=== PATIENT | male | born 1975 | race Caucasian/White ===

== ENCOUNTER 2018-04-25 14:41 | Inpatient (IN) | payer BC ==
[2018-04-25] MEDS ORDERED: Sodium Chloride 0.9% 1,000 ML IV ONE ×2 (15:28→16:57)
[2018-04-25] MEDS ORDERED: Ondansetron 4 MG/2 ML SDV IVPUSH ONE (15:29)
[2018-04-25] MEDS ORDERED: HYDROmorphone 0.5 MG/0.5 ML SYRINGE IVPUSH ONE (15:29)
[2018-04-25] MEDS ORDERED: Sodium Chloride 0.9% 10 ML Syringe FLUSH PRN (15:32)
--- NOTE | 2018-04-25 15:47 | EDM.PDOC ---
ED HPI GENERAL MEDICAL PROBLEM - General Chief Complaint: Lower Extremity Injury/Pain Stated Complaint: RIGHT FOOT INJURY Time Seen by Provider: 04/25/18 15:17 Source of Information: Reports: Patient History Limitations: Reports: No Limitations - History of Present Illness INITIAL COMMENTS - FREE TEXT/NARRATIVE: 42-year-old male presents for is sent over from the walk-in clinic for cellulitis. Patient was seen there. [place] he needed admission with IV antibiotics and possible debridement. Dr. Masterson, hospitalist, and Dr. Tamez, surgeon production department supervisor, were contacted; instructed to come to the ER. patient reports the initial injury was a blister to the ball of his right foot. He reports he was walking around [place] 2 weeks ago when he developed this blister. Symptoms have steadily been worsening. He currently has an open ulcerative area to the ball of his right foot. He has drainage from the area. He denies any fevers but states he is getting chills. He has been feeling nauseous and did vomit earlier today. Reports no numbness or tingling to the area but he is experiencing a throbbing pain to the right foot. Has been icing the foot and taking an aspirin. No history of this. No history of MRSA. No history of diabetes. PCP is Dr. Choudhary, reports he has not seen him in several years. Right Feet Pain Score (Numeric/FACES): 8 - Related Data Allergies Allergy/AdvReac Type Severity Reaction Status Date / Time No Known Allergies Allergy Verified 04/25/18 18:04 Home Meds: Home Meds . [No Known Home Meds] 04/25/18 [History] Past Medical History - Past Health History Medical/Surgical History: Denies Medical/Surgical History Social & Family History - Family History Family Medical History: Noncontributory - Tobacco Use Smoking Status *Q: Never Smoker - Recreational Drug Use Recreational Drug Use: No Review of Systems - Review of Systems Review Of Systems: See Below Constitutional: Reports: Chills. Denies: Fever GI/Abdominal: Reports: Nausea, Vomiting Musculoskeletal: Reports: Foot Pain (Right), Joint Swelling (Right foot) Skin: Reports: Erythema (Right foot), Wound (Ball of right foot has an open ulcer lesion with drainage) Neurological: Denies: Numbness, Tingling ED EXAM, GENERAL - Physical Exam Exam: See Below Exam Limited By: No Limitations General Appearance: Alert, WD/WN, No Apparent Distress Respiratory/Chest: No Respiratory Distress, Lungs Clear, Normal Breath Sounds Cardiovascular: Normal Peripheral Pulses, No Murmur, Tachycardia Peripheral Pulses: 2+: Posterior Tibial (L), Dorsalis Pedis (L), 3+: Posterior Tibial (R), Dorsalis Pedis (R) Extremities: Other (Approximately 6 cm x 4 cm ulcerative draining wound to the ball of the right foot. Entire right foot is erythematous and warm to touch. Coughing skin present to the right lateral third toe. Cellulitis extends to approximately the ankle. Tender to palpation) Neurological: Alert, Oriented, Normal Cognition Psychiatric: Normal Affect, Normal Mood Skin Exam: Erythema (Right foot), Increased Warmth (Right foot), Wound/Incision (Ball of right foot, draining prurlent Material) Course - Vital Signs Last Recorded V/S: Last Vital Signs Temp 99.3 F 04/25/18 21:44 Pulse 107 H 04/25/18 21:44 Resp 20 04/25/18 21:44 BP 132/73 04/25/18 21:44 Pulse Ox 98 04/25/18 21:44 - Orders/Labs/Meds Orders: Active Orders 24 hr Category Date Time Status Foot Comp Min 3V Rt [CR] Stat Exams 04/25/18 15:29 Taken CULTURE ANAEROBIC + SMEAR [RM] Stat Lab 04/25/18 15:56 Received CULTURE BLOOD [BC] Stat Lab 04/25/18 15:50 Received CULTURE BLOOD [BC] Stat Lab 04/25/18 15:55 Received CULTURE WOUND [RM] Stat Lab 04/25/18 15:56 Received Sodium Chloride 0.9% [Saline Flush] Med 04/25/18 15:32 Active 10 ml FLUSH ASDIRECTED PRN Blood Culture x2 Reflex Set [OM.PC] Stat Oth 04/25/18 15:29 Ordered Peripheral IV Insertion Adult [OM.PC] Routine Oth 04/25/18 15:32 Ordered Medication Orders Acetaminophen (Tylenol) 650 mg PO Q4H PRN PRN Reason: Pain (Mild 1-3)/fever Hydrocodone Bitart/Acetaminophen (Adrian 325-5 Mg) 1 tab PO Q4H PRN PRN Reason: Pain (moderate 4-6) Albuterol/Ipratropium (Duoneb 3.0-0.5 Mg/3 Ml) 3 ml NEB Q4H PRN PRN Reason: Shortness Of Breath/wheezing Aspirin (Aspirin) 81 mg PO BEDTIME [facility] Last Admin: 04/25/18 22:45 Dose: 81 mg Bisacodyl (Dulcolax) 5 mg PO DAILY PRN PRN Reason: Constipation Docusate Sodium (Colace) 100 mg PO BID PRN PRN Reason: Constipation Enoxaparin Sodium (Lovenox) 40 mg SUBCUT DAILY [facility] Fentanyl (Sublimaze) 50 mcg IVPUSH Q5M PRN PRN Reason: Pain Glipizide (Glucotrol Xl) 5 mg PO BIDMEALS [facility] Last Admin: 04/25/18 22:54 Dose: 5 mg Hydromorphone HCl (Dilaudid) 0.5 mg IVPUSH Q4H PRN PRN Reason: Pain (severe 7-10) Hydromorphone HCl (Dilaudid) 0.5 mg IVPUSH ONETIME PRN PRN Reason: Pain (severe 7-10) Promethazine HCl 12.5 mg/ (Sodium Chloride) 50.5 mls @ 100 mls/hr IV Q6H PRN PRN Reason: Nausea/Vomiting Vancomycin HCl 1 gm/ Sodium (Chloride) 250 mls @ 250 mls/hr IV Q8H [facility] Last Admin: 04/25/18 23:00 Dose: 250 mls/hr Piperacillin Sod/Tazobactam (Sod 4.5 gm/ Sodium Chloride) 100 mls @ 25 mls/hr IV Q8H [facility] Clindamycin Phosphate 900 mg/ (Sodium Chloride) 106 mls @ 100 mls/hr IV Q8H [facility] Last Admin: 04/25/18 22:42 Dose: Insulin Human Lispro (Humalog) 0 unit SUBCUT QIDACANDBED [facility]; Protocol Last Admin: 04/25/18 22:43 Dose: 4 units Admin: 04/25/18 18:21 Dose: 6 units Lisinopril (Prinivil) 10 mg PO DAILY [facility] Lorazepam (Ativan) 1 mg IV Q6H PRN PRN Reason: Nausea/Vomiting Metformin HCl (Glucophage) 500 mg PO BIDMEALS [facility] Ondansetron HCl (Zofran) 4 mg IV Q6H PRN PRN Reason: Nausea/Vomiting Ondansetron HCl (Zofran) 4 mg IVPUSH ONETIME PRN PRN Reason: Nausea/Vomiting Polyethylene Glycol (Miralax) 17 gm PO DAILY PRN PRN Reason: Constipation Saccharomyces Boulardii (Florastor) 250 mg PO DAILY [facility] Senna/Docusate Sodium (Senna Plus) 1 tab PO BID PRN PRN Reason: Constipation Sodium Chloride (Saline Flush) 10 ml FLUSH ASDIRECTED PRN PRN Reason: Keep Vein Open Last Admin: 04/25/18 16:00 Dose: 10 ml Temazepam (Restoril) 15 mg PO BEDTIME PRN PRN Reason: Sleep Vancomycin HCl (Pharmacy To Dose - Vancomycin) 1 dose .XX ASDIRECTED [facility] Labs: Laboratory Tests 04/25/18 04/25/18 04/25/18 Range/Units 15:50 15:50 15:50 WBC 18.92 H (4.23-9.07) K/mm3 RBC 4.99 (4.63-6.08) M/mm3 Hgb 13.9 (13.7-17.5) gm/L Hct 39.6 L (40.1-51.0) % MCV 79.4 (79.0-92.2) fl MCH 27.9 (25.7-32.2) pg MCHC 35.1 (32.2-35.5) g/dl RDW Std Deviation 36.7 (35.1-43.9) fL Plt Count 312 (163-337) K/mm3 MPV 9.1 L (9.4-12.3) fl Neutrophils % (Manual) 86 H (40-60) % Band Neutrophils % 0 (0-10) % Lymphocytes % (Manual) 11 L (20-40) % Atypical Lymphs % 0 % Monocytes % (Manual) 3 (2-10) % Eosinophils % (Manual) 0 L (0.8-7.0) % Basophils % (Manual) 0 L (0.2-1.2) Platelet Estimate Adequate RBC Morph Comment Normal Sodium 131 L (136-145) mEq/L Potassium 3.8 (3.5-5.1) mEq/L Chloride 95 L (98-107) mEq/L Carbon Dioxide 26 (21-32) mEq/L Anion Gap 13.8 (5-15) BUN 12 (7-18) mg/dL Creatinine 1.0 (0.7-1.3) mg/dL Est Cr Clr Drug Dosing 85.95 mL/min Estimated GFR (MDRD) > 60 (>60) mL/min BUN/Creatinine Ratio 12.0 L (14-18) Glucose 355 H (74-106) mg/dL Hemoglobin A1c (4.50-6.20) % Lactic Acid 1.7 (0.4-2.0) mmol/L Calcium 8.9 (8.5-10.1) mg/dL Total Bilirubin 0.5 (0.2-1.0) mg/dL AST 24 (15-37) U/L ALT 41 (16-63) U/L Alkaline Phosphatase 147 H (46-116) U/L C-Reactive Protein 36.0 H* (<1.0) mg/dL Total Protein 7.7 (6.4-8.2) g/dl Albumin 2.5 L (3.4-5.0) g/dl Globulin 5.2 gm/dL Albumin/Globulin Ratio 0.5 L (1-2) Free T4 (0.76-1.46) ng/dL TSH 3rd Generation (0.358-3.74) uIU/mL 04/25/18 04/25/18 Range/Units 15:50 15:50 WBC (4.23-9.07) K/mm3 RBC (4.63-6.08) M/mm3 Hgb (13.7-17.5) gm/L Hct (40.1-51.0) % MCV (79.0-92.2) fl MCH (25.7-32.2) pg MCHC (32.2-35.5) g/dl RDW Std Deviation (35.1-43.9) fL Plt Count (163-337) K/mm3 MPV (9.4-12.3) fl Neutrophils % (Manual) (40-60) % Band Neutrophils % (0-10) % Lymphocytes % (Manual) (20-40) % Atypical Lymphs % % Monocytes % (Manual) (2-10) % Eosinophils % (Manual) (0.8-7.0) % Basophils % (Manual) (0.2-1.2) Platelet Estimate RBC Morph Comment Sodium (136-145) mEq/L Potassium (3.5-5.1) mEq/L Chloride (98-107) mEq/L Carbon Dioxide (21-32) mEq/L Anion Gap (5-15) BUN (7-18) mg/dL Creatinine (0.7-1.3) mg/dL Est Cr Clr Drug Dosing mL/min Estimated GFR (MDRD) (>60) mL/min BUN/Creatinine Ratio (14-18) Glucose (74-106) mg/dL Hemoglobin A1c 11.80 H (4.50-6.20) % Lactic Acid (0.4-2.0) mmol/L Calcium (8.5-10.1) mg/dL Total Bilirubin (0.2-1.0) mg/dL AST (15-37) U/L ALT (16-63) U/L Alkaline Phosphatase (46-116) U/L C-Reactive Protein (<1.0) mg/dL Total Protein (6.4-8.2) g/dl Albumin (3.4-5.0) g/dl Globulin gm/dL Albumin/Globulin Ratio (1-2) Free T4 1.26 (0.76-1.46) ng/dL TSH 3rd Generation 0.788 (0.358-3.74) uIU/mL Meds: Medications Generic Name Dose Route Start Last Admin Trade Name Freq PRN Reason Stop Dose Admin Acetaminophen 650 mg 04/25/18 17:41 Tylenol PO Q4H PRN Pain (Mild 1-3)/fever Hydrocodone Bitart/Acetaminophen 1 tab 04/25/18 17:41 Adrian 325-5 Mg PO Q4H PRN Pain (moderate 4-6) Albuterol/Ipratropium 3 ml 04/25/18 17:41 Duoneb 3.0-0.5 Mg/3 Ml NEB Q4H PRN Shortness Of Breath/wheezing Aspirin 81 mg 04/25/18 21:00 04/25/18 22:45 Aspirin PO 81 mg BEDTIME [facility] Administration Bisacodyl 5 mg 04/25/18 17:41 Dulcolax PO DAILY PRN Constipation Docusate Sodium 100 mg 04/25/18 17:41 Colace PO BID PRN Constipation Enoxaparin Sodium 40 mg 04/26/18 09:00 Lovenox SUBCUT DAILY [facility] Fentanyl 50 mcg 04/25/18 19:26 Sublimaze IVPUSH Q5M PRN Pain Glipizide 5 mg 04/25/18 18:00 04/25/18 22:54 Glucotrol Xl PO 5 mg BIDMEALS [facility] Administration Hydromorphone HCl 0.5 mg 04/25/18 17:41 Dilaudid IVPUSH Q4H PRN Pain (severe 7-10) Hydromorphone HCl 0.5 mg 04/25/18 19:26 Dilaudid IVPUSH ONETIME PRN Pain (severe 7-10) Promethazine HCl 12.5 mg/ 50.5 mls @ 100 mls/hr 04/25/18 17:41 Sodium Chloride IV Q6H PRN Nausea/Vomiting Vancomycin HCl 1 gm/ Sodium 250 mls @ 250 mls/hr 04/26/18 00:00 04/25/18 23: 00 Chloride IV 250 mls/hr Q8H [facility] Administration Piperacillin Sod/Tazobactam 100 mls @ 25 mls/hr 04/26/18 00:00 Sod 4.5 gm/ Sodium Chloride IV Q8H [facility] Clindamycin Phosphate 900 mg/ 106 mls @ 100 mls/hr 04/25/18 19:00 04/25/18 22 :42 Sodium Chloride IV Not Given Q8H [facility] Insulin Human Lispro 0 unit 04/25/18 22:00 04/25/18 22:43 Humalog SUBCUT 4 units QIDACANDBED [facility] Administration Protocol Lisinopril 10 mg 04/26/18 09:00 Prinivil PO DAILY [facility] Lorazepam 1 mg 04/25/18 17:41 Ativan IV Q6H PRN Nausea/Vomiting Metformin HCl 500 mg 04/26/18 07:00 Glucophage PO BIDMEALS [facility] Ondansetron HCl 4 mg 04/25/18 17:41 Zofran IV Q6H PRN Nausea/Vomiting Ondansetron HCl 4 mg 04/25/18 19:26 Zofran IVPUSH ONETIME PRN Nausea/Vomiting Polyethylene Glycol 17 gm 04/25/18 17:41 Miralax PO DAILY PRN Constipation Saccharomyces Boulardii 250 mg 04/26/18 09:00 Florastor PO DAILY [facility] Senna/Docusate Sodium 1 tab 04/25/18 17:41 Senna Plus PO BID PRN Constipation Sodium Chloride 10 ml 04/25/18 15:32 04/25/18 16:00 Saline Flush FLUSH 10 ml ASDIRECTED PRN Administration Keep Vein Open Temazepam 15 mg 04/25/18 17:41 Restoril PO BEDTIME PRN Sleep Vancomycin HCl 1 dose 04/25/18 17:45 Pharmacy To Dose - Vancomycin .XX ASDIRECTED [facility] Discontinued Medications Generic Name Dose Route Start Last Admin Trade Name Freq PRN Reason Stop Dose Admin Bupivacaine HCl Confirm 04/25/18 18:22 04/25/18 19:53 Marcaine 0.5% Administered 04/25/18 18:23 1.5 ml Dose Administration 30 ml .ROUTE .STK-MED ONE Clindamycin Phosphate Confirm 04/25/18 19:10 Cleocin Administered 04/25/18 19:11 Dose 900 mg .ROUTE .STK-MED ONE Fentanyl Confirm 04/25/18 18:37 Sublimaze Administered 04/25/18 18:38 Dose 250 mcg .ROUTE .STK-MED ONE Hydromorphone HCl 0.5 mg 04/25/18 15:29 04/25/18 16:01 Dilaudid IVPUSH 04/25/18 15:30 0.5 mg ONETIME ONE Administration Hydromorphone HCl Confirm 04/25/18 19:02 Dilaudid Administered 04/25/18 19:03 Dose 1 mg .ROUTE .STK-MED ONE Sodium Chloride 1,000 mls @ 999 mls/hr 04/25/18 15:28 04/25/18 15:59 Normal Saline IV 04/25/18 16:28 999 mls/hr ONETIME ONE Administration Vancomycin HCl 1 gm/ Sodium 250 mls @ 250 mls/hr 04/25/18 15:37 04/25/18 16: 10 Chloride IV 04/25/18 16:36 250 mls/hr ONETIME ONE Administration Vancomycin HCl 1 gm/ Sodium 250 mls @ 250 mls/hr 04/25/18 15:38 04/25/18 17: 09 Chloride IV 04/25/18 16:37 250 mls/hr ONETIME ONE Administration Sodium Chloride 1,000 mls @ 999 mls/hr 04/25/18 16:57 04/25/18 17:09 Normal Saline IV 04/25/18 17:57 999 mls/hr ONETIME ONE Administration Piperacillin Sod/Tazobactam 100 mls @ 200 mls/hr 04/25/18 17:55 04/25/18 18: 18 Sod 4.5 gm/ Sodium Chloride IV 04/25/18 18:24 200 mls/hr ONETIME ONE Administration Lidocaine HCl Confirm 04/25/18 18:37 Xylocaine-Mpf 1% Administered 04/25/18 18:38 Dose 4 mls @ as directed .ROUTE .STK-MED ONE Sodium Chloride Confirm 04/25/18 19:10 Normal Saline Administered 04/25/18 19:11 Dose 100 mls @ as directed .ROUTE .STK-MED ONE Ketamine HCl Confirm 04/25/18 19:10 Ketalar Administered 04/25/18 19:11 Dose 500 mg .ROUTE .STK-MED ONE Lidocaine/Epinephrine Confirm 04/25/18 18:22 04/25/18 19:53 Xylocaine 1% With Epinephrine 1:100,000 Administered 04/25/18 18:23 1.5 ml Dose Administration 20 ml .ROUTE .STK-MED ONE Metformin HCl 500 mg 04/25/18 23:00 Glucophage PO 04/25/18 23:01 ONETIME ONE Midazolam HCl Confirm 04/25/18 18:37 Versed 1 Mg/Ml Administered 04/25/18 18:38 Dose 2 mg .ROUTE .STK-MED ONE Ondansetron HCl 4 mg 04/25/18 15:29 04/25/18 16:03 Zofran IVPUSH 04/25/18 15:30 4 mg ONETIME ONE Administration Ondansetron HCl Confirm 04/25/18 18:37 Zofran Administered 04/25/18 18:38 Dose 4 mg .ROUTE .STK-MED ONE Propofol Confirm 04/25/18 18:37 Diprivan 20 Ml Administered 04/25/18 18:38 Dose 200 mg .ROUTE .STK-MED ONE Succinylcholine Chloride Confirm 04/25/18 18:37 Succinylcholine In Ns Pf Administered 04/25/18 18:38 Dose 100 mg .ROUTE .STK-MED ONE Vancomycin HCl 1,190.685 mg 04/25/18 17:45 04/25/18 18:15 Vancomycin 15 mg/kg (1190.685 mg) Not Given IV Q12H [facility] - Radiology Interpretation Free Text/Narrative:: X-ray of the right foot does not show any obvious osteomyelitis. No obvious air within the soft tissues appreciated - Re-Assessments/Exams Free Text/Narrative Re-Assessment/Exam: 04/25/18 17:06 Dr. Tamez has come into the patient in the ED. Does not feel that he needs debridement at this time is recommended admission for IV antibiotics. Case discussed with Dr. Masterson, hospice on-call, agrees to the admission. White blood cell count is elevated. Lactic acid is within normal limits. Awaiting further labs. At this time the remainder of the labs have returned. His blood sugar is elevated at 355. A1c added onto labs. I discussed the labs and imaging with the patient; he has been told he is a diabetic. He has been seeing Dr. Choudhary as his primary care but has been several years since he is seeing him. No family history of any diabetes. 04/25/18 18:05 Joi has return to the ED. Concerns over his labs with his sodium being low and his blood sugar being so high. He is at higher risk for necrotizing soft tissue. He would like to go to the OR now for debridement. IV Zosyn added on to orders. Anesthesia was like an EKG. Will recheck his sugar now that he has had 2 L of fluid and follow insulin recommendations. Departure - Departure Time of Disposition: 18:10 Disposition: Admitted As Inpatient 65 Condition: Serious Clinical Impression: Cellulitis Qualifiers: Site of cellulitis: extremity Site of cellulitis of extremity: lower extremity Laterality: right Qualified Code(s): L03.115 - Cellulitis of right lower limb Diabetes mellitus Qualifiers: Diabetes mellitus type: type 2 Diabetes mellitus complication detail: with foot ulcer - Discharge Information *PRESCRIPTION DRUG MONITORING PROGRAM REVIEWED*: No *COPY OF PRESCRIPTION DRUG MONITORING REPORT IN PATIENT SHAYLEE: No - My Orders Last 24 Hours: My Active Orders 04/25/18 15:29 Foot Comp Min 3V Rt [CR] Stat Blood Culture x2 Reflex Set [OM.PC] Stat 04/25/18 15:32 Sodium Chloride 0.9% [Saline Flush] 10 ml FLUSH ASDIRECTED PRN Peripheral IV Insertion Adult [OM.PC] Routine 04/25/18 15:50 CULTURE BLOOD [BC] Stat 04/25/18 15:55 CULTURE BLOOD [BC] Stat 04/25/18 15:56 CULTURE ANAEROBIC + SMEAR [RM] Stat CULTURE WOUND [RM] Stat - Assessment/Plan Last 24 Hours: My Active Orders 04/25/18 15:29 Foot Comp Min 3V Rt [CR] Stat Blood Culture x2 Reflex Set [OM.PC] Stat 04/25/18 15:32 Sodium Chloride 0.9% [Saline Flush] 10 ml FLUSH ASDIRECTED PRN Peripheral IV Insertion Adult [OM.PC] Routine 04/25/18 15:50 CULTURE BLOOD [BC] Stat 04/25/18 15:55 CULTURE BLOOD [BC] Stat 04/25/18 15:56 CULTURE ANAEROBIC + SMEAR [RM] Stat CULTURE WOUND [RM] Stat
[2018-04-25] MEDS ORDERED: metFORMIN 500 MG Tab PO ONE ×3 (17:40→23:00)
[2018-04-25] MEDS ORDERED: LORazepam 2 MG/ML SDV IV PRN (17:41)
[2018-04-25] MEDS ORDERED: Temazepam 15 MG Cap PO PRN (17:41)
[2018-04-25] MEDS ORDERED: Promethazine 12.5 MG in Sodium Chloride 0.9% 50 ML IV PRN (17:41)
[2018-04-25] MEDS ORDERED: Bisacodyl 5 MG Tab PO PRN (17:41)
[2018-04-25] MEDS ORDERED: Polyethylene Glycol 3350 Powder 17 GM Packet PO PRN (17:41)
[2018-04-25] MEDS ORDERED: Albuterol/Ipratropium 3.0-0.5 MG/3 ML Neb Soln NEB PRN (17:41)
[2018-04-25] MEDS ORDERED: Acetaminophen 325 MG Tab PO PRN (17:41)
[2018-04-25] MEDS ORDERED: Docusate Sodium 100 MG Cap PO PRN (17:41)
[2018-04-25] MEDS ORDERED: Vancomycin 500 MG SDV IV SCH (17:45)
[2018-04-25] MEDS ORDERED: Piperacillin/Tazobactam 4.5 GM in Sodium Chloride 0.9% 100 ML IV ONE (17:55)
[2018-04-25] MEDS: Insulin Lispro 100 Unit/ML 3 ML KwikPen SUBCUT SCH ×2 (18:21→22:43)
[2018-04-25] MEDS ORDERED: Bupivacaine 0.5% 30 ML SDV ONE (18:22)
[2018-04-25] MEDS ORDERED: Lidocaine 1% with EPINEPHrine 1:100,000 20 ML MDV ONE (18:22)
--- NOTE | 2018-04-25 18:25 | PCM.HP ---
<Cynthia Gustafson - Last Filed: 04/25/18 18:55> H&P History of Present Illness - General Date of Service: 04/25/18 Admit Problem/Dx: Admission Diagnosis/Problem Admission Diagnosis/Problem Cellulitis Source of Information: Patient History Limitations: Reports: No Limitations - History of Present Illness Initial Comments - Free Text/Narative: 42 y/o male presented to the [id number] 04[facility]25/18 with right foot pain. He was referred to the ER due to suspected cellulitis and anticipated need for debridement and IV antibiotics. Dr. Masterson, hospitalist, and Dr. Tamez, surgeon, were notified. Patient reports the initial injury was a blister to the ball of his right foot. He reports he was walking around [place] 2 weeks ago when he developed this blister. Symptoms have steadily been worsening. He currently has an open ulcerative area to the ball of his right foot. He has drainage from the area. He denies any fevers but states he is getting chills. He has been feeling nauseous and did vomit earlier today. Reports no numbness or tingling to the area but he is experiencing a throbbing pain to the right foot. Has been icing the foot and taking an aspirin. He has not experienced this previously. No history of MRSA. No history of diabetes. Labs drawn in the ER display high WBC (18.92) and high neutrophils (86). Sodium is low at 131 and choride low at 95. CRP is highly elevated at 36. Labs also show elevated glucose (355) and HbgA1c (11.8). Patient was informed that he has diabetes. He expresses some confusion regarding the diagnosis but admits he has not been to a doctor for years. He denies any family history of diabetes. Other tests done in the ER include blood cultures and right foot x-ray. We are awaiting these results. He was given vancomycin, dilaudid, zofran, and saline in the ER. He has now been admitted to the floor for management of his cellulitis and diabetes, including IV antibiotics, diabetes medications, and surgical debridement. Onset of Symptoms: Reports: Gradual Duration of Symptoms: Reports: Week(s): Location: Reports: Lower Extremity, Right Quality: Reports: Throbbing Severity: Severe Associated Symptoms: Reports: Fever/Chills (reports chills but not fever), Nausea/Vomiting Right Feet Pain Score (Numeric/FACES): 8 - Related Data Allergies/Adverse Reactions: Allergies Allergy/AdvReac Type Severity Reaction Status Date / Time No Known Allergies Allergy Verified 04/25/18 18:04 Home Medications: Home Meds . [No Known Home Meds] 04/25/18 [History] Past Medical History - Past Health History Medical/Surgical History: Denies Medical/Surgical History Endocrine/Metabolic History: Reports: Diabetes, Type II, Other (See Below) Other Endocrine/Metabolic History: new diagnosis diabetes Dermatologic History: Reports: Cellulitis, Other (See Below) Other Dermatologic History: diagnosis of diabetes Social & Family History - Family History Family Medical History: Noncontributory - Tobacco Use Smoking Status *Q: Never Smoker - Recreational Drug Use Recreational Drug Use: No H&P Review of Systems - Review of Systems: Review Of Systems: See Below General: Reports: Chills HEENT: Reports: No Symptoms Pulmonary: Reports: No Symptoms Cardiovascular: Reports: No Symptoms Gastrointestinal: Reports: No Symptoms Genitourinary: Reports: No Symptoms Musculoskeletal: Reports: Foot Pain (right) Skin: Reports: Wound (ulcer on bottom right foot) Psychiatric: Reports: No Symptoms Neurological: Reports: No Symptoms Hematologic/Lymphatic: Reports: No Symptoms Immunologic: Reports: No Symptoms Exam - Exam Exam: See Below - Vital Signs Vital Signs: Last Vital Signs Temp 97.5 F 04/25/18 15:07 Pulse 106 H 04/25/18 15:07 Resp 16 04/25/18 15:07 BP 125/74 04/25/18 15:07 Pulse Ox 100 04/25/18 15:07 Weight: 79.379 kg - Exam Quality Assessment: Skin Breakdown (right foot ulcer) Neck: Supple, Trachea Midline Lungs: Clear to Auscultation, Normal Respiratory Effort GI/Abdominal Exam: Normal Bowel Sounds, Soft, Non-Tender Back Exam: Normal Inspection, Full Range of Motion Extremities: Normal Range of Motion, Leg Pain (r. foot), Increased Warmth (r. foot), Redness (r. foot) Peripheral Pulses: 2+: Radial (L), Radial (R), Posterior Tibial (L), Posterior Tibial (R) Skin: Wound (r. foot) Neuro Extensive - Mental Status: Alert, Normal Mood/Affect Psychiatric: Alert, Normal Affect, Normal Mood - Patient Data Lab Results Last 24 hrs: Laboratory Results - last 24 hr 04/25/18 04/25/18 04/25/18 Range/Units 15:50 15:50 15:50 WBC 18.92 H (4.23-9.07) K/mm3 RBC 4.99 (4.63-6.08) M/mm3 Hgb 13.9 (13.7-17.5) gm/L Hct 39.6 L (40.1-51.0) % MCV 79.4 (79.0-92.2) fl MCH 27.9 (25.7-32.2) pg MCHC 35.1 (32.2-35.5) g/dl RDW Std Deviation 36.7 (35.1-43.9) fL Plt Count 312 (163-337) K/mm3 MPV 9.1 L (9.4-12.3) fl Neutrophils % (Manual) 86 H (40-60) % Band Neutrophils % 0 (0-10) % Lymphocytes % (Manual) 11 L (20-40) % Atypical Lymphs % 0 % Monocytes % (Manual) 3 (2-10) % Eosinophils % (Manual) 0 L (0.8-7.0) % Basophils % (Manual) 0 L (0.2-1.2) Platelet Estimate Adequate RBC Morph Comment Normal Sodium 131 L (136-145) mEq/L Potassium 3.8 (3.5-5.1) mEq/L Chloride 95 L (98-107) mEq/L Carbon Dioxide 26 (21-32) mEq/L Anion Gap 13.8 (5-15) BUN 12 (7-18) mg/dL Creatinine 1.0 (0.7-1.3) mg/dL Est Cr Clr Drug Dosing 85.95 mL/min Estimated GFR (MDRD) > 60 (>60) mL/min BUN/Creatinine Ratio 12.0 L (14-18) Glucose 355 H (74-106) mg/dL Hemoglobin A1c (4.50-6.20) % Lactic Acid 1.7 (0.4-2.0) mmol/L Calcium 8.9 (8.5-10.1) mg/dL Total Bilirubin 0.5 (0.2-1.0) mg/dL AST 24 (15-37) U/L ALT 41 (16-63) U/L Alkaline Phosphatase 147 H (46-116) U/L C-Reactive Protein 36.0 H* (<1.0) mg/dL Total Protein 7.7 (6.4-8.2) g/dl Albumin 2.5 L (3.4-5.0) g/dl Globulin 5.2 gm/dL Albumin/Globulin Ratio 0.5 L (1-2) Ur Random Microalbumin (1.3-20.0) mg/L 04/25/18 04/25/18 Range/Units 15:50 17:17 WBC (4.23-9.07) K/mm3 RBC (4.63-6.08) M/mm3 Hgb (13.7-17.5) gm/L Hct (40.1-51.0) % MCV (79.0-92.2) fl MCH (25.7-32.2) pg MCHC (32.2-35.5) g/dl RDW Std Deviation (35.1-43.9) fL Plt Count (163-337) K/mm3 MPV (9.4-12.3) fl Neutrophils % (Manual) (40-60) % Band Neutrophils % (0-10) % Lymphocytes % (Manual) (20-40) % Atypical Lymphs % % Monocytes % (Manual) (2-10) % Eosinophils % (Manual) (0.8-7.0) % Basophils % (Manual) (0.2-1.2) Platelet Estimate RBC Morph Comment Sodium (136-145) mEq/L Potassium (3.5-5.1) mEq/L Chloride (98-107) mEq/L Carbon Dioxide (21-32) mEq/L Anion Gap (5-15) BUN (7-18) mg/dL Creatinine (0.7-1.3) mg/dL Est Cr Clr Drug Dosing mL/min Estimated GFR (MDRD) (>60) mL/min BUN/Creatinine Ratio (14-18) Glucose (74-106) mg/dL Hemoglobin A1c 11.80 H (4.50-6.20) % Lactic Acid (0.4-2.0) mmol/L Calcium (8.5-10.1) mg/dL Total Bilirubin (0.2-1.0) mg/dL AST (15-37) U/L ALT (16-63) U/L Alkaline Phosphatase (46-116) U/L C-Reactive Protein (<1.0) mg/dL Total Protein (6.4-8.2) g/dl Albumin (3.4-5.0) g/dl Globulin gm/dL Albumin/Globulin Ratio (1-2) Ur Random Microalbumin 14.6 (1.3-20.0) mg/L Result Diagrams: 04/25/18 15:50 04/25/18 15:50 - Problem List (1) Cellulitis SNOMED Code(s): 583817708 ICD Code: L03.90 - CELLULITIS, UNSPECIFIED Status: Acute Current Visit: Yes Qualifiers: Site of cellulitis: extremity Site of cellulitis of extremity: lower extremity Laterality: right Qualified Code(s): L03.115 - Cellulitis of right lower limb (2) Diabetes mellitus SNOMED Code(s): 34975052 ICD Code: E11.9 - TYPE 2 DIABETES MELLITUS WITHOUT COMPLICATIONS Status: Acute Current Visit: Yes Qualifiers: Diabetes mellitus type: type 2 Diabetes mellitus complication detail: with foot ulcer Problem List Initiated/Reviewed/Updated: Yes Orders Last 24hrs: Active Orders 24 hr Category Date Time Status Patient Status [ADT] Routine ADT 04/25/18 16:57 Active Accu Check [Blood Glucose Check, Bedside] [] Care 04/25/18 17:39 Active QIDACANDBED Blood Glucose Check, Bedside [RC] ONETIME Care 04/25/18 17:59 Active Diabetes Education [RC] DAILY Care 04/25/18 17:39 Active EKG 12 Lead [EKG Documentation Completion] [RC] STAT Care 04/25/18 17:56 Active Height and Weight [RC] DAILY Care 04/25/18 17:41 Active Intake and Output [RC] QSHIFT Care 04/25/18 17:42 Active Oxygen Therapy [RC] PRN Care 04/25/18 17:42 Active Peripheral IV Care [RC] . DIRECTED Care 04/25/18 15:32 Active RT Aerosol Therapy [RC] ASDIRECTED Care 04/25/18 17:44 Active Up With Assistance [RC] ASDIRECTED Care 04/25/18 17:41 Active Up ad Nancy [RC] ASDIRECTED Care 04/25/18 17:41 Active VTE/DVT Education [RC] PER UNIT ROUTINE Care 04/25/18 17:42 Active Vital Signs [RC] Q4H Care 04/25/18 17:42 Active Consult to Case Management [CONS] Routine Cons 04/25/18 17:41 Active Consult to Diabetic Nurse Specialist [CONS] Routine Cons 04/25/18 17:39 Active Consult to Dietary [Consult to Licensed Reactor Operator] [CONS] Cons 04/25/18 17:39 Active Routine Consistent Carbohydrate Diet [DIET] Diet 04/25/18 Dinner Active Foot Comp Min 3V Rt [CR] Stat Exams 04/25/18 15:29 Taken BASIC METABOLIC PANEL,BMP [CHEM] AM Lab 04/26/18 05:11 Ordered BASIC METABOLIC PANEL,BMP [CHEM] AM Lab 04/27/18 05:11 Ordered BASIC METABOLIC PANEL,BMP [CHEM] AM Lab 04/28/18 05:11 Ordered BASIC METABOLIC PANEL,BMP [CHEM] AM Lab 04/29/18 05:11 Ordered BASIC METABOLIC PANEL,BMP [CHEM] AM Lab 04/30/18 05:11 Ordered BASIC METABOLIC PANEL,BMP [CHEM] AM Lab 05/01/18 05:11 Ordered C-REACTIVE PROTEIN [CHEM] AM Lab 04/26/18 05:11 Ordered C-REACTIVE PROTEIN [CHEM] AM Lab 04/27/18 05:11 Ordered C-REACTIVE PROTEIN [CHEM] AM Lab 04/28/18 05:11 Ordered C-REACTIVE PROTEIN [CHEM] AM Lab 04/29/18 05:11 Ordered C-REACTIVE PROTEIN [CHEM] AM Lab 04/30/18 05:11 Ordered C-REACTIVE PROTEIN [CHEM] AM Lab 05/01/18 05:11 Ordered CBC WITH AUTO DIFF [HEME] AM Lab 04/26/18 05:11 Ordered CBC WITH AUTO DIFF [HEME] AM Lab 04/27/18 05:11 Ordered CBC WITH AUTO DIFF [HEME] AM Lab 04/28/18 05:11 Ordered CBC WITH AUTO DIFF [HEME] AM Lab 04/29/18 05:11 Ordered CBC WITH AUTO DIFF [HEME] AM Lab 04/30/18 05:11 Ordered CBC WITH AUTO DIFF [HEME] AM Lab 05/01/18 05:11 Ordered CULTURE ANAEROBIC + SMEAR [RM] Stat Lab 04/25/18 15:56 Received CULTURE BLOOD [BC] Stat Lab 04/25/18 15:50 Received CULTURE BLOOD [BC] Stat Lab 04/25/18 15:55 Received CULTURE WOUND [RM] Stat Lab 04/25/18 15:56 Received LIPID PANEL [CHEM] AM Lab 04/26/18 05:11 Ordered MAGNESIUM [CHEM] AM Lab 04/26/18 05:11 Ordered MAGNESIUM [CHEM] AM Lab 04/27/18 05:11 Ordered MAGNESIUM [CHEM] AM Lab 04/28/18 05:11 Ordered MAGNESIUM [CHEM] AM Lab 04/29/18 05:11 Ordered MAGNESIUM [CHEM] AM Lab 04/30/18 05:11 Ordered MAGNESIUM [CHEM] AM Lab 05/01/18 05:11 Ordered MICROALBUMIN,URINE RANDOM [URCHEM] Urgent Lab 04/25/18 17:17 Ordered T4 FREE [CHEM] Urgent Lab 04/25/18 15:50 Received TSH [CHEM] Urgent Lab 04/25/18 15:50 Received UA W/MICROSCOPIC [URIN] Stat Lab 04/25/18 17:17 Received Acetaminophen [Tylenol] Med 04/25/18 17:41 Active 650 mg PO Q4H PRN Acetaminophen/HYDROcodone [[place] 325-5 MG] Med 04/25/18 17:41 Active 1 tab PO Q4H PRN Albuterol/Ipratropium [DuoNeb 3.0-0.5 MG/3 ML] Med 04/25/18 17:41 Active 3 ml NEB Q4H PRN Aspirin Med 04/25/18 21:00 Active 81 mg PO BEDTIME Bisacodyl [Dulcolax] Med 04/25/18 17:41 Active 5 mg PO DAILY PRN Docusate Sodium [Colace] Med 04/25/18 17:41 Active 100 mg PO BID PRN Docusate Sodium/Sennosides [Senna Plus] Med 04/25/18 17:41 Active 1 tab PO BID PRN Enoxaparin [Lovenox] Med 04/26/18 09:00 Active 40 mg SUBCUT DAILY HYDROmorphone [Dilaudid] Med 04/25/18 17:41 Active 0.5 mg IVPUSH Q4H PRN Insulin Lispro [HumaLOG] Med 04/25/18 22:00 Active See Protocol SUBCUT QIDACANDBED LORazepam [Ativan] Med 04/25/18 17:41 Active 1 mg IV Q6H PRN Lisinopril [Prinivil] Med 04/26/18 09:00 Active 10 mg PO DAILY Ondansetron [Zofran] Med 04/25/18 17:41 Active 4 mg IV Q6H PRN Piperacillin/Tazobactam [Zosyn] 4.5 gm Med 04/25/18 17:55 Active Sodium Chloride 0.9% [Normal Saline] 100 ml IV ONETIME Polyethylene Glycol 3350 [MiraLAX] Med 04/25/18 17:41 Active 17 gm PO DAILY PRN Promethazine [Phenergan] 12.5 mg Med 04/25/18 17:41 Active Sodium Chloride 0.9% [Normal Saline] 50 ml IV Q6H Saccharomyces Boulardii [Florastor] Med 04/26/18 09:00 Active 250 mg PO DAILY Sodium Chloride 0.9% [Saline Flush] Med 04/25/18 15:32 Active 10 ml FLUSH ASDIRECTED PRN Temazepam [Restoril] Med 04/25/18 17:41 Active 15 mg PO BEDTIME PRN Vancomycin Pharmacy to Dose [Pharmacy to Dose - Med 04/25/18 17:45 Ordered Vancomycin] 1 dose .XX ASDIRECTED Vancomycin [Vancocin] 1 gm Med 04/26/18 00:00 Active Sodium Chloride 0.9% [Normal Saline] 250 ml IV Q8H glipiZIDE [Glucotrol XL] Med 04/25/18 18:00 Active 5 mg PO BIDMEALS metFORMIN [Glucophage] Med 04/26/18 07:00 Active 500 mg PO BIDMEALS Blood Culture x2 Reflex Set [OM.PC] Stat Oth 04/25/18 15:29 Ordered Peripheral IV Insertion Adult [OM.PC] Routine Oth 04/25/18 15:32 Ordered Resuscitation Status Routine Resus Stat 04/25/18 17:41 Ordered Medication Orders Acetaminophen (Tylenol) 650 mg PO Q4H PRN PRN Reason: Pain (Mild 1-3)/fever Hydrocodone Bitart/Acetaminophen ([place] 325-5 Mg) 1 tab PO Q4H PRN PRN Reason: Pain (moderate 4-6) Albuterol/Ipratropium (Duoneb 3.0-0.5 Mg/3 Ml) 3 ml NEB Q4H PRN PRN Reason: Shortness Of Breath/wheezing Aspirin (Aspirin) 81 mg PO BEDTIME [facility] Bisacodyl (Dulcolax) 5 mg PO DAILY PRN PRN Reason: Constipation Docusate Sodium (Colace) 100 mg PO BID PRN PRN Reason: Constipation Enoxaparin Sodium (Lovenox) 40 mg SUBCUT DAILY [facility] Glipizide (Glucotrol Xl) 5 mg PO BIDMEALS [facility] Hydromorphone HCl (Dilaudid) 0.5 mg IVPUSH Q4H PRN PRN Reason: Pain (severe 7-10) Promethazine HCl 12.5 mg/ (Sodium Chloride) 50.5 mls @ 100 mls/hr IV Q6H PRN PRN Reason: Nausea/Vomiting Piperacillin Sod/Tazobactam (Sod 4.5 gm/ Sodium Chloride) 100 mls @ 200 mls/hr IV ONETIME ONE Stop: 04/25/18 18:24 Vancomycin HCl 1 gm/ Sodium (Chloride) 250 mls @ 250 mls/hr IV Q8H [facility] Insulin Human Lispro (Humalog) 0 unit SUBCUT QIDACANDBED [facility]; Protocol Lisinopril (Prinivil) 10 mg PO DAILY [facility] Lorazepam (Ativan) 1 mg IV Q6H PRN PRN Reason: Nausea/Vomiting Metformin HCl (Glucophage) 500 mg PO BIDMEALS [facility] Ondansetron HCl (Zofran) 4 mg IV Q6H PRN PRN Reason: Nausea/Vomiting Polyethylene Glycol (Miralax) 17 gm PO DAILY PRN PRN Reason: Constipation Saccharomyces Boulardii (Florastor) 250 mg PO DAILY [facility] Senna/Docusate Sodium (Senna Plus) 1 tab PO BID PRN PRN Reason: Constipation Sodium Chloride (Saline Flush) 10 ml FLUSH ASDIRECTED PRN PRN Reason: Keep Vein Open Last Admin: 04/25/18 16:00 Dose: 10 ml Temazepam (Restoril) 15 mg PO BEDTIME PRN PRN Reason: Sleep Vancomycin HCl (Pharmacy To Dose - Vancomycin) 1 dose .XX ASDIRECTED [facility] Assessment/Plan Comment:: Cellulitis * Open ulcer with drainage located on plantar aspect of right foot beneath great toe * WBC 18.92; neutrophils 86 * Cultures drawn in ER - pending * Broad spectrum antibiotics vancomycin and clindamycin initiated until culture results return * Pain medications PRN * DVT prophylaxis lovenox * Consulted surgeon solution developer, Dr. Tamez - will operate on foot this evening due to concern for necrosis Diabetes mellitis * Glucose 355 and HgbA1c 11.8 * Denies personal or family history of diabetes * Patient informed of diabetic status; he is surprised but understands diagnosis * Will initiate insulin, metformin, and glipizide until blood sugars are controlled * Encourage [place] Diabetic diet Cynthia Gustafson, MS-3. Dr. Masterson has examined the patient and reviewed the note. <Isis Masterson T - Last Filed: 04/25/18 21:24> H&P History of Present Illness - General Admit Problem/Dx: Admission Diagnosis/Problem Admission Diagnosis/Problem Cellulitis Exam - Vital Signs Vital Signs: Last Vital Signs Temp 37.2 C 04/25/18 21:00 Pulse 103 H 04/25/18 21:00 Resp 18 04/25/18 21:00 BP 117/81 04/25/18 21:00 Pulse Ox 99 04/25/18 21:00 - Patient Data Lab Results Last 24 hrs: Laboratory Results - last 24 hr 04/25/18 04/25/18 04/25/18 Range/Units 15:50 15:50 15:50 WBC 18.92 H (4.23-9.07) K/mm3 RBC 4.99 (4.63-6.08) M/mm3 Hgb 13.9 (13.7-17.5) gm/L Hct 39.6 L (40.1-51.0) % MCV 79.4 (79.0-92.2) fl MCH 27.9 (25.7-32.2) pg MCHC 35.1 (32.2-35.5) g/dl RDW Std Deviation 36.7 (35.1-43.9) fL Plt Count 312 (163-337) K/mm3 MPV 9.1 L (9.4-12.3) fl Neutrophils % (Manual) 86 H (40-60) % Band Neutrophils % 0 (0-10) % Lymphocytes % (Manual) 11 L (20-40) % Atypical Lymphs % 0 % Monocytes % (Manual) 3 (2-10) % Eosinophils % (Manual) 0 L (0.8-7.0) % Basophils % (Manual) 0 L (0.2-1.2) Platelet Estimate Adequate RBC Morph Comment Normal Sodium 131 L (136-145) mEq/L Potassium 3.8 (3.5-5.1) mEq/L Chloride 95 L (98-107) mEq/L Carbon Dioxide 26 (21-32) mEq/L Anion Gap 13.8 (5-15) BUN 12 (7-18) mg/dL Creatinine 1.0 (0.7-1.3) mg/dL Est Cr Clr Drug Dosing 85.95 mL/min Estimated GFR (MDRD) > 60 (>60) mL/min BUN/Creatinine Ratio 12.0 L (14-18) Glucose 355 H (74-106) mg/dL POC Glucose (70-105) mg/dL Hemoglobin A1c (4.50-6.20) % Lactic Acid 1.7 (0.4-2.0) mmol/L Calcium 8.9 (8.5-10.1) mg/dL Total Bilirubin 0.5 (0.2-1.0) mg/dL AST 24 (15-37) U/L ALT 41 (16-63) U/L Alkaline Phosphatase 147 H (46-116) U/L C-Reactive Protein 36.0 H* (<1.0) mg/dL Total Protein 7.7 (6.4-8.2) g/dl Albumin 2.5 L (3.4-5.0) g/dl Globulin 5.2 gm/dL Albumin/Globulin Ratio 0.5 L (1-2) Free T4 (0.76-1.46) ng/dL TSH 3rd Generation (0.358-3.74) uIU/mL Urine Color (Yellow) Urine Appearance (Clear) Urine pH (5.0-8.0) Ur Specific [place] (1.005-1.030) Urine Protein (Negative) Urine Glucose (UA) (Negative) Urine Ketones (Negative) Urine Occult Blood (Negative) Urine Nitrite (Negative) Urine Bilirubin (Negative) Urine Urobilinogen (0.2-1.0) Ur Leukocyte Esterase (Negative) Urine RBC (0-5) /hpf Urine WBC (0-5) /hpf Ur Epithelial Cells (0-5) /hpf Urine Bacteria (FEW) /hpf Urine Mucus (FEW) /hpf Ur Random Microalbumin (1.3-20.0) mg/L 04/25/18 04/25/18 04/25/18 Range/Units 15:50 15:50 17:17 WBC (4.23-9.07) K/mm3 RBC (4.63-6.08) M/mm3 Hgb (13.7-17.5) gm/L Hct (40.1-51.0) % MCV (79.0-92.2) fl MCH (25.7-32.2) pg MCHC (32.2-35.5) g/dl RDW Std Deviation (35.1-43.9) fL Plt Count (163-337) K/mm3 MPV (9.4-12.3) fl Neutrophils % (Manual) (40-60) % Band Neutrophils % (0-10) % Lymphocytes % (Manual) (20-40) % Atypical Lymphs % % Monocytes % (Manual) (2-10) % Eosinophils % (Manual) (0.8-7.0) % Basophils % (Manual) (0.2-1.2) Platelet Estimate RBC Morph Comment Sodium (136-145) mEq/L Potassium (3.5-5.1) mEq/L Chloride (98-107) mEq/L Carbon Dioxide (21-32) mEq/L Anion Gap (5-15) BUN (7-18) mg/dL Creatinine (0.7-1.3) mg/dL Est Cr Clr Drug Dosing mL/min Estimated GFR (MDRD) (>60) mL/min BUN/Creatinine Ratio (14-18) Glucose (74-106) mg/dL POC Glucose (70-105) mg/dL Hemoglobin A1c 11.80 H (4.50-6.20) % Lactic Acid (0.4-2.0) mmol/L Calcium (8.5-10.1) mg/dL Total Bilirubin (0.2-1.0) mg/dL AST (15-37) U/L ALT (16-63) U/L Alkaline Phosphatase (46-116) U/L C-Reactive Protein (<1.0) mg/dL Total Protein (6.4-8.2) g/dl Albumin (3.4-5.0) g/dl Globulin gm/dL Albumin/Globulin Ratio (1-2) Free T4 1.26 (0.76-1.46) ng/dL TSH 3rd Generation 0.788 (0.358-3.74) uIU/mL Urine Color Yellow (Yellow) Urine Appearance Slt cloudy H (Clear) Urine pH 6.0 (5.0-8.0) Ur Specific [place] 1.015 (1.005-1.030) Urine Protein Negative (Negative) Urine Glucose (UA) 2+ H (Negative) Urine Ketones 2+ H (Negative) Urine Occult Blood Negative (Negative) Urine Nitrite Negative (Negative) Urine Bilirubin Negative (Negative) Urine Urobilinogen 2.0 H (0.2-1.0) Ur Leukocyte Esterase Negative (Negative) Urine RBC Not seen (0-5) /hpf Urine WBC 0-5 (0-5) /hpf Ur Epithelial Cells Not seen (0-5) /hpf Urine Bacteria Occasional (FEW) /hpf Urine Mucus Few (FEW) /hpf Ur Random Microalbumin (1.3-20.0) mg/L 04/25/18 04/25/18 04/25/18 Range/Units 17:17 18:12 20:36 WBC (4.23-9.07) K/mm3 RBC (4.63-6.08) M/mm3 Hgb (13.7-17.5) gm/L Hct (40.1-51.0) % MCV (79.0-92.2) fl MCH (25.7-32.2) pg MCHC (32.2-35.5) g/dl RDW Std Deviation (35.1-43.9) fL Plt Count (163-337) K/mm3 MPV (9.4-12.3) fl Neutrophils % (Manual) (40-60) % Band Neutrophils % (0-10) % Lymphocytes % (Manual) (20-40) % Atypical Lymphs % % Monocytes % (Manual) (2-10) % Eosinophils % (Manual) (0.8-7.0) % Basophils % (Manual) (0.2-1.2) Platelet Estimate RBC Morph Comment Sodium (136-145) mEq/L Potassium (3.5-5.1) mEq/L Chloride (98-107) mEq/L Carbon Dioxide (21-32) mEq/L Anion Gap (5-15) BUN (7-18) mg/dL Creatinine (0.7-1.3) mg/dL Est Cr Clr Drug Dosing mL/min Estimated GFR (MDRD) (>60) mL/min BUN/Creatinine Ratio (14-18) Glucose (74-106) mg/dL POC Glucose 271 H 205 H (70-105) mg/dL Hemoglobin A1c (4.50-6.20) % Lactic Acid (0.4-2.0) mmol/L Calcium (8.5-10.1) mg/dL Total Bilirubin (0.2-1.0) mg/dL AST (15-37) U/L ALT (16-63) U/L Alkaline Phosphatase (46-116) U/L C-Reactive Protein (<1.0) mg/dL Total Protein (6.4-8.2) g/dl Albumin (3.4-5.0) g/dl Globulin gm/dL Albumin/Globulin Ratio (1-2) Free T4 (0.76-1.46) ng/dL TSH 3rd Generation (0.358-3.74) uIU/mL Urine Color (Yellow) Urine Appearance (Clear) Urine pH (5.0-8.0) Ur Specific [place] (1.005-1.030) Urine Protein (Negative) Urine Glucose (UA) (Negative) Urine Ketones (Negative) Urine Occult Blood (Negative) Urine Nitrite (Negative) Urine Bilirubin (Negative) Urine Urobilinogen (0.2-1.0) Ur Leukocyte Esterase (Negative) Urine RBC (0-5) /hpf Urine WBC (0-5) /hpf Ur Epithelial Cells (0-5) /hpf Urine Bacteria (FEW) /hpf Urine Mucus (FEW) /hpf Ur Random Microalbumin 14.6 (1.3-20.0) mg/L Result Diagrams: 04/25/18 15:50 04/25/18 15:50 Orders Last 24hrs: Active Orders 24 hr Category Date Time Status Patient Status [ADT] Routine ADT 04/25/18 16:57 Active Accu Check [Blood Glucose Check, Bedside] [RC] Care 04/25/18 17:39 Active QIDACANDBED Blood Glucose Check, Bedside [RC] ONETIME Care 04/25/18 19:25 Active Communication Order [RC] ROUTINE Care 04/25/18 19:25 Active Cooling Warming Measures [RC] ASDIRECTED Care 04/25/18 19:25 Active Diabetes Education [RC] DAILY Care 04/25/18 17:39 Active Height and Weight [RC] 04 Care 04/25/18 17:41 Active Intake and Output [RC] 04,16 Care 04/25/18 17:42 Active Oxygen Therapy [RC] PRN Care 04/25/18 17:42 Active Pulse Oximetry [RC] ASDIRECTED Care 04/25/18 19:25 Active RT Aerosol Therapy [RC] ASDIRECTED Care 04/25/18 17:44 Active Up With Assistance [RC] ASDIRECTED Care 04/25/18 17:41 Active Up ad Nancy [RC] ASDIRECTED Care 04/25/18 17:41 Active VTE/DVT Education [RC] QSHIFT Care 04/25/18 17:42 Active Vital Signs [RC] Q15M Care 04/25/18 19:25 Active Vital Signs [RC] Q4HR Care 04/25/18 17:42 Active Consult to Case Management [CONS] Routine Cons 04/25/18 17:41 Active Consult to Diabetic Nurse Specialist [CONS] Routine Cons 04/25/18 17:39 Active Consult to Dietary [Consult to Licensed Reactor Operator] [CONS] Cons 04/25/18 17:39 Active Routine Consistent Carbohydrate Diet [DIET] Diet 04/25/18 Dinner Active NPO After Midnight [Nothing per Oral After Midnight Diet 04/26/18 Breakfast Active Diet] [DIET] Foot Comp Min 3V Rt [CR] Stat Exams 04/25/18 15:29 Taken BASIC METABOLIC PANEL,BMP [CHEM] AM Lab 04/26/18 05:11 Ordered BASIC METABOLIC PANEL,BMP [CHEM] AM Lab 04/27/18 05:11 Ordered BASIC METABOLIC PANEL,BMP [CHEM] AM Lab 04/28/18 05:11 Ordered BASIC METABOLIC PANEL,BMP [CHEM] AM Lab 04/29/18 05:11 Ordered BASIC METABOLIC PANEL,BMP [CHEM] AM Lab 04/30/18 05:11 Ordered BASIC METABOLIC PANEL,BMP [CHEM] AM Lab 05/01/18 05:11 Ordered C-REACTIVE PROTEIN [CHEM] AM Lab 04/26/18 05:11 Ordered C-REACTIVE PROTEIN [CHEM] AM Lab 04/27/18 05:11 Ordered C-REACTIVE PROTEIN [CHEM] AM Lab 04/28/18 05:11 Ordered C-REACTIVE PROTEIN [CHEM] AM Lab 04/29/18 05:11 Ordered C-REACTIVE PROTEIN [CHEM] AM Lab 04/30/18 05:11 Ordered C-REACTIVE PROTEIN [CHEM] AM Lab 05/01/18 05:11 Ordered CBC WITH AUTO DIFF [HEME] AM Lab 04/26/18 05:11 Ordered CBC WITH AUTO DIFF [HEME] AM Lab 04/27/18 05:11 Ordered CBC WITH AUTO DIFF [HEME] AM Lab 04/28/18 05:11 Ordered CBC WITH AUTO DIFF [HEME] AM Lab 04/29/18 05:11 Ordered CBC WITH AUTO DIFF [HEME] AM Lab 04/30/18 05:11 Ordered CBC WITH AUTO DIFF [HEME] AM Lab 05/01/18 05:11 Ordered CULTURE ANAEROBIC + SMEAR [RM] Routine Lab 04/25/18 19:11 Received CULTURE ANAEROBIC + SMEAR [RM] Stat Lab 04/25/18 15:56 Received CULTURE BLOOD [BC] Stat Lab 04/25/18 15:50 Received CULTURE BLOOD [BC] Stat Lab 04/25/18 15:55 Received CULTURE WOUND [RM] Routine Lab 04/25/18 19:11 Received CULTURE WOUND [RM] Routine Lab 04/25/18 19:11 Received CULTURE WOUND [RM] Routine Lab 04/25/18 19:25 Received CULTURE WOUND [RM] Stat Lab 04/25/18 15:56 Received LIPID PANEL [CHEM] AM Lab 04/26/18 05:11 Ordered MAGNESIUM [CHEM] AM Lab 04/26/18 05:11 Ordered MAGNESIUM [CHEM] AM Lab 04/27/18 05:11 Ordered MAGNESIUM [CHEM] AM Lab 04/28/18 05:11 Ordered MAGNESIUM [CHEM] AM Lab 04/29/18 05:11 Ordered MAGNESIUM [CHEM] AM Lab 04/30/18 05:11 Ordered MAGNESIUM [CHEM] AM Lab 05/01/18 05:11 Ordered MICROALBUMIN,URINE RANDOM [URCHEM] Urgent Lab 04/25/18 17:17 Ordered UA W/MICROSCOPIC [URIN] Stat Lab 04/25/18 17:17 Ordered VANCOMYCIN TROUGH [CHEM] Timed Lab 04/26/18 15:30 Ordered Acetaminophen [Tylenol] Med 04/25/18 17:41 Active 650 mg PO Q4H PRN Acetaminophen/HYDROcodone [[place] 325-5 MG] Med 04/25/18 17:41 Active 1 tab PO Q4H PRN Albuterol/Ipratropium [DuoNeb 3.0-0.5 MG/3 ML] Med 04/25/18 17:41 Active 3 ml NEB Q4H PRN Aspirin Med 04/25/18 21:00 Active 81 mg PO BEDTIME Bisacodyl [Dulcolax] Med 04/25/18 17:41 Active 5 mg PO DAILY PRN Clindamycin Phosphate [Cleocin] 900 mg Med 04/25/18 19:00 Active Sodium Chloride 0.9% [Normal Saline] 100 ml IV Q8H Docusate Sodium [Colace] Med 04/25/18 17:41 Active 100 mg PO BID PRN Docusate Sodium/Sennosides [Senna Plus] Med 04/25/18 17:41 Active 1 tab PO BID PRN Enoxaparin [Lovenox] Med 04/26/18 09:00 Active 40 mg SUBCUT DAILY HYDROmorphone [Dilaudid] Med 04/25/18 19:26 Active 0.5 mg IVPUSH ONETIME PRN HYDROmorphone [Dilaudid] Med 04/25/18 17:41 Active 0.5 mg IVPUSH Q4H PRN Insulin Lispro [HumaLOG] Med 04/25/18 22:00 Active See Protocol SUBCUT QIDACANDBED LORazepam [Ativan] Med 04/25/18 17:41 Active 1 mg IV Q6H PRN Lisinopril [Prinivil] Med 04/26/18 09:00 Active 10 mg PO DAILY Ondansetron [Zofran] Med 04/25/18 17:41 Active 4 mg IV Q6H PRN Ondansetron [Zofran] Med 04/25/18 19:26 Active 4 mg IVPUSH ONETIME PRN Piperacillin/Tazobactam [Zosyn] 4.5 gm Med 04/26/18 00:00 Active Sodium Chloride 0.9% [Normal Saline] 100 ml IV Q8H Polyethylene Glycol 3350 [MiraLAX] Med 04/25/18 17:41 Active 17 gm PO DAILY PRN Promethazine [Phenergan] 12.5 mg Med 04/25/18 17:41 Active Sodium Chloride 0.9% [Normal Saline] 50 ml IV Q6H Saccharomyces Boulardii [Florastor] Med 04/26/18 09:00 Active 250 mg PO DAILY Sodium Chloride 0.9% [Saline Flush] Med 04/25/18 15:32 Active 10 ml FLUSH ASDIRECTED PRN Temazepam [Restoril] Med 04/25/18 17:41 Active 15 mg PO BEDTIME PRN Vancomycin Pharmacy to Dose [Pharmacy to Dose - Med 04/25/18 17:45 Pending Vancomycin] 1 dose .XX ASDIRECTED Vancomycin [Vancocin] 1 gm Med 04/26/18 00:00 Active Sodium Chloride 0.9% [Normal Saline] 250 ml IV Q8H fentaNYL [Sublimaze] Med 04/25/18 19:26 Active 50 mcg IVPUSH Q5M PRN glipiZIDE [Glucotrol XL] Med 04/25/18 18:00 Active 5 mg PO BIDMEALS metFORMIN [Glucophage] Med 04/26/18 07:00 Active 500 mg PO BIDMEALS Blood Culture x2 Reflex Set [OM.PC] Stat Oth 04/25/18 15:29 Ordered Peripheral IV Insertion Adult [OM.PC] Routine Oth 04/25/18 15:32 Ordered Schedule Procedure [COMM] Stat Oth 04/25/18 18:15 Ordered Resuscitation Status Routine Resus Stat 04/25/18 17:41 Ordered Medication Orders Acetaminophen (Tylenol) 650 mg PO Q4H PRN PRN Reason: Pain (Mild 1-3)/fever Hydrocodone Bitart/Acetaminophen ([place] 325-5 Mg) 1 tab PO Q4H PRN PRN Reason: Pain (moderate 4-6) Albuterol/Ipratropium (Duoneb 3.0-0.5 Mg/3 Ml) 3 ml NEB Q4H PRN PRN Reason: Shortness Of Breath/wheezing Aspirin (Aspirin) 81 mg PO BEDTIME [facility] Bisacodyl (Dulcolax) 5 mg PO DAILY PRN PRN Reason: Constipation Docusate Sodium (Colace) 100 mg PO BID PRN PRN Reason: Constipation Enoxaparin Sodium (Lovenox) 40 mg SUBCUT DAILY [facility] Fentanyl (Sublimaze) 50 mcg IVPUSH Q5M PRN PRN Reason: Pain Glipizide (Glucotrol Xl) 5 mg PO BIDMEALS [facility] Hydromorphone HCl (Dilaudid) 0.5 mg IVPUSH Q4H PRN PRN Reason: Pain (severe 7-10) Hydromorphone HCl (Dilaudid) 0.5 mg IVPUSH ONETIME PRN PRN Reason: Pain (severe 7-10) Promethazine HCl 12.5 mg/ (Sodium Chloride) 50.5 mls @ 100 mls/hr IV Q6H PRN PRN Reason: Nausea/Vomiting Vancomycin HCl 1 gm/ Sodium (Chloride) 250 mls @ 250 mls/hr IV Q8H [facility] Piperacillin Sod/Tazobactam (Sod 4.5 gm/ Sodium Chloride) 100 mls @ 25 mls/hr IV Q8H [facility] Clindamycin Phosphate 900 mg/ (Sodium Chloride) 106 mls @ 100 mls/hr IV Q8H [facility] Insulin Human Lispro (Humalog) 0 unit SUBCUT QIDACANDBED [facility]; Protocol Last Admin: 04/25/18 18:21 Dose: 6 units Lisinopril (Prinivil) 10 mg PO DAILY [facility] Lorazepam (Ativan) 1 mg IV Q6H PRN PRN Reason: Nausea/Vomiting Metformin HCl (Glucophage) 500 mg PO BIDMEALS [facility] Ondansetron HCl (Zofran) 4 mg IV Q6H PRN PRN Reason: Nausea/Vomiting Ondansetron HCl (Zofran) 4 mg IVPUSH ONETIME PRN PRN Reason: Nausea/Vomiting Polyethylene Glycol (Miralax) 17 gm PO DAILY PRN PRN Reason: Constipation Saccharomyces Boulardii (Florastor) 250 mg PO DAILY [facility] Senna/Docusate Sodium (Senna Plus) 1 tab PO BID PRN PRN Reason: Constipation Sodium Chloride (Saline Flush) 10 ml FLUSH ASDIRECTED PRN PRN Reason: Keep Vein Open Last Admin: 04/25/18 16:00 Dose: 10 ml Temazepam (Restoril) 15 mg PO BEDTIME PRN PRN Reason: Sleep Vancomycin HCl (Pharmacy To Dose - Vancomycin) 1 dose .XX ASDIRECTED [facility] Assessment/Plan Comment:: The patient was seen and examined at bedside in concert with the medical student. The admission assessment and plans were discussed and agreed upon with me. Patient carries no significant past medical hx and denies any fm hx/o diabetes. He does not smoke but drinks etoh occasionally. He does not take any routine home maintenance medications. He has been evaluated by Dr. Tamez in ED and he is scheduled for ID this evening. We will work on getting his glucose down to < 180 to effectively treat his foot infection. Dietary and Diabetes Nurse will be consulted for diabetic education and teaching.
--- NOTE | 2018-04-25 18:29 | PCM.CONS ---
H&P History of Present Illness - General Date of Service: 04/25/18 Admit Problem/Dx: Admission Diagnosis/Problem Admission Diagnosis/Problem Cellulitis Source of Information: Patient History Limitations: Reports: No Limitations - History of Present Illness Initial Comments - Free Text/Narative: 42 yo male, presents with RIGHT foot pain, swelling, and redness. This started about one month ago, when he developed a blister on the RIGHT sole of the foot, which slowly progressed to pain and redness. About two days ago, symptoms worsened, with development of black areas of the toes. He denies h/o diabetes. Does not usually see a doctor. Denies prior h/o soft tissue infection. Right Feet Pain Score (Numeric/FACES): 8 - Related Data Allergies/Adverse Reactions: Allergies Allergy/AdvReac Type Severity Reaction Status Date / Time No Known Allergies Allergy Verified 04/25/18 18:04 Home Medications: Home Meds . [No Known Home Meds] 04/25/18 [History] Past Medical History - Past Health History Medical/Surgical History: Denies Medical/Surgical History Endocrine/Metabolic History: Reports: Diabetes, Type II, Other (See Below) Other Endocrine/Metabolic History: new diagnosis diabetes Dermatologic History: Reports: Cellulitis, Other (See Below) Other Dermatologic History: diagnosis of diabetes Social & Family History - Family History Family Medical History: Noncontributory - Tobacco Use Smoking Status *Q: Never Smoker - Alcohol Use Days Per Week of Alcohol Use: 1 - Recreational Drug Use Recreational Drug Use: No - Living Situation & Occupation Living situation: Reports: Single (Lives alone) Occupation: Employed (Does [employer]) H&P Review of Systems - Review of Systems: Review Of Systems: ROS reveals no pertinent complaints other than HPI. Exam - Exam Exam: See Below - Vital Signs Vital Signs: Last Vital Signs Temp 36.4 C 04/25/18 15:07 Pulse 106 H 04/25/18 15:07 Resp 16 04/25/18 15:07 BP 125/74 04/25/18 15:07 Pulse Ox 100 04/25/18 15:07 Weight: 79.379 kg - Exam General: Alert, Oriented HEENT: Conjunctiva Clear Lungs: Clear to Auscultation, Normal Respiratory Effort Cardiovascular: Regular Rate, Regular Rhythm, Normal S1, Normal S2. No: Systolic Murmur GI/Abdominal Exam: Soft, Non-Tender, No Distention Extremities: Other (RIGHT foot with edema, blanchable erythema, and tenderness, which involves the entire foot circumferentially, extending to just below the ankle. There is epidermal sloughing along the distal sole of the RIGHT foot, with superficial appearing skin necrosis along the interdigital regions. No crepitus.) - Patient Data Lab Results Last 24 hrs: Laboratory Results - last 24 hr 04/25/18 04/25/18 04/25/18 Range/Units 15:50 15:50 15:50 WBC 18.92 H (4.23-9.07) K/mm3 RBC 4.99 (4.63-6.08) M/mm3 Hgb 13.9 (13.7-17.5) gm/L Hct 39.6 L (40.1-51.0) % MCV 79.4 (79.0-92.2) fl MCH 27.9 (25.7-32.2) pg MCHC 35.1 (32.2-35.5) g/dl RDW Std Deviation 36.7 (35.1-43.9) fL Plt Count 312 (163-337) K/mm3 MPV 9.1 L (9.4-12.3) fl Neutrophils % (Manual) 86 H (40-60) % Band Neutrophils % 0 (0-10) % Lymphocytes % (Manual) 11 L (20-40) % Atypical Lymphs % 0 % Monocytes % (Manual) 3 (2-10) % Eosinophils % (Manual) 0 L (0.8-7.0) % Basophils % (Manual) 0 L (0.2-1.2) Platelet Estimate Adequate RBC Morph Comment Normal Sodium 131 L (136-145) mEq/L Potassium 3.8 (3.5-5.1) mEq/L Chloride 95 L (98-107) mEq/L Carbon Dioxide 26 (21-32) mEq/L Anion Gap 13.8 (5-15) BUN 12 (7-18) mg/dL Creatinine 1.0 (0.7-1.3) mg/dL Est Cr Clr Drug Dosing 85.95 mL/min Estimated GFR (MDRD) > 60 (>60) mL/min BUN/Creatinine Ratio 12.0 L (14-18) Glucose 355 H (74-106) mg/dL POC Glucose (70-105) mg/dL Hemoglobin A1c (4.50-6.20) % Lactic Acid 1.7 (0.4-2.0) mmol/L Calcium 8.9 (8.5-10.1) mg/dL Total Bilirubin 0.5 (0.2-1.0) mg/dL AST 24 (15-37) U/L ALT 41 (16-63) U/L Alkaline Phosphatase 147 H (46-116) U/L C-Reactive Protein 36.0 H* (<1.0) mg/dL Total Protein 7.7 (6.4-8.2) g/dl Albumin 2.5 L (3.4-5.0) g/dl Globulin 5.2 gm/dL Albumin/Globulin Ratio 0.5 L (1-2) Ur Random Microalbumin (1.3-20.0) mg/L 04/25/18 04/25/18 04/25/18 Range/Units 15:50 17:17 18:12 WBC (4.23-9.07) K/mm3 RBC (4.63-6.08) M/mm3 Hgb (13.7-17.5) gm/L Hct (40.1-51.0) % MCV (79.0-92.2) fl MCH (25.7-32.2) pg MCHC (32.2-35.5) g/dl RDW Std Deviation (35.1-43.9) fL Plt Count (163-337) K/mm3 MPV (9.4-12.3) fl Neutrophils % (Manual) (40-60) % Band Neutrophils % (0-10) % Lymphocytes % (Manual) (20-40) % Atypical Lymphs % % Monocytes % (Manual) (2-10) % Eosinophils % (Manual) (0.8-7.0) % Basophils % (Manual) (0.2-1.2) Platelet Estimate RBC Morph Comment Sodium (136-145) mEq/L Potassium (3.5-5.1) mEq/L Chloride (98-107) mEq/L Carbon Dioxide (21-32) mEq/L Anion Gap (5-15) BUN (7-18) mg/dL Creatinine (0.7-1.3) mg/dL Est Cr Clr Drug Dosing mL/min Estimated GFR (MDRD) (>60) mL/min BUN/Creatinine Ratio (14-18) Glucose (74-106) mg/dL POC Glucose 271 H (70-105) mg/dL Hemoglobin A1c 11.80 H (4.50-6.20) % Lactic Acid (0.4-2.0) mmol/L Calcium (8.5-10.1) mg/dL Total Bilirubin (0.2-1.0) mg/dL AST (15-37) U/L ALT (16-63) U/L Alkaline Phosphatase (46-116) U/L C-Reactive Protein (<1.0) mg/dL Total Protein (6.4-8.2) g/dl Albumin (3.4-5.0) g/dl Globulin gm/dL Albumin/Globulin Ratio (1-2) Ur Random Microalbumin 14.6 (1.3-20.0) mg/L Result Diagrams: 04/25/18 15:50 04/25/18 15:50 Imaging Impressions Last 24 hrs: X-ray of RIGHT foot - no obvious subcutaneous air Consult PN Assessment/Plan Problem List Initiated/Reviewed/Updated: Yes My Orders Last 24 Hours: My Active Orders 04/25/18 18:15 Schedule Procedure [COMM] Stat Plan: 42 yo male, with RIGHT foot infection/cellulitis, but concerning presentation with tachycardia, hyponatremia (Na 131), significant leukocytosis (WBC >18k), elevated CRP (35), and severe hyperglycemia (glucose 355). His presentation is concerning for a necrotizing soft tissue infection. Patient has no known history of diabetes, but with elevated BS and HbA1c (>11), he has had undiagnosed diabetes. - Will require admission for inpatient management. - The patient would need a wound exploration and debridement to evaluate for underlying fascial necrosis. He was consented for debridement and wound exploration of RIGHT foot, with possible extensive debridement. - Broad spectrum antibiotics - IV vancomycin (already administered in the ED) and IV Zosyn. Will add IV clindamycin. - Blood cultures have been obtained in the ED. - Will obtain intraoperative Ortho consult as needed. - Case d/w Dr. Mares, loader unloader. Appreciate hospitalist assistance in the care of this patient. Arsen Gaston M.D., F.A.C.S. General Surgery Pager: [phone]
--- NOTE | 2018-04-25 18:31 | PCM.PREANE ---
Preanesthetic Assessment - Procedure Proposed Procedure: debridement foot - Anesthesia/Transfusion/Family Hx Anesthesia History: Prior Anesthesia Without Reaction Family History of Anesthesia Reaction: No Transfusion History: No Prior Transfusion(s) - Review of Systems General: No Symptoms Pulmonary: No Symptoms Cardiovascular: No Symptoms Gastrointestinal: No Symptoms Neurological: No Symptoms Other: Reports: Diabetes (newly diagnosed), Depression - Physical Assessment NPO Status Date: 04/25/18 NPO Status Time: 14:41 O2 Sat by Pulse Oximetry: 100 Respiratory Rate: 16 Vital Signs: Last Vital Signs Temp 97.5 F 04/25/18 15:07 Pulse 106 H 04/25/18 15:07 Resp 16 04/25/18 15:07 BP 125/74 04/25/18 15:07 Pulse Ox 100 04/25/18 15:07 Height: 5 ft 6 in Weight: 79.379 kg ASA Class: 2E Mental Status: Alert & Oriented x3 Airway Class: Mallampati = 1 Dentition: Reports: Normal Dentition Thyro-Mental Finger Breadths: 3 Mouth Opening Finger Breadths: 3 ROM/Head Extension: Full Lungs: Clear to Auscultation, Normal Respiratory Effort Cardiovascular: Regular Rate, Regular Rhythm - Lab Values: Laboratory Last Values WBC 18.92 K/mm3 (4.23-9.07) H 04/25/18 15:50 RBC 4.99 M/mm3 (4.63-6.08) 04/25/18 15:50 Hgb 13.9 gm/L (13.7-17.5) 04/25/18 15:50 Hct 39.6 % (40.1-51.0) L 04/25/18 15:50 MCV 79.4 fl (79.0-92.2) 04/25/18 15:50 MCH 27.9 pg (25.7-32.2) 04/25/18 15:50 MCHC 35.1 g/dl (32.2-35.5) 04/25/18 15:50 RDW Std Deviation 36.7 fL (35.1-43.9) 04/25/18 15:50 Plt Count 312 K/mm3 (163-337) 04/25/18 15:50 MPV 9.1 fl (9.4-12.3) L 04/25/18 15:50 Neutrophils % (Manual) 86 % (40-60) H 04/25/18 15:50 Band Neutrophils % 0 % (0-10) 04/25/18 15:50 Lymphocytes % (Manual) 11 % (20-40) L 04/25/18 15:50 Atypical Lymphs % 0 % 04/25/18 15:50 Monocytes % (Manual) 3 % (2-10) 04/25/18 15:50 Eosinophils % (Manual) 0 % (0.8-7.0) L 04/25/18 15:50 Basophils % (Manual) 0 (0.2-1.2) L 04/25/18 15:50 Platelet Estimate Adequate 04/25/18 15:50 RBC Morph Comment Normal 04/25/18 15:50 Sodium 131 mEq/L (136-145) L 04/25/18 15:50 Potassium 3.8 mEq/L (3.5-5.1) 04/25/18 15:50 Chloride 95 mEq/L (98-107) L 04/25/18 15:50 Carbon Dioxide 26 mEq/L (21-32) 04/25/18 15:50 Anion Gap 13.8 (5-15) 04/25/18 15:50 BUN 12 mg/dL (7-18) 04/25/18 15:50 Creatinine 1.0 mg/dL (0.7-1.3) 04/25/18 15:50 Est Cr Clr Drug Dosing 85.95 mL/min 04/25/18 15:50 Estimated GFR (MDRD) > 60 mL/min (>60) 04/25/18 15:50 BUN/Creatinine Ratio 12.0 (14-18) L 04/25/18 15:50 Glucose 355 mg/dL (74-106) H 04/25/18 15:50 POC Glucose 271 mg/dL (70-105) H 04/25/18 18:12 Hemoglobin A1c 11.80 % (4.50-6.20) H 04/25/18 15:50 Lactic Acid 1.7 mmol/L (0.4-2.0) 04/25/18 15:50 Calcium 8.9 mg/dL (8.5-10.1) 04/25/18 15:50 Total Bilirubin 0.5 mg/dL (0.2-1.0) 04/25/18 15:50 AST 24 U/L (15-37) 04/25/18 15:50 ALT 41 U/L (16-63) 04/25/18 15:50 Alkaline Phosphatase 147 U/L (46-116) H 04/25/18 15:50 C-Reactive Protein 36.0 mg/dL (<1.0) H* 04/25/18 15:50 Total Protein 7.7 g/dl (6.4-8.2) 04/25/18 15:50 Albumin 2.5 g/dl (3.4-5.0) L 04/25/18 15:50 Globulin 5.2 gm/dL 04/25/18 15:50 Albumin/Globulin Ratio 0.5 (1-2) L 04/25/18 15:50 Free T4 1.26 ng/dL (0.76-1.46) 04/25/18 15:50 TSH 3rd Generation 0.788 uIU/mL (0.358-3.74) 04/25/18 15:50 Ur Random Microalbumin 14.6 mg/L (1.3-20.0) 04/25/18 17:17 - Allergies Allergies/Adverse Reactions: Allergies Allergy/AdvReac Type Severity Reaction Status Date / Time No Known Allergies Allergy Verified 04/25/18 18:04 - Blood Blood Available: No - Acknowledgements Anesthesia Type Planned: General Anesthesia Pt an Appropriate Candidate for the Planned Anesthesia: Yes Alternatives and Risks of Anesthesia Discussed w Pt/Guardian: Yes Pt/Guardian Understands and Agrees with Anesthesia Plan: Yes PreAnesthesia Questionnaire - Past Health History Medical/Surgical History: Denies Medical/Surgical History Cardiovascular History: Reports: None Respiratory History: Reports: None Gastrointestinal History: Reports: None Psychiatric History: Reports: Depression Endocrine/Metabolic History: Reports: Diabetes, Type II, Other (See Below) Other Endocrine/Metabolic History: new diagnosis diabetes Dermatologic History: Reports: Cellulitis, Other (See Below) Other Dermatologic History: diagnosis of diabetes - Past Surgical History HEENT Surgical History: Reports: Oral Surgery - SUBSTANCE USE Smoking Status *Q: Never Smoker Tobacco Use Within Last Twelve Months: No Second Hand Smoke Exposure: No Days Per Week of Alcohol Use: 1 (minimal) Recreational Drug Use History: No - HOME MEDS Home Medications: Home Meds . [No Known Home Meds] 04/25/18 [History] - CURRENT (IN HOUSE) MEDS Current Meds: Current Medications Acetaminophen (Tylenol) 650 mg PO Q4H PRN PRN Reason: Pain (Mild 1-3)/fever Hydrocodone Bitart/Acetaminophen ([place] 325-5 Mg) 1 tab PO Q4H PRN PRN Reason: Pain (moderate 4-6) Albuterol/Ipratropium (Duoneb 3.0-0.5 Mg/3 Ml) 3 ml NEB Q4H PRN PRN Reason: Shortness Of Breath/wheezing Aspirin (Aspirin) 81 mg PO BEDTIME [facility] Bisacodyl (Dulcolax) 5 mg PO DAILY PRN PRN Reason: Constipation Docusate Sodium (Colace) 100 mg PO BID PRN PRN Reason: Constipation Enoxaparin Sodium (Lovenox) 40 mg SUBCUT DAILY [facility] Glipizide (Glucotrol Xl) 5 mg PO BIDMEALS [facility] Hydromorphone HCl (Dilaudid) 0.5 mg IVPUSH Q4H PRN PRN Reason: Pain (severe 7-10) Promethazine HCl 12.5 mg/ (Sodium Chloride) 50.5 mls @ 100 mls/hr IV Q6H PRN PRN Reason: Nausea/Vomiting Vancomycin HCl 1 gm/ Sodium (Chloride) 250 mls @ 250 mls/hr IV Q8H [facility] Insulin Human Lispro (Humalog) 0 unit SUBCUT QIDACANDBED [facility]; Protocol Last Admin: 04/25/18 18:21 Dose: 6 units Lisinopril (Prinivil) 10 mg PO DAILY [facility] Lorazepam (Ativan) 1 mg IV Q6H PRN PRN Reason: Nausea/Vomiting Metformin HCl (Glucophage) 500 mg PO BIDMEALS [facility] Ondansetron HCl (Zofran) 4 mg IV Q6H PRN PRN Reason: Nausea/Vomiting Polyethylene Glycol (Miralax) 17 gm PO DAILY PRN PRN Reason: Constipation Saccharomyces Boulardii (Florastor) 250 mg PO DAILY [facility] Senna/Docusate Sodium (Senna Plus) 1 tab PO BID PRN PRN Reason: Constipation Sodium Chloride (Saline Flush) 10 ml FLUSH ASDIRECTED PRN PRN Reason: Keep Vein Open Last Admin: 04/25/18 16:00 Dose: 10 ml Temazepam (Restoril) 15 mg PO BEDTIME PRN PRN Reason: Sleep Vancomycin HCl (Pharmacy To Dose - Vancomycin) 1 dose .XX ASDIRECTED [facility] Discontinued Medications Hydromorphone HCl (Dilaudid) 0.5 mg IVPUSH ONETIME ONE Stop: 04/25/18 15:30 Last Admin: 04/25/18 16:01 Dose: 0.5 mg Sodium Chloride (Normal Saline) 1,000 mls @ 999 mls/hr IV ONETIME ONE Stop: 04/25/18 16:28 Last Admin: 04/25/18 15:59 Dose: 999 mls/hr Vancomycin HCl 1 gm/ Sodium (Chloride) 250 mls @ 250 mls/hr IV ONETIME ONE Stop: 04/25/18 16:36 Last Admin: 04/25/18 16:10 Dose: 250 mls/hr Vancomycin HCl 1 gm/ Sodium (Chloride) 250 mls @ 250 mls/hr IV ONETIME ONE Stop: 04/25/18 16:37 Last Admin: 04/25/18 17:09 Dose: 250 mls/hr Sodium Chloride (Normal Saline) 1,000 mls @ 999 mls/hr IV ONETIME ONE Stop: 04/25/18 17:57 Last Admin: 04/25/18 17:09 Dose: 999 mls/hr Piperacillin Sod/Tazobactam (Sod 4.5 gm/ Sodium Chloride) 100 mls @ 200 mls/hr IV ONETIME ONE Stop: 04/25/18 18:24 Last Admin: 04/25/18 18:18 Dose: 200 mls/hr Metformin HCl (Glucophage) 500 mg PO ONETIME ONE Stop: 04/25/18 17:41 Ondansetron HCl (Zofran) 4 mg IVPUSH ONETIME ONE Stop: 04/25/18 15:30 Last Admin: 04/25/18 16:03 Dose: 4 mg Vancomycin HCl (Vancomycin) 1,190.685 mg 15 mg/kg (1190.685 mg) IV Q12H [facility] Last Admin: 04/25/18 18:15 Dose: Not Given
[2018-04-25] MEDS ORDERED: Ondansetron 4 MG/2 ML SDV ONE (18:37)
[2018-04-25] MEDS ORDERED: Succinylcholine/Normal Saline 100 MG/5 ML Syringe ONE (18:37)
[2018-04-25] MEDS ORDERED: Propofol 200 MG/20 ML SDV ONE (18:37)
[2018-04-25] MEDS ORDERED: fentaNYL 250 MCG/5 ML SDV ONE (18:37)
[2018-04-25] MEDS ORDERED: Lidocaine 1% 4 ML ONE (18:37)
[2018-04-25] MEDS ORDERED: Midazolam 1 MG/ML 2 ML SDV ONE (18:37)
[2018-04-25] MEDS ORDERED: HYDROmorphone 0.5 MG/0.5 ML Syringe ONE (19:02)
[2018-04-25] MEDS ORDERED: Ketamine 500 mg/10 ML MDV ONE (19:10)
[2018-04-25] MEDS ORDERED: Sodium Chloride 0.9% 100 ML ONE (19:10)
[2018-04-25] MEDS ORDERED: Clindamycin Phosphate 900 MG/6 ML AdvVial ONE (19:10)
[2018-04-25] MEDS ORDERED: Ondansetron 4 MG/2 ML SDV IVPUSH PRN (19:26)
[2018-04-25] MEDS ORDERED: fentaNYL 100 MCG/2 ML SDV IVPUSH PRN (19:26)
[2018-04-25] MEDS ORDERED: HYDROmorphone 0.5 MG/0.5 ML Syringe IVPUSH PRN (19:26)
--- NOTE | 2018-04-25 20:24 | PCM.OPNOTE ---
- General Post-Op/Procedure Note Date of Surgery/Procedure: 04/25/18 Operative Procedure(s): RIGHT foot wound incision, drainage, wound debridement, and washout Pre Op Diagnosis: RIGHT foot infection/cellulitis, rule out necrotizing soft tissue infection Post-Op Diagnosis: RIGHT foot cellulitis and abscess Primary Surgeon: Arsen Gaston Secondary Surgeon: Amador Joyner Anesthesia Provider: Lauryn Cunha Pathology: 1) RIGHT foot infected tissue for culture 2) RIGHT 3rd toe tissue for culture 3) RIGHT food tissue for pathology Fluid Replacement, Intraop: 500 (crystalloid) EBL in mLs: 50 Complications: None Condition: Stable Free Text/Narrative:: Intake & Output 04/25/18 04/25/18 04/25/18 06:59 14:59 22:59 Intake Total 1250 Balance 1250 Indications for surgery: The patient is 42 yo male, who presents with RIGHT foot soft tissue infection, concerning for necrotizing soft tissue infection. He was consented for RIGHT foot debridement and exploration, with possible extensive debridement. Indications, risks, and benefits were discussed with the patient in detail. Description of procedure: After surgical consent was verified, the patient was brought to the main OR. Anesthesia performed general endotracheal intubation without complications. Appropriate padding and straps were placed. SCD's were placed on the LEFT lower extremity, on and functioning. A surgical time-out was performed to verify proper patient, proper site, and proper procedure. The patient received IV vancomycin, IV Zosyn, and IV clindamycin perioperatively. The RIGHT food wound was explored. At the plantar surface overlying the balls of the foot, there was purulent fluid draining. The opening was widened sharply and the wound was explored, with release of additional purulent fluid. The fluid was sent for aerobic and anaerobic cultures. The wound base appeared healthy, with healthy bleeding. The underlying fascia appeared to be intact. The web-space between the 3rd and 4th digits of the RIGHT foot was also explored. The skin overlying this area appeared necrotic. The skin was excised, and there was underlying purulent fluid that was drained. The abscess cavity seemed to be contiguous with the abscess cavity along the plantar surface of the foot. Additionally, there was extension of the cavity along the fascial planes laterally towards the proximal aspect of the 4th digit and involving the web-space between the 4th and 5th digits. There was a small amount of purulent fluid drained from this region as well (color was questionably brownish). There was no evidence of gross bony exposure. The soft tissue at the 3rd-4th digital web-space appeared unhealthy with no significant bleeding. Underlying soft tissue was sent for both pathology and tissue culture. An intraoperatively Orthopedics consult was obtained. Dr. Amador Joyner came into the OR and scrubbed in to provide his input from an Orthopedics perspective. He explored the wound, and at this time, there was no concern for bony/joint involvement. We both were in agreement that sufficient debridement had been performed. The wounds were thoroughly irrigated, and the open wounds were packed with iodoform dressing. Local anesthetic (1% lidocaine with epinephrine and 0.5% bupivacaine ) was injected around the skin site around the plantar surface wound. The wounds were then covered with 4x4 gauze, and the foot was wrapped with Kerflix. The patient tolerated the procedure well, was brought out of anesthesia, and was transported to the PACU in stable condition. At the end of the case, all needle, instrument, and gauze counts were correct. I was presented and scrubbed for the entirety of the case. We will plan to take the patient back to the OR in approximately 12 hours for a 2nd look for possible further debridement and dressing change. Arsen Gaston M.D., F.A.C.S. General Surgery Pager: [phone]
--- NOTE | 2018-04-25 20:35 | PCM.POSTAN ---
POST ANESTHESIA ASSESSMENT - MENTAL STATUS Mental Status: Somnolent - VITAL SIGNS Pulse Rate: 94 SaO2: 99 Resp Rate: 23 Blood Pressure: 110/74 Temperature: 99.1 F - RESPIRATORY Respiratory Status: Respiratory Rate WNL, Airway Patent, O2 Saturation Stable, Supplemental Oxygen (mask with oral airway) - CARDIOVASCULAR CV Status: Pulse Rate WNL, Blood Pressure Stable - GASTROINTESTINAL GI Status: No Symptoms - PAIN Pain Score: 0 - POST OP HYDRATION Hydration Status: Adequate & Stable
[2018-04-25] MEDS: Clindamycin Phosphate 900 MG in Sodium Chloride 0.9% 100 ML IV SCH (22:42)
[2018-04-25] MEDS: Aspirin 81 MG Tab.Chew PO SCH (22:45)
[2018-04-25] MEDS: glipiZIDE 5 MG Tab.ER PO SCH (22:54)
[2018-04-26] MEDS: Piperacillin/Tazobactam 4.5 GM in Sodium Chloride 0.9% 100 ML IV SCH ×3 (00:05→16:43)
[2018-04-26] MEDS: Clindamycin Phosphate 900 MG in Sodium Chloride 0.9% 100 ML IV SCH ×3 (03:41→18:51)
[2018-04-26] MEDS: HYDROmorphone 0.5 MG/0.5 ML Syringe IVPUSH PRN (04:03)
[2018-04-26] MEDS: Insulin Lispro 100 Unit/ML 3 ML KwikPen SUBCUT SCH ×4 (08:41→21:00)
[2018-04-26] MEDS: Lisinopril 10 MG Tab PO SCH (08:42)
[2018-04-26] MEDS: glipiZIDE 5 MG Tab.ER PO SCH ×2 (08:42→16:42)
[2018-04-26] MEDS: metFORMIN 500 MG Tab PO SCH ×2 (08:42→16:42)
[2018-04-26] MEDS: Enoxaparin 40 MG/0.4 ML Syringe SUBCUT SCH ×2 (08:42→18:51)
[2018-04-26] MEDS: Saccharomyces Boulardii (Probiotic) 250 MG Cap PO SCH (08:42)
[2018-04-26] MEDS ORDERED: Midazolam 1 MG/ML 2 ML SDV ONE (09:02)
[2018-04-26] MEDS ORDERED: fentaNYL 100 MCG/2 ML SDV ONE ×2 (09:02→10:06)
[2018-04-26] MEDS ORDERED: Propofol 200 MG/20 ML SDV ONE ×2 (09:02→10:37)
--- NOTE | 2018-04-26 09:18 | PCM.PREANE ---
Preanesthetic Assessment - Anesthesia/Transfusion/Family Hx Anesthesia History: Prior Anesthesia Without Reaction Family History of Anesthesia Reaction: No Transfusion History: No Prior Transfusion(s) - Review of Systems General: No Symptoms Pulmonary: No Symptoms Cardiovascular: No Symptoms Gastrointestinal: No Symptoms Neurological: No Symptoms Other: Reports: Diabetes (newly diagnosed), Depression - Physical Assessment NPO Status Date: 04/25/18 NPO Status Time: 23:00 Pulse: 101 O2 Sat by Pulse Oximetry: 98 Respiratory Rate: 18 Blood Pressure: 129/76 Temperature: 37.7 C Vital Signs: Last Vital Signs Temp 37.7 C 04/26/18 03:44 Pulse 101 H 04/26/18 03:44 Resp 18 04/26/18 03:44 BP 129/76 04/26/18 08:42 Pulse Ox 98 04/26/18 03:44 Height: 1.68 m Weight: 79.407 kg ASA Class: 2 Mental Status: Alert & Oriented x3 Airway Class: Mallampati = 2 Dentition: Reports: Normal Dentition Thyro-Mental Finger Breadths: 3 Mouth Opening Finger Breadths: 3 ROM/Head Extension: Full Lungs: Clear to Auscultation, Normal Respiratory Effort Cardiovascular: Regular Rate, Regular Rhythm - Lab Values: Laboratory Last Values WBC 13.89 K/mm3 (4.23-9.07) H 04/26/18 06:27 RBC 4.12 M/mm3 (4.63-6.08) L 04/26/18 06:27 Hgb 11.2 gm/L (13.7-17.5) L 04/26/18 06:27 Hct 33.7 % (40.1-51.0) L 04/26/18 06:27 MCV 81.8 fl (79.0-92.2) 04/26/18 06:27 MCH 27.2 pg (25.7-32.2) 04/26/18 06:27 MCHC 33.2 g/dl (32.2-35.5) 04/26/18 06:27 RDW Std Deviation 38.0 fL (35.1-43.9) 04/26/18 06:27 Plt Count 285 K/mm3 (163-337) 04/26/18 06:27 MPV 9.1 fl (9.4-12.3) L 04/26/18 06:27 Neut % (Auto) 78.0 % (34.0-67.9) H 04/26/18 06:27 Lymph % (Auto) 12.6 % (21.8-53.1) L 04/26/18 06:27 Crane % (Auto) 8.6 % (5.3-12.2) 04/26/18 06:27 Eos % (Auto) 0.3 (0.8-7.0) L 04/26/18 06:27 Baso % (Auto) 0.1 % (0.1-1.2) 04/26/18 06:27 Neut # (Auto) 10.82 K/mm3 (1.78-5.38) H 04/26/18 06:27 Lymph # (Auto) 1.75 K/mm3 (1.32-3.57) 04/26/18 06:27 Crane # (Auto) 1.20 K/mm3 (0.30-0.82) H 04/26/18 06:27 Eos # (Auto) 0.04 K/mm3 (0.04-0.54) 04/26/18 06:27 Baso # (Auto) 0.02 K/mm3 (0.01-0.08) 04/26/18 06:27 Neutrophils % (Manual) 86 % (40-60) H 04/25/18 15:50 Band Neutrophils % 0 % (0-10) 04/25/18 15:50 Lymphocytes % (Manual) 11 % (20-40) L 04/25/18 15:50 Atypical Lymphs % 0 % 04/25/18 15:50 Monocytes % (Manual) 3 % (2-10) 04/25/18 15:50 Eosinophils % (Manual) 0 % (0.8-7.0) L 04/25/18 15:50 Basophils % (Manual) 0 (0.2-1.2) L 04/25/18 15:50 Manual Slide Review Abnormal smear 04/26/18 06:27 Platelet Estimate Adequate 04/25/18 15:50 RBC Morph Comment Normal 04/25/18 15:50 Sodium 135 mEq/L (136-145) L 04/26/18 06:27 Potassium 3.6 mEq/L (3.5-5.1) 04/26/18 06:27 Chloride 103 mEq/L (98-107) 04/26/18 06:27 Carbon Dioxide 25 mEq/L (21-32) 04/26/18 06:27 Anion Gap 10.6 (5-15) 04/26/18 06:27 BUN 10 mg/dL (7-18) 04/26/18 06:27 Creatinine 0.8 mg/dL (0.7-1.3) 04/26/18 06:27 Est Cr Clr Drug Dosing 107.44 mL/min 04/26/18 06:27 Estimated GFR (MDRD) > 60 mL/min (>60) 04/26/18 06:27 BUN/Creatinine Ratio 12.5 (14-18) L 04/26/18 06:27 Glucose 254 mg/dL (74-106) H 04/26/18 06:27 POC Glucose 219 mg/dL (70-105) H 04/26/18 06:26 Hemoglobin A1c 11.80 % (4.50-6.20) H 04/25/18 15:50 Lactic Acid 1.7 mmol/L (0.4-2.0) 04/25/18 15:50 Calcium 7.8 mg/dL (8.5-10.1) L 04/26/18 06:27 Magnesium 1.8 mg/dl (1.8-2.4) 04/26/18 06:27 Total Bilirubin 0.5 mg/dL (0.2-1.0) 04/25/18 15:50 AST 24 U/L (15-37) 04/25/18 15:50 ALT 41 U/L (16-63) 04/25/18 15:50 Alkaline Phosphatase 147 U/L (46-116) H 04/25/18 15:50 C-Reactive Protein 23.4 mg/dL (<1.0) H* 04/26/18 06:27 Total Protein 7.7 g/dl (6.4-8.2) 04/25/18 15:50 Albumin 2.5 g/dl (3.4-5.0) L 04/25/18 15:50 Globulin 5.2 gm/dL 04/25/18 15:50 Albumin/Globulin Ratio 0.5 (1-2) L 04/25/18 15:50 Triglycerides 47 mg/dL (<150) 04/26/18 06:27 Cholesterol 75 mg/dL (<200) 04/26/18 06:27 LDL Cholesterol Direct 50 mg/dL (<100) 04/26/18 06:27 HDL Cholesterol 23.0 mg/dL (40-59) L 04/26/18 06:27 Free T4 1.26 ng/dL (0.76-1.46) 04/25/18 15:50 TSH 3rd Generation 0.788 uIU/mL (0.358-3.74) 04/25/18 15:50 Urine Color Yellow (Yellow) 04/25/18 17:17 Urine Appearance Slt cloudy (Clear) H 04/25/18 17:17 Urine pH 6.0 (5.0-8.0) 04/25/18 17:17 Ur Specific Gypsy 1.015 (1.005-1.030) 04/25/18 17:17 Urine Protein Negative (Negative) 04/25/18 17:17 Urine Glucose (UA) 2+ (Negative) H 04/25/18 17:17 Urine Ketones 2+ (Negative) H 04/25/18 17:17 Urine Occult Blood Negative (Negative) 04/25/18 17:17 Urine Nitrite Negative (Negative) 04/25/18 17:17 Urine Bilirubin Negative (Negative) 04/25/18 17:17 Urine Urobilinogen 2.0 (0.2-1.0) H 04/25/18 17:17 Ur Leukocyte Esterase Negative (Negative) 04/25/18 17:17 Urine RBC Not seen /hpf (0-5) 04/25/18 17:17 Urine WBC 0-5 /hpf (0-5) 04/25/18 17:17 Ur Epithelial Cells Not seen /hpf (0-5) 04/25/18 17:17 Urine Bacteria Occasional /hpf (FEW) 04/25/18 17:17 Urine Mucus Few /hpf (FEW) 04/25/18 17:17 Ur Random Microalbumin 14.6 mg/L (1.3-20.0) 04/25/18 17:17 - Allergies Allergies/Adverse Reactions: Allergies Allergy/AdvReac Type Severity Reaction Status Date / Time No Known Allergies Allergy Verified 04/25/18 18:04 - Blood Blood Available: No Product(s) Available: None - Anesthesia Plan Pre-Op Medication Ordered: None - Acknowledgements Anesthesia Type Planned: MAC Pt an Appropriate Candidate for the Planned Anesthesia: Yes Alternatives and Risks of Anesthesia Discussed w Pt/Guardian: Yes Pt/Guardian Understands and Agrees with Anesthesia Plan: Yes PreAnesthesia Questionnaire - Past Health History Medical/Surgical History: Denies Medical/Surgical History Cardiovascular History: Reports: None Respiratory History: Reports: None Gastrointestinal History: Reports: None Psychiatric History: Reports: Depression Other Psychiatric History: when asked if patient has depression, he states "Yeah , I guess some depression", but no official diagnosis. Endocrine/Metabolic History: Reports: Diabetes, Type II, Other (See Below) Other Endocrine/Metabolic History: new diagnosis diabetes Dermatologic History: Reports: Cellulitis, Other (See Below) Other Dermatologic History: diagnosis of diabetes - Past Surgical History HEENT Surgical History: Reports: Oral Surgery - SUBSTANCE USE Smoking Status *Q: Never Smoker Tobacco Use Within Last Twelve Months: No Second Hand Smoke Exposure: No Days Per Week of Alcohol Use: 1 Recreational Drug Use History: No - HOME MEDS Home Medications: Home Meds . [No Known Home Meds] 04/25/18 [History] - CURRENT (IN HOUSE) MEDS Current Meds: Current Medications Acetaminophen (Tylenol) 650 mg PO Q4H PRN PRN Reason: Pain (Mild 1-3)/fever Hydrocodone Bitart/Acetaminophen ([place] 325-5 Mg) 1 tab PO Q4H PRN PRN Reason: Pain (moderate 4-6) Albuterol/Ipratropium (Duoneb 3.0-0.5 Mg/3 Ml) 3 ml NEB Q4H PRN PRN Reason: Shortness Of Breath/wheezing Aspirin (Aspirin) 81 mg PO BEDTIME [facility] Last Admin: 04/25/18 22:45 Dose: 81 mg Bisacodyl (Dulcolax) 5 mg PO DAILY PRN PRN Reason: Constipation Docusate Sodium (Colace) 100 mg PO BID PRN PRN Reason: Constipation Enoxaparin Sodium (Lovenox) 40 mg SUBCUT DAILY [facility] Last Admin: 04/26/18 08:42 Dose: Not Given Fentanyl (Sublimaze) 50 mcg IVPUSH Q5M PRN PRN Reason: Pain Glipizide (Glucotrol Xl) 5 mg PO BIDMEALS [facility] Last Admin: 04/26/18 08:42 Dose: Not Given Hydromorphone HCl (Dilaudid) 0.5 mg IVPUSH Q4H PRN PRN Reason: Pain (severe 7-10) Last Admin: 04/26/18 04:03 Dose: 0.5 mg Hydromorphone HCl (Dilaudid) 0.5 mg IVPUSH ONETIME PRN PRN Reason: Pain (severe 7-10) Promethazine HCl 12.5 mg/ (Sodium Chloride) 50.5 mls @ 100 mls/hr IV Q6H PRN PRN Reason: Nausea/Vomiting Vancomycin HCl 1 gm/ Sodium (Chloride) 250 mls @ 250 mls/hr IV Q8H [facility] Last Admin: 04/26/18 07:04 Dose: 250 mls/hr Piperacillin Sod/Tazobactam (Sod 4.5 gm/ Sodium Chloride) 100 mls @ 25 mls/hr IV Q8H [facility] Last Admin: 04/26/18 07:04 Dose: 25 mls/hr Clindamycin Phosphate 900 mg/ (Sodium Chloride) 106 mls @ 100 mls/hr IV Q8H [facility] Last Admin: 04/26/18 03:41 Dose: 100 mls/hr Insulin Human Lispro (Humalog) 0 unit SUBCUT QIDACANDBED [facility]; Protocol Last Admin: 04/26/18 08:41 Dose: 4 units Lisinopril (Prinivil) 10 mg PO DAILY [facility] Last Admin: 04/26/18 08:42 Dose: Not Given Lorazepam (Ativan) 1 mg IV Q6H PRN PRN Reason: Nausea/Vomiting Metformin HCl (Glucophage) 500 mg PO BIDMEALS [facility] Last Admin: 04/26/18 08:42 Dose: Not Given Ondansetron HCl (Zofran) 4 mg IV Q6H PRN PRN Reason: Nausea/Vomiting Ondansetron HCl (Zofran) 4 mg IVPUSH ONETIME PRN PRN Reason: Nausea/Vomiting Polyethylene Glycol (Miralax) 17 gm PO DAILY PRN PRN Reason: Constipation Saccharomyces Boulardii (Florastor) 250 mg PO DAILY [facility] Last Admin: 04/26/18 08:42 Dose: Not Given Senna/Docusate Sodium (Senna Plus) 1 tab PO BID PRN PRN Reason: Constipation Sodium Chloride (Saline Flush) 10 ml FLUSH ASDIRECTED PRN PRN Reason: Keep Vein Open Last Admin: 04/25/18 16:00 Dose: 10 ml Temazepam (Restoril) 15 mg PO BEDTIME PRN PRN Reason: Sleep Vancomycin HCl (Pharmacy To Dose - Vancomycin) 0 dose .XX ASDIRECTED PRN PRN Reason: RX TO DOSE VANCO Discontinued Medications Bupivacaine HCl (Marcaine 0.5%) Confirm Administered Dose 30 ml .ROUTE .STK-MED ONE Stop: 04/25/18 18:23 Last Admin: 04/25/18 19:53 Dose: 1.5 ml Clindamycin Phosphate (Cleocin) Confirm Administered Dose 900 mg .ROUTE .STK- MED ONE Stop: 04/25/18 19:11 Fentanyl (Sublimaze) Confirm Administered Dose 250 mcg .ROUTE .STK-MED ONE Stop: 04/25/18 18:38 Fentanyl (Sublimaze) Confirm Administered Dose 100 mcg .ROUTE .STK-MED ONE Stop: 04/26/18 09:03 Hydromorphone HCl (Dilaudid) 0.5 mg IVPUSH ONETIME ONE Stop: 04/25/18 15:30 Last Admin: 04/25/18 16:01 Dose: 0.5 mg Hydromorphone HCl (Dilaudid) Confirm Administered Dose 1 mg .ROUTE .STK-MED ONE Stop: 04/25/18 19:03 Sodium Chloride (Normal Saline) 1,000 mls @ 999 mls/hr IV ONETIME ONE Stop: 04/25/18 16:28 Last Admin: 04/25/18 15:59 Dose: 999 mls/hr Vancomycin HCl 1 gm/ Sodium (Chloride) 250 mls @ 250 mls/hr IV ONETIME ONE Stop: 04/25/18 16:36 Last Admin: 04/25/18 16:10 Dose: 250 mls/hr Vancomycin HCl 1 gm/ Sodium (Chloride) 250 mls @ 250 mls/hr IV ONETIME ONE Stop: 04/25/18 16:37 Last Admin: 04/25/18 17:09 Dose: 250 mls/hr Sodium Chloride (Normal Saline) 1,000 mls @ 999 mls/hr IV ONETIME ONE Stop: 04/25/18 17:57 Last Admin: 04/25/18 17:09 Dose: 999 mls/hr Piperacillin Sod/Tazobactam (Sod 4.5 gm/ Sodium Chloride) 100 mls @ 200 mls/hr IV ONETIME ONE Stop: 04/25/18 18:24 Last Admin: 04/25/18 18:18 Dose: 200 mls/hr Lidocaine HCl (Xylocaine-Mpf 1%) Confirm Administered Dose 4 mls @ as directed .ROUTE .STK-MED ONE Stop: 04/25/18 18:38 Sodium Chloride (Normal Saline) Confirm Administered Dose 100 mls @ as directed .ROUTE .STK-MED ONE Stop: 04/25/18 19:11 Ketamine HCl (Ketalar) Confirm Administered Dose 500 mg .ROUTE .STK-MED ONE Stop: 04/25/18 19:11 Lidocaine/Epinephrine (Xylocaine 1% With Epinephrine 1:100,000) Confirm Administered Dose 20 ml .ROUTE .STK-MED ONE Stop: 04/25/18 18:23 Last Admin: 04/25/18 19:53 Dose: 1.5 ml Metformin HCl (Glucophage) 500 mg PO ONETIME ONE Stop: 04/25/18 23:01 Last Admin: 04/25/18 23:10 Dose: 500 mg Midazolam HCl (Versed 1 Mg/Ml) Confirm Administered Dose 2 mg .ROUTE .STK-MED ONE Stop: 04/25/18 18:38 Midazolam HCl (Versed 1 Mg/Ml) Confirm Administered Dose 2 mg .ROUTE .STK-MED ONE Stop: 04/26/18 09:03 Ondansetron HCl (Zofran) 4 mg IVPUSH ONETIME ONE Stop: 04/25/18 15:30 Last Admin: 04/25/18 16:03 Dose: 4 mg Ondansetron HCl (Zofran) Confirm Administered Dose 4 mg .ROUTE .STK-MED ONE Stop: 04/25/18 18:38 Propofol (Diprivan 20 Ml) Confirm Administered Dose 200 mg .ROUTE .STK-MED ONE Stop: 04/25/18 18:38 Propofol (Diprivan 20 Ml) Confirm Administered Dose 400 mg .ROUTE .STK-MED ONE Stop: 04/26/18 09:03 Succinylcholine Chloride (Succinylcholine In Ns Pf) Confirm Administered Dose 100 mg .ROUTE .STK-MED ONE Stop: 04/25/18 18:38 Vancomycin HCl (Vancomycin) 1,190.685 mg 15 mg/kg (1190.685 mg) IV Q12H [facility] Last Admin: 04/25/18 18:15 Dose: Not Given
--- NOTE | 2018-04-26 09:49 | PCM.CONSN ---
- General Info Date of Service: 04/26/18 Subjective Update: Last night, was taken to the OR for a RIGHT food debridement. Overnight, no acute events. Pain has been controlled with Dilaudid PRN. Pain is improved compared to before surgery. Functional Status: Reports: Pain Controlled - Patient Data Vitals - Most Recent: Last Vital Signs Temp 37.7 C 04/26/18 09:18 Pulse 101 H 04/26/18 09:18 Resp 18 04/26/18 09:18 BP 129/76 04/26/18 09:18 Pulse Ox 98 04/26/18 09:18 Weight - Most Recent: 79.407 kg I&O - Last 24 Hours: Intake & Output 04/25/18 04/26/18 04/26/18 22:59 06:59 14:59 Intake Total 1999 2400 Output Total 1675 Balance 1999 725 Lab Results Last 24 Hours: Laboratory Results - last 24 hr 04/25/18 04/25/18 04/25/18 Range/Units 15:50 15:50 15:50 WBC 18.92 H (4.23-9.07) K/mm3 RBC 4.99 (4.63-6.08) M/mm3 Hgb 13.9 (13.7-17.5) gm/L Hct 39.6 L (40.1-51.0) % MCV 79.4 (79.0-92.2) fl MCH 27.9 (25.7-32.2) pg MCHC 35.1 (32.2-35.5) g/dl RDW Std Deviation 36.7 (35.1-43.9) fL Plt Count 312 (163-337) K/mm3 MPV 9.1 L (9.4-12.3) fl Neut % (Auto) (34.0-67.9) % Lymph % (Auto) (21.8-53.1) % [place] % (Auto) (5.3-12.2) % Eos % (Auto) (0.8-7.0) Baso % (Auto) (0.1-1.2) % Neut # (Auto) (1.78-5.38) K/mm3 Lymph # (Auto) (1.32-3.57) K/mm3 [place] # (Auto) (0.30-0.82) K/mm3 Eos # (Auto) (0.04-0.54) K/mm3 Baso # (Auto) (0.01-0.08) K/mm3 Neutrophils % (Manual) 86 H (40-60) % Band Neutrophils % 0 (0-10) % Lymphocytes % (Manual) 11 L (20-40) % Atypical Lymphs % 0 % Monocytes % (Manual) 3 (2-10) % Eosinophils % (Manual) 0 L (0.8-7.0) % Basophils % (Manual) 0 L (0.2-1.2) Manual Slide Review Platelet Estimate Adequate RBC Morph Comment Normal Sodium 131 L (136-145) mEq/L Potassium 3.8 (3.5-5.1) mEq/L Chloride 95 L (98-107) mEq/L Carbon Dioxide 26 (21-32) mEq/L Anion Gap 13.8 (5-15) BUN 12 (7-18) mg/dL Creatinine 1.0 (0.7-1.3) mg/dL Est Cr Clr Drug Dosing 85.95 mL/min Estimated GFR (MDRD) > 60 (>60) mL/min BUN/Creatinine Ratio 12.0 L (14-18) Glucose 355 H (74-106) mg/dL POC Glucose (70-105) mg/dL Hemoglobin A1c (4.50-6.20) % Lactic Acid 1.7 (0.4-2.0) mmol/L Calcium 8.9 (8.5-10.1) mg/dL Magnesium (1.8-2.4) mg/dl Total Bilirubin 0.5 (0.2-1.0) mg/dL AST 24 (15-37) U/L ALT 41 (16-63) U/L Alkaline Phosphatase 147 H (46-116) U/L C-Reactive Protein 36.0 H* (<1.0) mg/dL Total Protein 7.7 (6.4-8.2) g/dl Albumin 2.5 L (3.4-5.0) g/dl Globulin 5.2 gm/dL Albumin/Globulin Ratio 0.5 L (1-2) Triglycerides (<150) mg/dL Cholesterol (<200) mg/dL LDL Cholesterol Direct (<100) mg/dL HDL Cholesterol (40-59) mg/dL Free T4 (0.76-1.46) ng/dL TSH 3rd Generation (0.358-3.74) uIU/mL Urine Color (Yellow) Urine Appearance (Clear) Urine pH (5.0-8.0) Ur Specific [place] (1.005-1.030) Urine Protein (Negative) Urine Glucose (UA) (Negative) Urine Ketones (Negative) Urine Occult Blood (Negative) Urine Nitrite (Negative) Urine Bilirubin (Negative) Urine Urobilinogen (0.2-1.0) Ur Leukocyte Esterase (Negative) Urine RBC (0-5) /hpf Urine WBC (0-5) /hpf Ur Epithelial Cells (0-5) /hpf Urine Bacteria (FEW) /hpf Urine Mucus (FEW) /hpf Ur Random Microalbumin (1.3-20.0) mg/L 04/25/18 04/25/18 04/25/18 Range/Units 15:50 15:50 17:17 WBC (4.23-9.07) K/mm3 RBC (4.63-6.08) M/mm3 Hgb (13.7-17.5) gm/L Hct (40.1-51.0) % MCV (79.0-92.2) fl MCH (25.7-32.2) pg MCHC (32.2-35.5) g/dl RDW Std Deviation (35.1-43.9) fL Plt Count (163-337) K/mm3 MPV (9.4-12.3) fl Neut % (Auto) (34.0-67.9) % Lymph % (Auto) (21.8-53.1) % [place] % (Auto) (5.3-12.2) % Eos % (Auto) (0.8-7.0) Baso % (Auto) (0.1-1.2) % Neut # (Auto) (1.78-5.38) K/mm3 Lymph # (Auto) (1.32-3.57) K/mm3 [place] # (Auto) (0.30-0.82) K/mm3 Eos # (Auto) (0.04-0.54) K/mm3 Baso # (Auto) (0.01-0.08) K/mm3 Neutrophils % (Manual) (40-60) % Band Neutrophils % (0-10) % Lymphocytes % (Manual) (20-40) % Atypical Lymphs % % Monocytes % (Manual) (2-10) % Eosinophils % (Manual) (0.8-7.0) % Basophils % (Manual) (0.2-1.2) Manual Slide Review Platelet Estimate RBC Morph Comment Sodium (136-145) mEq/L Potassium (3.5-5.1) mEq/L Chloride (98-107) mEq/L Carbon Dioxide (21-32) mEq/L Anion Gap (5-15) BUN (7-18) mg/dL Creatinine (0.7-1.3) mg/dL Est Cr Clr Drug Dosing mL/min Estimated GFR (MDRD) (>60) mL/min BUN/Creatinine Ratio (14-18) Glucose (74-106) mg/dL POC Glucose (70-105) mg/dL Hemoglobin A1c 11.80 H (4.50-6.20) % Lactic Acid (0.4-2.0) mmol/L Calcium (8.5-10.1) mg/dL Magnesium (1.8-2.4) mg/dl Total Bilirubin (0.2-1.0) mg/dL AST (15-37) U/L ALT (16-63) U/L Alkaline Phosphatase (46-116) U/L C-Reactive Protein (<1.0) mg/dL Total Protein (6.4-8.2) g/dl Albumin (3.4-5.0) g/dl Globulin gm/dL Albumin/Globulin Ratio (1-2) Triglycerides (<150) mg/dL Cholesterol (<200) mg/dL LDL Cholesterol Direct (<100) mg/dL HDL Cholesterol (40-59) mg/dL Free T4 1.26 (0.76-1.46) ng/dL TSH 3rd Generation 0.788 (0.358-3.74) uIU/mL Urine Color Yellow (Yellow) Urine Appearance Slt cloudy H (Clear) Urine pH 6.0 (5.0-8.0) Ur Specific [place] 1.015 (1.005-1.030) Urine Protein Negative (Negative) Urine Glucose (UA) 2+ H (Negative) Urine Ketones 2+ H (Negative) Urine Occult Blood Negative (Negative) Urine Nitrite Negative (Negative) Urine Bilirubin Negative (Negative) Urine Urobilinogen 2.0 H (0.2-1.0) Ur Leukocyte Esterase Negative (Negative) Urine RBC Not seen (0-5) /hpf Urine WBC 0-5 (0-5) /hpf Ur Epithelial Cells Not seen (0-5) /hpf Urine Bacteria Occasional (FEW) /hpf Urine Mucus Few (FEW) /hpf Ur Random Microalbumin (1.3-20.0) mg/L 04/25/18 04/25/18 04/25/18 Range/Units 17:17 18:12 20:36 WBC (4.23-9.07) K/mm3 RBC (4.63-6.08) M/mm3 Hgb (13.7-17.5) gm/L Hct (40.1-51.0) % MCV (79.0-92.2) fl MCH (25.7-32.2) pg MCHC (32.2-35.5) g/dl RDW Std Deviation (35.1-43.9) fL Plt Count (163-337) K/mm3 MPV (9.4-12.3) fl Neut % (Auto) (34.0-67.9) % Lymph % (Auto) (21.8-53.1) % [place] % (Auto) (5.3-12.2) % Eos % (Auto) (0.8-7.0) Baso % (Auto) (0.1-1.2) % Neut # (Auto) (1.78-5.38) K/mm3 Lymph # (Auto) (1.32-3.57) K/mm3 [place] # (Auto) (0.30-0.82) K/mm3 Eos # (Auto) (0.04-0.54) K/mm3 Baso # (Auto) (0.01-0.08) K/mm3 Neutrophils % (Manual) (40-60) % Band Neutrophils % (0-10) % Lymphocytes % (Manual) (20-40) % Atypical Lymphs % % Monocytes % (Manual) (2-10) % Eosinophils % (Manual) (0.8-7.0) % Basophils % (Manual) (0.2-1.2) Manual Slide Review Platelet Estimate RBC Morph Comment Sodium (136-145) mEq/L Potassium (3.5-5.1) mEq/L Chloride (98-107) mEq/L Carbon Dioxide (21-32) mEq/L Anion Gap (5-15) BUN (7-18) mg/dL Creatinine (0.7-1.3) mg/dL Est Cr Clr Drug Dosing mL/min Estimated GFR (MDRD) (>60) mL/min BUN/Creatinine Ratio (14-18) Glucose (74-106) mg/dL POC Glucose 271 H 205 H (70-105) mg/dL Hemoglobin A1c (4.50-6.20) % Lactic Acid (0.4-2.0) mmol/L Calcium (8.5-10.1) mg/dL Magnesium (1.8-2.4) mg/dl Total Bilirubin (0.2-1.0) mg/dL AST (15-37) U/L ALT (16-63) U/L Alkaline Phosphatase (46-116) U/L C-Reactive Protein (<1.0) mg/dL Total Protein (6.4-8.2) g/dl Albumin (3.4-5.0) g/dl Globulin gm/dL Albumin/Globulin Ratio (1-2) Triglycerides (<150) mg/dL Cholesterol (<200) mg/dL LDL Cholesterol Direct (<100) mg/dL HDL Cholesterol (40-59) mg/dL Free T4 (0.76-1.46) ng/dL TSH 3rd Generation (0.358-3.74) uIU/mL Urine Color (Yellow) Urine Appearance (Clear) Urine pH (5.0-8.0) Ur Specific [place] (1.005-1.030) Urine Protein (Negative) Urine Glucose (UA) (Negative) Urine Ketones (Negative) Urine Occult Blood (Negative) Urine Nitrite (Negative) Urine Bilirubin (Negative) Urine Urobilinogen (0.2-1.0) Ur Leukocyte Esterase (Negative) Urine RBC (0-5) /hpf Urine WBC (0-5) /hpf Ur Epithelial Cells (0-5) /hpf Urine Bacteria (FEW) /hpf Urine Mucus (FEW) /hpf Ur Random Microalbumin 14.6 (1.3-20.0) mg/L 04/26/18 04/26/18 04/26/18 Range/Units 06:26 06:27 06:27 WBC 13.89 H (4.23-9.07) K/mm3 RBC 4.12 L (4.63-6.08) M/mm3 Hgb 11.2 L (13.7-17.5) gm/L Hct 33.7 L (40.1-51.0) % MCV 81.8 (79.0-92.2) fl MCH 27.2 (25.7-32.2) pg MCHC 33.2 (32.2-35.5) g/dl RDW Std Deviation 38.0 (35.1-43.9) fL Plt Count 285 (163-337) K/mm3 MPV 9.1 L (9.4-12.3) fl Neut % (Auto) 78.0 H (34.0-67.9) % Lymph % (Auto) 12.6 L (21.8-53.1) % [place] % (Auto) 8.6 (5.3-12.2) % Eos % (Auto) 0.3 L (0.8-7.0) Baso % (Auto) 0.1 (0.1-1.2) % Neut # (Auto) 10.82 H (1.78-5.38) K/mm3 Lymph # (Auto) 1.75 (1.32-3.57) K/mm3 [place] # (Auto) 1.20 H (0.30-0.82) K/mm3 Eos # (Auto) 0.04 (0.04-0.54) K/mm3 Baso # (Auto) 0.02 (0.01-0.08) K/mm3 Neutrophils % (Manual) (40-60) % Band Neutrophils % (0-10) % Lymphocytes % (Manual) (20-40) % Atypical Lymphs % % Monocytes % (Manual) (2-10) % Eosinophils % (Manual) (0.8-7.0) % Basophils % (Manual) (0.2-1.2) Manual Slide Review Abnormal smear Platelet Estimate RBC Morph Comment Sodium 135 L (136-145) mEq/L Potassium 3.6 (3.5-5.1) mEq/L Chloride 103 (98-107) mEq/L Carbon Dioxide 25 (21-32) mEq/L Anion Gap 10.6 (5-15) BUN 10 (7-18) mg/dL Creatinine 0.8 (0.7-1.3) mg/dL Est Cr Clr Drug Dosing 107.44 mL/min Estimated GFR (MDRD) > 60 (>60) mL/min BUN/Creatinine Ratio 12.5 L (14-18) Glucose 254 H (74-106) mg/dL POC Glucose 219 H (70-105) mg/dL Hemoglobin A1c (4.50-6.20) % Lactic Acid (0.4-2.0) mmol/L Calcium 7.8 L (8.5-10.1) mg/dL Magnesium 1.8 (1.8-2.4) mg/dl Total Bilirubin (0.2-1.0) mg/dL AST (15-37) U/L ALT (16-63) U/L Alkaline Phosphatase (46-116) U/L C-Reactive Protein 23.4 H* (<1.0) mg/dL Total Protein (6.4-8.2) g/dl Albumin (3.4-5.0) g/dl Globulin gm/dL Albumin/Globulin Ratio (1-2) Triglycerides 47 (<150) mg/dL Cholesterol 75 (<200) mg/dL LDL Cholesterol Direct 50 (<100) mg/dL HDL Cholesterol 23.0 L (40-59) mg/dL Free T4 (0.76-1.46) ng/dL TSH 3rd Generation (0.358-3.74) uIU/mL Urine Color (Yellow) Urine Appearance (Clear) Urine pH (5.0-8.0) Ur Specific [place] (1.005-1.030) Urine Protein (Negative) Urine Glucose (UA) (Negative) Urine Ketones (Negative) Urine Occult Blood (Negative) Urine Nitrite (Negative) Urine Bilirubin (Negative) Urine Urobilinogen (0.2-1.0) Ur Leukocyte Esterase (Negative) Urine RBC (0-5) /hpf Urine WBC (0-5) /hpf Ur Epithelial Cells (0-5) /hpf Urine Bacteria (FEW) /hpf Urine Mucus (FEW) /hpf Ur Random Microalbumin (1.3-20.0) mg/L Fabian Results Last 24 Hours: Microbiology 04/25/18 19:11 Wound Culture - Preliminary Foot, Right Gram Positive Cocci Beta Streptococcus 04/25/18 19:11 Wound Culture - Preliminary Toe, Right - Right Third Gram Positive Cocci Beta Streptococcus 04/25/18 19:25 Wound Culture - Preliminary Toe, Right - Right Third Gram Positive Cocci Beta Streptococcus Med Orders - Current: Current Medications Acetaminophen (Tylenol) 650 mg PO Q4H PRN PRN Reason: Pain (Mild 1-3)/fever Hydrocodone Bitart/Acetaminophen ([place] 325-5 Mg) 1 tab PO Q4H PRN PRN Reason: Pain (moderate 4-6) Albuterol/Ipratropium (Duoneb 3.0-0.5 Mg/3 Ml) 3 ml NEB Q4H PRN PRN Reason: Shortness Of Breath/wheezing Aspirin (Aspirin) 81 mg PO BEDTIME [facility] Last Admin: 04/25/18 22:45 Dose: 81 mg Bisacodyl (Dulcolax) 5 mg PO DAILY PRN PRN Reason: Constipation Docusate Sodium (Colace) 100 mg PO BID PRN PRN Reason: Constipation Enoxaparin Sodium (Lovenox) 40 mg SUBCUT DAILY [facility] Last Admin: 04/26/18 08:42 Dose: Not Given Fentanyl (Sublimaze) 50 mcg IVPUSH Q5M PRN PRN Reason: Pain Glipizide (Glucotrol Xl) 5 mg PO BIDMEALS [facility] Last Admin: 04/26/18 08:42 Dose: Not Given Hydromorphone HCl (Dilaudid) 0.5 mg IVPUSH Q4H PRN PRN Reason: Pain (severe 7-10) Last Admin: 04/26/18 04:03 Dose: 0.5 mg Hydromorphone HCl (Dilaudid) 0.5 mg IVPUSH ONETIME PRN PRN Reason: Pain (severe 7-10) Promethazine HCl 12.5 mg/ (Sodium Chloride) 50.5 mls @ 100 mls/hr IV Q6H PRN PRN Reason: Nausea/Vomiting Vancomycin HCl 1 gm/ Sodium (Chloride) 250 mls @ 250 mls/hr IV Q8H [facility] Last Admin: 04/26/18 07:04 Dose: 250 mls/hr Piperacillin Sod/Tazobactam (Sod 4.5 gm/ Sodium Chloride) 100 mls @ 25 mls/hr IV Q8H [facility] Last Admin: 04/26/18 07:04 Dose: 25 mls/hr Clindamycin Phosphate 900 mg/ (Sodium Chloride) 106 mls @ 100 mls/hr IV Q8H [facility] Last Admin: 04/26/18 03:41 Dose: 100 mls/hr Insulin Human Lispro (Humalog) 0 unit SUBCUT QIDACANDBED [facility]; Protocol Last Admin: 04/26/18 08:41 Dose: 4 units Lisinopril (Prinivil) 10 mg PO DAILY [facility] Last Admin: 04/26/18 08:42 Dose: Not Given Lorazepam (Ativan) 1 mg IV Q6H PRN PRN Reason: Nausea/Vomiting [facility] Admin: 04/26/18 08:42 Dose: Not Given Ondansetron HCl (Zofran) 4 mg IV Q6H PRN PRN Reason: Nausea/Vomiting Ondansetron HCl (Zofran) 4 mg IVPUSH ONETIME PRN PRN Reason: Nausea/Vomiting Polyethylene Glycol (Miralax) 17 gm PO DAILY PRN PRN Reason: Constipation Saccharomyces Boulardii (Florastor) 250 mg PO DAILY [facility] Last Admin: 04/26/18 08:42 Dose: Not Given Senna/Docusate Sodium (Senna Plus) 1 tab PO BID PRN PRN Reason: Constipation Sodium Chloride (Saline Flush) 10 ml FLUSH ASDIRECTED PRN PRN Reason: Keep Vein Open Last Admin: 04/25/18 16:00 Dose: 10 ml Temazepam (Restoril) 15 mg PO BEDTIME PRN PRN Reason: Sleep Vancomycin HCl (Pharmacy To Dose - Vancomycin) 0 dose .XX ASDIRECTED PRN PRN Reason: RX TO DOSE VANCO Discontinued Medications Bupivacaine HCl (Marcaine 0.5%) Confirm Administered Dose 30 ml .ROUTE .STK-MED ONE Stop: 04/25/18 18:23 Last Admin: 04/25/18 19:53 Dose: 1.5 ml Clindamycin Phosphate (Cleocin) Confirm Administered Dose 900 mg .ROUTE .STK- MED ONE Stop: 04/25/18 19:11 Fentanyl (Sublimaze) Confirm Administered Dose 250 mcg .ROUTE .STK-MED ONE Stop: 04/25/18 18:38 Fentanyl (Sublimaze) Confirm Administered Dose 100 mcg .ROUTE .STK-MED ONE Stop: 04/26/18 09:03 Hydromorphone HCl (Dilaudid) 0.5 mg IVPUSH ONETIME ONE Stop: 04/25/18 15:30 Last Admin: 04/25/18 16:01 Dose: 0.5 mg Hydromorphone HCl (Dilaudid) Confirm Administered Dose 1 mg .ROUTE .STK-MED ONE Stop: 04/25/18 19:03 Sodium Chloride (Normal Saline) 1,000 mls @ 999 mls/hr IV ONETIME ONE Stop: 04/25/18 16:28 Last Admin: 04/25/18 15:59 Dose: 999 mls/hr Vancomycin HCl 1 gm/ Sodium (Chloride) 250 mls @ 250 mls/hr IV ONETIME ONE Stop: 04/25/18 16:36 Last Admin: 04/25/18 16:10 Dose: 250 mls/hr Vancomycin HCl 1 gm/ Sodium (Chloride) 250 mls @ 250 mls/hr IV ONETIME ONE Stop: 04/25/18 16:37 Last Admin: 04/25/18 17:09 Dose: 250 mls/hr Sodium Chloride (Normal Saline) 1,000 mls @ 999 mls/hr IV ONETIME ONE Stop: 04/25/18 17:57 Last Admin: 04/25/18 17:09 Dose: 999 mls/hr Piperacillin Sod/Tazobactam (Sod 4.5 gm/ Sodium Chloride) 100 mls @ 200 mls/hr IV ONETIME ONE Stop: 04/25/18 18:24 Last Admin: 04/25/18 18:18 Dose: 200 mls/hr Lidocaine HCl (Xylocaine-Mpf 1%) Confirm Administered Dose 4 mls @ as directed .ROUTE .STK-MED ONE Stop: 04/25/18 18:38 Sodium Chloride (Normal Saline) Confirm Administered Dose 100 mls @ as directed .ROUTE .STK-MED ONE Stop: 04/25/18 19:11 Ketamine HCl (Ketalar) Confirm Administered Dose 500 mg .ROUTE .STK-MED ONE Stop: 04/25/18 19:11 Lidocaine/Epinephrine (Xylocaine 1% With Epinephrine 1:100,000) Confirm Administered Dose 20 ml .ROUTE .STK-MED ONE Stop: 04/25/18 18:23 Last Admin: 04/25/18 19:53 Dose: 1.5 ml Metformin HCl (Glucophage) 500 mg PO ONETIME ONE Stop: 04/25/18 23:01 Last Admin: 04/25/18 23:10 Dose: 500 mg Midazolam HCl (Versed 1 Mg/Ml) Confirm Administered Dose 2 mg .ROUTE .STK-MED ONE Stop: 04/25/18 18:38 Midazolam HCl (Versed 1 Mg/Ml) Confirm Administered Dose 2 mg .ROUTE .STK-MED ONE Stop: 04/26/18 09:03 Ondansetron HCl (Zofran) 4 mg IVPUSH ONETIME ONE Stop: 04/25/18 15:30 Last Admin: 04/25/18 16:03 Dose: 4 mg Ondansetron HCl (Zofran) Confirm Administered Dose 4 mg .ROUTE .STK-MED ONE Stop: 04/25/18 18:38 Propofol (Diprivan 20 Ml) Confirm Administered Dose 200 mg .ROUTE .STK-MED ONE Stop: 04/25/18 18:38 Propofol (Diprivan 20 Ml) Confirm Administered Dose 400 mg .ROUTE .STK-MED ONE Stop: 04/26/18 09:03 Succinylcholine Chloride (Succinylcholine In Ns Pf) Confirm Administered Dose 100 mg .ROUTE .STK-MED ONE Stop: 04/25/18 18:38 Vancomycin HCl (Vancomycin) 1,190.685 mg 15 mg/kg (1190.685 mg) IV Q12H [facility] Last Admin: 04/25/18 18:15 Dose: Not Given - Exam General: Alert, Oriented, Cooperative Wound/Incisions: Other (Dressing in place to RIGHT foot.) Consult PN Assessment/Plan (1) Foot abscess, right SNOMED Code(s): 510045735 Code(s): L02.611 - CUTANEOUS ABSCESS OF RIGHT FOOT Current Visit: Yes Problem List Initiated/Reviewed/Updated: Yes My Orders Last 24 Hours: My Active Orders 04/25/18 18:15 Schedule Procedure [COMM] Stat 04/25/18 19:00 Clindamycin Phosphate [Cleocin] 900 mg Sodium Chloride 0.9% [Normal Saline] 100 ml IV Q8H 04/25/18 19:11 CULTURE ANAEROBIC + SMEAR [RM] Routine CULTURE WOUND [RM] Routine CULTURE WOUND [RM] Routine 04/25/18 19:25 CULTURE WOUND [RM] Routine 04/26/18 Breakfast NPO After Midnight [Nothing per Oral After Midnight Diet] [DIET] Plan: 42 yo male, HD#2 for RIGHT foot soft tissue infection, due to concerns for necrotizing soft tissue infection, he was taken to the OR last night, POD#1 s/p I&D of RIGHT foot abscess and debridement. Intraoperatively, there was some concern for necrotic tissue, which required debridement. This morning, patient with improved markers of inflammation (CRP 24, down from 36; WBC 13, down from 18). Newly diagnosed poorly controlled diabetes (HbA1c>11). - Patient will require repeat exam in the OR with dressing change, and possible debridement. Indications, risks, and benefits were discussed with the patient in detail. - Day #2 of broad-spectrum antibiotics (IV Zosyn/vanc/clindamycin). - F/U tissue cultures and blood cultures. - Appreciate hospitalist management of patient, including blood sugar control. - Will obtain intraoperative Ortho consult as needed. Arsen Gaston M.D., F.A.C.S. General Surgery Pager: [phone]
[2018-04-26] MEDS ORDERED: Ketamine 500 mg/10 ML MDV ONE (10:06)
[2018-04-26] MEDS ORDERED: Ondansetron 4 MG/2 ML SDV ONE (10:09)
[2018-04-26] MEDS ORDERED: Lactated Ringers 1,000 ML ONE (10:09)
--- NOTE | 2018-04-26 10:49 | PCM.PN ---
<Cynthia Gustafson - Last Filed: 04/26/18 15:44> - General Info Functional Status: Reports: Pain Controlled, Tolerating Diet, Urinating - Review of Systems General: Reports: No Symptoms. Denies: Fever, Chills HEENT: Reports: No Symptoms. Denies: Headaches Pulmonary: Reports: Cough (occasional, non-productive). Denies: Shortness of Breath, Pleuritic Chest Pain Cardiovascular: Reports: No Symptoms. Denies: Chest Pain Gastrointestinal: Reports: No Symptoms. Denies: Abdominal Pain, Constipation, Diarrhea, Nausea, Vomiting Genitourinary: Reports: No Symptoms Musculoskeletal: Reports: Foot Pain (right foot - improved from yesterday) Skin: Reports: Other (right foot ulcer) Neurological: Reports: No Symptoms Psychiatric: Reports: No Symptoms Systems Review Comment:: Patient states he is doing better today. He has now had two debridements and the pain in his foot has improved. He is no longer experiencing chills. He has no new symptoms, other than occasional cough which he says is chronic and recurrent. - Patient Data Vitals - Most Recent: Last Vital Signs Temp 98.0 F 04/26/18 14:15 Pulse 105 H 04/26/18 13:03 Resp 24 H 04/26/18 14:15 BP 127/81 04/26/18 13:30 Pulse Ox 100 04/26/18 13:03 I&O - Last 24 Hours: Intake & Output 04/26/18 04/26/18 04/26/18 06:59 14:59 22:59 Intake Total 2400 120 Output Total 1675 Balance 725 120 Lab Results Last 24 Hours: Laboratory Results - last 24 hr 04/25/18 04/25/18 04/25/18 Range/Units 15:50 15:50 15:50 WBC 18.92 H (4.23-9.07) K/mm3 RBC 4.99 (4.63-6.08) M/mm3 Hgb 13.9 (13.7-17.5) gm/L Hct 39.6 L (40.1-51.0) % MCV 79.4 (79.0-92.2) fl MCH 27.9 (25.7-32.2) pg MCHC 35.1 (32.2-35.5) g/dl RDW Std Deviation 36.7 (35.1-43.9) fL Plt Count 312 (163-337) K/mm3 MPV 9.1 L (9.4-12.3) fl Neut % (Auto) (34.0-67.9) % Lymph % (Auto) (21.8-53.1) % [place] % (Auto) (5.3-12.2) % Eos % (Auto) (0.8-7.0) Baso % (Auto) (0.1-1.2) % Neut # (Auto) (1.78-5.38) K/mm3 Lymph # (Auto) (1.32-3.57) K/mm3 [place] # (Auto) (0.30-0.82) K/mm3 Eos # (Auto) (0.04-0.54) K/mm3 Baso # (Auto) (0.01-0.08) K/mm3 Neutrophils % (Manual) 86 H (40-60) % Band Neutrophils % 0 (0-10) % Lymphocytes % (Manual) 11 L (20-40) % Atypical Lymphs % 0 % Monocytes % (Manual) 3 (2-10) % Eosinophils % (Manual) 0 L (0.8-7.0) % Basophils % (Manual) 0 L (0.2-1.2) Manual Slide Review Platelet Estimate Adequate RBC Morph Comment Normal Sodium 131 L (136-145) mEq/L Potassium 3.8 (3.5-5.1) mEq/L Chloride 95 L (98-107) mEq/L Carbon Dioxide 26 (21-32) mEq/L Anion Gap 13.8 (5-15) BUN 12 (7-18) mg/dL Creatinine 1.0 (0.7-1.3) mg/dL Est Cr Clr Drug Dosing 85.95 mL/min Estimated GFR (MDRD) > 60 (>60) mL/min BUN/Creatinine Ratio 12.0 L (14-18) Glucose 355 H (74-106) mg/dL POC Glucose (70-105) mg/dL Hemoglobin A1c (4.50-6.20) % Lactic Acid 1.7 (0.4-2.0) mmol/L Calcium 8.9 (8.5-10.1) mg/dL Magnesium (1.8-2.4) mg/dl Total Bilirubin 0.5 (0.2-1.0) mg/dL AST 24 (15-37) U/L ALT 41 (16-63) U/L Alkaline Phosphatase 147 H (46-116) U/L C-Reactive Protein 36.0 H* (<1.0) mg/dL Total Protein 7.7 (6.4-8.2) g/dl Albumin 2.5 L (3.4-5.0) g/dl Globulin 5.2 gm/dL Albumin/Globulin Ratio 0.5 L (1-2) Triglycerides (<150) mg/dL Cholesterol (<200) mg/dL LDL Cholesterol Direct (<100) mg/dL HDL Cholesterol (40-59) mg/dL Free T4 (0.76-1.46) ng/dL TSH 3rd Generation (0.358-3.74) uIU/mL Urine Color (Yellow) Urine Appearance (Clear) Urine pH (5.0-8.0) Ur Specific [place] (1.005-1.030) Urine Protein (Negative) Urine Glucose (UA) (Negative) Urine Ketones (Negative) Urine Occult Blood (Negative) Urine Nitrite (Negative) Urine Bilirubin (Negative) Urine Urobilinogen (0.2-1.0) Ur Leukocyte Esterase (Negative) Urine RBC (0-5) /hpf Urine WBC (0-5) /hpf Ur Epithelial Cells (0-5) /hpf Urine Bacteria (FEW) /hpf Urine Mucus (FEW) /hpf Ur Random Microalbumin (1.3-20.0) mg/L 04/25/18 04/25/18 04/25/18 Range/Units 15:50 15:50 17:17 WBC (4.23-9.07) K/mm3 RBC (4.63-6.08) M/mm3 Hgb (13.7-17.5) gm/L Hct (40.1-51.0) % MCV (79.0-92.2) fl MCH (25.7-32.2) pg MCHC (32.2-35.5) g/dl RDW Std Deviation (35.1-43.9) fL Plt Count (163-337) K/mm3 MPV (9.4-12.3) fl Neut % (Auto) (34.0-67.9) % Lymph % (Auto) (21.8-53.1) % [place] % (Auto) (5.3-12.2) % Eos % (Auto) (0.8-7.0) Baso % (Auto) (0.1-1.2) % Neut # (Auto) (1.78-5.38) K/mm3 Lymph # (Auto) (1.32-3.57) K/mm3 [place] # (Auto) (0.30-0.82) K/mm3 Eos # (Auto) (0.04-0.54) K/mm3 Baso # (Auto) (0.01-0.08) K/mm3 Neutrophils % (Manual) (40-60) % Band Neutrophils % (0-10) % Lymphocytes % (Manual) (20-40) % Atypical Lymphs % % Monocytes % (Manual) (2-10) % Eosinophils % (Manual) (0.8-7.0) % Basophils % (Manual) (0.2-1.2) Manual Slide Review Platelet Estimate RBC Morph Comment Sodium (136-145) mEq/L Potassium (3.5-5.1) mEq/L Chloride (98-107) mEq/L Carbon Dioxide (21-32) mEq/L Anion Gap (5-15) BUN (7-18) mg/dL Creatinine (0.7-1.3) mg/dL Est Cr Clr Drug Dosing mL/min Estimated GFR (MDRD) (>60) mL/min BUN/Creatinine Ratio (14-18) Glucose (74-106) mg/dL POC Glucose (70-105) mg/dL Hemoglobin A1c 11.80 H (4.50-6.20) % Lactic Acid (0.4-2.0) mmol/L Calcium (8.5-10.1) mg/dL Magnesium (1.8-2.4) mg/dl Total Bilirubin (0.2-1.0) mg/dL AST (15-37) U/L ALT (16-63) U/L Alkaline Phosphatase (46-116) U/L C-Reactive Protein (<1.0) mg/dL Total Protein (6.4-8.2) g/dl Albumin (3.4-5.0) g/dl Globulin gm/dL Albumin/Globulin Ratio (1-2) Triglycerides (<150) mg/dL Cholesterol (<200) mg/dL LDL Cholesterol Direct (<100) mg/dL HDL Cholesterol (40-59) mg/dL Free T4 1.26 (0.76-1.46) ng/dL TSH 3rd Generation 0.788 (0.358-3.74) uIU/mL Urine Color Yellow (Yellow) Urine Appearance Slt cloudy H (Clear) Urine pH 6.0 (5.0-8.0) Ur Specific [place] 1.015 (1.005-1.030) Urine Protein Negative (Negative) Urine Glucose (UA) 2+ H (Negative) Urine Ketones 2+ H (Negative) Urine Occult Blood Negative (Negative) Urine Nitrite Negative (Negative) Urine Bilirubin Negative (Negative) Urine Urobilinogen 2.0 H (0.2-1.0) Ur Leukocyte Esterase Negative (Negative) Urine RBC Not seen (0-5) /hpf Urine WBC 0-5 (0-5) /hpf Ur Epithelial Cells Not seen (0-5) /hpf Urine Bacteria Occasional (FEW) /hpf Urine Mucus Few (FEW) /hpf Ur Random Microalbumin (1.3-20.0) mg/L 04/25/18 04/25/18 04/25/18 Range/Units 17:17 18:12 20:36 WBC (4.23-9.07) K/mm3 RBC (4.63-6.08) M/mm3 Hgb (13.7-17.5) gm/L Hct (40.1-51.0) % MCV (79.0-92.2) fl MCH (25.7-32.2) pg MCHC (32.2-35.5) g/dl RDW Std Deviation (35.1-43.9) fL Plt Count (163-337) K/mm3 MPV (9.4-12.3) fl Neut % (Auto) (34.0-67.9) % Lymph % (Auto) (21.8-53.1) % [place] % (Auto) (5.3-12.2) % Eos % (Auto) (0.8-7.0) Baso % (Auto) (0.1-1.2) % Neut # (Auto) (1.78-5.38) K/mm3 Lymph # (Auto) (1.32-3.57) K/mm3 [place] # (Auto) (0.30-0.82) K/mm3 Eos # (Auto) (0.04-0.54) K/mm3 Baso # (Auto) (0.01-0.08) K/mm3 Neutrophils % (Manual) (40-60) % Band Neutrophils % (0-10) % Lymphocytes % (Manual) (20-40) % Atypical Lymphs % % Monocytes % (Manual) (2-10) % Eosinophils % (Manual) (0.8-7.0) % Basophils % (Manual) (0.2-1.2) Manual Slide Review Platelet Estimate RBC Morph Comment Sodium (136-145) mEq/L Potassium (3.5-5.1) mEq/L Chloride (98-107) mEq/L Carbon Dioxide (21-32) mEq/L Anion Gap (5-15) BUN (7-18) mg/dL Creatinine (0.7-1.3) mg/dL Est Cr Clr Drug Dosing mL/min Estimated GFR (MDRD) (>60) mL/min BUN/Creatinine Ratio (14-18) Glucose (74-106) mg/dL POC Glucose 271 H 205 H (70-105) mg/dL Hemoglobin A1c (4.50-6.20) % Lactic Acid (0.4-2.0) mmol/L Calcium (8.5-10.1) mg/dL Magnesium (1.8-2.4) mg/dl Total Bilirubin (0.2-1.0) mg/dL AST (15-37) U/L ALT (16-63) U/L Alkaline Phosphatase (46-116) U/L C-Reactive Protein (<1.0) mg/dL Total Protein (6.4-8.2) g/dl Albumin (3.4-5.0) g/dl Globulin gm/dL Albumin/Globulin Ratio (1-2) Triglycerides (<150) mg/dL Cholesterol (<200) mg/dL LDL Cholesterol Direct (<100) mg/dL HDL Cholesterol (40-59) mg/dL Free T4 (0.76-1.46) ng/dL TSH 3rd Generation (0.358-3.74) uIU/mL Urine Color (Yellow) Urine Appearance (Clear) Urine pH (5.0-8.0) Ur Specific [place] (1.005-1.030) Urine Protein (Negative) Urine Glucose (UA) (Negative) Urine Ketones (Negative) Urine Occult Blood (Negative) Urine Nitrite (Negative) Urine Bilirubin (Negative) Urine Urobilinogen (0.2-1.0) Ur Leukocyte Esterase (Negative) Urine RBC (0-5) /hpf Urine WBC (0-5) /hpf Ur Epithelial Cells (0-5) /hpf Urine Bacteria (FEW) /hpf Urine Mucus (FEW) /hpf Ur Random Microalbumin 14.6 (1.3-20.0) mg/L 04/26/18 04/26/18 04/26/18 Range/Units 06:26 06:27 06:27 WBC 13.89 H (4.23-9.07) K/mm3 RBC 4.12 L (4.63-6.08) M/mm3 Hgb 11.2 L (13.7-17.5) gm/L Hct 33.7 L (40.1-51.0) % MCV 81.8 (79.0-92.2) fl MCH 27.2 (25.7-32.2) pg MCHC 33.2 (32.2-35.5) g/dl RDW Std Deviation 38.0 (35.1-43.9) fL Plt Count 285 (163-337) K/mm3 MPV 9.1 L (9.4-12.3) fl Neut % (Auto) 78.0 H (34.0-67.9) % Lymph % (Auto) 12.6 L (21.8-53.1) % [place] % (Auto) 8.6 (5.3-12.2) % Eos % (Auto) 0.3 L (0.8-7.0) Baso % (Auto) 0.1 (0.1-1.2) % Neut # (Auto) 10.82 H (1.78-5.38) K/mm3 Lymph # (Auto) 1.75 (1.32-3.57) K/mm3 [place] # (Auto) 1.20 H (0.30-0.82) K/mm3 Eos # (Auto) 0.04 (0.04-0.54) K/mm3 Baso # (Auto) 0.02 (0.01-0.08) K/mm3 Neutrophils % (Manual) (40-60) % Band Neutrophils % (0-10) % Lymphocytes % (Manual) (20-40) % Atypical Lymphs % % Monocytes % (Manual) (2-10) % Eosinophils % (Manual) (0.8-7.0) % Basophils % (Manual) (0.2-1.2) Manual Slide Review Abnormal smear Platelet Estimate RBC Morph Comment Sodium 135 L (136-145) mEq/L Potassium 3.6 (3.5-5.1) mEq/L Chloride 103 (98-107) mEq/L Carbon Dioxide 25 (21-32) mEq/L Anion Gap 10.6 (5-15) BUN 10 (7-18) mg/dL Creatinine 0.8 (0.7-1.3) mg/dL Est Cr Clr Drug Dosing 107.44 mL/min Estimated GFR (MDRD) > 60 (>60) mL/min BUN/Creatinine Ratio 12.5 L (14-18) Glucose 254 H (74-106) mg/dL POC Glucose 219 H (70-105) mg/dL Hemoglobin A1c (4.50-6.20) % Lactic Acid (0.4-2.0) mmol/L Calcium 7.8 L (8.5-10.1) mg/dL Magnesium 1.8 (1.8-2.4) mg/dl Total Bilirubin (0.2-1.0) mg/dL AST (15-37) U/L ALT (16-63) U/L Alkaline Phosphatase (46-116) U/L C-Reactive Protein 23.4 H* (<1.0) mg/dL Total Protein (6.4-8.2) g/dl Albumin (3.4-5.0) g/dl Globulin gm/dL Albumin/Globulin Ratio (1-2) Triglycerides 47 (<150) mg/dL Cholesterol 75 (<200) mg/dL LDL Cholesterol Direct 50 (<100) mg/dL HDL Cholesterol 23.0 L (40-59) mg/dL Free T4 (0.76-1.46) ng/dL TSH 3rd Generation (0.358-3.74) uIU/mL Urine Color (Yellow) Urine Appearance (Clear) Urine pH (5.0-8.0) Ur Specific [place] (1.005-1.030) Urine Protein (Negative) Urine Glucose (UA) (Negative) Urine Ketones (Negative) Urine Occult Blood (Negative) Urine Nitrite (Negative) Urine Bilirubin (Negative) Urine Urobilinogen (0.2-1.0) Ur Leukocyte Esterase (Negative) Urine RBC (0-5) /hpf Urine WBC (0-5) /hpf Ur Epithelial Cells (0-5) /hpf Urine Bacteria (FEW) /hpf Urine Mucus (FEW) /hpf Ur Random Microalbumin (1.3-20.0) mg/L 04/26/18 Range/Units 11:31 WBC (4.23-9.07) K/mm3 RBC (4.63-6.08) M/mm3 Hgb (13.7-17.5) gm/L Hct (40.1-51.0) % MCV (79.0-92.2) fl MCH (25.7-32.2) pg MCHC (32.2-35.5) g/dl RDW Std Deviation (35.1-43.9) fL Plt Count (163-337) K/mm3 MPV (9.4-12.3) fl Neut % (Auto) (34.0-67.9) % Lymph % (Auto) (21.8-53.1) % [place] % (Auto) (5.3-12.2) % Eos % (Auto) (0.8-7.0) Baso % (Auto) (0.1-1.2) % Neut # (Auto) (1.78-5.38) K/mm3 Lymph # (Auto) (1.32-3.57) K/mm3 [place] # (Auto) (0.30-0.82) K/mm3 Eos # (Auto) (0.04-0.54) K/mm3 Baso # (Auto) (0.01-0.08) K/mm3 Neutrophils % (Manual) (40-60) % Band Neutrophils % (0-10) % Lymphocytes % (Manual) (20-40) % Atypical Lymphs % % Monocytes % (Manual) (2-10) % Eosinophils % (Manual) (0.8-7.0) % Basophils % (Manual) (0.2-1.2) Manual Slide Review Platelet Estimate RBC Morph Comment Sodium (136-145) mEq/L Potassium (3.5-5.1) mEq/L Chloride (98-107) mEq/L Carbon Dioxide (21-32) mEq/L Anion Gap (5-15) BUN (7-18) mg/dL Creatinine (0.7-1.3) mg/dL Est Cr Clr Drug Dosing mL/min Estimated GFR (MDRD) (>60) mL/min BUN/Creatinine Ratio (14-18) Glucose (74-106) mg/dL POC Glucose 203 H (70-105) mg/dL Hemoglobin A1c (4.50-6.20) % Lactic Acid (0.4-2.0) mmol/L Calcium (8.5-10.1) mg/dL Magnesium (1.8-2.4) mg/dl Total Bilirubin (0.2-1.0) mg/dL AST (15-37) U/L ALT (16-63) U/L Alkaline Phosphatase (46-116) U/L C-Reactive Protein (<1.0) mg/dL Total Protein (6.4-8.2) g/dl Albumin (3.4-5.0) g/dl Globulin gm/dL Albumin/Globulin Ratio (1-2) Triglycerides (<150) mg/dL Cholesterol (<200) mg/dL LDL Cholesterol Direct (<100) mg/dL HDL Cholesterol (40-59) mg/dL Free T4 (0.76-1.46) ng/dL TSH 3rd Generation (0.358-3.74) uIU/mL Urine Color (Yellow) Urine Appearance (Clear) Urine pH (5.0-8.0) Ur Specific [place] (1.005-1.030) Urine Protein (Negative) Urine Glucose (UA) (Negative) Urine Ketones (Negative) Urine Occult Blood (Negative) Urine Nitrite (Negative) Urine Bilirubin (Negative) Urine Urobilinogen (0.2-1.0) Ur Leukocyte Esterase (Negative) Urine RBC (0-5) /hpf Urine WBC (0-5) /hpf Ur Epithelial Cells (0-5) /hpf Urine Bacteria (FEW) /hpf Urine Mucus (FEW) /hpf Ur Random Microalbumin (1.3-20.0) mg/L [place] Results Last 24 Hours: Microbiology 04/25/18 15:56 Gram Stain - Final Foot, Right Anaerobic Culture - Preliminary Staphylococcus Aureus Beta Streptococcus Group B 04/25/18 19:11 Gram Stain - Final Foot, Right Anaerobic Culture - Preliminary Staphylococcus Aureus Beta Streptococcus Group B 04/25/18 19:11 Wound Culture - Preliminary Foot, Right Gram Positive Cocci Beta Streptococcus 04/25/18 19:11 Wound Culture - Preliminary Toe, Right - Right Third Gram Positive Cocci Beta Streptococcus 04/25/18 19:25 Wound Culture - Preliminary Toe, Right - Right Third Gram Positive Cocci Beta Streptococcus Med Orders - Current: Current Medications Acetaminophen (Tylenol) 650 mg PO Q4H PRN PRN Reason: Pain (Mild 1-3)/fever Hydrocodone Bitart/Acetaminophen ([place] 325-5 Mg) 1 tab PO Q4H PRN PRN Reason: Pain (moderate 4-6) Last Admin: 04/26/18 11:59 Dose: 1 tab Albuterol/Ipratropium (Duoneb 3.0-0.5 Mg/3 Ml) 3 ml NEB Q4H PRN PRN Reason: Shortness Of Breath/wheezing Aspirin (Aspirin) 81 mg PO BEDTIME [facility] Last Admin: 04/25/18 22:45 Dose: 81 mg Bisacodyl (Dulcolax) 5 mg PO DAILY PRN PRN Reason: Constipation Docusate Sodium (Colace) 100 mg PO BID PRN PRN Reason: Constipation Enoxaparin Sodium (Lovenox) 40 mg SUBCUT DAILY [facility] Last Admin: 04/26/18 08:42 Dose: Not Given Fentanyl (Sublimaze) 50 mcg IVPUSH Q5M PRN PRN Reason: Pain Fentanyl (Sublimaze) 50 mcg IVPUSH Q5M PRN PRN Reason: pain Stop: 04/26/18 18:00 Glipizide (Glucotrol Xl) 5 mg PO BIDMEALS [facility] Last Admin: 04/26/18 08:42 Dose: Not Given Hydromorphone HCl (Dilaudid) 0.5 mg IVPUSH Q4H PRN PRN Reason: Pain (severe 7-10) Last Admin: 04/26/18 04:03 Dose: 0.5 mg Hydromorphone HCl (Dilaudid) 0.5 mg IVPUSH ONETIME PRN PRN Reason: Pain (severe 7-10) Hydromorphone HCl (Dilaudid) 0.5 mg IVPUSH ONETIME PRN PRN Reason: Pain (severe 7-10) Stop: 04/26/18 18:00 Promethazine HCl 12.5 mg/ (Sodium Chloride) 50.5 mls @ 100 mls/hr IV Q6H PRN PRN Reason: Nausea/Vomiting Vancomycin HCl 1 gm/ Sodium (Chloride) 250 mls @ 250 mls/hr IV Q8H [facility] Last Admin: 04/26/18 07:04 Dose: 250 mls/hr Piperacillin Sod/Tazobactam (Sod 4.5 gm/ Sodium Chloride) 100 mls @ 25 mls/hr IV Q8H [facility] Last Admin: 04/26/18 07:04 Dose: 25 mls/hr Clindamycin Phosphate 900 mg/ (Sodium Chloride) 106 mls @ 100 mls/hr IV Q8H [facility] Last Admin: 04/26/18 12:00 Dose: 100 mls/hr Insulin Glargine (Lantus Solostar) 5 units SUBCUT BIDAC [facility] Insulin Human Lispro (Humalog) 0 unit SUBCUT QIDACANDBED [facility]; Protocol Last Admin: 04/26/18 12:18 Dose: 6 units Lisinopril (Prinivil) 10 mg PO DAILY [facility] Last Admin: 04/26/18 08:42 Dose: Not Given Lorazepam (Ativan) 1 mg IV Q6H PRN PRN Reason: Nausea/Vomiting Metformin HCl (Glucophage) 500 mg PO BIDMEALS [facility] Last Admin: 04/26/18 08:42 Dose: Not Given Ondansetron HCl (Zofran) 4 mg IV Q6H PRN PRN Reason: Nausea/Vomiting Ondansetron HCl (Zofran) 4 mg IVPUSH ONETIME PRN PRN Reason: Nausea/Vomiting Polyethylene Glycol (Miralax) 17 gm PO DAILY PRN PRN Reason: Constipation Saccharomyces Boulardii (Florastor) 250 mg PO DAILY [facility] Last Admin: 04/26/18 08:42 Dose: Not Given Senna/Docusate Sodium (Senna Plus) 1 tab PO BID PRN PRN Reason: Constipation Sodium Chloride (Saline Flush) 10 ml FLUSH ASDIRECTED PRN PRN Reason: Keep Vein Open Last Admin: 04/25/18 16:00 Dose: 10 ml Temazepam (Restoril) 15 mg PO BEDTIME PRN PRN Reason: Sleep Vancomycin HCl (Pharmacy To Dose - Vancomycin) 0 dose .XX ASDIRECTED PRN PRN Reason: RX TO DOSE VANCO Discontinued Medications Bupivacaine HCl (Marcaine 0.5%) Confirm Administered Dose 30 ml .ROUTE .STK-MED ONE Stop: 04/25/18 18:23 Last Admin: 04/25/18 19:53 Dose: 1.5 ml Clindamycin Phosphate (Cleocin) Confirm Administered Dose 900 mg .ROUTE .STK- MED ONE Stop: 04/25/18 19:11 Fentanyl (Sublimaze) Confirm Administered Dose 250 mcg .ROUTE .STK-MED ONE Stop: 04/25/18 18:38 Fentanyl (Sublimaze) Confirm Administered Dose 100 mcg .ROUTE .STK-MED ONE Stop: 04/26/18 09:03 Fentanyl (Sublimaze) Confirm Administered Dose 100 mcg .ROUTE .STK-MED ONE Stop: 04/26/18 10:07 Hydromorphone HCl (Dilaudid) 0.5 mg IVPUSH ONETIME ONE Stop: 04/25/18 15:30 Last Admin: 04/25/18 16:01 Dose: 0.5 mg Hydromorphone HCl (Dilaudid) Confirm Administered Dose 1 mg .ROUTE .STK-MED ONE Stop: 04/25/18 19:03 Sodium Chloride (Normal Saline) 1,000 mls @ 999 mls/hr IV ONETIME ONE Stop: 04/25/18 16:28 Last Admin: 04/25/18 15:59 Dose: 999 mls/hr Vancomycin HCl 1 gm/ Sodium (Chloride) 250 mls @ 250 mls/hr IV ONETIME ONE Stop: 04/25/18 16:36 Last Admin: 04/25/18 16:10 Dose: 250 mls/hr Vancomycin HCl 1 gm/ Sodium (Chloride) 250 mls @ 250 mls/hr IV ONETIME ONE Stop: 04/25/18 16:37 Last Admin: 04/25/18 17:09 Dose: 250 mls/hr Sodium Chloride (Normal Saline) 1,000 mls @ 999 mls/hr IV ONETIME ONE Stop: 04/25/18 17:57 Last Admin: 04/25/18 17:09 Dose: 999 mls/hr Piperacillin Sod/Tazobactam (Sod 4.5 gm/ Sodium Chloride) 100 mls @ 200 mls/hr IV ONETIME ONE Stop: 04/25/18 18:24 Last Admin: 04/25/18 18:18 Dose: 200 mls/hr Lidocaine HCl (Xylocaine-Mpf 1%) Confirm Administered Dose 4 mls @ as directed .ROUTE .STK-MED ONE Stop: 04/25/18 18:38 Sodium Chloride (Normal Saline) Confirm Administered Dose 100 mls @ as directed .ROUTE .STK-MED ONE Stop: 04/25/18 19:11 Lactated Ringer's (Ringers, Lactated) Confirm Administered Dose 1,000 mls @ as directed .ROUTE .STK-MED ONE Stop: 04/26/18 10:10 Ketamine HCl (Ketalar) Confirm Administered Dose 500 mg .ROUTE .STK-MED ONE Stop: 04/25/18 19:11 Ketamine HCl (Ketalar) Confirm Administered Dose 500 mg .ROUTE .STK-MED ONE Stop: 04/26/18 10:07 Lidocaine/Epinephrine (Xylocaine 1% With Epinephrine 1:100,000) Confirm Administered Dose 20 ml .ROUTE .STK-MED ONE Stop: 04/25/18 18:23 Last Admin: 04/25/18 19:53 Dose: 1.5 ml Metformin HCl (Glucophage) 500 mg PO ONETIME ONE Stop: 04/25/18 23:01 Last Admin: 04/25/18 23:10 Dose: 500 mg Midazolam HCl (Versed 1 Mg/Ml) Confirm Administered Dose 2 mg .ROUTE .STK-MED ONE Stop: 04/25/18 18:38 Midazolam HCl (Versed 1 Mg/Ml) Confirm Administered Dose 2 mg .ROUTE .STK-MED ONE Stop: 04/26/18 09:03 Ondansetron HCl (Zofran) 4 mg IVPUSH ONETIME ONE Stop: 04/25/18 15:30 Last Admin: 04/25/18 16:03 Dose: 4 mg Ondansetron HCl (Zofran) Confirm Administered Dose 4 mg .ROUTE .STK-MED ONE Stop: 04/25/18 18:38 Ondansetron HCl (Zofran) Confirm Administered Dose 4 mg .ROUTE .STK-MED ONE Stop: 04/26/18 10:10 Propofol (Diprivan 20 Ml) Confirm Administered Dose 200 mg .ROUTE .STK-MED ONE Stop: 04/25/18 18:38 Propofol (Diprivan 20 Ml) Confirm Administered Dose 400 mg .ROUTE .STK-MED ONE Stop: 04/26/18 09:03 Propofol (Diprivan 20 Ml) Confirm Administered Dose 200 mg .ROUTE .STK-MED ONE Stop: 04/26/18 10:38 Succinylcholine Chloride (Succinylcholine In Ns Pf) Confirm Administered Dose 100 mg .ROUTE .STK-MED ONE Stop: 04/25/18 18:38 Vancomycin HCl (Vancomycin) 1,190.685 mg 15 mg/kg (1190.685 mg) IV Q12H ROSELIA Last Admin: 04/25/18 18:15 Dose: Not Given - Exam Quality Assessment: DVT Prophylaxis General: Alert, Oriented, Cooperative HEENT: Pupils Equal, Pupils Reactive, EOMI, Mucous Membr. Moist/[place] Neck: Supple Lungs: Clear to Auscultation, Normal Respiratory Effort Cardiovascular: Regular Rate, Regular Rhythm GI/Abdominal Exam: Normal Bowel Sounds, Soft, Non-Tender (Male) Exam: Deferred Back Exam: Normal Inspection, Full Range of Motion Extremities: Other (right foot ulcer) Peripheral Pulses: 2+: Radial (L), Radial (R), Posterior Tibial (L), Posterior Tibial (R) Skin: Warm, Dry, Intact Wound/Incisions: Dressing Dry and Intact Neurological: No New Focal Deficit Psy/Mental Status: Alert, Normal Affect, Normal Mood Physical Findings Comments:: Patient appears well today. The wound on his right foot is covered by a dressing as he has just had a debridement. There is no surrounding erythema or edema. No other abnormalities found upon physical exam. - Problem List & Annotations (1) Cellulitis SNOMED Code(s): 824022363 Code(s): L03.90 - CELLULITIS, UNSPECIFIED Status: Acute Current Visit: Yes Qualifiers: Site of cellulitis: extremity Site of cellulitis of extremity: lower extremity Laterality: right Qualified Code(s): L03.115 - Cellulitis of right lower limb (2) Diabetes mellitus SNOMED Code(s): 21371247 Code(s): E11.9 - TYPE 2 DIABETES MELLITUS WITHOUT COMPLICATIONS Status: Acute Current Visit: Yes Qualifiers: Diabetes mellitus type: type 2 Diabetes mellitus complication detail: with foot ulcer - Problem List Review Problem List Initiated/Reviewed/Updated: Yes - Assessment Assessment:: Assessment/Plan Comment:: Cellulitis * Open ulcer with drainage located on plantar aspect of right foot beneath great toe * WBC now improved 18.92--> 13.89 * CRP improved 36 --> 23.4 * Cultures positive for S. aureus and GBS * Broad spectrum IV antibiotics vancomycin and clindamycin initiated prior to culture results - these will be continued and piperacillin/tazobactum was added to the regimen * Pain medications PRN * DVT prophylaxis lovenox * Following surgery consult, Dr. 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 Dr. Masterson has examined the patient and reviewed the note. <Isis Masterson T - Last Filed: 04/26/18 17:23> - General Info Date of Service: 04/26/18 Admission Dx/Problem (Free Text): Admission Diagnosis/Problem Admission Diagnosis/Problem Cellulitis Subjective Update: Last night, was taken to the OR for a RIGHT food debridement. Overnight, no acute events. Pain has been controlled with Dilaudid PRN. Pain is improved compared to before surgery. Functional Status: Reports: Pain Controlled, Tolerating Diet, Urinating - Review of Systems General: Reports: No Symptoms - Patient Data Vitals - Most Recent: Last Vital Signs Temp 37.7 C 04/26/18 09:18 Pulse 101 H 04/26/18 09:18 Resp 18 04/26/18 09:18 BP 129/76 04/26/18 09:18 Pulse Ox 98 04/26/18 09:18 Weight - Most Recent: 79.407 kg I&O - Last 24 Hours: Intake & Output 04/25/18 04/26/18 04/26/18 22:59 06:59 14:59 Intake Total 1999 2400 Output Total 1675 Balance 1999 725 Lab Results Last 24 Hours: Laboratory Results - last 24 hr 04/25/18 04/25/18 04/25/18 Range/Units 15:50 15:50 15:50 WBC 18.92 H (4.23-9.07) K/mm3 RBC 4.99 (4.63-6.08) M/mm3 Hgb 13.9 (13.7-17.5) gm/L Hct 39.6 L (40.1-51.0) % MCV 79.4 (79.0-92.2) fl MCH 27.9 (25.7-32.2) pg MCHC 35.1 (32.2-35.5) g/dl RDW Std Deviation 36.7 (35.1-43.9) fL Plt Count 312 (163-337) K/mm3 MPV 9.1 L (9.4-12.3) fl Neut % (Auto) (34.0-67.9) % Lymph % (Auto) (21.8-53.1) % [place] % (Auto) (5.3-12.2) % Eos % (Auto) (0.8-7.0) Baso % (Auto) (0.1-1.2) % Neut # (Auto) (1.78-5.38) K/mm3 Lymph # (Auto) (1.32-3.57) K/mm3 [place] # (Auto) (0.30-0.82) K/mm3 Eos # (Auto) (0.04-0.54) K/mm3 Baso # (Auto) (0.01-0.08) K/mm3 Neutrophils % (Manual) 86 H (40-60) % Band Neutrophils % 0 (0-10) % Lymphocytes % (Manual) 11 L (20-40) % Atypical Lymphs % 0 % Monocytes % (Manual) 3 (2-10) % Eosinophils % (Manual) 0 L (0.8-7.0) % Basophils % (Manual) 0 L (0.2-1.2) Manual Slide Review Platelet Estimate Adequate RBC Morph Comment Normal Sodium 131 L (136-145) mEq/L Potassium 3.8 (3.5-5.1) mEq/L Chloride 95 L (98-107) mEq/L Carbon Dioxide 26 (21-32) mEq/L Anion Gap 13.8 (5-15) BUN 12 (7-18) mg/dL Creatinine 1.0 (0.7-1.3) mg/dL Est Cr Clr Drug Dosing 85.95 mL/min Estimated GFR (MDRD) > 60 (>60) mL/min BUN/Creatinine Ratio 12.0 L (14-18) Glucose 355 H (74-106) mg/dL POC Glucose (70-105) mg/dL Hemoglobin A1c (4.50-6.20) % Lactic Acid 1.7 (0.4-2.0) mmol/L Calcium 8.9 (8.5-10.1) mg/dL Magnesium (1.8-2.4) mg/dl Total Bilirubin 0.5 (0.2-1.0) mg/dL AST 24 (15-37) U/L ALT 41 (16-63) U/L Alkaline Phosphatase 147 H (46-116) U/L C-Reactive Protein 36.0 H* (<1.0) mg/dL Total Protein 7.7 (6.4-8.2) g/dl Albumin 2.5 L (3.4-5.0) g/dl Globulin 5.2 gm/dL Albumin/Globulin Ratio 0.5 L (1-2) Triglycerides (<150) mg/dL Cholesterol (<200) mg/dL LDL Cholesterol Direct (<100) mg/dL HDL Cholesterol (40-59) mg/dL Free T4 (0.76-1.46) ng/dL TSH 3rd Generation (0.358-3.74) uIU/mL Urine Color (Yellow) Urine Appearance (Clear) Urine pH (5.0-8.0) Ur Specific [place] (1.005-1.030) Urine Protein (Negative) Urine Glucose (UA) (Negative) Urine Ketones (Negative) Urine Occult Blood (Negative) Urine Nitrite (Negative) Urine Bilirubin (Negative) Urine Urobilinogen (0.2-1.0) Ur Leukocyte Esterase (Negative) Urine RBC (0-5) /hpf Urine WBC (0-5) /hpf Ur Epithelial Cells (0-5) /hpf Urine Bacteria (FEW) /hpf Urine Mucus (FEW) /hpf Ur Random Microalbumin (1.3-20.0) mg/L 04/25/18 04/25/18 04/25/18 Range/Units 15:50 15:50 17:17 WBC (4.23-9.07) K/mm3 RBC (4.63-6.08) M/mm3 Hgb (13.7-17.5) gm/L Hct (40.1-51.0) % MCV (79.0-92.2) fl MCH (25.7-32.2) pg MCHC (32.2-35.5) g/dl RDW Std Deviation (35.1-43.9) fL Plt Count (163-337) K/mm3 MPV (9.4-12.3) fl Neut % (Auto) (34.0-67.9) % Lymph % (Auto) (21.8-53.1) % [place] % (Auto) (5.3-12.2) % Eos % (Auto) (0.8-7.0) Baso % (Auto) (0.1-1.2) % Neut # (Auto) (1.78-5.38) K/mm3 Lymph # (Auto) (1.32-3.57) K/mm3 [place] # (Auto) (0.30-0.82) K/mm3 Eos # (Auto) (0.04-0.54) K/mm3 Baso # (Auto) (0.01-0.08) K/mm3 Neutrophils % (Manual) (40-60) % Band Neutrophils % (0-10) % Lymphocytes % (Manual) (20-40) % Atypical Lymphs % % Monocytes % (Manual) (2-10) % Eosinophils % (Manual) (0.8-7.0) % Basophils % (Manual) (0.2-1.2) Manual Slide Review Platelet Estimate RBC Morph Comment Sodium (136-145) mEq/L Potassium (3.5-5.1) mEq/L Chloride (98-107) mEq/L Carbon Dioxide (21-32) mEq/L Anion Gap (5-15) BUN (7-18) mg/dL Creatinine (0.7-1.3) mg/dL Est Cr Clr Drug Dosing mL/min Estimated GFR (MDRD) (>60) mL/min BUN/Creatinine Ratio (14-18) Glucose (74-106) mg/dL POC Glucose (70-105) mg/dL Hemoglobin A1c 11.80 H (4.50-6.20) % Lactic Acid (0.4-2.0) mmol/L Calcium (8.5-10.1) mg/dL Magnesium (1.8-2.4) mg/dl Total Bilirubin (0.2-1.0) mg/dL AST (15-37) U/L ALT (16-63) U/L Alkaline Phosphatase (46-116) U/L C-Reactive Protein (<1.0) mg/dL Total Protein (6.4-8.2) g/dl Albumin (3.4-5.0) g/dl Globulin gm/dL Albumin/Globulin Ratio (1-2) Triglycerides (<150) mg/dL Cholesterol (<200) mg/dL LDL Cholesterol Direct (<100) mg/dL HDL Cholesterol (40-59) mg/dL Free T4 1.26 (0.76-1.46) ng/dL TSH 3rd Generation 0.788 (0.358-3.74) uIU/mL Urine Color Yellow (Yellow) Urine Appearance Slt cloudy H (Clear) Urine pH 6.0 (5.0-8.0) Ur Specific [place] 1.015 (1.005-1.030) Urine Protein Negative (Negative) Urine Glucose (UA) 2+ H (Negative) Urine Ketones 2+ H (Negative) Urine Occult Blood Negative (Negative) Urine Nitrite Negative (Negative) Urine Bilirubin Negative (Negative) Urine Urobilinogen 2.0 H (0.2-1.0) Ur Leukocyte Esterase Negative (Negative) Urine RBC Not seen (0-5) /hpf Urine WBC 0-5 (0-5) /hpf Ur Epithelial Cells Not seen (0-5) /hpf Urine Bacteria Occasional (FEW) /hpf Urine Mucus Few (FEW) /hpf Ur Random Microalbumin (1.3-20.0) mg/L 04/25/18 04/25/18 04/25/18 Range/Units 17:17 18:12 20:36 WBC (4.23-9.07) K/mm3 RBC (4.63-6.08) M/mm3 Hgb (13.7-17.5) gm/L Hct (40.1-51.0) % MCV (79.0-92.2) fl MCH (25.7-32.2) pg MCHC (32.2-35.5) g/dl RDW Std Deviation (35.1-43.9) fL Plt Count (163-337) K/mm3 MPV (9.4-12.3) fl Neut % (Auto) (34.0-67.9) % Lymph % (Auto) (21.8-53.1) % [place] % (Auto) (5.3-12.2) % Eos % (Auto) (0.8-7.0) Baso % (Auto) (0.1-1.2) % Neut # (Auto) (1.78-5.38) K/mm3 Lymph # (Auto) (1.32-3.57) K/mm3 [place] # (Auto) (0.30-0.82) K/mm3 Eos # (Auto) (0.04-0.54) K/mm3 Baso # (Auto) (0.01-0.08) K/mm3 Neutrophils % (Manual) (40-60) % Band Neutrophils % (0-10) % Lymphocytes % (Manual) (20-40) % Atypical Lymphs % % Monocytes % (Manual) (2-10) % Eosinophils % (Manual) (0.8-7.0) % Basophils % (Manual) (0.2-1.2) Manual Slide Review Platelet Estimate RBC Morph Comment Sodium (136-145) mEq/L Potassium (3.5-5.1) mEq/L Chloride (98-107) mEq/L Carbon Dioxide (21-32) mEq/L Anion Gap (5-15) BUN (7-18) mg/dL Creatinine (0.7-1.3) mg/dL Est Cr Clr Drug Dosing mL/min Estimated GFR (MDRD) (>60) mL/min BUN/Creatinine Ratio (14-18) Glucose (74-106) mg/dL POC Glucose 271 H 205 H (70-105) mg/dL Hemoglobin A1c (4.50-6.20) % Lactic Acid (0.4-2.0) mmol/L Calcium (8.5-10.1) mg/dL Magnesium (1.8-2.4) mg/dl Total Bilirubin (0.2-1.0) mg/dL AST (15-37) U/L ALT (16-63) U/L Alkaline Phosphatase (46-116) U/L C-Reactive Protein (<1.0) mg/dL Total Protein (6.4-8.2) g/dl Albumin (3.4-5.0) g/dl Globulin gm/dL Albumin/Globulin Ratio (1-2) Triglycerides (<150) mg/dL Cholesterol (<200) mg/dL LDL Cholesterol Direct (<100) mg/dL HDL Cholesterol (40-59) mg/dL Free T4 (0.76-1.46) ng/dL TSH 3rd Generation (0.358-3.74) uIU/mL Urine Color (Yellow) Urine Appearance (Clear) Urine pH (5.0-8.0) Ur Specific [place] (1.005-1.030) Urine Protein (Negative) Urine Glucose (UA) (Negative) Urine Ketones (Negative) Urine Occult Blood (Negative) Urine Nitrite (Negative) Urine Bilirubin (Negative) Urine Urobilinogen (0.2-1.0) Ur Leukocyte Esterase (Negative) Urine RBC (0-5) /hpf Urine WBC (0-5) /hpf Ur Epithelial Cells (0-5) /hpf Urine Bacteria (FEW) /hpf Urine Mucus (FEW) /hpf Ur Random Microalbumin 14.6 (1.3-20.0) mg/L 04/26/18 04/26/18 04/26/18 Range/Units 06:26 06:27 06:27 WBC 13.89 H (4.23-9.07) K/mm3 RBC 4.12 L (4.63-6.08) M/mm3 Hgb 11.2 L (13.7-17.5) gm/L Hct 33.7 L (40.1-51.0) % MCV 81.8 (79.0-92.2) fl MCH 27.2 (25.7-32.2) pg MCHC 33.2 (32.2-35.5) g/dl RDW Std Deviation 38.0 (35.1-43.9) fL Plt Count 285 (163-337) K/mm3 MPV 9.1 L (9.4-12.3) fl Neut % (Auto) 78.0 H (34.0-67.9) % Lymph % (Auto) 12.6 L (21.8-53.1) % [place] % (Auto) 8.6 (5.3-12.2) % Eos % (Auto) 0.3 L (0.8-7.0) Baso % (Auto) 0.1 (0.1-1.2) % Neut # (Auto) 10.82 H (1.78-5.38) K/mm3 Lymph # (Auto) 1.75 (1.32-3.57) K/mm3 [place] # (Auto) 1.20 H (0.30-0.82) K/mm3 Eos # (Auto) 0.04 (0.04-0.54) K/mm3 Baso # (Auto) 0.02 (0.01-0.08) K/mm3 Neutrophils % (Manual) (40-60) % Band Neutrophils % (0-10) % Lymphocytes % (Manual) (20-40) % Atypical Lymphs % % Monocytes % (Manual) (2-10) % Eosinophils % (Manual) (0.8-7.0) % Basophils % (Manual) (0.2-1.2) Manual Slide Review Abnormal smear Platelet Estimate RBC Morph Comment Sodium 135 L (136-145) mEq/L Potassium 3.6 (3.5-5.1) mEq/L Chloride 103 (98-107) mEq/L Carbon Dioxide 25 (21-32) mEq/L Anion Gap 10.6 (5-15) BUN 10 (7-18) mg/dL Creatinine 0.8 (0.7-1.3) mg/dL Est Cr Clr Drug Dosing 107.44 mL/min Estimated GFR (MDRD) > 60 (>60) mL/min BUN/Creatinine Ratio 12.5 L (14-18) Glucose 254 H (74-106) mg/dL POC Glucose 219 H (70-105) mg/dL Hemoglobin A1c (4.50-6.20) % Lactic Acid (0.4-2.0) mmol/L Calcium 7.8 L (8.5-10.1) mg/dL Magnesium 1.8 (1.8-2.4) mg/dl Total Bilirubin (0.2-1.0) mg/dL AST (15-37) U/L ALT (16-63) U/L Alkaline Phosphatase (46-116) U/L C-Reactive Protein 23.4 H* (<1.0) mg/dL Total Protein (6.4-8.2) g/dl Albumin (3.4-5.0) g/dl Globulin gm/dL Albumin/Globulin Ratio (1-2) Triglycerides 47 (<150) mg/dL Cholesterol 75 (<200) mg/dL LDL Cholesterol Direct 50 (<100) mg/dL HDL Cholesterol 23.0 L (40-59) mg/dL Free T4 (0.76-1.46) ng/dL TSH 3rd Generation (0.358-3.74) uIU/mL Urine Color (Yellow) Urine Appearance (Clear) Urine pH (5.0-8.0) Ur Specific [place] (1.005-1.030) Urine Protein (Negative) Urine Glucose (UA) (Negative) Urine Ketones (Negative) Urine Occult Blood (Negative) Urine Nitrite (Negative) Urine Bilirubin (Negative) Urine Urobilinogen (0.2-1.0) Ur Leukocyte Esterase (Negative) Urine RBC (0-5) /hpf Urine WBC (0-5) /hpf Ur Epithelial Cells (0-5) /hpf Urine Bacteria (FEW) /hpf Urine Mucus (FEW) /hpf Ur Random Microalbumin (1.3-20.0) mg/L [place]ian Results Last 24 Hours: Microbiology 04/25/18 15:56 Anaerobic Culture - Preliminary Foot, Right Staphylococcus Aureus Beta Streptococcus Group B 04/25/18 19:11 Anaerobic Culture - Preliminary Foot, Right Staphylococcus Aureus Beta Streptococcus Group B 04/25/18 19:11 Wound Culture - Preliminary Foot, Right Gram Positive Cocci Beta Streptococcus 04/25/18 19:11 Wound Culture - Preliminary Toe, Right - Right Third Gram Positive Cocci Beta Streptococcus 04/25/18 19:25 Wound Culture - Preliminary Toe, Right - Right Third Gram Positive Cocci Beta Streptococcus Med Orders - Current: Current Medications Acetaminophen (Tylenol) 650 mg PO Q4H PRN PRN Reason: Pain (Mild 1-3)/fever Hydrocodone Bitart/Acetaminophen ([place] 325-5 Mg) 1 tab PO Q4H PRN PRN Reason: Pain (moderate 4-6) Albuterol/Ipratropium (Duoneb 3.0-0.5 Mg/3 Ml) 3 ml NEB Q4H PRN PRN Reason: Shortness Of Breath/wheezing Aspirin (Aspirin) 81 mg PO BEDTIME [facility] Last Admin: 04/25/18 22:45 Dose: 81 mg Bisacodyl (Dulcolax) 5 mg PO DAILY PRN PRN Reason: Constipation Docusate Sodium (Colace) 100 mg PO BID PRN PRN Reason: Constipation Enoxaparin Sodium (Lovenox) 40 mg SUBCUT DAILY [facility] Last Admin: 04/26/18 08:42 Dose: Not Given Fentanyl (Sublimaze) 50 mcg IVPUSH Q5M PRN PRN Reason: Pain Glipizide (Glucotrol Xl) 5 mg PO BIDMEALS [facility] Last Admin: 04/26/18 08:42 Dose: Not Given Hydromorphone HCl (Dilaudid) 0.5 mg IVPUSH Q4H PRN PRN Reason: Pain (severe 7-10) Last Admin: 04/26/18 04:03 Dose: 0.5 mg Hydromorphone HCl (Dilaudid) 0.5 mg IVPUSH ONETIME PRN PRN Reason: Pain (severe 7-10) Promethazine HCl 12.5 mg/ (Sodium Chloride) 50.5 mls @ 100 mls/hr IV Q6H PRN PRN Reason: Nausea/Vomiting Vancomycin HCl 1 gm/ Sodium (Chloride) 250 mls @ 250 mls/hr IV Q8H [facility] Last Admin: 04/26/18 07:04 Dose: 250 mls/hr Piperacillin Sod/Tazobactam (Sod 4.5 gm/ Sodium Chloride) 100 mls @ 25 mls/hr IV Q8H [facility] Last Admin: 04/26/18 07:04 Dose: 25 mls/hr Clindamycin Phosphate 900 mg/ (Sodium Chloride) 106 mls @ 100 mls/hr IV Q8H [facility] Last Admin: 04/26/18 03:41 Dose: 100 mls/hr Insulin Human Lispro (Humalog) 0 unit SUBCUT QIDACANDBED [facility]; Protocol Last Admin: 04/26/18 08:41 Dose: 4 units Lisinopril (Prinivil) 10 mg PO DAILY [facility] Last Admin: 04/26/18 08:42 Dose: Not Given Lorazepam (Ativan) 1 mg IV Q6H PRN PRN Reason: Nausea/Vomiting Metformin HCl (Glucophage) 500 mg PO BIDRIALS [facility] Last Admin: 04/26/18 08:42 Dose: Not Given Ondansetron HCl (Zofran) 4 mg IV Q6H PRN PRN Reason: Nausea/Vomiting Ondansetron HCl (Zofran) 4 mg IVPUSH ONETIME PRN PRN Reason: Nausea/Vomiting Polyethylene Glycol (Miralax) 17 gm PO DAILY PRN PRN Reason: Constipation Saccharomyces Boulardii (Florastor) 250 mg PO DAILY [facility] Last Admin: 04/26/18 08:42 Dose: Not Given Senna/Docusate Sodium (Senna Plus) 1 tab PO BID PRN PRN Reason: Constipation Sodium Chloride (Saline Flush) 10 ml FLUSH ASDIRECTED PRN PRN Reason: Keep Vein Open Last Admin: 04/25/18 16:00 Dose: 10 ml Temazepam (Restoril) 15 mg PO BEDTIME PRN PRN Reason: Sleep Vancomycin HCl (Pharmacy To Dose - Vancomycin) 0 dose .XX ASDIRECTED PRN PRN Reason: RX TO DOSE VANCO Discontinued Medications Bupivacaine HCl (Marcaine 0.5%) Confirm Administered Dose 30 ml .ROUTE .STK-MED ONE Stop: 04/25/18 18:23 Last Admin: 04/25/18 19:53 Dose: 1.5 ml Clindamycin Phosphate (Cleocin) Confirm Administered Dose 900 mg .ROUTE .STK- MED ONE Stop: 04/25/18 19:11 Fentanyl (Sublimaze) Confirm Administered Dose 250 mcg .ROUTE .STK-MED ONE Stop: 04/25/18 18:38 Fentanyl (Sublimaze) Confirm Administered Dose 100 mcg .ROUTE .STK-MED ONE Stop: 04/26/18 09:03 Fentanyl (Sublimaze) Confirm Administered Dose 100 mcg .ROUTE .STK-MED ONE Stop: 04/26/18 10:07 Hydromorphone HCl (Dilaudid) 0.5 mg IVPUSH ONETIME ONE Stop: 04/25/18 15:30 Last Admin: 04/25/18 16:01 Dose: 0.5 mg Hydromorphone HCl (Dilaudid) Confirm Administered Dose 1 mg .ROUTE .STK-MED ONE Stop: 04/25/18 19:03 Sodium Chloride (Normal Saline) 1,000 mls @ 999 mls/hr IV ONETIME ONE Stop: 04/25/18 16:28 Last Admin: 04/25/18 15:59 Dose: 999 mls/hr Vancomycin HCl 1 gm/ Sodium (Chloride) 250 mls @ 250 mls/hr IV ONETIME ONE Stop: 04/25/18 16:36 Last Admin: 04/25/18 16:10 Dose: 250 mls/hr Vancomycin HCl 1 gm/ Sodium (Chloride) 250 mls @ 250 mls/hr IV ONETIME ONE Stop: 04/25/18 16:37 Last Admin: 04/25/18 17:09 Dose: 250 mls/hr Sodium Chloride (Normal Saline) 1,000 mls @ 999 mls/hr IV ONETIME ONE Stop: 04/25/18 17:57 Last Admin: 04/25/18 17:09 Dose: 999 mls/hr Piperacillin Sod/Tazobactam (Sod 4.5 gm/ Sodium Chloride) 100 mls @ 200 mls/hr IV ONETIME ONE Stop: 04/25/18 18:24 Last Admin: 04/25/18 18:18 Dose: 200 mls/hr Lidocaine HCl (Xylocaine-Mpf 1%) Confirm Administered Dose 4 mls @ as directed .ROUTE .STK-MED ONE Stop: 04/25/18 18:38 Sodium Chloride (Normal Saline) Confirm Administered Dose 100 mls @ as directed .ROUTE .STK-MED ONE Stop: 04/25/18 19:11 Lactated Ringer's (Ringers, Lactated) Confirm Administered Dose 1,000 mls @ as directed .ROUTE .STK-MED ONE Stop: 04/26/18 10:10 Ketamine HCl (Ketalar) Confirm Administered Dose 500 mg .ROUTE .STK-MED ONE Stop: 04/25/18 19:11 Ketamine HCl (Ketalar) Confirm Administered Dose 500 mg .ROUTE .STK-MED ONE Stop: 04/26/18 10:07 Lidocaine/Epinephrine (Xylocaine 1% With Epinephrine 1:100,000) Confirm Administered Dose 20 ml .ROUTE .STK-MED ONE Stop: 04/25/18 18:23 Last Admin: 04/25/18 19:53 Dose: 1.5 ml Metformin HCl (Glucophage) 500 mg PO ONETIME ONE Stop: 04/25/18 23:01 Last Admin: 04/25/18 23:10 Dose: 500 mg Midazolam HCl (Versed 1 Mg/Ml) Confirm Administered Dose 2 mg .ROUTE .STK-MED ONE Stop: 04/25/18 18:38 Midazolam HCl (Versed 1 Mg/Ml) Confirm Administered Dose 2 mg .ROUTE .STK-MED ONE Stop: 04/26/18 09:03 Ondansetron HCl (Zofran) 4 mg IVPUSH ONETIME ONE Stop: 04/25/18 15:30 Last Admin: 04/25/18 16:03 Dose: 4 mg Ondansetron HCl (Zofran) Confirm Administered Dose 4 mg .ROUTE .STK-MED ONE Stop: 04/25/18 18:38 Ondansetron HCl (Zofran) Confirm Administered Dose 4 mg .ROUTE .STK-MED ONE Stop: 04/26/18 10:10 Propofol (Diprivan 20 Ml) Confirm Administered Dose 200 mg .ROUTE .STK-MED ONE Stop: 04/25/18 18:38 Propofol (Diprivan 20 Ml) Confirm Administered Dose 400 mg .ROUTE .STK-MED ONE Stop: 04/26/18 09:03 Propofol (Diprivan 20 Ml) Confirm Administered Dose 200 mg .ROUTE .STK-MED ONE Stop: 04/26/18 10:38 Succinylcholine Chloride (Succinylcholine In Ns Pf) Confirm Administered Dose 100 mg .ROUTE .STK-MED ONE Stop: 04/25/18 18:38 Vancomycin HCl (Vancomycin) 1,190.685 mg 15 mg/kg (1190.685 mg) IV Q12H [facility] Last Admin: 04/25/18 18:15 Dose: Not Given - My Orders Last 24 Hours: My Active Orders 04/25/18 17:17 MICROALBUMIN,URINE RANDOM [URCHEM] Urgent 04/25/18 17:39 Accu Check [Blood Glucose Check, Bedside] [RC] QIDACANDBED Diabetes Education [RC] DAILY Consult to Diabetic Nurse Specialist [CONS] Routine Consult to Dietary [Consult to Legal Entity Controller] [CONS] Routine 04/25/18 17:41 Height and Weight [RC] 04 Up With Assistance [RC] BID Up ad Nancy [RC] BID Consult to Case Management [CONS] Routine Acetaminophen [Tylenol] 650 mg PO Q4H PRN Acetaminophen/HYDROcodone [[place] 325-5 MG] 1 tab PO Q4H PRN Albuterol/Ipratropium [DuoNeb 3.0-0.5 MG/3 ML] 3 ml NEB Q4H PRN Bisacodyl [Dulcolax] 5 mg PO DAILY PRN Docusate Sodium [Colace] 100 mg PO BID PRN Docusate Sodium/Sennosides [Senna Plus] 1 tab PO BID PRN HYDROmorphone [Dilaudid] 0.5 mg IVPUSH Q4H PRN LORazepam [Ativan] 1 mg IV Q6H PRN Ondansetron [Zofran] 4 mg IV Q6H PRN Polyethylene Glycol 3350 [MiraLAX] 17 gm PO DAILY PRN Promethazine [Phenergan] 12.5 mg Sodium Chloride 0.9% [Normal Saline] 50 ml IV Q6H Temazepam [Restoril] 15 mg PO BEDTIME PRN Resuscitation Status Routine 04/25/18 17:42 Intake and Output [RC] 04,16 Oxygen Therapy [RC] PRN VTE/DVT Education [RC] DAILY Vital Signs [RC] Q4HR 04/25/18 17:44 RT Aerosol Therapy [RC] ASDIRECTED 04/25/18 17:45 Vancomycin Pharmacy to Dose [Pharmacy to Dose - Vancomycin] 0 dose .XX ASDIRECTED PRN 04/25/18 18:00 glipiZIDE [Glucotrol XL] 5 mg PO BIDMEALS 04/25/18 21:00 Aspirin 81 mg PO BEDTIME 04/25/18 22:00 Insulin Lispro [HumaLOG] See Protocol SUBCUT QIDACANDBED 04/25/18 Dinner Consistent Carbohydrate Diet [DIET] 04/26/18 00:00 Piperacillin/Tazobactam [Zosyn] 4.5 gm Sodium Chloride 0.9% [Normal Saline] 100 ml IV Q8H Vancomycin [Vancocin] 1 gm Sodium Chloride 0.9% [Normal Saline] 250 ml IV Q8H 04/26/18 02:34 Consult to Physician [CONS] Routine 04/26/18 02:37 Notify Provider Consults [RC] ASDIRECTED 04/26/18 02:38 Schedule Procedure [COMM] Routine 04/26/18 07:00 metFORMIN [Glucophage] 500 mg PO BIDMEALS 04/26/18 09:00 Enoxaparin [Lovenox] 40 mg SUBCUT DAILY Lisinopril [Prinivil] 10 mg PO DAILY Saccharomyces Boulardii [Florastor] 250 mg PO DAILY 04/27/18 05:11 BASIC METABOLIC PANEL,BMP [CHEM] AM C-REACTIVE PROTEIN [CHEM] AM CBC WITH AUTO DIFF [HEME] AM MAGNESIUM [CHEM] AM 04/28/18 05:11 BASIC METABOLIC PANEL,BMP [CHEM] AM C-REACTIVE PROTEIN [CHEM] AM CBC WITH AUTO DIFF [HEME] AM MAGNESIUM [CHEM] AM 04/29/18 05:11 BASIC METABOLIC PANEL,BMP [CHEM] AM C-REACTIVE PROTEIN [CHEM] AM CBC WITH AUTO DIFF [HEME] AM MAGNESIUM [CHEM] AM 04/30/18 05:11 BASIC METABOLIC PANEL,BMP [CHEM] AM C-REACTIVE PROTEIN [CHEM] AM CBC WITH AUTO DIFF [HEME] AM MAGNESIUM [CHEM] AM 05/01/18 05:11 BASIC METABOLIC PANEL,BMP [CHEM] AM C-REACTIVE PROTEIN [CHEM] AM CBC WITH AUTO DIFF [HEME] AM MAGNESIUM [CHEM] AM - Plan Plan:: The patient was seen and examined at bedside in concert with the medical student. The admission assessment and plans were discussed and agreed upon with me. No overnight or acute issues. His pain is controlled. His urine micro- albumin is normal. His lipid panel fairly unremarkable except for a HLD level of 23. His glucose overall is now in the 200s. We discussed option for SGLT-2 Inhibitor and patient is receptive to it. Will changed his ISS to higher level. BS target goal is at 150 or lower to improve blood flow.
--- NOTE | 2018-04-26 10:56 | PCM.OPNOTE ---
- General Post-Op/Procedure Note Date of Surgery/Procedure: 04/26/18 Operative Procedure(s): Debridement, washout, and wound dressing to the RIGHT foot Findings: 1) Persistent purulent fluid in the RIGHT foot wound. 2) Dusky appearance to the RIGHT 4th digit 3) Extension of the open would to promote drainage of infection. The open wound at the 3rd/4th digital webspace was extended laterally along the plantar surface to include the open plantar surface wound. It was also extended laterally towards the 4th/5th digital webspace. Anesthesia Technique: MAC Primary Surgeon: Arsen Gaston Anesthesia Provider: Jeni Bundy Pathology: None. Fluid Replacement, Intraop: 600 (crystalloid) Condition: Stable Free Text/Narrative:: Intake & Output 04/25/18 04/26/18 04/26/18 22:59 06:59 14:59 Intake Total 19990 Output Total 1675 Balance 1999 725 Indications for surgery: The patient is 42 yo male, who presented with a RIGHT foot soft tissue infection, POD#1 s/p I&D and debridement of RIGHT foot. Patient requires return to the OR for evaluation of the wound. He was consented for RIGHT foot exploration and possible debridement. Indications, risks, and benefits were discussed with the patient in detail. Description of procedure: After surgical consent was verified, the patient was brought to the main OR. Anesthesia performed monitored anesthesia care. Appropriate padding and straps were placed. A surgical time-out was performed to verify proper patient, proper site, and proper procedure. The patient has been receiving ongoing IV antibiotics, including vancomycin, Zosyn, and clindamycin. The RIGHT foot dressing dressing was removed, and the RIGHT foot was prepped and draped in a sterile fashion. There was obvious purulent fluid draining out of the open wound. The open wound located along the plantar surface of the distal foot, as well as the open wound in between the 3rd/4th webspace, was explored. The open wound tracked along the lateral aspect along the plantar surface towards the 4th/5th webspace. Given this persistent collection of undrained collection, the wound was opened up further, connecting the two wounds and extending it laterally towards the 4th/5th webspace. The underlying tissue appeared unhealthy, but not grossly necrotic. The 4th digit did look dusky, with sloughing of the epidermal skin, but without gross necrosis. After debridement and washout, there was exposed tendon of the 4th digit. The wound was thoroughly irrigated. Given the location of the wound, I contacted Dr. Jolley, Podiatry, by phone, to provide his expert opinion. The case was discussed, and Dr. Jolley will evaluate the patient after his current outpatient clinical responsibilities. The intraoperative findings were also discussed with Dr. Joyner, Orthopedics. The RIGHT foot wound was then packed with 4x4 gauze, covered with additional 4x4 gauze and wrapped with Kerlix. The patient tolerated the procedure well, was brought out of anesthesia, and was transported to the PACU in stable condition. At the end of the case, all needle, instrument, and gauze counts were correct. I was presented and scrubbed for the entirety of the case. Arsen Gaston M.D., F.A.C.S. General Surgery Pager: [phone]
[2018-04-26] MEDS ORDERED: HYDROmorphone 0.5 MG/0.5 ML Syringe IVPUSH PRN (10:59)
[2018-04-26] MEDS ORDERED: fentaNYL 100 MCG/2 ML SDV IVPUSH PRN (10:59)
--- NOTE | 2018-04-26 10:59 | PCM48HPAN ---
Post Anesthesia Note - EVALUATION WITHIN 48HRS OF ANESTHETIC Vital Signs in Normal Range: Yes Patient Participated in Evaluation: Yes Respiratory Function Stable: Yes Airway Patent: Yes Cardiovascular Function Stable: Yes Hydration Status Stable: Yes Pain Control Satisfactory: Yes Nausea and Vomiting Control Satisfactory: Yes Mental Status Recovered: Yes Pulse Rate: 85 SaO2: 92 Resp Rate: 14 Temperature: 36.6 C Blood Pressure: 98/69
[2018-04-26] MEDS: Acetaminophen/HYDROcodone 325-5 MG Tab PO PRN ×2 (11:59→16:41)
[2018-04-26] MEDS: Insulin Glargine,Human Rec. Analog 100 Units/ML 3 ML Pen SUBCUT SCH (16:48)
[2018-04-26] MEDS: Aspirin 81 MG Tab.Chew PO SCH (20:45)
[2018-04-27] MEDS: Piperacillin/Tazobactam 4.5 GM in Sodium Chloride 0.9% 100 ML IV SCH ×3 (00:48→16:44)
[2018-04-27] MEDS: Acetaminophen/HYDROcodone 325-5 MG Tab PO PRN ×2 (00:57→22:13)
[2018-04-27] MEDS: Clindamycin Phosphate 900 MG in Sodium Chloride 0.9% 100 ML IV SCH ×3 (02:26→18:03)
[2018-04-27] MEDS: metFORMIN 500 MG Tab PO SCH ×2 (06:00→16:43)
[2018-04-27] MEDS: Insulin Lispro 100 Unit/ML 3 ML KwikPen SUBCUT SCH ×4 (06:00→22:12)
[2018-04-27] MEDS: glipiZIDE 5 MG Tab.ER PO SCH ×2 (06:00→16:43)
[2018-04-27] MEDS: Insulin Glargine,Human Rec. Analog 100 Units/ML 3 ML Pen SUBCUT SCH ×2 (08:10→16:41)
[2018-04-27] MEDS: Enoxaparin 40 MG/0.4 ML Syringe SUBCUT SCH (08:32)
[2018-04-27] MEDS: Lisinopril 10 MG Tab PO SCH (08:32)
[2018-04-27] MEDS: Saccharomyces Boulardii (Probiotic) 250 MG Cap PO SCH (08:32)
[2018-04-27] MEDS ORDERED: Potassium Chloride 20 MEQ Tab.ER PO ONE (09:00)
--- NOTE | 2018-04-27 11:12 | PCM.PN ---
<Cynthia Gustafson - Last Filed: 04/27/18 11:06> - General Info Date of Service: 04/27/18 Admission Dx/Problem (Free Text): Admission Diagnosis/Problem Admission Diagnosis/Problem Cellulitis Functional Status: Reports: Pain Controlled Pain Score: 0 - Review of Systems General: Reports: No Symptoms HEENT: Reports: No Symptoms. Denies: Headaches Pulmonary: Reports: No Symptoms. Denies: Shortness of Breath, Pleuritic Chest Pain Cardiovascular: Reports: No Symptoms. Denies: Chest Pain Gastrointestinal: Reports: Diarrhea. Denies: Abdominal Pain, Nausea, Vomiting Genitourinary: Reports: No Symptoms Musculoskeletal: Reports: No Symptoms Skin: Reports: No Symptoms Neurological: Reports: No Symptoms Psychiatric: Reports: No Symptoms Systems Review Comment:: Patient states he is doing well today. His pain is well controlled with medication and currently a 0/10. The only symptom he reports is diarrhea. He slept well and had no issues through the night. He is hungry and would like to eat but understands he must be NPO until cleared by Dr. Tamez. - Patient Data Vitals - Most Recent: Last Vital Signs Temp 99.0 F 04/27/18 03:38 Pulse 96 04/27/18 03:38 Resp 22 H 04/27/18 03:38 BP 137/80 04/27/18 08:32 Pulse Ox 93 L 04/27/18 03:38 Weight - Most Recent: 81.511 kg I&O - Last 24 Hours: Intake & Output 04/26/18 04/27/18 04/27/18 22:59 06:59 14:59 Intake Total 1999 3450 120 Output Total 1900 Balance 1999 1550 120 Lab Results Last 24 Hours: Laboratory Results - last 24 hr 04/26/18 04/26/18 04/26/18 Range/Units 11:31 15:45 16:46 WBC (4.23-9.07) K/mm3 RBC (4.63-6.08) M/mm3 Hgb (13.7-17.5) gm/L Hct (40.1-51.0) % MCV (79.0-92.2) fl MCH (25.7-32.2) pg MCHC (32.2-35.5) g/dl RDW Std Deviation (35.1-43.9) fL Plt Count (163-337) K/mm3 MPV (9.4-12.3) fl Neut % (Auto) (34.0-67.9) % Lymph % (Auto) (21.8-53.1) % Mcmullen % (Auto) (5.3-12.2) % Eos % (Auto) (0.8-7.0) Baso % (Auto) (0.1-1.2) % Neut # (Auto) (1.78-5.38) K/mm3 Lymph # (Auto) (1.32-3.57) K/mm3 Mcmullen # (Auto) (0.30-0.82) K/mm3 Eos # (Auto) (0.04-0.54) K/mm3 Baso # (Auto) (0.01-0.08) K/mm3 Manual Slide Review Sodium (136-145) mEq/L Potassium (3.5-5.1) mEq/L Chloride (98-107) mEq/L Carbon Dioxide (21-32) mEq/L Anion Gap (5-15) BUN (7-18) mg/dL Creatinine (0.7-1.3) mg/dL Est Cr Clr Drug Dosing mL/min Estimated GFR (MDRD) (>60) mL/min BUN/Creatinine Ratio (14-18) Glucose (74-106) mg/dL POC Glucose 203 H 116 H (70-105) mg/dL Calcium (8.5-10.1) mg/dL Magnesium (1.8-2.4) mg/dl C-Reactive Protein (<1.0) mg/dL Vancomycin Trough 6.7 L (10.0-20.0) 04/26/18 04/27/18 04/27/18 Range/Units 20:43 05:09 05:09 WBC 14.81 H (4.23-9.07) K/mm3 RBC 4.11 L (4.63-6.08) M/mm3 Hgb 11.6 L (13.7-17.5) gm/L Hct 33.9 L (40.1-51.0) % MCV 82.5 (79.0-92.2) fl MCH 28.2 (25.7-32.2) pg MCHC 34.2 (32.2-35.5) g/dl RDW Std Deviation 38.8 (35.1-43.9) fL Plt Count 289 (163-337) K/mm3 MPV 9.3 L (9.4-12.3) fl Neut % (Auto) 75.6 H (34.0-67.9) % Lymph % (Auto) 13.3 L (21.8-53.1) % Mcmullen % (Auto) 9.8 (5.3-12.2) % Eos % (Auto) 0.5 L (0.8-7.0) Baso % (Auto) 0.3 (0.1-1.2) % Neut # (Auto) 11.21 H (1.78-5.38) K/mm3 Lymph # (Auto) 1.97 (1.32-3.57) K/mm3 Mcmullen # (Auto) 1.45 H (0.30-0.82) K/mm3 Eos # (Auto) 0.07 (0.04-0.54) K/mm3 Baso # (Auto) 0.04 (0.01-0.08) K/mm3 Manual Slide Review Abnormal smear Sodium 135 L (136-145) mEq/L Potassium 3.2 L (3.5-5.1) mEq/L Chloride 100 (98-107) mEq/L Carbon Dioxide 26 (21-32) mEq/L Anion Gap 12.2 (5-15) BUN 8 (7-18) mg/dL Creatinine 0.9 (0.7-1.3) mg/dL Est Cr Clr Drug Dosing 95.50 mL/min Estimated GFR (MDRD) > 60 (>60) mL/min BUN/Creatinine Ratio 8.9 L (14-18) Glucose 84 (74-106) mg/dL POC Glucose 120 H (70-105) mg/dL Calcium 8.5 (8.5-10.1) mg/dL Magnesium 1.8 (1.8-2.4) mg/dl C-Reactive Protein 23.1 H* (<1.0) mg/dL Vancomycin Trough (10.0-20.0) 04/27/18 Range/Units 05:52 WBC (4.23-9.07) K/mm3 RBC (4.63-6.08) M/mm3 Hgb (13.7-17.5) gm/L Hct (40.1-51.0) % MCV (79.0-92.2) fl MCH (25.7-32.2) pg MCHC (32.2-35.5) g/dl RDW Std Deviation (35.1-43.9) fL Plt Count (163-337) K/mm3 MPV (9.4-12.3) fl Neut % (Auto) (34.0-67.9) % Lymph % (Auto) (21.8-53.1) % Mcmullen % (Auto) (5.3-12.2) % Eos % (Auto) (0.8-7.0) Baso % (Auto) (0.1-1.2) % Neut # (Auto) (1.78-5.38) K/mm3 Lymph # (Auto) (1.32-3.57) K/mm3 Mcmullen # (Auto) (0.30-0.82) K/mm3 Eos # (Auto) (0.04-0.54) K/mm3 Baso # (Auto) (0.01-0.08) K/mm3 Manual Slide Review Sodium (136-145) mEq/L Potassium (3.5-5.1) mEq/L Chloride (98-107) mEq/L Carbon Dioxide (21-32) mEq/L Anion Gap (5-15) BUN (7-18) mg/dL Creatinine (0.7-1.3) mg/dL Est Cr Clr Drug Dosing mL/min Estimated GFR (MDRD) (>60) mL/min BUN/Creatinine Ratio (14-18) Glucose (74-106) mg/dL POC Glucose 81 (70-105) mg/dL Calcium (8.5-10.1) mg/dL Magnesium (1.8-2.4) mg/dl C-Reactive Protein (<1.0) mg/dL Vancomycin Trough (10.0-20.0) Fabian Results Last 24 Hours: Microbiology 04/25/18 15:56 Gram Stain - Final Foot, Right Anaerobic Culture - Preliminary Staphylococcus Aureus Beta Streptococcus Group B 04/25/18 19:11 Wound Culture - Final Foot, Right Staphylococcus Aureus Beta Streptococcus Group B 04/25/18 19:11 Wound Culture - Final Toe, Right - Right Third Staphylococcus Aureus Beta Streptococcus Group B 04/25/18 19:11 Gram Stain - Final Foot, Right Anaerobic Culture - Preliminary Staphylococcus Aureus Beta Streptococcus Group B 04/25/18 19:25 Wound Culture - Final Toe, Right - Right Third Staphylococcus Aureus Beta Streptococcus Group B 04/25/18 15:50 Aerobic Blood Culture - Preliminary Blood - Venous - Lab Draw NO GROWTH AFTER 1 DAY Anaerobic Blood Culture - Preliminary NO GROWTH AFTER 1 DAY 04/25/18 15:55 Aerobic Blood Culture - Preliminary Blood - Venous NO GROWTH AFTER 1 DAY Anaerobic Blood Culture - Preliminary NO GROWTH AFTER 1 DAY Med Orders - Current: Current Medications Acetaminophen (Tylenol) 650 mg PO Q4H PRN PRN Reason: Pain (Mild 1-3)/fever Hydrocodone Bitart/Acetaminophen (Allen 325-5 Mg) 1 tab PO Q4H PRN PRN Reason: Pain (moderate 4-6) Last Admin: 04/27/18 00:57 Dose: 1 tab Albuterol/Ipratropium (Duoneb 3.0-0.5 Mg/3 Ml) 3 ml NEB Q4H PRN PRN Reason: Shortness Of Breath/wheezing Aspirin (Aspirin) 81 mg PO BEDTIME [facility] Last Admin: 04/26/18 20:45 Dose: 81 mg Bisacodyl (Dulcolax) 5 mg PO DAILY PRN PRN Reason: Constipation Docusate Sodium (Colace) 100 mg PO BID PRN PRN Reason: Constipation Enoxaparin Sodium (Lovenox) 40 mg SUBCUT DAILY [facility] Last Admin: 04/27/18 08:32 Dose: 40 mg Glipizide (Glucotrol Xl) 5 mg PO BIDGAALS [facility] Last Admin: 04/27/18 06:00 Dose: Not Given Hydromorphone HCl (Dilaudid) 0.5 mg IVPUSH Q4H PRN PRN Reason: Pain (severe 7-10) Last Admin: 04/26/18 04:03 Dose: 0.5 mg Promethazine HCl 12.5 mg/ (Sodium Chloride) 50.5 mls @ 100 mls/hr IV Q6H PRN PRN Reason: Nausea/Vomiting Piperacillin Sod/Tazobactam (Sod 4.5 gm/ Sodium Chloride) 100 mls @ 25 mls/hr IV Q8H [facility] Last Admin: 04/27/18 08:31 Dose: 25 mls/hr Clindamycin Phosphate 900 mg/ (Sodium Chloride) 106 mls @ 100 mls/hr IV Q8H [facility] Last Admin: 04/27/18 10:08 Dose: 100 mls/hr Vancomycin HCl 1 gm/Vancomycin HCl 250 mg/ Sodium Chloride 250 mls @ 250 mls/ hr IV Q8H [facility] Last Admin: 04/27/18 08:48 Dose: 250 mls/hr Sodium Chloride (Normal Saline) 1,000 mls @ 125 mls/hr IV ASDIRECTED [facility] Insulin Glargine (Lantus Solostar) 5 units SUBCUT BIDAC [facility] Last Admin: 04/27/18 08:10 Dose: Not Given Insulin Human Lispro (Humalog) 0 unit SUBCUT QIDACANDBED [facility]; Protocol Last Admin: 04/27/18 06:00 Dose: Not Given Lisinopril (Prinivil) 10 mg PO DAILY [facility] Last Admin: 04/27/18 08:32 Dose: 10 mg Lorazepam (Ativan) 1 mg IV Q6H PRN PRN Reason: Nausea/Vomiting Magnesium Sulfate (Pharmacy To Dose - Magnesium Replacement) 0 dose .XX ASDIRECTED PRN PRN Reason: RX TO WATCH MAG LEVELS Metformin HCl (Glucophage) 500 mg PO BIDMEALS [facility] Last Admin: 04/27/18 06:00 Dose: Not Given Ondansetron HCl (Zofran) 4 mg IV Q6H PRN PRN Reason: Nausea/Vomiting Polyethylene Glycol (Miralax) 17 gm PO DAILY PRN PRN Reason: Constipation Potassium Chloride (Pharmacy To Dose - Potassium Replacement) 0 dose .XX ASDIRECTED PRN PRN Reason: RX TO WATCH K LEVELS Saccharomyces Boulardii (Florastor) 250 mg PO DAILY [facility] Last Admin: 04/27/18 08:32 Dose: 250 mg Senna/Docusate Sodium (Senna Plus) 1 tab PO BID PRN PRN Reason: Constipation Sodium Chloride (Saline Flush) 10 ml FLUSH ASDIRECTED PRN PRN Reason: Keep Vein Open Last Admin: 04/25/18 16:00 Dose: 10 ml Temazepam (Restoril) 15 mg PO BEDTIME PRN PRN Reason: Sleep Vancomycin HCl (Pharmacy To Dose - Vancomycin) 0 dose .XX ASDIRECTED PRN PRN Reason: RX TO DOSE VANCO Discontinued Medications Bupivacaine HCl (Marcaine 0.5%) Confirm Administered Dose 30 ml .ROUTE .STK-MED ONE Stop: 04/25/18 18:23 Last Admin: 04/25/18 19:53 Dose: 1.5 ml Clindamycin Phosphate (Cleocin) Confirm Administered Dose 900 mg .ROUTE .STK- MED ONE Stop: 04/25/18 19:11 Fentanyl (Sublimaze) Confirm Administered Dose 250 mcg .ROUTE .STK-MED ONE Stop: 04/25/18 18:38 Fentanyl (Sublimaze) 50 mcg IVPUSH Q5M PRN PRN Reason: Pain Fentanyl (Sublimaze) Confirm Administered Dose 100 mcg .ROUTE .STK-MED ONE Stop: 04/26/18 09:03 Fentanyl (Sublimaze) Confirm Administered Dose 100 mcg .ROUTE .STK-MED ONE Stop: 04/26/18 10:07 Fentanyl (Sublimaze) 50 mcg IVPUSH Q5M PRN PRN Reason: pain Stop: 04/26/18 18:00 Hydromorphone HCl (Dilaudid) 0.5 mg IVPUSH ONETIME ONE Stop: 04/25/18 15:30 Last Admin: 04/25/18 16:01 Dose: 0.5 mg Hydromorphone HCl (Dilaudid) Confirm Administered Dose 1 mg .ROUTE .STK-MED ONE Stop: 04/25/18 19:03 Hydromorphone HCl (Dilaudid) 0.5 mg IVPUSH ONETIME PRN PRN Reason: Pain (severe 7-10) Hydromorphone HCl (Dilaudid) 0.5 mg IVPUSH ONETIME PRN PRN Reason: Pain (severe 7-10) Stop: 04/26/18 18:00 Sodium Chloride (Normal Saline) 1,000 mls @ 999 mls/hr IV ONETIME ONE Stop: 04/25/18 16:28 Last Admin: 04/25/18 15:59 Dose: 999 mls/hr Vancomycin HCl 1 gm/ Sodium (Chloride) 250 mls @ 250 mls/hr IV ONETIME ONE Stop: 04/25/18 16:36 Last Admin: 04/25/18 16:10 Dose: 250 mls/hr Vancomycin HCl 1 gm/ Sodium (Chloride) 250 mls @ 250 mls/hr IV ONETIME ONE Stop: 04/25/18 16:37 Last Admin: 04/25/18 17:09 Dose: 250 mls/hr Sodium Chloride (Normal Saline) 1,000 mls @ 999 mls/hr IV ONETIME ONE Stop: 04/25/18 17:57 Last Admin: 04/25/18 17:09 Dose: 999 mls/hr Piperacillin Sod/Tazobactam (Sod 4.5 gm/ Sodium Chloride) 100 mls @ 200 mls/hr IV ONETIME ONE Stop: 04/25/18 18:24 Last Admin: 04/25/18 18:18 Dose: 200 mls/hr Vancomycin HCl 1 gm/ Sodium (Chloride) 250 mls @ 250 mls/hr IV Q8H [facility] Last Admin: 04/26/18 19:53 Dose: Not Given Lidocaine HCl (Xylocaine-Mpf 1%) Confirm Administered Dose 4 mls @ as directed .ROUTE .STK-MED ONE Stop: 04/25/18 18:38 Sodium Chloride (Normal Saline) Confirm Administered Dose 100 mls @ as directed .ROUTE .STK-MED ONE Stop: 04/25/18 19:11 Lactated Ringer's (Ringers, Lactated) Confirm Administered Dose 1,000 mls @ as directed .ROUTE .STK-MED ONE Stop: 04/26/18 10:10 Ketamine HCl (Ketalar) Confirm Administered Dose 500 mg .ROUTE .STK-MED ONE Stop: 04/25/18 19:11 Ketamine HCl (Ketalar) Confirm Administered Dose 500 mg .ROUTE .STK-MED ONE Stop: 04/26/18 10:07 Lidocaine/Epinephrine (Xylocaine 1% With Epinephrine 1:100,000) Confirm Administered Dose 20 ml .ROUTE .STK-MED ONE Stop: 04/25/18 18:23 Last Admin: 04/25/18 19:53 Dose: 1.5 ml Metformin HCl (Glucophage) 500 mg PO ONETIME ONE Stop: 04/25/18 23:01 Last Admin: 04/25/18 23:10 Dose: 500 mg Midazolam HCl (Versed 1 Mg/Ml) Confirm Administered Dose 2 mg .ROUTE .STK-MED ONE Stop: 04/25/18 18:38 Midazolam HCl (Versed 1 Mg/Ml) Confirm Administered Dose 2 mg .ROUTE .STK-MED ONE Stop: 04/26/18 09:03 Ondansetron HCl (Zofran) 4 mg IVPUSH ONETIME ONE Stop: 04/25/18 15:30 Last Admin: 04/25/18 16:03 Dose: 4 mg Ondansetron HCl (Zofran) Confirm Administered Dose 4 mg .ROUTE .STK-MED ONE Stop: 04/25/18 18:38 Ondansetron HCl (Zofran) 4 mg IVPUSH ONETIME PRN PRN Reason: Nausea/Vomiting Ondansetron HCl (Zofran) Confirm Administered Dose 4 mg .ROUTE .STK-MED ONE Stop: 04/26/18 10:10 Potassium Chloride (Klor-Con M20) 40 meq PO ONETIME ONE Stop: 04/27/18 09:01 Last Admin: 04/27/18 10:08 Dose: 40 meq Propofol (Diprivan 20 Ml) Confirm Administered Dose 200 mg .ROUTE .STK-MED ONE Stop: 04/25/18 18:38 Propofol (Diprivan 20 Ml) Confirm Administered Dose 400 mg .ROUTE .STK-MED ONE Stop: 04/26/18 09:03 Propofol (Diprivan 20 Ml) Confirm Administered Dose 200 mg .ROUTE .STK-MED ONE Stop: 04/26/18 10:38 Succinylcholine Chloride (Succinylcholine In Ns Pf) Confirm Administered Dose 100 mg .ROUTE .STK-MED ONE Stop: 04/25/18 18:38 Vancomycin HCl (Vancomycin) 1,190.685 mg 15 mg/kg (1190.685 mg) IV Q12H [facility] Last Admin: 04/25/18 18:15 Dose: Not Given - Exam Quality Assessment: DVT Prophylaxis General: Alert, Oriented, Cooperative, No Acute Distress HEENT: Pupils Equal, Pupils Reactive, EOMI, Mucous Membr. Moist/[place] Neck: Supple Lungs: Clear to Auscultation, Normal Respiratory Effort Cardiovascular: Regular Rate, Regular Rhythm GI/Abdominal Exam: Normal Bowel Sounds, Soft, Non-Tender (Male) Exam: Deferred Back Exam: Normal Inspection Extremities: Non-Tender, Other (right foot ulcer) Peripheral Pulses: 2+: Radial (L), Radial (R) Skin: Warm, Dry, Intact Wound/Incisions: Dressing Dry and Intact Neurological: No New Focal Deficit Psy/Mental Status: Alert, Normal Affect, Normal Mood Physical Findings Comments:: Patient appears well today - comfortable, cooperative, and in no acute distress. Right foot is wrapped in a dry, clean dressing. Dr. Tamez will examine his wound later today. No abnormalities found upon physical exam. - Problem List & Annotations (1) Cellulitis SNOMED Code(s): 525263215 Code(s): L03.90 - CELLULITIS, UNSPECIFIED Status: Acute Current Visit: Yes Qualifiers: Site of cellulitis: extremity Site of cellulitis of extremity: lower extremity Laterality: right Qualified Code(s): L03.115 - Cellulitis of right lower limb (2) Diabetes mellitus SNOMED Code(s): 09785652 Code(s): E11.9 - TYPE 2 DIABETES MELLITUS WITHOUT COMPLICATIONS Status: Acute Current Visit: Yes Qualifiers: Diabetes mellitus type: type 2 Diabetes mellitus complication detail: with foot ulcer - Problem List Review Problem List Initiated/Reviewed/Updated: Yes - Assessment Assessment:: Cellulitis * Open ulcer with drainage located on plantar aspect of right foot beneath great toe * WBC 18.92--> 13.89 --> 14.81 * CRP improved 36 --> 23.4 --> 23.1 * Cultures positive for S. aureus and GBS * Broad spectrum IV antibiotics * Vancomycin and clindamycin initiated prior to culture results - these will be continued * Piperacillin/tazobactum was added to the regimen * Pain medications PRN * DVT prophylaxis lovenox * Surgery consult * Dr. Tamez performed debridement shortly after admission on the evening of 04/25 * Repeat debridement 04/26 * He will examine patient later today to determine if further debridement is necessary * MRI with and without contrast to r/o osteomyelitis Diabetes mellitis * Glucose 355 and HgbA1c 11.8 upon admission * Denies personal or family history of diabetes * Patient informed of diabetic status; he is surprised but understands diagnosis * Initially started on insulin, metformin, and glipizide * Glucose has steadily been decreasing - 81 this AM, medications were held * Aspirin, statin, and JORGE inhibitor added to treatment regimen * Lipid panel unremarkable other than reduced HDL * Urine negative for micro-albumin * Consult financial services manager and development educator * Encourage Cuban Diabetic diet * Discussed option for SGLT-2 Inhibitor and patient is receptive to it Anemia, Improving * Labs 04/26 show Hct 33.7 and Hgb 11.2 --> 04/27 Hct 33.9, Hgb 11.6 * Likely due to IVF dilution * Continue to monitor Diarrhea * New onset diarrhea * Check for c. dif due to antibiotics * Continue to monitor Cynthia Gustafson, MS-3. Dr. Masterson has examined the patient and reviewed the note. <Isis Masterson T - Last Filed: 04/27/18 15:46> - Patient Data Vitals - Most Recent: Last Vital Signs Temp 37.2 C 04/27/18 03:38 Pulse 96 04/27/18 03:38 Resp 22 H 04/27/18 03:38 BP 137/80 04/27/18 08:32 Pulse Ox 93 L 04/27/18 03:38 I&O - Last 24 Hours: Intake & Output 04/27/18 04/27/18 04/27/18 06:59 14:59 22:59 Intake Total 3450 500 Output Total 1900 Balance 1550 500 Lab Results Last 24 Hours: Laboratory Results - last 24 hr 04/26/18 04/26/18 04/26/18 Range/Units 15:45 16:46 20:43 WBC (4.23-9.07) K/mm3 RBC (4.63-6.08) M/mm3 Hgb (13.7-17.5) gm/L Hct (40.1-51.0) % MCV (79.0-92.2) fl MCH (25.7-32.2) pg MCHC (32.2-35.5) g/dl RDW Std Deviation (35.1-43.9) fL Plt Count (163-337) K/mm3 MPV (9.4-12.3) fl Neut % (Auto) (34.0-67.9) % Lymph % (Auto) (21.8-53.1) % Mcmullen % (Auto) (5.3-12.2) % Eos % (Auto) (0.8-7.0) Baso % (Auto) (0.1-1.2) % Neut # (Auto) (1.78-5.38) K/mm3 Lymph # (Auto) (1.32-3.57) K/mm3 Mcmullen # (Auto) (0.30-0.82) K/mm3 Eos # (Auto) (0.04-0.54) K/mm3 Baso # (Auto) (0.01-0.08) K/mm3 Manual Slide Review Sodium (136-145) mEq/L Potassium (3.5-5.1) mEq/L Chloride (98-107) mEq/L Carbon Dioxide (21-32) mEq/L Anion Gap (5-15) BUN (7-18) mg/dL Creatinine (0.7-1.3) mg/dL Est Cr Clr Drug Dosing mL/min Estimated GFR (MDRD) (>60) mL/min BUN/Creatinine Ratio (14-18) Glucose (74-106) mg/dL POC Glucose 116 H 120 H (70-105) mg/dL Calcium (8.5-10.1) mg/dL Magnesium (1.8-2.4) mg/dl C-Reactive Protein (<1.0) mg/dL Vancomycin Trough 6.7 L (10.0-20.0) 04/27/18 04/27/18 04/27/18 Range/Units 05:09 05:09 05:52 WBC 14.81 H (4.23-9.07) K/mm3 RBC 4.11 L (4.63-6.08) M/mm3 Hgb 11.6 L (13.7-17.5) gm/L Hct 33.9 L (40.1-51.0) % MCV 82.5 (79.0-92.2) fl MCH 28.2 (25.7-32.2) pg MCHC 34.2 (32.2-35.5) g/dl RDW Std Deviation 38.8 (35.1-43.9) fL Plt Count 289 (163-337) K/mm3 MPV 9.3 L (9.4-12.3) fl Neut % (Auto) 75.6 H (34.0-67.9) % Lymph % (Auto) 13.3 L (21.8-53.1) % Mcmullen % (Auto) 9.8 (5.3-12.2) % Eos % (Auto) 0.5 L (0.8-7.0) Baso % (Auto) 0.3 (0.1-1.2) % Neut # (Auto) 11.21 H (1.78-5.38) K/mm3 Lymph # (Auto) 1.97 (1.32-3.57) K/mm3 Mcmullen # (Auto) 1.45 H (0.30-0.82) K/mm3 Eos # (Auto) 0.07 (0.04-0.54) K/mm3 Baso # (Auto) 0.04 (0.01-0.08) K/mm3 Manual Slide Review Abnormal smear Sodium 135 L (136-145) mEq/L Potassium 3.2 L (3.5-5.1) mEq/L Chloride 100 (98-107) mEq/L Carbon Dioxide 26 (21-32) mEq/L Anion Gap 12.2 (5-15) BUN 8 (7-18) mg/dL Creatinine 0.9 (0.7-1.3) mg/dL Est Cr Clr Drug Dosing 95.50 mL/min Estimated GFR (MDRD) > 60 (>60) mL/min BUN/Creatinine Ratio 8.9 L (14-18) Glucose 84 (74-106) mg/dL POC Glucose 81 (70-105) mg/dL Calcium 8.5 (8.5-10.1) mg/dL Magnesium 1.8 (1.8-2.4) mg/dl C-Reactive Protein 23.1 H* (<1.0) mg/dL Vancomycin Trough (10.0-20.0) 04/27/18 Range/Units 11:54 WBC (4.23-9.07) K/mm3 RBC (4.63-6.08) M/mm3 Hgb (13.7-17.5) gm/L Hct (40.1-51.0) % MCV (79.0-92.2) fl MCH (25.7-32.2) pg MCHC (32.2-35.5) g/dl RDW Std Deviation (35.1-43.9) fL Plt Count (163-337) K/mm3 MPV (9.4-12.3) fl Neut % (Auto) (34.0-67.9) % Lymph % (Auto) (21.8-53.1) % Mcmullen % (Auto) (5.3-12.2) % Eos % (Auto) (0.8-7.0) Baso % (Auto) (0.1-1.2) % Neut # (Auto) (1.78-5.38) K/mm3 Lymph # (Auto) (1.32-3.57) K/mm3 Mcmullen # (Auto) (0.30-0.82) K/mm3 Eos # (Auto) (0.04-0.54) K/mm3 Baso # (Auto) (0.01-0.08) K/mm3 Manual Slide Review Sodium (136-145) mEq/L Potassium (3.5-5.1) mEq/L Chloride (98-107) mEq/L Carbon Dioxide (21-32) mEq/L Anion Gap (5-15) BUN (7-18) mg/dL Creatinine (0.7-1.3) mg/dL Est Cr Clr Drug Dosing mL/min Estimated GFR (MDRD) (>60) mL/min BUN/Creatinine Ratio (14-18) Glucose (74-106) mg/dL POC Glucose 110 H (70-105) mg/dL Calcium (8.5-10.1) mg/dL Magnesium (1.8-2.4) mg/dl C-Reactive Protein (<1.0) mg/dL Vancomycin Trough (10.0-20.0) Fabian Results Last 24 Hours: Microbiology 04/25/18 15:56 Gram Stain - Final Foot, Right Anaerobic Culture - Preliminary Staphylococcus Aureus Beta Streptococcus Group B 04/25/18 19:11 Wound Culture - Final Foot, Right Staphylococcus Aureus Beta Streptococcus Group B 04/25/18 19:11 Wound Culture - Final Toe, Right - Right Third Staphylococcus Aureus Beta Streptococcus Group B 04/25/18 19:11 Gram Stain - Final Foot, Right Anaerobic Culture - Preliminary Staphylococcus Aureus Beta Streptococcus Group B 04/25/18 19:25 Wound Culture - Final Toe, Right - Right Third Staphylococcus Aureus Beta Streptococcus Group B 04/25/18 15:50 Aerobic Blood Culture - Preliminary Blood - Venous - Lab Draw NO GROWTH AFTER 1 DAY Anaerobic Blood Culture - Preliminary NO GROWTH AFTER 1 DAY 04/25/18 15:55 Aerobic Blood Culture - Preliminary Blood - Venous NO GROWTH AFTER 1 DAY Anaerobic Blood Culture - Preliminary NO GROWTH AFTER 1 DAY Med Orders - Current: Current Medications Acetaminophen (Tylenol) 650 mg PO Q4H PRN PRN Reason: Pain (Mild 1-3)/fever Hydrocodone Bitart/Acetaminophen (Allen 325-5 Mg) 1 tab PO Q4H PRN PRN Reason: Pain (moderate 4-6) Last Admin: 04/27/18 00:57 Dose: 1 tab Albuterol/Ipratropium (Duoneb 3.0-0.5 Mg/3 Ml) 3 ml NEB Q4H PRN PRN Reason: Shortness Of Breath/wheezing Aspirin (Aspirin) 81 mg PO BEDTIME [facility] Last Admin: 04/26/18 20:45 Dose: 81 mg Bisacodyl (Dulcolax) 5 mg PO DAILY PRN PRN Reason: Constipation Docusate Sodium (Colace) 100 mg PO BID PRN PRN Reason: Constipation Enoxaparin Sodium (Lovenox) 40 mg SUBCUT DAILY [facility] Last Admin: 04/27/18 08:32 Dose: 40 mg Glipizide (Glucotrol Xl) 5 mg PO BIDMEALS [facility] Last Admin: 04/27/18 06:00 Dose: Not Given Hydromorphone HCl (Dilaudid) 0.5 mg IVPUSH Q4H PRN PRN Reason: Pain (severe 7-10) Last Admin: 04/27/18 13:40 Dose: 0.5 mg Promethazine HCl 12.5 mg/ (Sodium Chloride) 50.5 mls @ 100 mls/hr IV Q6H PRN PRN Reason: Nausea/Vomiting Piperacillin Sod/Tazobactam (Sod 4.5 gm/ Sodium Chloride) 100 mls @ 25 mls/hr IV Q8H [facility] Last Admin: 04/27/18 08:31 Dose: 25 mls/hr Clindamycin Phosphate 900 mg/ (Sodium Chloride) 106 mls @ 100 mls/hr IV Q8H [facility] Last Admin: 04/27/18 10:08 Dose: 100 mls/hr Vancomycin HCl 1 gm/Vancomycin HCl 250 mg/ Sodium Chloride 250 mls @ 250 mls/ hr IV Q8H [facility] Last Admin: 04/27/18 08:48 Dose: 250 mls/hr Sodium Chloride (Normal Saline) 1,000 mls @ 125 mls/hr IV ASDIRECTED [facility] Last Admin: 04/27/18 11:31 Dose: 125 mls/hr Insulin Glargine (Lantus Solostar) 5 units SUBCUT BIDAC [facility] Last Admin: 04/27/18 08:10 Dose: Not Given Insulin Human Lispro (Humalog) 0 unit SUBCUT QIDACANDBED [facility]; Protocol Last Admin: 04/27/18 13:41 Dose: Not Given Lisinopril (Prinivil) 10 mg PO DAILY [facility] Last Admin: 04/27/18 08:32 Dose: 10 mg Lorazepam (Ativan) 1 mg IV Q6H PRN PRN Reason: Nausea/Vomiting Magnesium Sulfate (Pharmacy To Dose - Magnesium Replacement) 0 dose .XX ASDIRECTED PRN PRN Reason: RX TO WATCH MAG LEVELS Metformin HCl (Glucophage) 500 mg PO BIDGAALS [facility] Last Admin: 04/27/18 06:00 Dose: Not Given Ondansetron HCl (Zofran) 4 mg IV Q6H PRN PRN Reason: Nausea/Vomiting Polyethylene Glycol (Miralax) 17 gm PO DAILY PRN PRN Reason: Constipation Potassium Chloride (Pharmacy To Dose - Potassium Replacement) 0 dose .XX ASDIRECTED PRN PRN Reason: RX TO WATCH K LEVELS Saccharomyces Boulardii (Florastor) 250 mg PO DAILY [facility] Last Admin: 04/27/18 08:32 Dose: 250 mg Senna/Docusate Sodium (Senna Plus) 1 tab PO BID PRN PRN Reason: Constipation Sodium Chloride (Saline Flush) 10 ml FLUSH ASDIRECTED PRN PRN Reason: Keep Vein Open Last Admin: 04/25/18 16:00 Dose: 10 ml Sodium Chloride (Saline Flush) [facility] Admin: 04/27/18 13:45 Dose: 10 ml Temazepam (Restoril) 15 mg PO BEDTIME PRN PRN Reason: Sleep Vancomycin HCl (Pharmacy To Dose - Vancomycin) 0 dose .XX ASDIRECTED PRN PRN Reason: RX TO DOSE VANCO Discontinued Medications Bupivacaine HCl (Marcaine 0.5%) Confirm Administered Dose 30 ml .ROUTE .STK-MED ONE Stop: 04/25/18 18:23 Last Admin: 04/25/18 19:53 Dose: 1.5 ml Clindamycin Phosphate (Cleocin) Confirm Administered Dose 900 mg .ROUTE .STK- MED ONE Stop: 04/25/18 19:11 Fentanyl (Sublimaze) Confirm Administered Dose 250 mcg .ROUTE .STK-MED ONE Stop: 04/25/18 18:38 Fentanyl (Sublimaze) 50 mcg IVPUSH Q5M PRN PRN Reason: Pain Fentanyl (Sublimaze) Confirm Administered Dose 100 mcg .ROUTE .STK-MED ONE Stop: 04/26/18 09:03 Fentanyl (Sublimaze) Confirm Administered Dose 100 mcg .ROUTE .STK-MED ONE Stop: 04/26/18 10:07 Fentanyl (Sublimaze) 50 mcg IVPUSH Q5M PRN PRN Reason: pain Stop: 04/26/18 18:00 Gadobenate Dimeglumine (Multihance) 16 ml IVPUSH ONETIME ONE Stop: 04/27/18 13:03 Last Admin: 04/27/18 13:42 Dose: Not Given Hydromorphone HCl (Dilaudid) 0.5 mg IVPUSH ONETIME ONE Stop: 04/25/18 15:30 Last Admin: 04/25/18 16:01 Dose: 0.5 mg Hydromorphone HCl (Dilaudid) Confirm Administered Dose 1 mg .ROUTE .STK-MED ONE Stop: 04/25/18 19:03 Hydromorphone HCl (Dilaudid) 0.5 mg IVPUSH ONETIME PRN PRN Reason: Pain (severe 7-10) Hydromorphone HCl (Dilaudid) 0.5 mg IVPUSH ONETIME PRN PRN Reason: Pain (severe 7-10) Stop: 04/26/18 18:00 Sodium Chloride (Normal Saline) 1,000 mls @ 999 mls/hr IV ONETIME ONE Stop: 04/25/18 16:28 Last Admin: 04/25/18 15:59 Dose: 999 mls/hr Vancomycin HCl 1 gm/ Sodium (Chloride) 250 mls @ 250 mls/hr IV ONETIME ONE Stop: 04/25/18 16:36 Last Admin: 04/25/18 16:10 Dose: 250 mls/hr Vancomycin HCl 1 gm/ Sodium (Chloride) 250 mls @ 250 mls/hr IV ONETIME ONE Stop: 04/25/18 16:37 Last Admin: 04/25/18 17:09 Dose: 250 mls/hr Sodium Chloride (Normal Saline) 1,000 mls @ 999 mls/hr IV ONETIME ONE Stop: 04/25/18 17:57 Last Admin: 08/28/18 17:09 Dose: 999 mls/hr Piperacillin Sod/Tazobactam (Sod 4.5 gm/ Sodium Chloride) 100 mls @ 200 mls/hr IV ONETIME ONE Stop: 04/25/18 18:24 Last Admin: 04/25/18 18:18 Dose: 200 mls/hr Vancomycin HCl 1 gm/ Sodium (Chloride) 250 mls @ 250 mls/hr IV Q8H [facility] Last Admin: 04/26/18 19:53 Dose: Not Given Lidocaine HCl (Xylocaine-Mpf 1%) Confirm Administered Dose 4 mls @ as directed .ROUTE .STK-MED ONE Stop: 04/25/18 18:38 Sodium Chloride (Normal Saline) Confirm Administered Dose 100 mls @ as directed .ROUTE .STK-MED ONE Stop: 04/25/18 19:11 Lactated Ringer's (Ringers, Lactated) Confirm Administered Dose 1,000 mls @ as directed .ROUTE .STK-MED ONE Stop: 04/26/18 10:10 Ketamine HCl (Ketalar) Confirm Administered Dose 500 mg .ROUTE .STK-MED ONE Stop: 04/25/18 19:11 Ketamine HCl (Ketalar) Confirm Administered Dose 500 mg .ROUTE .STK-MED ONE Stop: 04/26/18 10:07 Lidocaine/Epinephrine (Xylocaine 1% With Epinephrine 1:100,000) Confirm Administered Dose 20 ml .ROUTE .STK-MED ONE Stop: 04/25/18 18:23 Last Admin: 04/25/18 19:53 Dose: 1.5 ml Metformin HCl (Glucophage) 500 mg PO ONETIME ONE Stop: 04/25/18 23:01 Last Admin: 04/25/18 23:10 Dose: 500 mg Midazolam HCl (Versed 1 Mg/Ml) Confirm Administered Dose 2 mg .ROUTE .STK-MED ONE Stop: 04/25/18 18:38 Midazolam HCl (Versed 1 Mg/Ml) Confirm Administered Dose 2 mg .ROUTE .STK-MED ONE Stop: 04/26/18 09:03 Ondansetron HCl (Zofran) 4 mg IVPUSH ONETIME ONE Stop: 04/25/18 15:30 Last Admin: 04/25/18 16:03 Dose: 4 mg Ondansetron HCl (Zofran) Confirm Administered Dose 4 mg .ROUTE .STK-MED ONE Stop: 04/25/18 18:38 Ondansetron HCl (Zofran) 4 mg IVPUSH ONETIME PRN PRN Reason: Nausea/Vomiting Ondansetron HCl (Zofran) Confirm Administered Dose 4 mg .ROUTE .STK-MED ONE Stop: 04/26/18 10:10 Potassium Chloride (Klor-Con M20) 40 meq PO ONETIME ONE Stop: 04/27/18 09:01 Last Admin: 04/27/18 10:08 Dose: 40 meq Propofol (Diprivan 20 Ml) Confirm Administered Dose 200 mg .ROUTE .STK-MED ONE Stop: 04/25/18 18:38 Propofol (Diprivan 20 Ml) Confirm Administered Dose 400 mg .ROUTE .STK-MED ONE Stop: 04/26/18 09:03 Propofol (Diprivan 20 Ml) Confirm Administered Dose 200 mg .ROUTE .STK-MED ONE Stop: 04/26/18 10:38 Succinylcholine Chloride (Succinylcholine In Ns Pf) Confirm Administered Dose 100 mg .ROUTE .STK-MED ONE Stop: 04/25/18 18:38 Vancomycin HCl (Vancomycin) 1,190.685 mg 15 mg/kg (1190.685 mg) IV Q12H [facility] Last Admin: 04/25/18 18:15 Dose: Not Given - My Orders Last 24 Hours: My Active Orders 04/26/18 16:00 Insulin Glarg,Human.Rec.Analog [LantUS Solostar] 5 units SUBCUT BIDAC Vancomycin 1 gm Vancomycin 250 mg Sodium Chloride 0.9% [Normal Saline] 250 ml IV Q8H 04/27/18 10:22 C DIFFICILE BY PCR W/NAP1 [MOLEC] Routine 04/27/18 10:30 Sodium Chloride 0.9% [Normal Saline] 1,000 ml IV ASDIRECTED 04/27/18 13:15 Sodium Chloride 0.9% [Saline Flush] 10 ml FLUSH ASDIRECTED 04/27/18 23:30 VANCOMYCIN TROUGH [CHEM] Timed 04/28/18 05:11 BASIC METABOLIC PANEL,BMP [CHEM] AM C-REACTIVE PROTEIN [CHEM] AM CBC WITH AUTO DIFF [HEME] AM MAGNESIUM [CHEM] AM 04/29/18 05:11 BASIC METABOLIC PANEL,BMP [CHEM] AM C-REACTIVE PROTEIN [CHEM] AM CBC WITH AUTO DIFF [HEME] AM MAGNESIUM [CHEM] AM 04/30/18 05:11 BASIC METABOLIC PANEL,BMP [CHEM] AM C-REACTIVE PROTEIN [CHEM] AM CBC WITH AUTO DIFF [HEME] AM MAGNESIUM [CHEM] AM 05/01/18 05:11 BASIC METABOLIC PANEL,BMP [CHEM] AM C-REACTIVE PROTEIN [CHEM] AM CBC WITH AUTO DIFF [HEME] AM MAGNESIUM [CHEM] AM - Plan Plan:: The patient was seen and examined at bedside in concert with medical student. The assessment and plans were discussed and agreed upon with me. Patient reports no overnight or acute issues. His pain is controlled. He is NPO pending MRI result to r/o amputation.
[2018-04-27] MEDS: Sodium Chloride 0.9% 1,000 ML IV SCH ×2 (11:31→21:57)
--- NOTE | 2018-04-27 12:32 | PCM.CONS ---
H&P History of Present Illness - General Date of Service: 04/27/18 Admit Problem/Dx: Admission Diagnosis/Problem Admission Diagnosis/Problem Cellulitis - History of Present Illness Initial Comments - Free Text/Narative: Mr. Jim is a 42 yo male who was evaluated by the [facility] and then the ED for cellulitis at [facility]. The pt was recently diagnosed with diabetes. The pt was admitted by the Hospitalist service and a consult was completed by general surgeon. The pt has undergone 2 I&Ds. An ortho consult was placed for evaluation and treatment recommendations with regard to the pt's right 4th toe. Right Feet Pain Score (Numeric/FACES): 6 - Related Data Allergies/Adverse Reactions: Allergies Allergy/AdvReac Type Severity Reaction Status Date / Time No Known Allergies Allergy Verified 04/25/18 18:04 Home Medications: Home Meds Empagliflozin [Jardiance] 25 mg PO DAILY #30 tablet 04/26/18 [Rx] Past Medical History - Past Health History Medical/Surgical History: Denies Medical/Surgical History Cardiovascular History: Reports: None Respiratory History: Reports: None Gastrointestinal History: Reports: None Psychiatric History: Reports: Depression Other Psychiatric History: when asked if patient has depression, he states "Yeah , I guess some depression", but no official diagnosis. Endocrine/Metabolic History: Reports: Diabetes, Type II, Other (See Below) Other Endocrine/Metabolic History: new diagnosis diabetes Dermatologic History: Reports: Cellulitis, Other (See Below) Other Dermatologic History: diagnosis of diabetes - Past Surgical History HEENT Surgical History: Reports: Oral Surgery Social & Family History - Family History Family Medical History: Noncontributory - Tobacco Use Smoking Status *Q: Never Smoker Second Hand Smoke Exposure: No - Alcohol Use Days Per Week of Alcohol Use: 1 - Recreational Drug Use Recreational Drug Use: No - Living Situation & Occupation Living situation: Reports: Single (Lives alone) Occupation: Employed (Does [employer]) H&P Review of Systems - Review of Systems: Review Of Systems: See Below (ROS is as per Surgeon and Hospitalist information. ) Exam - Exam Exam: See Below - Vital Signs Vital Signs: Last Vital Signs Temp 99.0 F 04/27/18 03:38 Pulse 96 04/27/18 03:38 Resp 22 H 04/27/18 03:38 BP 137/80 04/27/18 08:32 Pulse Ox 93 L 04/27/18 03:38 Weight: 179 lb 11.2 oz - Exam Extremities: Other (Right 4th toe with evidence desquamation and areas of decreased skin integrity s/p debridement. 4th toe consistent with appearance of dry gangrene. ) - Patient Data Lab Results Last 24 hrs: Laboratory Results - last 24 hr 04/26/18 04/26/18 04/26/18 Range/Units 15:45 16:46 20:43 WBC (4.23-9.07) K/mm3 RBC (4.63-6.08) M/mm3 Hgb (13.7-17.5) gm/L Hct (40.1-51.0) % MCV (79.0-92.2) fl MCH (25.7-32.2) pg MCHC (32.2-35.5) g/dl RDW Std Deviation (35.1-43.9) fL Plt Count (163-337) K/mm3 MPV (9.4-12.3) fl Neut % (Auto) (34.0-67.9) % Lymph % (Auto) (21.8-53.1) % Pickett % (Auto) (5.3-12.2) % Eos % (Auto) (0.8-7.0) Baso % (Auto) (0.1-1.2) % Neut # (Auto) (1.78-5.38) K/mm3 Lymph # (Auto) (1.32-3.57) K/mm3 Pickett # (Auto) (0.30-0.82) K/mm3 Eos # (Auto) (0.04-0.54) K/mm3 Baso # (Auto) (0.01-0.08) K/mm3 Manual Slide Review Sodium (136-145) mEq/L Potassium (3.5-5.1) mEq/L Chloride (98-107) mEq/L Carbon Dioxide (21-32) mEq/L Anion Gap (5-15) BUN (7-18) mg/dL Creatinine (0.7-1.3) mg/dL Est Cr Clr Drug Dosing mL/min Estimated GFR (MDRD) (>60) mL/min BUN/Creatinine Ratio (14-18) Glucose (74-106) mg/dL POC Glucose 116 H 120 H (70-105) mg/dL Calcium (8.5-10.1) mg/dL Magnesium (1.8-2.4) mg/dl C-Reactive Protein (<1.0) mg/dL Vancomycin Trough 6.7 L (10.0-20.0) 04/27/18 04/27/18 04/27/18 Range/Units 05:09 05:09 05:52 WBC 14.81 H (4.23-9.07) K/mm3 RBC 4.11 L (4.63-6.08) M/mm3 Hgb 11.6 L (13.7-17.5) gm/L Hct 33.9 L (40.1-51.0) % MCV 82.5 (79.0-92.2) fl MCH 28.2 (25.7-32.2) pg MCHC 34.2 (32.2-35.5) g/dl RDW Std Deviation 38.8 (35.1-43.9) fL Plt Count 289 (163-337) K/mm3 MPV 9.3 L (9.4-12.3) fl Neut % (Auto) 75.6 H (34.0-67.9) % Lymph % (Auto) 13.3 L (21.8-53.1) % Pickett % (Auto) 9.8 (5.3-12.2) % Eos % (Auto) 0.5 L (0.8-7.0) Baso % (Auto) 0.3 (0.1-1.2) % Neut # (Auto) 11.21 H (1.78-5.38) K/mm3 Lymph # (Auto) 1.97 (1.32-3.57) K/mm3 Pickett # (Auto) 1.45 H (0.30-0.82) K/mm3 Eos # (Auto) 0.07 (0.04-0.54) K/mm3 Baso # (Auto) 0.04 (0.01-0.08) K/mm3 Manual Slide Review Abnormal smear Sodium 135 L (136-145) mEq/L Potassium 3.2 L (3.5-5.1) mEq/L Chloride 100 (98-107) mEq/L Carbon Dioxide 26 (21-32) mEq/L Anion Gap 12.2 (5-15) BUN 8 (7-18) mg/dL Creatinine 0.9 (0.7-1.3) mg/dL Est Cr Clr Drug Dosing 95.50 mL/min Estimated GFR (MDRD) > 60 (>60) mL/min BUN/Creatinine Ratio 8.9 L (14-18) Glucose 84 (74-106) mg/dL POC Glucose 81 (70-105) mg/dL Calcium 8.5 (8.5-10.1) mg/dL Magnesium 1.8 (1.8-2.4) mg/dl C-Reactive Protein 23.1 H* (<1.0) mg/dL Vancomycin Trough (10.0-20.0) 04/27/18 Range/Units 11:54 WBC (4.23-9.07) K/mm3 RBC (4.63-6.08) M/mm3 Hgb (13.7-17.5) gm/L Hct (40.1-51.0) % MCV (79.0-92.2) fl MCH (25.7-32.2) pg MCHC (32.2-35.5) g/dl RDW Std Deviation (35.1-43.9) fL Plt Count (163-337) K/mm3 MPV (9.4-12.3) fl Neut % (Auto) (34.0-67.9) % Lymph % (Auto) (21.8-53.1) % Pickett % (Auto) (5.3-12.2) % Eos % (Auto) (0.8-7.0) Baso % (Auto) (0.1-1.2) % Neut # (Auto) (1.78-5.38) K/mm3 Lymph # (Auto) (1.32-3.57) K/mm3 Pickett # (Auto) (0.30-0.82) K/mm3 Eos # (Auto) (0.04-0.54) K/mm3 Baso # (Auto) (0.01-0.08) K/mm3 Manual Slide Review Sodium (136-145) mEq/L Potassium (3.5-5.1) mEq/L Chloride (98-107) mEq/L Carbon Dioxide (21-32) mEq/L Anion Gap (5-15) BUN (7-18) mg/dL Creatinine (0.7-1.3) mg/dL Est Cr Clr Drug Dosing mL/min Estimated GFR (MDRD) (>60) mL/min BUN/Creatinine Ratio (14-18) Glucose (74-106) mg/dL POC Glucose 110 H (70-105) mg/dL Calcium (8.5-10.1) mg/dL Magnesium (1.8-2.4) mg/dl C-Reactive Protein (<1.0) mg/dL Vancomycin Trough (10.0-20.0) Result Diagrams: 05/01/18 05:40 05/01/18 05:40 Fabian Results Last 24 hrs: Microbiology 04/25/18 15:56 Gram Stain - Final Foot, Right Anaerobic Culture - Preliminary Staphylococcus Aureus Beta Streptococcus Group B 04/25/18 19:11 Wound Culture - Final Foot, Right Staphylococcus Aureus Beta Streptococcus Group B 04/25/18 19:11 Wound Culture - Final Toe, Right - Right Third Staphylococcus Aureus Beta Streptococcus Group B 04/25/18 19:11 Gram Stain - Final Foot, Right Anaerobic Culture - Preliminary Staphylococcus Aureus Beta Streptococcus Group B 04/25/18 19:25 Wound Culture - Final Toe, Right - Right Third Staphylococcus Aureus Beta Streptococcus Group B 04/25/18 15:50 Aerobic Blood Culture - Preliminary Blood - Venous - Lab Draw NO GROWTH AFTER 1 DAY Anaerobic Blood Culture - Preliminary NO GROWTH AFTER 1 DAY 04/25/18 15:55 Aerobic Blood Culture - Preliminary Blood - Venous NO GROWTH AFTER 1 DAY Anaerobic Blood Culture - Preliminary NO GROWTH AFTER 1 DAY Consult PN Assessment/Plan Problem List Initiated/Reviewed/Updated: Yes Plan: ASSESSMENT: 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 The pt will likely require right 4th toe amputation. Further aspects of the pt's plan of care will be developed after MRI results obtained. The pt was examined by Dr. Joyner and MD developed plan of care.
[2018-04-27] MEDS ORDERED: Gadobenate Dimeglumine 529 MG/ML 20 ML SDV IVPUSH ONE (13:02)
[2018-04-27] MEDS ORDERED: Sodium Chloride 0.9% 10 ML Syringe FLUSH SCH (13:15)
[2018-04-27] MEDS: HYDROmorphone 0.5 MG/0.5 ML Syringe IVPUSH PRN (13:40)
--- NOTE | 2018-04-27 14:13 | MR ---
MRI right foot (without and with contrast) Technique: T1, fat-suppressed inversion recovery and T1 fat-suppressed post-gadolinium sagittal; T2 fat-suppressed, proton fat-suppressed and T1 fat-suppressed post-gadolinium coronal; T1 fat-suppressed, T2 fat-suppressed and post-gadolinium T1 fat-suppressed coronal images were obtained. Comparison: Prior right foot radiographic study of 04/25/18. Findings: Diffuse edema is noted within the forefoot. Ulceration is identified within the base of the lateral foot at the level of the MTP joints. There is abnormal signal being seen within the proximal phalanx of the fifth toe which likely represents osteomyelitis. Small joint effusion is seen within the MTP joints of the third and fourth digits. Mild areas of enhancement are seen compatible with inflammatory change within the soft tissues. Impression: 1. Soft tissue ulceration, diffuse cellulitis as well as probable osteomyelitis within the proximal phalanx of the fifth toe. 2. Small joint effusions within the MTP joint of the fourth and third toes. Diagnostic code #3
--- NOTE | 2018-04-27 15:26 | PCM.CONSN ---
- General Info Date of Service: 04/27/18 Subjective Update: Yesterday morning, was taken to the OR for further washout and debridement. Overnight, no acute events. Overall, the patient reports improvement in pain. Pain control with Dilaudid and Percocet. Has been working with physical therapy for ambulation (NWB on RIGHT LE). - Patient Data Vitals - Most Recent: Last Vital Signs Temp 37.2 C 04/27/18 03:38 Pulse 96 04/27/18 03:38 Resp 22 H 04/27/18 03:38 BP 137/80 04/27/18 08:32 Pulse Ox 93 L 04/27/18 03:38 Weight - Most Recent: 81.511 kg I&O - Last 24 Hours: Intake & Output 04/27/18 04/27/18 04/27/18 06:59 14:59 22:59 Intake Total 3450 500 Output Total 1900 Balance 1550 500 Lab Results Last 24 Hours: Laboratory Results - last 24 hr 04/26/18 04/26/18 04/26/18 Range/Units 15:45 16:46 20:43 WBC (4.23-9.07) K/mm3 RBC (4.63-6.08) M/mm3 Hgb (13.7-17.5) gm/L Hct (40.1-51.0) % MCV (79.0-92.2) fl MCH (25.7-32.2) pg MCHC (32.2-35.5) g/dl RDW Std Deviation (35.1-43.9) fL Plt Count (163-337) K/mm3 MPV (9.4-12.3) fl Neut % (Auto) (34.0-67.9) % Lymph % (Auto) (21.8-53.1) % [place] % (Auto) (5.3-12.2) % Eos % (Auto) (0.8-7.0) Baso % (Auto) (0.1-1.2) % Neut # (Auto) (1.78-5.38) K/mm3 Lymph # (Auto) (1.32-3.57) K/mm3 [place] # (Auto) (0.30-0.82) K/mm3 Eos # (Auto) (0.04-0.54) K/mm3 Baso # (Auto) (0.01-0.08) K/mm3 Manual Slide Review Sodium (136-145) mEq/L Potassium (3.5-5.1) mEq/L Chloride (98-107) mEq/L Carbon Dioxide (21-32) mEq/L Anion Gap (5-15) BUN (7-18) mg/dL Creatinine (0.7-1.3) mg/dL Est Cr Clr Drug Dosing mL/min Estimated GFR (MDRD) (>60) mL/min BUN/Creatinine Ratio (14-18) Glucose (74-106) mg/dL POC Glucose 116 H 120 H (70-105) mg/dL Calcium (8.5-10.1) mg/dL Magnesium (1.8-2.4) mg/dl C-Reactive Protein (<1.0) mg/dL Vancomycin Trough 6.7 L (10.0-20.0) 04/27/18 04/27/18 04/27/18 Range/Units 05:09 05:09 05:52 WBC 14.81 H (4.23-9.07) K/mm3 RBC 4.11 L (4.63-6.08) M/mm3 Hgb 11.6 L (13.7-17.5) gm/L Hct 33.9 L (40.1-51.0) % MCV 82.5 (79.0-92.2) fl MCH 28.2 (25.7-32.2) pg MCHC 34.2 (32.2-35.5) g/dl RDW Std Deviation 38.8 (35.1-43.9) fL Plt Count 289 (163-337) K/mm3 MPV 9.3 L (9.4-12.3) fl Neut % (Auto) 75.6 H (34.0-67.9) % Lymph % (Auto) 13.3 L (21.8-53.1) % [place] % (Auto) 9.8 (5.3-12.2) % Eos % (Auto) 0.5 L (0.8-7.0) Baso % (Auto) 0.3 (0.1-1.2) % Neut # (Auto) 11.21 H (1.78-5.38) K/mm3 Lymph # (Auto) 1.97 (1.32-3.57) K/mm3 [place] # (Auto) 1.45 H (0.30-0.82) K/mm3 Eos # (Auto) 0.07 (0.04-0.54) K/mm3 Baso # (Auto) 0.04 (0.01-0.08) K/mm3 Manual Slide Review Abnormal smear Sodium 135 L (136-145) mEq/L Potassium 3.2 L (3.5-5.1) mEq/L Chloride 100 (98-107) mEq/L Carbon Dioxide 26 (21-32) mEq/L Anion Gap 12.2 (5-15) BUN 8 (7-18) mg/dL Creatinine 0.9 (0.7-1.3) mg/dL Est Cr Clr Drug Dosing 95.50 mL/min Estimated GFR (MDRD) > 60 (>60) mL/min BUN/Creatinine Ratio 8.9 L (14-18) Glucose 84 (74-106) mg/dL POC Glucose 81 (70-105) mg/dL Calcium 8.5 (8.5-10.1) mg/dL Magnesium 1.8 (1.8-2.4) mg/dl C-Reactive Protein 23.1 H* (<1.0) mg/dL Vancomycin Trough (10.0-20.0) 04/27/18 Range/Units 11:54 WBC (4.23-9.07) K/mm3 RBC (4.63-6.08) M/mm3 Hgb (13.7-17.5) gm/L Hct (40.1-51.0) % MCV (79.0-92.2) fl MCH (25.7-32.2) pg MCHC (32.2-35.5) g/dl RDW Std Deviation (35.1-43.9) fL Plt Count (163-337) K/mm3 MPV (9.4-12.3) fl Neut % (Auto) (34.0-67.9) % Lymph % (Auto) (21.8-53.1) % [place] % (Auto) (5.3-12.2) % Eos % (Auto) (0.8-7.0) Baso % (Auto) (0.1-1.2) % Neut # (Auto) (1.78-5.38) K/mm3 Lymph # (Auto) (1.32-3.57) K/mm3 [place] # (Auto) (0.30-0.82) K/mm3 Eos # (Auto) (0.04-0.54) K/mm3 Baso # (Auto) (0.01-0.08) K/mm3 Manual Slide Review Sodium (136-145) mEq/L Potassium (3.5-5.1) mEq/L Chloride (98-107) mEq/L Carbon Dioxide (21-32) mEq/L Anion Gap (5-15) BUN (7-18) mg/dL Creatinine (0.7-1.3) mg/dL Est Cr Clr Drug Dosing mL/min Estimated GFR (MDRD) (>60) mL/min BUN/Creatinine Ratio (14-18) Glucose (74-106) mg/dL POC Glucose 110 H (70-105) mg/dL Calcium (8.5-10.1) mg/dL Magnesium (1.8-2.4) mg/dl C-Reactive Protein (<1.0) mg/dL Vancomycin Trough (10.0-20.0) Fabian Results Last 24 Hours: Microbiology 04/25/18 15:56 Gram Stain - Final Foot, Right Anaerobic Culture - Preliminary Staphylococcus Aureus Beta Streptococcus Group B 04/25/18 19:11 Wound Culture - Final Foot, Right Staphylococcus Aureus Beta Streptococcus Group B 04/25/18 19:11 Wound Culture - Final Toe, Right - Right Third Staphylococcus Aureus Beta Streptococcus Group B 04/25/18 19:11 Gram Stain - Final Foot, Right Anaerobic Culture - Preliminary Staphylococcus Aureus Beta Streptococcus Group B 04/25/18 19:25 Wound Culture - Final Toe, Right - Right Third Staphylococcus Aureus Beta Streptococcus Group B 04/25/18 15:50 Aerobic Blood Culture - Preliminary Blood - Venous - Lab Draw NO GROWTH AFTER 1 DAY Anaerobic Blood Culture - Preliminary NO GROWTH AFTER 1 DAY 04/25/18 15:55 Aerobic Blood Culture - Preliminary Blood - Venous NO GROWTH AFTER 1 DAY Anaerobic Blood Culture - Preliminary NO GROWTH AFTER 1 DAY Med Orders - Current: Current Medications Acetaminophen (Tylenol) 650 mg PO Q4H PRN PRN Reason: Pain (Mild 1-3)/fever Hydrocodone Bitart/Acetaminophen ([place] 325-5 Mg) 1 tab PO Q4H PRN PRN Reason: Pain (moderate 4-6) Last Admin: 04/27/18 00:57 Dose: 1 tab Albuterol/Ipratropium (Duoneb 3.0-0.5 Mg/3 Ml) 3 ml NEB Q4H PRN PRN Reason: Shortness Of Breath/wheezing Aspirin (Aspirin) 81 mg PO BEDTIME [facility] Last Admin: 04/26/18 20:45 Dose: 81 mg Bisacodyl (Dulcolax) 5 mg PO DAILY PRN PRN Reason: Constipation Docusate Sodium (Colace) 100 mg PO BID PRN PRN Reason: Constipation Enoxaparin Sodium (Lovenox) 40 mg SUBCUT DAILY [facility] Last Admin: 04/27/18 08:32 Dose: 40 mg Glipizide (Glucotrol Xl) 5 mg PO BIDMEALS [facility] Last Admin: 04/27/18 06:00 Dose: Not Given Hydromorphone HCl (Dilaudid) 0.5 mg IVPUSH Q4H PRN PRN Reason: Pain (severe 7-10) Last Admin: 04/27/18 13:40 Dose: 0.5 mg Promethazine HCl 12.5 mg/ (Sodium Chloride) 50.5 mls @ 100 mls/hr IV Q6H PRN PRN Reason: Nausea/Vomiting Piperacillin Sod/Tazobactam (Sod 4.5 gm/ Sodium Chloride) 100 mls @ 25 mls/hr IV Q8H [facility] Last Admin: 04/27/18 08:31 Dose: 25 mls/hr Clindamycin Phosphate 900 mg/ (Sodium Chloride) 106 mls @ 100 mls/hr IV Q8H [facility] Last Admin: 04/27/18 10:08 Dose: 100 mls/hr Vancomycin HCl 1 gm/Vancomycin HCl 250 mg/ Sodium Chloride 250 mls @ 250 mls/ hr IV Q8H [facility] Last Admin: 04/27/18 08:48 Dose: 250 mls/hr Sodium Chloride (Normal Saline) 1,000 mls @ 125 mls/hr IV ASDIRECTED [facility] Last Admin: 04/27/18 11:31 Dose: 125 mls/hr Insulin Glargine (Lantus Solostar) 5 units SUBCUT BIDAC [facility] Last Admin: 04/27/18 08:10 Dose: Not Given Insulin Human Lispro (Humalog) 0 unit SUBCUT QIDACANDBED [facility]; Protocol Last Admin: 04/27/18 13:41 Dose: Not Given Lisinopril (Prinivil) 10 mg PO DAILY [facility] Last Admin: 04/27/18 08:32 Dose: 10 mg Lorazepam (Ativan) 1 mg IV Q6H PRN PRN Reason: Nausea/Vomiting Magnesium Sulfate (Pharmacy To Dose - Magnesium Replacement) 0 dose .XX ASDIRECTED PRN PRN Reason: RX TO WATCH MAG LEVELS [facility] Admin: 04/27/18 06:00 Dose: Not Given Ondansetron HCl (Zofran) 4 mg IV Q6H PRN PRN Reason: Nausea/Vomiting Polyethylene Glycol (Miralax) 17 gm PO DAILY PRN PRN Reason: Constipation Potassium Chloride (Pharmacy To Dose - Potassium Replacement) 0 dose .XX ASDIRECTED PRN PRN Reason: RX TO WATCH K LEVELS Saccharomyces Boulardii (Florastor) 250 mg PO DAILY [facility] Last Admin: 04/27/18 08:32 Dose: 250 mg Senna/Docusate Sodium (Senna Plus) 1 tab PO BID PRN PRN Reason: Constipation Sodium Chloride (Saline Flush) 10 ml FLUSH ASDIRECTED PRN PRN Reason: Keep Vein Open Last Admin: 04/25/18 16:00 Dose: 10 ml Sodium [facility]ush) [facility] Admin: 04/27/18 13:45 Dose: 10 ml Temazepam (Restoril) 15 mg PO BEDTIME PRN PRN Reason: Sleep Vancomycin HCl (Pharmacy To Dose - Vancomycin) 0 dose .XX ASDIRECTED PRN PRN Reason: RX TO DOSE VANCO Discontinued Medications Bupivacaine HCl (Marcaine 0.5%) Confirm Administered Dose 30 ml .ROUTE .STK-MED ONE Stop: 04/25/18 18:23 Last Admin: 04/25/18 19:53 Dose: 1.5 ml Clindamycin Phosphate (Cleocin) Confirm Administered Dose 900 mg .ROUTE .STK- MED ONE Stop: 04/25/18 19:11 Fentanyl (Sublimaze) Confirm Administered Dose 250 mcg .ROUTE .STK-MED ONE Stop: 04/25/18 18:38 Fentanyl (Sublimaze) 50 mcg IVPUSH Q5M PRN PRN Reason: Pain Fentanyl (Sublimaze) Confirm Administered Dose 100 mcg .ROUTE .STK-MED ONE Stop: 04/26/18 09:03 Fentanyl (Sublimaze) Confirm Administered Dose 100 mcg .ROUTE .STK-MED ONE Stop: 04/26/18 10:07 Fentanyl (Sublimaze) 50 mcg IVPUSH Q5M PRN PRN Reason: pain Stop: 04/26/18 18:00 Gadobenate Dimeglumine (Multihance) 16 ml IVPUSH ONETIME ONE Stop: 04/27/18 13:03 Last Admin: 04/27/18 13:42 Dose: Not Given Hydromorphone HCl (Dilaudid) 0.5 mg IVPUSH ONETIME ONE Stop: 04/25/18 15:30 Last Admin: 04/25/18 16:01 Dose: 0.5 mg Hydromorphone HCl (Dilaudid) Confirm Administered Dose 1 mg .ROUTE .STK-MED ONE Stop: 04/25/18 19:03 Hydromorphone HCl (Dilaudid) 0.5 mg IVPUSH ONETIME PRN PRN Reason: Pain (severe 7-10) Hydromorphone HCl (Dilaudid) 0.5 mg IVPUSH ONETIME PRN PRN Reason: Pain (severe 7-10) Stop: 04/26/18 18:00 Sodium Chloride (Normal Saline) 1,000 mls @ 999 mls/hr IV ONETIME ONE Stop: 04/25/18 16:28 Last Admin: 04/25/18 15:59 Dose: 999 mls/hr Vancomycin HCl 1 gm/ Sodium (Chloride) 250 mls @ 250 mls/hr IV ONETIME ONE Stop: 04/25/18 16:36 Last Admin: 04/25/18 16:10 Dose: 250 mls/hr Vancomycin HCl 1 gm/ Sodium (Chloride) 250 mls @ 250 mls/hr IV ONETIME ONE Stop: 04/25/18 16:37 Last Admin: 04/25/18 17:09 Dose: 250 mls/hr Sodium Chloride (Normal Saline) 1,000 mls @ 999 mls/hr IV ONETIME ONE Stop: 04/25/18 17:57 Last Admin: 04/25/18 17:09 Dose: 999 mls/hr Piperacillin Sod/Tazobactam (Sod 4.5 gm/ Sodium Chloride) 100 mls @ 200 mls/hr IV ONETIME ONE Stop: 04/25/18 18:24 Last Admin: 04/25/18 18:18 Dose: 200 mls/hr Vancomycin HCl 1 gm/ Sodium (Chloride) 250 mls @ 250 mls/hr IV Q8H [facility] Last Admin: 04/26/18 19:53 Dose: Not Given Lidocaine HCl (Xylocaine-Mpf 1%) Confirm Administered Dose 4 mls @ as directed .ROUTE .STK-MED ONE Stop: 04/25/18 18:38 Sodium Chloride (Normal Saline) Confirm Administered Dose 100 mls @ as directed .ROUTE .STK-MED ONE Stop: 04/25/18 19:11 Lactated Ringer's (Ringers, Lactated) Confirm Administered Dose 1,000 mls @ as directed .ROUTE .STK-MED ONE Stop: 04/26/18 10:10 Ketamine HCl (Ketalar) Confirm Administered Dose 500 mg .ROUTE .STK-MED ONE Stop: 04/25/18 19:11 Ketamine HCl (Ketalar) Confirm Administered Dose 500 mg .ROUTE .STK-MED ONE Stop: 04/26/18 10:07 Lidocaine/Epinephrine (Xylocaine 1% With Epinephrine 1:100,000) Confirm Administered Dose 20 ml .ROUTE .STK-MED ONE Stop: 04/25/18 18:23 Last Admin: 04/25/18 19:53 Dose: 1.5 ml Metformin HCl (Glucophage) 500 mg PO ONETIME ONE Stop: 04/25/18 23:01 Last Admin: 04/25/18 23:10 Dose: 500 mg Midazolam HCl (Versed 1 Mg/Ml) Confirm Administered Dose 2 mg .ROUTE .STK-MED ONE Stop: 04/25/18 18:38 Midazolam HCl (Versed 1 Mg/Ml) Confirm Administered Dose 2 mg .ROUTE .STK-MED ONE Stop: 04/26/18 09:03 Ondansetron HCl (Zofran) 4 mg IVPUSH ONETIME ONE Stop: 04/25/18 15:30 Last Admin: 04/25/18 16:03 Dose: 4 mg Ondansetron HCl (Zofran) Confirm Administered Dose 4 mg .ROUTE .STK-MED ONE Stop: 04/25/18 18:38 Ondansetron HCl (Zofran) 4 mg IVPUSH ONETIME PRN PRN Reason: Nausea/Vomiting Ondansetron HCl (Zofran) Confirm Administered Dose 4 mg .ROUTE .STK-MED ONE Stop: 04/26/18 10:10 Potassium Chloride (Klor-Con M20) 40 meq PO ONETIME ONE Stop: 04/27/18 09:01 Last Admin: 04/27/18 10:08 Dose: 40 meq Propofol (Diprivan 20 Ml) Confirm Administered Dose 200 mg .ROUTE .STK-MED ONE Stop: 04/25/18 18:38 Propofol (Diprivan 20 Ml) Confirm Administered Dose 400 mg .ROUTE .STK-MED ONE Stop: 04/26/18 09:03 Propofol (Diprivan 20 Ml) Confirm Administered Dose 200 mg .ROUTE .STK-MED ONE Stop: 04/26/18 10:38 Succinylcholine Chloride (Succinylcholine In Ns Pf) Confirm Administered Dose 100 mg .ROUTE .STK-MED ONE Stop: 04/25/18 18:38 Vancomycin HCl (Vancomycin) 1,190.685 mg 15 mg/kg (1190.685 mg) IV Q12H [facility] Last Admin: 04/25/18 18:15 Dose: Not Given - Exam General: Alert, Oriented, Cooperative, No Acute Distress Extremities: Other (RIGHT foot with dressing in place. Toes are exposed. RIGHT 4th toe is black/necrotic. This is a change from yesteday's exam, when the toe was bluish in color. Patient is insensate to the 4th toe and 5th toe on the RIGHT. Sensation normal to light touch to the other toes, which also have normal capillary refill. Erythema to the exposed heel/ankle, which is unchanged. ) Consult PN Assessment/Plan (1) Foot abscess, right SNOMED Code(s): 599617920 Code(s): L02.611 - CUTANEOUS ABSCESS OF RIGHT FOOT Current Visit: Yes Problem List Initiated/Reviewed/Updated: Yes My Orders Last 24 Hours: My Active Orders 04/26/18 15:24 Weight bearing status [OM.PC] Routine 04/27/18 12:25 Consult to Physician [CONS] Routine 04/27/18 12:26 Notify Provider Consults [RC] ASDIRECTED 04/27/18 Dinner NPO After Midnight [Nothing per Oral After Midnight Diet] [DIET] Plan: 42 yo male, HD#3 for RIGHT foot soft tissue infection with abscess, newly diagnosed diabetes, POD#2 for initial I&D and debridement, POD#1 for repeat debridement and washout/dressing change, now with development of necrosis to the RIGHT 4th digit. Case was discussed with Dr. Joyner, who had earlier today taken down the dressing and evaluated the foot. - Per Dr. Joyner, recommend MRI (with and without contrast) to assess for osteomyelitis. - Concern for need for RIGHT 4th digit amputation. Will defer to Dr. Joyner for further surgical intervention. - Appreciate hospitalist management of patient, including blood sugar control. Arsen Gaston M.D., F.A.C.S. General Surgery Pager: [phone]
[2018-04-27] MEDS: Aspirin 81 MG Tab.Chew PO SCH (21:58)
[2018-04-28] MEDS: Piperacillin/Tazobactam 4.5 GM in Sodium Chloride 0.9% 100 ML IV SCH ×4 (00:26→23:48)
[2018-04-28] MEDS: Clindamycin Phosphate 900 MG in Sodium Chloride 0.9% 100 ML IV SCH ×2 (03:47→10:33)
[2018-04-28] MEDS: HYDROmorphone 0.5 MG/0.5 ML Syringe IVPUSH PRN ×2 (04:06→19:55)
[2018-04-28] MEDS: Sodium Chloride 0.9% 1,000 ML IV SCH ×3 (06:22→22:11)
[2018-04-28] MEDS: Insulin Glargine,Human Rec. Analog 100 Units/ML 3 ML Pen SUBCUT SCH ×2 (06:29→17:24)
[2018-04-28] MEDS: metFORMIN 500 MG Tab PO SCH ×3 (07:13→17:25)
[2018-04-28] MEDS: Insulin Lispro 100 Unit/ML 3 ML KwikPen SUBCUT SCH ×4 (07:13→22:11)
[2018-04-28] MEDS: glipiZIDE 5 MG Tab.ER PO SCH ×3 (07:13→17:25)
--- NOTE | 2018-04-28 08:42 | CR ---
Right foot: Four views of the right foot were obtained. Comparison: No prior study. Plantar spur is seen. Bone density noted off the dorsal navicular bone which is a normal variant. Soft tissue swelling is noted. No focal erosive change is seen. Soft tissue ulceration is seen within the ball of the foot. Impression: 1. Soft tissue ulceration with soft tissue swelling. 2. Other incidental findings. No acute bony abnormality is seen. Diagnostic code #3
[2018-04-28] MEDS: Saccharomyces Boulardii (Probiotic) 250 MG Cap PO SCH (08:43)
[2018-04-28] MEDS: Lisinopril 10 MG Tab PO SCH ×3 (08:43→10:18)
[2018-04-28] MEDS: Enoxaparin 40 MG/0.4 ML Syringe SUBCUT SCH (08:43)
[2018-04-28] MEDS ORDERED: Magnesium Sulfate/Water 4 GM in Premix Bag 1 BAG IV ONE (10:00)
--- NOTE | 2018-04-28 14:07 | PCM.SN ---
- Free Text/Narrative Note: Peripherally inserted central catheter Date: 04-28-18 Start: 1305 Stop: [address] Joyner for PICC placement for detention antibiotic use. Chart reviewed. Patient educated. Agrees to proceed. Consent signed. Site cleansed with ChloraPrep. Lidocaine 1% local anesthetic injected prior to 20ga IV catheter insertion under ultrasound guidance. Sterile gown, gloves and drape used. 5fr [place] NXT ClearVue double lumen PICC inserted 44cm per sterile technique right proximal antecubital. Secured with statlock. Flushes well with NaCl with good blood return in both lumens. Dressed with opsite with CHG. 1 cm PICC catheter remains out for measurement purposes. Chest Xray taken. Confirmed SVC placement per radiologist. Armando Lundberg, [employer]
[2018-04-28] MEDS: Vancomycin 1.5 GM in Sodium Chloride 0.9% 500 ML IV SCH ×2 (15:18→23:48)
--- NOTE | 2018-04-28 15:25 | PCM.PN ---
<Cynthia Gustafson - Last Filed: 04/28/18 15:53> - General Info Date of Service: 04/28/18 Admission Dx/Problem (Free Text): Admission Diagnosis/Problem Admission Diagnosis/Problem Cellulitis Functional Status: Reports: Pain Controlled, Tolerating Diet, Urinating - Review of Systems General: Reports: No Symptoms. Denies: Fever, Chills HEENT: Reports: No Symptoms. Denies: Headaches Pulmonary: Reports: No Symptoms. Denies: Shortness of Breath Cardiovascular: Reports: No Symptoms. Denies: Chest Pain, Palpitations Gastrointestinal: Reports: Diarrhea. Denies: Abdominal Pain, Nausea, Vomiting Genitourinary: Reports: No Symptoms Musculoskeletal: Reports: No Symptoms Skin: Reports: No Symptoms Neurological: Reports: No Symptoms Psychiatric: Reports: No Symptoms Systems Review Comment:: Patient states he is doing well today. He is eating and sleeping well. He has no pain today. He is still having some diarrhea but reports no new symptoms. He tolerated placement of PICC line with no problems. - Patient Data Vitals - Most Recent: Last Vital Signs Temp 98.6 F 04/28/18 08:41 Pulse 103 H 04/28/18 08:41 Resp 14 04/28/18 08:41 BP 136/89 04/28/18 10:18 Pulse Ox 96 04/28/18 08:41 Weight - Most Recent: 83.098 kg I&O - Last 24 Hours: Intake & Output 04/28/18 04/28/18 04/28/18 06:59 14:59 22:59 Intake Total 2714 640 Output Total 1000 Balance 1714 640 Lab Results Last 24 Hours: Laboratory Results - last 24 hr 04/27/18 04/27/18 04/27/18 Range/Units 16:40 17:45 21:52 WBC (4.23-9.07) K/mm3 RBC (4.63-6.08) M/mm3 Hgb (13.7-17.5) gm/L Hct (40.1-51.0) % MCV (79.0-92.2) fl MCH (25.7-32.2) pg MCHC (32.2-35.5) g/dl RDW Std Deviation (35.1-43.9) fL Plt Count (163-337) K/mm3 MPV (9.4-12.3) fl Neut % (Auto) (34.0-67.9) % Lymph % (Auto) (21.8-53.1) % [place] % (Auto) (5.3-12.2) % Eos % (Auto) (0.8-7.0) Baso % (Auto) (0.1-1.2) % Neut # (Auto) (1.78-5.38) K/mm3 Lymph # (Auto) (1.32-3.57) K/mm3 [place] # (Auto) (0.30-0.82) K/mm3 Eos # (Auto) (0.04-0.54) K/mm3 Baso # (Auto) (0.01-0.08) K/mm3 Manual Slide Review Sodium (136-145) mEq/L Potassium (3.5-5.1) mEq/L Chloride (98-107) mEq/L Carbon Dioxide (21-32) mEq/L Anion Gap (5-15) BUN (7-18) mg/dL Creatinine (0.7-1.3) mg/dL Est Cr Clr Drug Dosing mL/min Estimated GFR (MDRD) (>60) mL/min BUN/Creatinine Ratio (14-18) Glucose (74-106) mg/dL POC Glucose 281 H 96 (70-105) mg/dL Calcium (8.5-10.1) mg/dL Magnesium (1.8-2.4) mg/dl C-Reactive Protein (<1.0) mg/dL Vancomycin Trough (10.0-20.0) C.difficile 027-NAP1-B1 Presumptive negative C. difficile Tox (PCR) Negative 04/27/18 04/28/18 04/28/18 Range/Units 23:30 06:15 06:15 WBC 12.56 H (4.23-9.07) K/mm3 RBC 3.86 L (4.63-6.08) M/mm3 Hgb 10.7 L (13.7-17.5) gm/L Hct 31.9 L (40.1-51.0) % MCV 82.6 (79.0-92.2) fl MCH 27.7 (25.7-32.2) pg MCHC 33.5 (32.2-35.5) g/dl RDW Std Deviation 39.2 (35.1-43.9) fL Plt Count 281 (163-337) K/mm3 MPV 8.9 L (9.4-12.3) fl Neut % (Auto) 81.2 H (34.0-67.9) % Lymph % (Auto) 8.7 L (21.8-53.1) % [place] % (Auto) 8.8 (5.3-12.2) % Eos % (Auto) 0.6 L (0.8-7.0) Baso % (Auto) 0.2 (0.1-1.2) % Neut # (Auto) 10.21 H (1.78-5.38) K/mm3 Lymph # (Auto) 1.09 L (1.32-3.57) K/mm3 [place] # (Auto) 1.10 H (0.30-0.82) K/mm3 Eos # (Auto) 0.08 (0.04-0.54) K/mm3 Baso # (Auto) 0.02 (0.01-0.08) K/mm3 Manual Slide Review Abnormal smear Sodium 138 (136-145) mEq/L Potassium 3.5 (3.5-5.1) mEq/L Chloride 104 (98-107) mEq/L Carbon Dioxide 25 (21-32) mEq/L Anion Gap 12.5 (5-15) BUN 6 L (7-18) mg/dL Creatinine 1.0 (0.7-1.3) mg/dL Est Cr Clr Drug Dosing 85.95 mL/min Estimated GFR (MDRD) > 60 (>60) mL/min BUN/Creatinine Ratio 6.0 L (14-18) Glucose 106 (74-106) mg/dL POC Glucose (70-105) mg/dL Calcium 8.2 L (8.5-10.1) mg/dL Magnesium 1.6 L (1.8-2.4) mg/dl C-Reactive Protein 23.6 H* (<1.0) mg/dL Vancomycin Trough 10.4 (10.0-20.0) C.difficile 027-NAP1-B1 C. difficile Tox (PCR) 04/28/18 04/28/18 Range/Units 06:20 12:12 WBC (4.23-9.07) K/mm3 RBC (4.63-6.08) M/mm3 Hgb (13.7-17.5) gm/L Hct (40.1-51.0) % MCV (79.0-92.2) fl MCH (25.7-32.2) pg MCHC (32.2-35.5) g/dl RDW Std Deviation (35.1-43.9) fL Plt Count (163-337) K/mm3 MPV (9.4-12.3) fl Neut % (Auto) (34.0-67.9) % Lymph % (Auto) (21.8-53.1) % [place] % (Auto) (5.3-12.2) % Eos % (Auto) (0.8-7.0) Baso % (Auto) (0.1-1.2) % Neut # (Auto) (1.78-5.38) K/mm3 Lymph # (Auto) (1.32-3.57) K/mm3 [place] # (Auto) (0.30-0.82) K/mm3 Eos # (Auto) (0.04-0.54) K/mm3 Baso # (Auto) (0.01-0.08) K/mm3 Manual Slide Review Sodium (136-145) mEq/L Potassium (3.5-5.1) mEq/L Chloride (98-107) mEq/L Carbon Dioxide (21-32) mEq/L Anion Gap (5-15) BUN (7-18) mg/dL Creatinine (0.7-1.3) mg/dL Est Cr Clr Drug Dosing mL/min Estimated GFR (MDRD) (>60) mL/min BUN/Creatinine Ratio (14-18) Glucose (74-106) mg/dL POC Glucose 115 H 182 H (70-105) mg/dL Calcium (8.5-10.1) mg/dL Magnesium (1.8-2.4) mg/dl C-Reactive Protein (<1.0) mg/dL Vancomycin Trough (10.0-20.0) C.difficile 027-NAP1-B1 C. difficile Tox (PCR) Fabian Results Last 24 Hours: Microbiology 04/25/18 15:56 Gram Stain - Final Foot, Right Anaerobic Culture - Preliminary Staphylococcus Aureus Beta Streptococcus Group B Anaerobic Gram Positive Cocci 04/25/18 19:11 Gram Stain - Final Foot, Right Anaerobic Culture - Final Staphylococcus Aureus Beta Streptococcus Group B 04/25/18 15:55 Aerobic Blood Culture - Preliminary Blood - Venous NO GROWTH AFTER 2 DAYS Anaerobic Blood Culture - Preliminary NO GROWTH AFTER 2 DAYS 04/25/18 15:50 Aerobic Blood Culture - Preliminary Blood - Venous - Lab Draw NO GROWTH AFTER 2 DAYS Anaerobic Blood Culture - Preliminary NO GROWTH AFTER 2 DAYS 04/25/18 19:11 Wound Culture - Final Foot, Right Staphylococcus Aureus Beta Streptococcus Group B 04/25/18 19:11 Wound Culture - Final Toe, Right - Right Third Staphylococcus Aureus Beta Streptococcus Group B 04/25/18 19:25 Wound Culture - Final Toe, Right - Right Third Staphylococcus Aureus Beta Streptococcus Group B Med Orders - Current: Current Medications Acetaminophen (Tylenol) 650 mg PO Q4H PRN PRN Reason: Pain (Mild 1-3)/fever Hydrocodone Bitart/Acetaminophen ([place] 325-5 Mg) 1 tab PO Q4H PRN PRN Reason: Pain (moderate 4-6) Last Admin: 04/27/18 22:13 Dose: 1 tab Albuterol/Ipratropium (Duoneb 3.0-0.5 Mg/3 Ml) 3 ml NEB Q4H PRN PRN Reason: Shortness Of Breath/wheezing Aspirin (Aspirin) 81 mg PO BEDTIME [facility] Last Admin: 04/27/18 21:58 Dose: 81 mg Bisacodyl (Dulcolax) 5 mg PO DAILY PRN PRN Reason: Constipation Docusate Sodium (Colace) 100 mg PO BID PRN PRN Reason: Constipation Enoxaparin Sodium (Lovenox) 40 mg SUBCUT DAILY [facility] Last Admin: 04/28/18 08:43 Dose: 40 mg Glipizide (Glucotrol Xl) 5 mg PO BIDMEALS [facility] Last Admin: 04/28/18 10:19 Dose: 5 mg Hydromorphone HCl (Dilaudid) 0.5 mg IVPUSH Q4H PRN PRN Reason: Pain (severe 7-10) Last Admin: 04/28/18 04:06 Dose: 0.5 mg Promethazine HCl 12.5 mg/ (Sodium Chloride) 50.5 mls @ 100 mls/hr IV Q6H PRN PRN Reason: Nausea/Vomiting Piperacillin Sod/Tazobactam (Sod 4.5 gm/ Sodium Chloride) 100 mls @ 25 mls/hr IV Q8H [facility] Last Admin: 04/28/18 08:43 Dose: 25 mls/hr Sodium Chloride (Normal Saline) 1,000 mls @ 125 mls/hr IV ASDIRECTED [facility] Last Admin: 04/28/18 14:41 Dose: 125 mls/hr Vancomycin HCl 1.5 gm/ Sodium (Chloride) 500 mls @ 250 mls/hr IV Q8H [facility] Insulin Glargine (Lantus Solostar) 5 units SUBCUT BIDAC [facility] Last Admin: 04/28/18 06:29 Dose: 5 units Insulin Human Lispro (Humalog) 0 unit SUBCUT QIDACANDBED [facility]; Protocol Last Admin: 04/28/18 12:24 Dose: 3 units Lisinopril (Prinivil) 10 mg PO DAILY [facility] Last Admin: 04/28/18 10:18 Dose: 10 mg Lorazepam (Ativan) 1 mg IV Q6H PRN PRN Reason: Nausea/Vomiting Magnesium Sulfate (Pharmacy To Dose - Magnesium Replacement) 0 dose .XX ASDIRECTED PRN PRN Reason: RX TO WATCH MAG LEVELS Metformin HCl (Glucophage) 500 mg PO BIDMEALS [facility] Last Admin: 04/28/18 10:19 Dose: 500 mg Ondansetron HCl (Zofran) 4 mg IV Q6H PRN PRN Reason: Nausea/Vomiting Polyethylene Glycol (Miralax) 17 gm PO DAILY PRN PRN Reason: Constipation Potassium Chloride (Pharmacy To Dose - Potassium Replacement) 0 dose .XX ASDIRECTED PRN PRN Reason: RX TO WATCH K LEVELS Saccharomyces Boulardii (Florastor) 250 mg PO DAILY [facility] Last Admin: 04/28/18 08:43 Dose: 250 mg Senna/Docusate Sodium (Senna Plus) 1 tab PO BID PRN PRN Reason: Constipation Sodium Chloride (Saline Flush) 10 ml FLUSH ASDIRECTED PRN PRN Reason: Keep Vein Open Last Admin: 04/25/18 16:00 Dose: 10 ml Sodium Chloride (Saline Flush) 10 ml FLUSH ASDIRECTED [facility] Last Admin: 04/27/18 13:45 Dose: 10 ml Temazepam (Restoril) 15 mg PO BEDTIME PRN PRN Reason: Sleep Vancomycin HCl (Pharmacy To Dose - Vancomycin) 0 dose .XX ASDIRECTED PRN PRN Reason: RX TO DOSE VANCO Discontinued Medications Bupivacaine HCl (Marcaine 0.5%) Confirm Administered Dose 30 ml .ROUTE .STK-MED ONE Stop: 04/25/18 18:23 Last Admin: 04/25/18 19:53 Dose: 1.5 ml Clindamycin Phosphate (Cleocin) Confirm Administered Dose 900 mg .ROUTE .STK- MED ONE Stop: 04/25/18 19:11 Fentanyl (Sublimaze) Confirm Administered Dose 250 mcg .ROUTE .STK-MED ONE Stop: 04/25/18 18:38 Fentanyl (Sublimaze) 50 mcg IVPUSH Q5M PRN PRN Reason: Pain Fentanyl (Sublimaze) Confirm Administered Dose 100 mcg .ROUTE .STK-MED ONE Stop: 04/26/18 09:03 Fentanyl (Sublimaze) Confirm Administered Dose 100 mcg .ROUTE .STK-MED ONE Stop: 04/26/18 10:07 Fentanyl (Sublimaze) 50 mcg IVPUSH Q5M PRN PRN Reason: pain Stop: 04/26/18 18:00 Gadobenate Dimeglumine (Multihance) 16 ml IVPUSH ONETIME ONE Stop: 04/27/18 13:03 Last Admin: 04/27/18 13:42 Dose: Not Given Hydromorphone HCl (Dilaudid) 0.5 mg IVPUSH ONETIME ONE Stop: 04/25/18 15:30 Last Admin: 04/25/18 16:01 Dose: 0.5 mg Hydromorphone HCl (Dilaudid) Confirm Administered Dose 1 mg .ROUTE .STK-MED ONE Stop: 04/25/18 19:03 Hydromorphone HCl (Dilaudid) 0.5 mg IVPUSH ONETIME PRN PRN Reason: Pain (severe 7-10) Hydromorphone HCl (Dilaudid) 0.5 mg IVPUSH ONETIME PRN PRN Reason: Pain (severe 7-10) Stop: 04/26/18 18:00 Sodium Chloride (Normal Saline) 1,000 mls @ 999 mls/hr IV ONETIME ONE Stop: 04/25/18 16:28 Last Admin: 04/25/18 15:59 Dose: 999 mls/hr Vancomycin HCl 1 gm/ Sodium (Chloride) 250 mls @ 250 mls/hr IV ONETIME ONE Stop: 04/25/18 16:36 Last Admin: 04/25/18 16:10 Dose: 250 mls/hr Vancomycin HCl 1 gm/ Sodium (Chloride) 250 mls @ 250 mls/hr IV ONETIME ONE Stop: 04/25/18 16:37 Last Admin: 04/25/18 17:09 Dose: 250 mls/hr Sodium Chloride (Normal Saline) 1,000 mls @ 999 mls/hr IV ONETIME ONE Stop: 04/25/18 17:57 Last Admin: 04/25/18 17:09 Dose: 999 mls/hr Piperacillin Sod/Tazobactam (Sod 4.5 gm/ Sodium Chloride) 100 mls @ 200 mls/hr IV ONETIME ONE Stop: 04/25/18 18:24 Last Admin: 04/25/18 18:18 Dose: 200 mls/hr Vancomycin HCl 1 gm/ Sodium (Chloride) 250 mls @ 250 mls/hr IV Q8H [facility] Last Admin: 04/26/18 19:53 Dose: Not Given Lidocaine HCl (Xylocaine-Mpf 1%) Confirm Administered Dose 4 mls @ as directed .ROUTE .STK-MED ONE Stop: 04/25/18 18:38 Clindamycin Phosphate 900 mg/ (Sodium Chloride) 106 mls @ 100 mls/hr IV Q8H [facility] Last Admin: 04/28/18 10:33 Dose: 100 mls/hr Sodium Chloride (Normal Saline) Confirm Administered Dose 100 mls @ as directed .ROUTE .STK-MED ONE Stop: 04/25/18 19:11 Lactated Ringer's (Ringers, Lactated) Confirm Administered Dose 1,000 mls @ as directed .ROUTE .STK-MED ONE Stop: 04/26/18 10:10 Vancomycin HCl 1 gm/Vancomycin HCl 250 mg/ Sodium Chloride 250 mls @ 250 mls/ hr IV Q8H [facility] Last Admin: 04/28/18 08:42 Dose: 250 mls/hr Magnesium Sulfate 4 gm/ Premix 100 mls @ 25 mls/hr IV ONETIME ONE Stop: 04/28/18 13:59 Last Admin: 04/28/18 10:13 Dose: 25 mls/hr Ketamine HCl (Ketalar) Confirm Administered Dose 500 mg .ROUTE .STK-MED ONE Stop: 04/25/18 19:11 Ketamine HCl (Ketalar) Confirm Administered Dose 500 mg .ROUTE .STK-MED ONE Stop: 04/26/18 10:07 Lidocaine/Epinephrine (Xylocaine 1% With Epinephrine 1:100,000) Confirm Administered Dose 20 ml .ROUTE .STK-MED ONE Stop: 04/25/18 18:23 Last Admin: 04/25/18 19:53 Dose: 1.5 ml Metformin HCl (Glucophage) 500 mg PO ONETIME ONE Stop: 04/25/18 23:01 Last Admin: 04/25/18 23:10 Dose: 500 mg Midazolam HCl (Versed 1 Mg/Ml) Confirm Administered Dose 2 mg .ROUTE .STK-MED ONE Stop: 04/25/18 18:38 Midazolam HCl (Versed 1 Mg/Ml) Confirm Administered Dose 2 mg .ROUTE .[facility]-MED ONE Stop: 04/26/18 09:03 Ondansetron HCl (Zofran) 4 mg IVPUSH ONETIME ONE Stop: 04/25/18 15:30 Last Admin: 04/25/18 16:03 Dose: 4 mg Ondansetron HCl (Zofran) Confirm Administered Dose 4 mg .ROUTE .STK-MED ONE Stop: 04/25/18 18:38 Ondansetron HCl (Zofran) 4 mg IVPUSH ONETIME PRN PRN Reason: Nausea/Vomiting Ondansetron HCl (Zofran) Confirm Administered Dose 4 mg .ROUTE .ST-MED ONE Stop: 04/26/18 10:10 Potassium Chloride (Klor-Con M20) 40 meq PO ONETIME ONE Stop: 04/27/18 09:01 Last Admin: 04/27/18 10:08 Dose: 40 meq Propofol (Diprivan 20 Ml) Confirm Administered Dose 200 mg .ROUTE .STK-MED ONE Stop: 04/25/18 18:38 Propofol (Diprivan 20 Ml) Confirm Administered Dose 400 mg .ROUTE .STK-MED ONE Stop: 04/26/18 09:03 Propofol (Diprivan 20 Ml) Confirm Administered Dose 200 mg .ROUTE .STK-MED ONE Stop: 04/26/18 10:38 Succinylcholine Chloride (Succinylcholine In Ns Pf) Confirm Administered Dose 100 mg .ROUTE .STK-MED ONE Stop: 04/25/18 18:38 Vancomycin HCl (Vancomycin) 1,190.685 mg 15 mg/kg (1190.685 mg) IV Q12H [facility] Last Admin: 04/25/18 18:15 Dose: Not Given - Exam Quality Assessment: Central Line/PICC General: Alert, Oriented, Cooperative, No Acute Distress HEENT: Pupils Equal, Pupils Reactive, EOMI, Mucous Membr. Moist/[place] Neck: Supple Lungs: Clear to Auscultation, Normal Respiratory Effort Cardiovascular: Regular Rate, Regular Rhythm GI/Abdominal Exam: Normal Bowel Sounds, Soft, Non-Tender (Male) Exam: Deferred Back Exam: Normal Inspection, Full Range of Motion Extremities: Other (right foot wound) Peripheral Pulses: 2+: Radial (L), Radial (R), Posterior Tibial (L), Posterior Tibial (R) Skin: Warm, Dry, Intact Wound/Incisions: Dressing Dry and Intact Neurological: No New Focal Deficit Psy/Mental Status: Alert, Normal Affect, Normal Mood Physical Findings Comments:: Patient appears comfortable and in no acute distress. His foot ulcer is wrapped in a dry, clean dressing. PICC line was placed earlier this afternoon. No abnormalities found upon physical exam. - Problem List & Annotations (1) Cellulitis SNOMED Code(s): 402263944 Code(s): L03.90 - CELLULITIS, UNSPECIFIED Status: Acute Current Visit: Yes Qualifiers: Site of cellulitis: extremity Site of cellulitis of extremity: lower extremity Laterality: right Qualified Code(s): L03.115 - Cellulitis of right lower limb (2) Foot abscess, right SNOMED Code(s): 144752682 Code(s): L02.611 - CUTANEOUS ABSCESS OF RIGHT FOOT Status: Acute Current Visit: Yes (3) Diabetes mellitus SNOMED Code(s): 76619361 Code(s): E11.9 - TYPE 2 DIABETES MELLITUS WITHOUT COMPLICATIONS Status: Acute Current Visit: Yes Qualifiers: Diabetes mellitus type: type 2 Diabetes mellitus complication detail: with foot ulcer (4) Dry gangrene SNOMED Code(s): 015159460, 068650665 Code(s): I96 - GANGRENE, NOT ELSEWHERE CLASSIFIED Status: Acute Current Visit: Yes (5) Osteomyelitis SNOMED Code(s): 06007691 Code(s): M86.9 - OSTEOMYELITIS, UNSPECIFIED Status: Acute Current Visit: Yes Qualifiers: Osteomyelitis location: foot Laterality: right - Problem List Review Problem List Initiated/Reviewed/Updated: Yes - Assessment Assessment:: Cellulitis * Open ulcer with drainage located on plantar aspect of right foot beneath great toe * WBC 18.92--> 13.89 --> 14.81 --> 12.56 * CRP 36 --> 23.4 --> 23.1 --> 23.6 * Cultures positive for S. aureus and GBS * Broad spectrum IV antibiotics * Vancomycin and clindamycin initiated prior to culture results - these will be continued * Piperacillin/tazobactum added to the regimen * PICC line placed today for administration of antibiotics * Pain medications PRN * DVT prophylaxis lovenox * Surgery consult * Dr. 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 Joyner, orthopedic surgeon * Plans to operate on Tuesday05/02/18 * Amputation of 4th toe and possible amputation of 5th toe if there is no improvement over the weekend * NPO after evening of 05/01 in preparation for surgery Osteomyelitis * MRI on 04/27 found osteomyelitis * Will continue antibiotic regimen as above * Continue to monitor Diabetes mellitus * Glucose 355 and HgbA1c 11.8 upon admission * Denies personal or family history of diabetes * Patient informed of diabetic status; he is surprised but understands diagnosis * Initially started on insulin, metformin, and glipizide * Glucose has been well controlled - 115 this AM * Alter medications as needed * Aspirin, statin, and JORGE inhibitor added to treatment regimen * Lipid panel unremarkable other than reduced HDL * Urine negative for micro-albumin * Consult outbound telemarketer and health educator * Encourage [place] Diabetic diet * Discussed option for SGLT-2 Inhibitor and patient is receptive to it Anemia * Labs 04/28 show Hct 31.9 and Hgb 10.7 * Likely due to IVF dilution * Continue to monitor Diarrhea * Patient has been experiencing diarrhea today and yesterday * Negative for c. dif * Continue to monitor Cynthia Gustafson, MS-3. Dr. Masterson has examined the patient and reviewed the note. <Isis Masterson T - Last Filed: 04/28/18 17:30> - Patient Data Vitals - Most Recent: Last Vital Signs Temp 37.2 C 04/28/18 15:22 Pulse 101 H 04/28/18 15:22 Resp 14 04/28/18 15:22 BP 141/88 H 04/28/18 15:22 Pulse Ox 93 L 04/28/18 15:22 I&O - Last 24 Hours: Intake & Output 04/28/18 04/28/18 04/28/18 06:59 14:59 22:59 Intake Total 2714 640 2835 Output Total 1000 1580 Balance 7699 340 4721 Lab Results Last 24 Hours: Laboratory Results - last 24 hr 04/27/18 04/27/18 04/27/18 Range/Units 17:45 21:52 23:30 WBC (4.23-9.07) K/mm3 RBC (4.63-6.08) M/mm3 Hgb (13.7-17.5) gm/L Hct (40.1-51.0) % MCV (79.0-92.2) fl MCH (25.7-32.2) pg MCHC (32.2-35.5) g/dl RDW Std Deviation (35.1-43.9) fL Plt Count (163-337) K/mm3 MPV (9.4-12.3) fl Neut % (Auto) (34.0-67.9) % Lymph % (Auto) (21.8-53.1) % [place] % (Auto) (5.3-12.2) % Eos % (Auto) (0.8-7.0) Baso % (Auto) (0.1-1.2) % Neut # (Auto) (1.78-5.38) K/mm3 Lymph # (Auto) (1.32-3.57) K/mm3 [place] # (Auto) (0.30-0.82) K/mm3 Eos # (Auto) (0.04-0.54) K/mm3 Baso # (Auto) (0.01-0.08) K/mm3 Manual Slide Review Sodium (136-145) mEq/L Potassium (3.5-5.1) mEq/L Chloride (98-107) mEq/L Carbon Dioxide (21-32) mEq/L Anion Gap (5-15) BUN (7-18) mg/dL Creatinine (0.7-1.3) mg/dL Est Cr Clr Drug Dosing mL/min Estimated GFR (MDRD) (>60) mL/min BUN/Creatinine Ratio (14-18) Glucose (74-106) mg/dL POC Glucose 96 (70-105) mg/dL Calcium (8.5-10.1) mg/dL Magnesium (1.8-2.4) mg/dl C-Reactive Protein (<1.0) mg/dL Vancomycin Trough 10.4 (10.0-20.0) C.difficile 027-NAP1-B1 Presumptive negative C. difficile Tox (PCR) Negative 04/28/18 04/28/18 04/28/18 Range/Units 06:15 06:15 06:20 WBC 12.56 H (4.23-9.07) K/mm3 RBC 3.86 L (4.63-6.08) M/mm3 Hgb 10.7 L (13.7-17.5) gm/L Hct 31.9 L (40.1-51.0) % MCV 82.6 (79.0-92.2) fl MCH 27.7 (25.7-32.2) pg MCHC 33.5 (32.2-35.5) g/dl RDW Std Deviation 39.2 (35.1-43.9) fL Plt Count 281 (163-337) K/mm3 MPV 8.9 L (9.4-12.3) fl Neut % (Auto) 81.2 H (34.0-67.9) % Lymph % (Auto) 8.7 L (21.8-53.1) % [place] % (Auto) 8.8 (5.3-12.2) % Eos % (Auto) 0.6 L (0.8-7.0) Baso % (Auto) 0.2 (0.1-1.2) % Neut # (Auto) 10.21 H (1.78-5.38) K/mm3 Lymph # (Auto) 1.09 L (1.32-3.57) K/mm3 [place] # (Auto) 1.10 H (0.30-0.82) K/mm3 Eos # (Auto) 0.08 (0.04-0.54) K/mm3 Baso # (Auto) 0.02 (0.01-0.08) K/mm3 Manual Slide Review Abnormal smear Sodium 138 (136-145) mEq/L Potassium 3.5 (3.5-5.1) mEq/L Chloride 104 (98-107) mEq/L Carbon Dioxide 25 (21-32) mEq/L Anion Gap 12.5 (5-15) BUN 6 L (7-18) mg/dL Creatinine 1.0 (0.7-1.3) mg/dL Est Cr Clr Drug Dosing 85.95 mL/min Estimated GFR (MDRD) > 60 (>60) mL/min BUN/Creatinine Ratio 6.0 L (14-18) Glucose 106 (74-106) mg/dL POC Glucose 115 H (70-105) mg/dL Calcium 8.2 L (8.5-10.1) mg/dL Magnesium 1.6 L (1.8-2.4) mg/dl C-Reactive Protein 23.6 H* (<1.0) mg/dL Vancomycin Trough (10.0-20.0) C.difficile 027-NAP1-B1 C. difficile Tox (PCR) 04/28/18 04/28/18 Range/Units 12:12 17:12 WBC (4.23-9.07) K/mm3 RBC (4.63-6.08) M/mm3 Hgb (13.7-17.5) gm/L Hct (40.1-51.0) % MCV (79.0-92.2) fl MCH (25.7-32.2) pg MCHC (32.2-35.5) g/dl RDW Std Deviation (35.1-43.9) fL Plt Count (163-337) K/mm3 MPV (9.4-12.3) fl Neut % (Auto) (34.0-67.9) % Lymph % (Auto) (21.8-53.1) % [place] % (Auto) (5.3-12.2) % Eos % (Auto) (0.8-7.0) Baso % (Auto) (0.1-1.2) % Neut # (Auto) (1.78-5.38) K/mm3 Lymph # (Auto) (1.32-3.57) K/mm3 [place] # (Auto) (0.30-0.82) K/mm3 Eos # (Auto) (0.04-0.54) K/mm3 Baso # (Auto) (0.01-0.08) K/mm3 Manual Slide Review Sodium (136-145) mEq/L Potassium (3.5-5.1) mEq/L Chloride (98-107) mEq/L Carbon Dioxide (21-32) mEq/L Anion Gap (5-15) BUN (7-18) mg/dL Creatinine (0.7-1.3) mg/dL Est Cr Clr Drug Dosing mL/min Estimated GFR (MDRD) (>60) mL/min BUN/Creatinine Ratio (14-18) Glucose (74-106) mg/dL POC Glucose 182 H 110 H (70-105) mg/dL Calcium (8.5-10.1) mg/dL Magnesium (1.8-2.4) mg/dl C-Reactive Protein (<1.0) mg/dL Vancomycin Trough (10.0-20.0) C.difficile 027-NAP1-B1 C. difficile Tox (PCR) Fabian Results Last 24 Hours: Microbiology 04/25/18 15:55 Aerobic Blood Culture - Preliminary Blood - Venous NO GROWTH AFTER 3 DAYS Anaerobic Blood Culture - Preliminary NO GROWTH AFTER 3 DAYS 04/25/18 15:50 Aerobic Blood Culture - Preliminary Blood - Venous - Lab Draw NO GROWTH AFTER 3 DAYS Anaerobic Blood Culture - Preliminary NO GROWTH AFTER 3 DAYS 04/25/18 15:56 Gram Stain - Final Foot, Right Anaerobic Culture - Preliminary Staphylococcus Aureus Beta Streptococcus Group B Anaerobic Gram Positive Cocci 04/25/18 19:11 Gram Stain - Final Foot, Right Anaerobic Culture - Final Staphylococcus Aureus Beta Streptococcus Group B Med Orders - Current: Current Medications Acetaminophen (Tylenol) 650 mg PO Q4H PRN PRN Reason: Pain (Mild 1-3)/fever Hydrocodone Bitart/Acetaminophen ([place] 325-5 Mg) 1 tab PO Q4H PRN PRN Reason: Pain (moderate 4-6) Last Admin: 04/27/18 22:13 Dose: 1 tab Albuterol/Ipratropium (Duoneb 3.0-0.5 Mg/3 Ml) 3 ml NEB Q4H PRN PRN Reason: Shortness Of Breath/wheezing Aspirin (Aspirin) 81 mg PO BEDTIME [facility] Last Admin: 04/27/18 21:58 Dose: 81 mg Bisacodyl (Dulcolax) 5 mg PO DAILY PRN PRN Reason: Constipation Docusate Sodium (Colace) 100 mg PO BID PRN PRN Reason: Constipation Enoxaparin Sodium (Lovenox) 40 mg SUBCUT DAILY [facility] Last Admin: 04/28/18 08:43 Dose: 40 mg Glipizide (Glucotrol Xl) 5 mg PO BIDMEALS [facility] Last Admin: 04/28/18 10:19 Dose: 5 mg Hydromorphone HCl (Dilaudid) 0.5 mg IVPUSH Q4H PRN PRN Reason: Pain (severe 7-10) Last Admin: 04/28/18 04:06 Dose: 0.5 mg Promethazine HCl 12.5 mg/ (Sodium Chloride) 50.5 mls @ 100 mls/hr IV Q6H PRN PRN Reason: Nausea/Vomiting Piperacillin Sod/Tazobactam (Sod 4.5 gm/ Sodium Chloride) 100 mls @ 25 mls/hr IV Q8H [facility] Last Admin: 04/28/18 15:17 Dose: 25 mls/hr Sodium Chloride (Normal Saline) 1,000 mls @ 125 mls/hr IV ASDIRECTED [facility] Last Admin: 04/28/18 14:41 Dose: 125 mls/hr Vancomycin HCl 1.5 gm/ Sodium (Chloride) 500 mls @ 250 mls/hr IV Q8H [facility] Last Admin: 04/28/18 15:18 Dose: 250 mls/hr Insulin Glargine (Lantus Solostar) 5 units SUBCUT BIDAC [facility] Last Admin: 04/28/18 06:29 Dose: 5 units Insulin Human Lispro (Humalog) 0 unit SUBCUT QIDACANDBED [facility]; Protocol Last Admin: 04/28/18 12:24 Dose: 3 units Lisinopril (Prinivil) 10 mg PO DAILY [facility] Last Admin: 04/28/18 10:18 Dose: 10 mg Lorazepam (Ativan) 1 mg IV Q6H PRN PRN Reason: Nausea/Vomiting Magnesium Sulfate (Pharmacy To Dose - Magnesium Replacement) 0 dose .XX ASDIRECTED PRN PRN Reason: RX TO WATCH MAG LEVELS Metformin HCl (Glucophage) 500 mg PO BIDMEALS [facility] Last Admin: 04/28/18 10:19 Dose: 500 mg Ondansetron HCl (Zofran) 4 mg IV Q6H PRN PRN Reason: Nausea/Vomiting Polyethylene Glycol (Miralax) 17 gm PO DAILY PRN PRN Reason: Constipation Potassium Chloride (Pharmacy To Dose - Potassium Replacement) 0 dose .XX ASDIRECTED PRN PRN Reason: RX TO WATCH K LEVELS Saccharomyces Boulardii (Florastor) 250 mg PO DAILY [facility] Last Admin: 04/28/18 08:43 Dose: 250 mg Senna/Docusate Sodium (Senna Plus) 1 tab PO BID PRN PRN Reason: Constipation Sodium Chloride (Saline Flush) 10 ml FLUSH ASDIRECTED PRN PRN Reason: Keep Vein Open Last Admin: 04/25/18 16:00 Dose: 10 ml Sodium Chloride (Saline Flush) 10 ml FLUSH ASDIRECTED [facility] Last Admin: 04/27/18 13:45 Dose: 10 ml Temazepam (Restoril) 15 mg PO BEDTIME PRN PRN Reason: Sleep Vancomycin HCl (Pharmacy To Dose - Vancomycin) 0 dose .XX ASDIRECTED PRN PRN Reason: RX TO DOSE VANCO Discontinued Medications Bupivacaine HCl (Marcaine 0.5%) Confirm Administered Dose 30 ml .ROUTE .STK-MED ONE Stop: 04/25/18 18:23 Last Admin: 04/25/18 19:53 Dose: 1.5 ml Clindamycin Phosphate (Cleocin) Confirm Administered Dose 900 mg .ROUTE .STK- MED ONE Stop: 04/25/18 19:11 Fentanyl (Sublimaze) Confirm Administered Dose 250 mcg .ROUTE .STK-MED ONE Stop: 04/25/18 18:38 Fentanyl (Sublimaze) 50 mcg IVPUSH Q5M PRN PRN Reason: Pain Fentanyl (Sublimaze) Confirm Administered Dose 100 mcg .ROUTE .STK-MED ONE Stop: 04/26/18 09:03 Fentanyl (Sublimaze) Confirm Administered Dose 100 mcg .ROUTE .STK-MED ONE Stop: 04/26/18 10:07 Fentanyl (Sublimaze) 50 mcg IVPUSH Q5M PRN PRN Reason: pain Stop: 04/26/18 18:00 Gadobenate Dimeglumine (Multihance) 16 ml IVPUSH ONETIME ONE Stop: 04/27/18 13:03 Last Admin: 04/27/18 13:42 Dose: Not Given Hydromorphone HCl (Dilaudid) 0.5 mg IVPUSH ONETIME ONE Stop: 04/25/18 15:30 Last Admin: 04/25/18 16:01 Dose: 0.5 mg Hydromorphone HCl (Dilaudid) Confirm Administered Dose 1 mg .ROUTE .STK-MED ONE Stop: 04/25/18 19:03 Hydromorphone HCl (Dilaudid) 0.5 mg IVPUSH ONETIME PRN PRN Reason: Pain (severe 7-10) Hydromorphone HCl (Dilaudid) 0.5 mg IVPUSH ONETIME PRN PRN Reason: Pain (severe 7-10) Stop: 04/26/18 18:00 Sodium Chloride (Normal Saline) 1,000 mls @ 999 mls/hr IV ONETIME ONE Stop: 04/25/18 16:28 Last Admin: 04/25/18 15:59 Dose: 999 mls/hr Vancomycin HCl 1 gm/ Sodium (Chloride) 250 mls @ 250 mls/hr IV ONETIME ONE Stop: 04/25/18 16:36 Last Admin: 04/25/18 16:10 Dose: 250 mls/hr Vancomycin HCl 1 gm/ Sodium (Chloride) 250 mls @ 250 mls/hr IV ONETIME ONE Stop: 04/25/18 16:37 Last Admin: 04/25/18 17:09 Dose: 250 mls/hr Sodium Chloride (Normal Saline) 1,000 mls @ 999 mls/hr IV ONETIME ONE Stop: 04/25/18 17:57 Last Admin: 04/25/18 17:09 Dose: 999 mls/hr Piperacillin Sod/Tazobactam (Sod 4.5 gm/ Sodium Chloride) 100 mls @ 200 mls/hr IV ONETIME ONE Stop: 04/25/18 18:24 Last Admin: 04/25/18 18:18 Dose: 200 mls/hr Vancomycin HCl 1 gm/ Sodium (Chloride) 250 mls @ 250 mls/hr IV Q8H [facility] Last Admin: 04/26/18 19:53 Dose: Not Given Lidocaine HCl (Xylocaine-Mpf 1%) Confirm Administered Dose 4 mls @ as directed .ROUTE .STK-MED ONE Stop: 04/25/18 18:38 Clindamycin Phosphate 900 mg/ (Sodium Chloride) 106 mls @ 100 mls/hr IV Q8H [facility] Last Admin: 04/28/18 10:33 Dose: 100 mls/hr Sodium Chloride (Normal Saline) Confirm Administered Dose 100 mls @ as directed .ROUTE .STK-MED ONE Stop: 04/25/18 19:11 Lactated Ringer's (Ringers, Lactated) Confirm Administered Dose 1,000 mls @ as directed .ROUTE .STK-MED ONE Stop: 04/26/18 10:10 Vancomycin HCl 1 gm/Vancomycin HCl 250 mg/ Sodium Chloride 250 mls @ 250 mls/ hr IV Q8H [facility] Last Admin: 04/28/18 08:42 Dose: 250 mls/hr Magnesium Sulfate 4 gm/ Premix 100 mls @ 25 mls/hr IV ONETIME ONE Stop: 04/28/18 13:59 Last Admin: 04/28/18 10:13 Dose: 25 mls/hr Ketamine HCl (Ketalar) Confirm Administered Dose 500 mg .ROUTE .STK-MED ONE Stop: 04/25/18 19:11 Ketamine HCl (Ketalar) Confirm Administered Dose 500 mg .ROUTE .STK-MED ONE Stop: 04/26/18 10:07 Lidocaine/Epinephrine (Xylocaine 1% With Epinephrine 1:100,000) Confirm Administered Dose 20 ml .ROUTE .STK-MED ONE Stop: 04/25/18 18:23 Last Admin: 04/25/18 19:53 Dose: 1.5 ml Metformin HCl (Glucophage) 500 mg PO ONETIME ONE Stop: 04/25/18 23:01 Last Admin: 04/25/18 23:10 Dose: 500 mg Midazolam HCl (Versed 1 Mg/Ml) Confirm Administered Dose 2 mg .ROUTE .STK-MED ONE Stop: 04/25/18 18:38 Midazolam HCl (Versed 1 Mg/Ml) Confirm Administered Dose 2 mg .ROUTE .STK-MED ONE Stop: 04/26/18 09:03 Ondansetron HCl (Zofran) 4 mg IVPUSH ONETIME ONE Stop: 04/25/18 15:30 Last Admin: 04/25/18 16:03 Dose: 4 mg Ondansetron HCl (Zofran) Confirm Administered Dose 4 mg .ROUTE .STK-MED ONE Stop: 04/25/18 18:38 Ondansetron HCl (Zofran) 4 mg IVPUSH ONETIME PRN PRN Reason: Nausea/Vomiting Ondansetron HCl (Zofran) Confirm Administered Dose 4 mg .ROUTE .STK-MED ONE Stop: 04/26/18 10:10 Potassium Chloride (Klor-Con M20) 40 meq PO ONETIME ONE Stop: 04/27/18 09:01 Last Admin: 04/27/18 10:08 Dose: 40 meq Propofol (Diprivan 20 Ml) Confirm Administered Dose 200 mg .ROUTE .STK-MED ONE Stop: 04/25/18 18:38 Propofol (Diprivan 20 Ml) Confirm Administered Dose 400 mg .ROUTE .STK-MED ONE Stop: 04/26/18 09:03 Propofol (Diprivan 20 Ml) Confirm Administered Dose 200 mg .ROUTE .STK-MED ONE Stop: 04/26/18 10:38 Succinylcholine Chloride (Succinylcholine In Ns Pf) Confirm Administered Dose 100 mg .ROUTE .STK-MED ONE Stop: 04/25/18 18:38 Vancomycin HCl (Vancomycin) 1,190.685 mg 15 mg/kg (1190.685 mg) IV Q12H [facility] Last Admin: 04/25/18 18:15 Dose: Not Given - My Orders Last 24 Hours: My Active Orders 04/28/18 12:30 Consult to Physical Therapy [PT Evaluation and Treatment] [CONS] Routine 04/28/18 14:00 OR PCXR-No Charge-PICC/Central [CR] Routine OR PCXR-No Charge-PICC/Central [CR] Routine OR PCXR-No Charge-PICC/Central [CR] Routine 04/28/18 16:00 Vancomycin 1.5 gm Sodium Chloride 0.9% [Normal Saline] 500 ml IV Q8H 04/29/18 05:11 BASIC METABOLIC PANEL,BMP [CHEM] AM C-REACTIVE PROTEIN [CHEM] AM CBC WITH AUTO DIFF [HEME] AM MAGNESIUM [CHEM] AM 04/29/18 15:30 VANCOMYCIN TROUGH [CHEM] Timed 04/30/18 05:11 BASIC METABOLIC PANEL,BMP [CHEM] AM C-REACTIVE PROTEIN [CHEM] AM CBC WITH AUTO DIFF [HEME] AM MAGNESIUM [CHEM] AM 05/01/18 05:11 BASIC METABOLIC PANEL,BMP [CHEM] AM C-REACTIVE PROTEIN [CHEM] AM CBC WITH AUTO DIFF [HEME] AM MAGNESIUM [CHEM] AM - Assessment Assessment:: The patient seen and examined at beside in concert with the medical student. The assessment and plans were discussed and agreed upon with me. Patient report no overnight or acute issues. His glucose is well controlled. He has diabetic foot ulcer with gangrenous 4th toe scheduled for amputation next week.
[2018-04-28] MEDS: Acetaminophen/HYDROcodone 325-5 MG Tab PO PRN (17:29)
--- NOTE | 2018-04-28 19:28 | PCM.CONSN ---
- General Info Date of Service: 04/28/18 Admission Dx/Problem (Free Text): Admission Diagnosis/Problem RIGHT foot soft tissue infection Subjective Update: Overnight, no acute events. Patient reports pain is controlled with [place]. Has been ambulating with crutches. - Patient Data Vitals - Most Recent: Last Vital Signs Temp 37.2 C 04/28/18 15:22 Pulse 101 H 04/28/18 15:22 Resp 14 04/28/18 15:22 BP 141/88 H 04/28/18 15:22 Pulse Ox 93 L 04/28/18 15:22 Weight - Most Recent: 83.098 kg I&O - Last 24 Hours: Intake & Output 04/28/18 04/28/18 04/28/18 06:59 14:59 22:59 Intake Total 2714 640 3075 Output Total 1000 1580 Balance 5631 440 4083 Lab Results Last 24 Hours: Laboratory Results - last 24 hr 04/27/18 04/27/18 04/27/18 Range/Units 17:45 21:52 23:30 WBC (4.23-9.07) K/mm3 RBC (4.63-6.08) M/mm3 Hgb (13.7-17.5) gm/L Hct (40.1-51.0) % MCV (79.0-92.2) fl MCH (25.7-32.2) pg MCHC (32.2-35.5) g/dl RDW Std Deviation (35.1-43.9) fL Plt Count (163-337) K/mm3 MPV (9.4-12.3) fl Neut % (Auto) (34.0-67.9) % Lymph % (Auto) (21.8-53.1) % Vance % (Auto) (5.3-12.2) % Eos % (Auto) (0.8-7.0) Baso % (Auto) (0.1-1.2) % Neut # (Auto) (1.78-5.38) K/mm3 Lymph # (Auto) (1.32-3.57) K/mm3 Vance # (Auto) (0.30-0.82) K/mm3 Eos # (Auto) (0.04-0.54) K/mm3 Baso # (Auto) (0.01-0.08) K/mm3 Manual Slide Review Sodium (136-145) mEq/L Potassium (3.5-5.1) mEq/L Chloride (98-107) mEq/L Carbon Dioxide (21-32) mEq/L Anion Gap (5-15) BUN (7-18) mg/dL Creatinine (0.7-1.3) mg/dL Est Cr Clr Drug Dosing mL/min Estimated GFR (MDRD) (>60) mL/min BUN/Creatinine Ratio (14-18) Glucose (74-106) mg/dL POC Glucose 96 (70-105) mg/dL Calcium (8.5-10.1) mg/dL Magnesium (1.8-2.4) mg/dl C-Reactive Protein (<1.0) mg/dL Vancomycin Trough 10.4 (10.0-20.0) C.difficile [id number] Presumptive negative C. difficile Tox (PCR) Negative 04/28/18 04/28/18 04/28/18 Range/Units 06:15 06:15 06:20 WBC 12.56 H (4.23-9.07) K/mm3 RBC 3.86 L (4.63-6.08) M/mm3 Hgb 10.7 L (13.7-17.5) gm/L Hct 31.9 L (40.1-51.0) % MCV 82.6 (79.0-92.2) fl MCH 27.7 (25.7-32.2) pg MCHC 33.5 (32.2-35.5) g/dl RDW Std Deviation 39.2 (35.1-43.9) fL Plt Count 281 (163-337) K/mm3 MPV 8.9 L (9.4-12.3) fl Neut % (Auto) 81.2 H (34.0-67.9) % Lymph % (Auto) 8.7 L (21.8-53.1) % Vance % (Auto) 8.8 (5.3-12.2) % Eos % (Auto) 0.6 L (0.8-7.0) Baso % (Auto) 0.2 (0.1-1.2) % Neut # (Auto) 10.21 H (1.78-5.38) K/mm3 Lymph # (Auto) 1.09 L (1.32-3.57) K/mm3 Vance # (Auto) 1.10 H (0.30-0.82) K/mm3 Eos # (Auto) 0.08 (0.04-0.54) K/mm3 Baso # (Auto) 0.02 (0.01-0.08) K/mm3 Manual Slide Review Abnormal smear Sodium 138 (136-145) mEq/L Potassium 3.5 (3.5-5.1) mEq/L Chloride 104 (98-107) mEq/L Carbon Dioxide 25 (21-32) mEq/L Anion Gap 12.5 (5-15) BUN 6 L (7-18) mg/dL Creatinine 1.0 (0.7-1.3) mg/dL Est Cr Clr Drug Dosing 85.95 mL/min Estimated GFR (MDRD) > 60 (>60) mL/min BUN/Creatinine Ratio 6.0 L (14-18) Glucose 106 (74-106) mg/dL POC Glucose 115 H (70-105) mg/dL Calcium 8.2 L (8.5-10.1) mg/dL Magnesium 1.6 L (1.8-2.4) mg/dl C-Reactive Protein 23.6 H* (<1.0) mg/dL Vancomycin Trough (10.0-20.0) C.difficile [id number] C. difficile Tox (PCR) 04/28/18 04/28/18 Range/Units 12:12 17:12 WBC (4.23-9.07) K/mm3 RBC (4.63-6.08) M/mm3 Hgb (13.7-17.5) gm/L Hct (40.1-51.0) % MCV (79.0-92.2) fl MCH (25.7-32.2) pg MCHC (32.2-35.5) g/dl RDW Std Deviation (35.1-43.9) fL Plt Count (163-337) K/mm3 MPV (9.4-12.3) fl Neut % (Auto) (34.0-67.9) % Lymph % (Auto) (21.8-53.1) % Vance % (Auto) (5.3-12.2) % Eos % (Auto) (0.8-7.0) Baso % (Auto) (0.1-1.2) % Neut # (Auto) (1.78-5.38) K/mm3 Lymph # (Auto) (1.32-3.57) K/mm3 Vance # (Auto) (0.30-0.82) K/mm3 Eos # (Auto) (0.04-0.54) K/mm3 Baso # (Auto) (0.01-0.08) K/mm3 Manual Slide Review Sodium (136-145) mEq/L Potassium (3.5-5.1) mEq/L Chloride (98-107) mEq/L Carbon Dioxide (21-32) mEq/L Anion Gap (5-15) BUN (7-18) mg/dL Creatinine (0.7-1.3) mg/dL Est Cr Clr Drug Dosing mL/min Estimated GFR (MDRD) (>60) mL/min BUN/Creatinine Ratio (14-18) Glucose (74-106) mg/dL POC Glucose 182 H 110 H (70-105) mg/dL Calcium (8.5-10.1) mg/dL Magnesium (1.8-2.4) mg/dl C-Reactive Protein (<1.0) mg/dL Vancomycin Trough (10.0-20.0) C.difficile 027-[id number] C. difficile Tox (PCR) [facility]ian Results Last 24 Hours: Microbiology 04/25/18 15:55 Aerobic Blood Culture - Preliminary Blood - Venous NO GROWTH AFTER 3 DAYS Anaerobic Blood Culture - Preliminary NO GROWTH AFTER 3 DAYS 04/25/18 15:50 Aerobic Blood Culture - Preliminary Blood - Venous - Lab Draw NO GROWTH AFTER 3 DAYS Anaerobic Blood Culture - Preliminary NO GROWTH AFTER 3 DAYS 04/25/18 15:56 Gram Stain - Final Foot, Right Anaerobic Culture - Preliminary Staphylococcus Aureus Beta Streptococcus Group B Anaerobic Gram Positive Cocci 04/25/18 19:11 Gram Stain - Final Foot, Right Anaerobic Culture - Final Staphylococcus Aureus Beta Streptococcus Group B Med Orders - Current: Current Medications Acetaminophen (Tylenol) 650 mg PO Q4H PRN PRN Reason: Pain (Mild 1-3)/fever Hydrocodone Bitart/Acetaminophen ([place] 325-5 Mg) 1 tab PO Q4H PRN PRN Reason: Pain (moderate 4-6) Last Admin: 04/28/18 17:29 Dose: 1 tab Albuterol/Ipratropium (Duoneb 3.0-0.5 Mg/3 Ml) 3 ml NEB Q4H PRN PRN Reason: Shortness Of Breath/wheezing Aspirin (Aspirin) 81 mg PO BEDTIME [facility] Last Admin: 04/27/18 21:58 Dose: 81 mg Bisacodyl (Dulcolax) 5 mg PO DAILY PRN PRN Reason: Constipation Docusate Sodium (Colace) 100 mg PO BID PRN PRN Reason: Constipation Enoxaparin Sodium (Lovenox) 40 mg SUBCUT DAILY [facility] Last Admin: 04/28/18 08:43 Dose: 40 mg Glipizide (Glucotrol Xl) 5 mg PO BIDMEALS [facility] Last Admin: 04/28/18 17:25 Dose: 5 mg Hydromorphone HCl (Dilaudid) 0.5 mg IVPUSH Q4H PRN PRN Reason: Pain (severe 7-10) Last Admin: 04/28/18 04:06 Dose: 0.5 mg Promethazine HCl 12.5 mg/ (Sodium Chloride) 50.5 mls @ 100 mls/hr IV Q6H PRN PRN Reason: Nausea/Vomiting Piperacillin Sod/Tazobactam (Sod 4.5 gm/ Sodium Chloride) 100 mls @ 25 mls/hr IV Q8H [facility] Last Admin: 04/28/18 15:17 Dose: 25 mls/hr Sodium Chloride (Normal Saline) 1,000 mls @ 125 mls/hr IV ASDIRECTED [facility] Last Admin: 04/28/18 14:41 Dose: 125 mls/hr Vancomycin HCl 1.5 gm/ Sodium (Chloride) 500 mls @ 250 mls/hr IV Q8H [facility] Last Admin: 04/28/18 15:18 Dose: 250 mls/hr Insulin Glargine (Lantus Solostar) 5 units SUBCUT BIDAC [facility] Last Admin: 04/28/18 17:24 Dose: 5 units Insulin Human Lispro (Humalog) 0 unit SUBCUT QIDACANDBED [facility]; Protocol Last Admin: 04/28/18 17:10 Dose: Not Given Lisinopril (Prinivil) 10 mg PO DAILY [facility] Last Admin: 04/28/18 10:18 Dose: 10 mg Lorazepam (Ativan) 1 mg IV Q6H PRN PRN Reason: Nausea/Vomiting Magnesium Sulfate (Pharmacy To Dose - Magnesium Replacement) 0 dose .XX ASDIRECTED PRN PRN Reason: RX TO WATCH MAG LEVELS Metformin HCl (Glucophage) 500 mg PO BIDDEALS [facility] Last Admin: 04/28/18 17:25 Dose: 500 mg Ondansetron HCl (Zofran) 4 mg IV Q6H PRN PRN Reason: Nausea/Vomiting Polyethylene Glycol (Miralax) 17 gm PO DAILY PRN PRN Reason: Constipation Potassium Chloride (Pharmacy To Dose - Potassium Replacement) 0 dose .XX ASDIRECTED PRN PRN Reason: RX TO WATCH K LEVELS Saccharomyces Boulardii (Florastor) 250 mg PO DAILY [facility] Last Admin: 04/28/18 08:43 Dose: 250 mg Senna/Docusate Sodium (Senna Plus) 1 tab PO BID PRN PRN Reason: Constipation Sodium Chloride (Saline Flush) 10 ml FLUSH ASDIRECTED PRN PRN Reason: Keep Vein Open Last Admin: 04/25/18 16:00 Dose: 10 ml Sodium Chloride (Saline Flush) 10 ml FLUSH ASDIRECTED [facility] Last Admin: 04/27/18 13:45 Dose: 10 ml Temazepam (Restoril) 15 mg PO BEDTIME PRN PRN Reason: Sleep Vancomycin HCl (Pharmacy To Dose - Vancomycin) 0 dose .XX ASDIRECTED PRN PRN Reason: RX TO DOSE VANCO Discontinued Medications Bupivacaine HCl (Marcaine 0.5%) Confirm Administered Dose 30 ml .ROUTE .STK-MED ONE Stop: 04/25/18 18:23 Last Admin: 04/25/18 19:53 Dose: 1.5 ml Clindamycin Phosphate (Cleocin) Confirm Administered Dose 900 mg .ROUTE .STK- MED ONE Stop: 04/25/18 19:11 Fentanyl (Sublimaze) Confirm Administered Dose 250 mcg .ROUTE .STK-MED ONE Stop: 04/25/18 18:38 Fentanyl (Sublimaze) 50 mcg IVPUSH Q5M PRN PRN Reason: Pain Fentanyl (Sublimaze) Confirm Administered Dose 100 mcg .ROUTE .STK-MED ONE Stop: 04/26/18 09:03 Fentanyl (Sublimaze) Confirm Administered Dose 100 mcg .ROUTE .STK-MED ONE Stop: 04/26/18 10:07 Fentanyl (Sublimaze) 50 mcg IVPUSH Q5M PRN PRN Reason: pain Stop: 04/26/18 18:00 Gadobenate Dimeglumine (Multihance) 16 ml IVPUSH ONETIME ONE Stop: 04/27/18 13:03 Last Admin: 04/27/18 13:42 Dose: Not Given Hydromorphone HCl (Dilaudid) 0.5 mg IVPUSH ONETIME ONE Stop: 04/25/18 15:30 Last Admin: 04/25/18 16:01 Dose: 0.5 mg Hydromorphone HCl (Dilaudid) Confirm Administered Dose 1 mg .ROUTE .STK-MED ONE Stop: 04/25/18 19:03 Hydromorphone HCl (Dilaudid) 0.5 mg IVPUSH ONETIME PRN PRN Reason: Pain (severe 7-10) Hydromorphone HCl (Dilaudid) 0.5 mg IVPUSH ONETIME PRN PRN Reason: Pain (severe 7-10) Stop: 04/26/18 18:00 Sodium Chloride (Normal Saline) 1,000 mls @ 999 mls/hr IV ONETIME ONE Stop: 04/25/18 16:28 Last Admin: 04/25/18 15:59 Dose: 999 mls/hr Vancomycin HCl 1 gm/ Sodium (Chloride) 250 mls @ 250 mls/hr IV ONETIME ONE Stop: 04/25/18 16:36 Last Admin: 04/25/18 16:10 Dose: 250 mls/hr Vancomycin HCl 1 gm/ Sodium (Chloride) 250 mls @ 250 mls/hr IV ONETIME ONE Stop: 04/25/18 16:37 Last Admin: 04/25/18 17:09 Dose: 250 mls/hr Sodium Chloride (Normal Saline) 1,000 mls @ 999 mls/hr IV ONETIME ONE Stop: 04/25/18 17:57 Last Admin: 04/25/18 17:09 Dose: 999 mls/hr Piperacillin Sod/Tazobactam (Sod 4.5 gm/ Sodium Chloride) 100 mls @ 200 mls/hr IV ONETIME ONE Stop: 04/25/18 18:24 Last Admin: 04/25/18 18:18 Dose: 200 mls/hr Vancomycin HCl 1 gm/ Sodium (Chloride) 250 mls @ 250 mls/hr IV Q8H [facility] Last Admin: 04/26/18 19:53 Dose: Not Given Lidocaine HCl (Xylocaine-Mpf 1%) Confirm Administered Dose 4 mls @ as directed .ROUTE .STK-MED ONE Stop: 04/25/18 18:38 Clindamycin Phosphate 900 mg/ (Sodium Chloride) 106 mls @ 100 mls/hr IV Q8H [facility] Last Admin: 04/28/18 10:33 Dose: 100 mls/hr Sodium Chloride (Normal Saline) Confirm Administered Dose 100 mls @ as directed .ROUTE .STK-MED ONE Stop: 04/25/18 19:11 Lactated Ringer's (Ringers, Lactated) Confirm Administered Dose 1,000 mls @ as directed .ROUTE .STK-MED ONE Stop: 04/26/18 10:10 Vancomycin HCl 1 gm/Vancomycin HCl 250 mg/ Sodium Chloride 250 mls @ 250 mls/ hr IV Q8H [facility] Last Admin: 04/28/18 08:42 Dose: 250 mls/hr Magnesium Sulfate 4 gm/ Premix 100 mls @ 25 mls/hr IV ONETIME ONE Stop: 04/28/18 13:59 Last Admin: 04/28/18 10:13 Dose: 25 mls/hr Ketamine HCl (Ketalar) Confirm Administered Dose 500 mg .ROUTE .STK-MED ONE Stop: 04/25/18 19:11 Ketamine HCl (Ketalar) Confirm Administered Dose 500 mg .ROUTE .STK-MED ONE Stop: 04/26/18 10:07 Lidocaine/Epinephrine (Xylocaine 1% With Epinephrine 1:100,000) Confirm Administered Dose 20 ml .ROUTE .STK-MED ONE Stop: 04/25/18 18:23 Last Admin: 04/25/18 19:53 Dose: 1.5 ml Metformin HCl (Glucophage) 500 mg PO ONETIME ONE Stop: 04/25/18 23:01 Last Admin: 04/25/18 23:10 Dose: 500 mg Midazolam HCl (Versed 1 Mg/Ml) Confirm Administered Dose 2 mg .ROUTE .STK-MED ONE Stop: 04/25/18 18:38 Midazolam HCl (Versed 1 Mg/Ml) Confirm Administered Dose 2 mg .ROUTE .STK-MED ONE Stop: 04/26/18 09:03 Ondansetron HCl (Zofran) 4 mg IVPUSH ONETIME ONE Stop: 04/25/18 15:30 Last Admin: 04/25/18 16:03 Dose: 4 mg Ondansetron HCl (Zofran) Confirm Administered Dose 4 mg .ROUTE .STK-MED ONE Stop: 04/25/18 18:38 Ondansetron HCl (Zofran) 4 mg IVPUSH ONETIME PRN PRN Reason: Nausea/Vomiting Ondansetron HCl (Zofran) Confirm Administered Dose 4 mg .ROUTE .STK-MED ONE Stop: 04/26/18 10:10 Potassium Chloride (Klor-Con M20) 40 meq PO ONETIME ONE Stop: 04/27/18 09:01 Last Admin: 04/27/18 10:08 Dose: 40 meq Propofol (Diprivan 20 Ml) Confirm Administered Dose 200 mg .ROUTE .STK-MED ONE Stop: 04/25/18 18:38 Propofol (Diprivan 20 Ml) Confirm Administered Dose 400 mg .ROUTE .STK-MED ONE Stop: 04/26/18 09:03 Propofol (Diprivan 20 Ml) Confirm Administered Dose 200 mg .ROUTE .STK-MED ONE Stop: 04/26/18 10:38 Succinylcholine Chloride (Succinylcholine In Ns Pf) Confirm Administered Dose 100 mg .ROUTE .STK-MED ONE Stop: 04/25/18 18:38 Vancomycin HCl (Vancomycin) 1,190.685 mg 15 mg/kg (1190.685 mg) IV Q12H [facility] Last Admin: 04/25/18 18:15 Dose: Not Given - Exam General: Alert, Oriented, Cooperative Extremities: Other (RIGHT foot with dressing in place, which was taken down. Wound base clean without purulence. The RIGHT 4th toe is necrotic. The RIGHT 5th toe is pale. Sensation decreased to light touch to the RIGHT 4th and 5th digits. Cap refill normal to 1st/2nd/3rd toes. Able to move these toes.) Skin: Other (Erythema along the RIGHT foot/ankle is improved. Edema still present.) Consult PN Assessment/Plan (1) Foot abscess, right SNOMED Code(s): 057962371 Code(s): L02.611 - CUTANEOUS ABSCESS OF RIGHT FOOT Current Visit: Yes Problem List Initiated/Reviewed/Updated: Yes Plan: 42 yo male, HD#4 for RIGHT foot soft tissue infection with abscess, newly diagnosed diabetes, POD#3 for initial I&D and debridement, POD#2 for repeat debridement and washout/dressing change. Infection has resulted in necrosis to the RIGHT 4th toe, with concern for viability of the RIGHT 5th toe. MRI demonstrates evidence of osteomyelitis. PICC line has been placed in anticipation of long-term antibiotics. Appreciate input from Orthopedics service delivery management consultant, Dr. Joyner, who evaluated the wound at the bedside this morning. He plans to perform amputation of the necrotic toe( s) in a few days. - Local wound care and surgical care at the direction of Dr. Joyner. I will also assist with local wound care. - Culture of foot wound shows polymicrobial growth with Beta Strep group B and Staph aureus. Continue broad-spectrum antibiotics (vancomycin IV, Zosyn IV). - Appreciate primary management by hospitalist service, Dr. Masterson. Plan of care discussed with patient. Arsen Gaston M.D., F.A.C.S. General Surgery Pager: [phone]
[2018-04-28] MEDS: Aspirin 81 MG Tab.Chew PO SCH (20:00)
[2018-04-29] MEDS: HYDROmorphone 0.5 MG/0.5 ML Syringe IVPUSH PRN ×2 (02:56→15:50)
[2018-04-29] MEDS: Sodium Chloride 0.9% 1,000 ML IV SCH (06:35)
[2018-04-29] MEDS: Acetaminophen/HYDROcodone 325-5 MG Tab PO PRN ×3 (07:04→23:06)
[2018-04-29] MEDS: Insulin Glargine,Human Rec. Analog 100 Units/ML 3 ML Pen SUBCUT SCH ×2 (07:06→17:10)
[2018-04-29] MEDS: glipiZIDE 5 MG Tab.ER PO SCH ×2 (07:06→17:09)
[2018-04-29] MEDS: metFORMIN 500 MG Tab PO SCH ×2 (07:06→17:09)
[2018-04-29] MEDS: Insulin Lispro 100 Unit/ML 3 ML KwikPen SUBCUT SCH ×4 (08:22→21:11)
[2018-04-29] MEDS: Piperacillin/Tazobactam 4.5 GM in Sodium Chloride 0.9% 100 ML IV SCH ×3 (08:23→23:06)
[2018-04-29] MEDS: Vancomycin 1.5 GM in Sodium Chloride 0.9% 500 ML IV SCH (08:28)
[2018-04-29] MEDS: Lisinopril 10 MG Tab PO SCH (08:37)
[2018-04-29] MEDS: Saccharomyces Boulardii (Probiotic) 250 MG Cap PO SCH (08:37)
[2018-04-29] MEDS: Enoxaparin 40 MG/0.4 ML Syringe SUBCUT SCH (08:38)
--- NOTE | 2018-04-29 09:08 | PCM.PN ---
- General Info Date of Service: 04/29/18 Admission Dx/Problem (Free Text): Admission Diagnosis/Problem RIGHT foot soft tissue infection Subjective Update: Follow Up. Functional Status: Reports: Pain Controlled, Tolerating Diet, Urinating. Denies : New Symptoms - Review of Systems General: Denies: Fever, Weakness, Fatigue, Malaise, Chills HEENT: Reports: No Symptoms Pulmonary: Denies: Shortness of Breath, Wheezing Cardiovascular: Denies: Chest Pain, Dyspnea on Exertion, Lightheadedness Gastrointestinal: Denies: Abdominal Pain, Decreased Appetite, Nausea, Vomiting Genitourinary: Reports: No Symptoms Musculoskeletal: Reports: No Symptoms Skin: Reports: No Symptoms Neurological: Denies: Confusion, Numbness, Gait Disturbance Psychiatric: Denies: Depression, Anxiety, Agitation, Hallucinations Systems Review Comment:: No overnight or acute issues. He is essentially the same. His glucose is controlled. His K is slightly low at 3.2. - Patient Data Vitals - Most Recent: Last Vital Signs Temp 37.2 C 04/29/18 08:17 Pulse 105 H 04/29/18 08:17 Resp 20 04/29/18 08:17 BP 137/98 H 04/29/18 08:37 Pulse Ox 92 L 04/29/18 08:17 Weight - Most Recent: 83.461 kg I&O - Last 24 Hours: Intake & Output 04/28/18 04/29/18 04/29/18 22:59 06:59 14:59 Intake Total 3075 4681 Output Total 1580 2650 Balance 1495 2031 Lab Results Last 24 Hours: Laboratory Results - last 24 hr 04/28/18 04/28/18 04/28/18 Range/Units 12:12 17:12 20:47 WBC (4.23-9.07) K/mm3 RBC (4.63-6.08) M/mm3 Hgb (13.7-17.5) gm/L Hct (40.1-51.0) % MCV (79.0-92.2) fl MCH (25.7-32.2) pg MCHC (32.2-35.5) g/dl RDW Std Deviation (35.1-43.9) fL Plt Count (163-337) K/mm3 MPV (9.4-12.3) fl Neut % (Auto) (34.0-67.9) % Lymph % (Auto) (21.8-53.1) % [place] % (Auto) (5.3-12.2) % Eos % (Auto) (0.8-7.0) Baso % (Auto) (0.1-1.2) % Neut # (Auto) (1.78-5.38) K/mm3 Lymph # (Auto) (1.32-3.57) K/mm3 [place] # (Auto) (0.30-0.82) K/mm3 Eos # (Auto) (0.04-0.54) K/mm3 Baso # (Auto) (0.01-0.08) K/mm3 Manual Slide Review Sodium (136-145) mEq/L Potassium (3.5-5.1) mEq/L Chloride (98-107) mEq/L Carbon Dioxide (21-32) mEq/L Anion Gap (5-15) BUN (7-18) mg/dL Creatinine (0.7-1.3) mg/dL Est Cr Clr Drug Dosing mL/min Estimated GFR (MDRD) (>60) mL/min BUN/Creatinine Ratio (14-18) Glucose (74-106) mg/dL POC Glucose 182 H 110 H 162 H (70-105) mg/dL Calcium (8.5-10.1) mg/dL Magnesium (1.8-2.4) mg/dl C-Reactive Protein (<1.0) mg/dL 04/29/18 04/29/18 04/29/18 Range/Units 05:35 05:35 07:03 WBC 13.73 H (4.23-9.07) K/mm3 RBC 3.67 L (4.63-6.08) M/mm3 Hgb 10.1 L (13.7-17.5) gm/L Hct 30.4 L (40.1-51.0) % MCV 82.8 (79.0-92.2) fl MCH 27.5 (25.7-32.2) pg MCHC 33.2 (32.2-35.5) g/dl RDW Std Deviation 40.1 (35.1-43.9) fL Plt Count 298 (163-337) K/mm3 MPV 9.2 L (9.4-12.3) fl Neut % (Auto) 83.5 H (34.0-67.9) % Lymph % (Auto) 9.1 L (21.8-53.1) % [place] % (Auto) 6.6 (5.3-12.2) % Eos % (Auto) 0.4 L (0.8-7.0) Baso % (Auto) 0.1 (0.1-1.2) % Neut # (Auto) 11.47 H (1.78-5.38) K/mm3 Lymph # (Auto) 1.25 L (1.32-3.57) K/mm3 [place] # (Auto) 0.90 H (0.30-0.82) K/mm3 Eos # (Auto) 0.06 (0.04-0.54) K/mm3 Baso # (Auto) 0.01 (0.01-0.08) K/mm3 Manual Slide Review Abnormal smear Sodium 138 (136-145) mEq/L Potassium 3.2 L (3.5-5.1) mEq/L Chloride 104 (98-107) mEq/L Carbon Dioxide 25 (21-32) mEq/L Anion Gap 12.2 (5-15) BUN 6 L (7-18) mg/dL Creatinine 0.9 (0.7-1.3) mg/dL Est Cr Clr Drug Dosing 95.50 mL/min Estimated GFR (MDRD) > 60 (>60) mL/min BUN/Creatinine Ratio 6.7 L (14-18) Glucose 88 (74-106) mg/dL POC Glucose 101 (70-105) mg/dL Calcium 7.9 L (8.5-10.1) mg/dL Magnesium 2.0 (1.8-2.4) mg/dl C-Reactive Protein 19.0 H* (<1.0) mg/dL [place]ian Results Last 24 Hours: Microbiology 04/25/18 15:55 Aerobic Blood Culture - Preliminary Blood - Venous NO GROWTH AFTER 3 DAYS Anaerobic Blood Culture - Preliminary NO GROWTH AFTER 3 DAYS 04/25/18 15:50 Aerobic Blood Culture - Preliminary Blood - Venous - Lab Draw NO GROWTH AFTER 3 DAYS Anaerobic Blood Culture - Preliminary NO GROWTH AFTER 3 DAYS 04/25/18 15:56 Gram Stain - Final Foot, Right Anaerobic Culture - Preliminary Staphylococcus Aureus Beta Streptococcus Group B Anaerobic Gram Positive Cocci 04/25/18 19:11 Gram Stain - Final Foot, Right Anaerobic Culture - Final Staphylococcus Aureus Beta Streptococcus Group B Med Orders - Current: Current Medications Acetaminophen (Tylenol) 650 mg PO Q4H PRN PRN Reason: Pain (Mild 1-3)/fever Hydrocodone Bitart/Acetaminophen ([place] 325-5 Mg) 1 tab PO Q4H PRN PRN Reason: Pain (moderate 4-6) Last Admin: 04/29/18 07:04 Dose: 1 tab Albuterol/Ipratropium (Duoneb 3.0-0.5 Mg/3 Ml) 3 ml NEB Q4H PRN PRN Reason: Shortness Of Breath/wheezing Aspirin (Aspirin) 81 mg PO BEDTIME [facility] Last Admin: 04/28/18 20:00 Dose: 81 mg Bisacodyl (Dulcolax) 5 mg PO DAILY PRN PRN Reason: Constipation Docusate Sodium (Colace) 100 mg PO BID PRN PRN Reason: Constipation Enoxaparin Sodium (Lovenox) 40 mg SUBCUT DAILY [facility] Last Admin: 04/29/18 08:38 Dose: 40 mg Glipizide (Glucotrol Xl) 5 mg PO BIDMEALS [facility] Last Admin: 04/29/18 07:06 Dose: 5 mg Hydromorphone HCl (Dilaudid) 0.5 mg IVPUSH Q4H PRN PRN Reason: Pain (severe 7-10) Last Admin: 04/29/18 02:56 Dose: 0.5 mg Promethazine HCl 12.5 mg/ (Sodium Chloride) 50.5 mls @ 100 mls/hr IV Q6H PRN PRN Reason: Nausea/Vomiting Piperacillin Sod/Tazobactam (Sod 4.5 gm/ Sodium Chloride) 100 mls @ 25 mls/hr IV Q8H [facility] Last Admin: 04/29/18 08:23 Dose: 25 mls/hr Sodium Chloride (Normal Saline) 1,000 mls @ 125 mls/hr IV ASDIRECTED [facility] Last Admin: 04/29/18 06:35 Dose: 125 mls/hr Vancomycin HCl 1.5 gm/ Sodium (Chloride) 500 mls @ 250 mls/hr IV Q8H [facility] Last Admin: 04/29/18 08:28 Dose: 250 mls/hr Insulin Glargine (Lantus Solostar) 5 units SUBCUT BIDAC [facility] Last Admin: 04/29/18 07:06 Dose: 5 units Insulin Human Lispro (Humalog) 0 unit SUBCUT QIDACANDBED [facility]; Protocol Last Admin: 04/29/18 08:22 Dose: Not Given Lisinopril (Prinivil) 10 mg PO DAILY [facility] Last Admin: 04/29/18 08:37 Dose: 10 mg Lorazepam (Ativan) 1 mg IV Q6H PRN PRN Reason: Nausea/Vomiting Magnesium Sulfate (Pharmacy To Dose - Magnesium Replacement) 0 dose .XX ASDIRECTED PRN PRN Reason: RX TO WATCH MAG LEVELS [facility] Admin: 04/29/18 07:06 Dose: 500 mg Ondansetron HCl (Zofran) 4 mg IV Q6H PRN PRN Reason: Nausea/Vomiting Polyethylene Glycol (Miralax) 17 gm PO DAILY PRN PRN Reason: Constipation Potassium Chloride (Pharmacy To Dose - Potassium Replacement) 0 dose .XX ASDIRECTED PRN PRN Reason: RX TO WATCH K LEVELS Saccharomyces Boulardii (Florastor) 250 mg PO DAILY [facility] Last Admin: 04/29/18 08:37 Dose: 250 mg Senna/Docusate Sodium (Senna Plus) 1 tab PO BID PRN PRN Reason: Constipation Sodium Chloride (Saline Flush) 10 ml FLUSH ASDIRECTED PRN PRN Reason: Keep Vein Open Last Admin: 04/25/18 16:00 Dose: 10 ml Sodium Chloride (Saline Flush) 10 ml FLUSH [facility] Last Admin: 04/27/18 13:45 Dose: 10 ml Temazepam (Restoril) 15 mg PO BEDTIME PRN PRN Reason: Sleep Vancomycin HCl (Pharmacy To Dose - Vancomycin) 0 dose .XX ASDIRECTED PRN PRN Reason: RX TO DOSE VANCO Discontinued Medications Bupivacaine HCl (Marcaine 0.5%) Confirm Administered Dose 30 ml .ROUTE .STK-MED ONE Stop: 04/25/18 18:23 Last Admin: 04/25/18 19:53 Dose: 1.5 ml Clindamycin Phosphate (Cleocin) Confirm Administered Dose 900 mg .ROUTE .STK- MED ONE Stop: 04/25/18 19:11 Fentanyl (Sublimaze) Confirm Administered Dose 250 mcg .ROUTE .STK-MED ONE Stop: 04/25/18 18:38 Fentanyl (Sublimaze) 50 mcg IVPUSH Q5M PRN PRN Reason: Pain Fentanyl (Sublimaze) Confirm Administered Dose 100 mcg .ROUTE .STK-MED ONE Stop: 04/26/18 09:03 Fentanyl (Sublimaze) Confirm Administered Dose 100 mcg .ROUTE .STK-MED ONE Stop: 04/26/18 10:07 Fentanyl (Sublimaze) 50 mcg IVPUSH Q5M PRN PRN Reason: pain Stop: 04/26/18 18:00 Gadobenate Dimeglumine (Multihance) 16 ml IVPUSH ONETIME ONE Stop: 04/27/18 13:03 Last Admin: 04/27/18 13:42 Dose: Not Given Hydromorphone HCl (Dilaudid) 0.5 mg IVPUSH ONETIME ONE Stop: 04/25/18 15:30 Last Admin: 04/25/18 16:01 Dose: 0.5 mg Hydromorphone HCl (Dilaudid) Confirm Administered Dose 1 mg .ROUTE .STK-MED ONE Stop: 04/25/18 19:03 Hydromorphone HCl (Dilaudid) 0.5 mg IVPUSH ONETIME PRN PRN Reason: Pain (severe 7-10) Hydromorphone HCl (Dilaudid) 0.5 mg IVPUSH ONETIME PRN PRN Reason: Pain (severe 7-10) Stop: 04/26/18 18:00 Sodium Chloride (Normal Saline) 1,000 mls @ 999 mls/hr IV ONETIME ONE Stop: 04/25/18 16:28 Last Admin: 04/25/18 15:59 Dose: 999 mls/hr Vancomycin HCl 1 gm/ Sodium (Chloride) 250 mls @ 250 mls/hr IV ONETIME ONE Stop: 04/25/18 16:36 Last Admin: 04/25/18 16:10 Dose: 250 mls/hr Vancomycin HCl 1 gm/ Sodium (Chloride) 250 mls @ 250 mls/hr IV ONETIME ONE Stop: 04/25/18 16:37 Last Admin: 04/25/18 17:09 Dose: 250 mls/hr Sodium Chloride (Normal Saline) 1,000 mls @ 999 mls/hr IV ONETIME ONE Stop: 04/25/18 17:57 Last Admin: 04/25/18 17:09 Dose: 999 mls/hr Piperacillin Sod/Tazobactam (Sod 4.5 gm/ Sodium Chloride) 100 mls @ 200 mls/hr IV ONETIME ONE Stop: 04/25/18 18:24 Last Admin: 04/25/18 18:18 Dose: 200 mls/hr Vancomycin HCl 1 gm/ Sodium (Chloride) 250 mls @ 250 mls/hr IV Q8H [facility] Last Admin: 04/26/18 19:53 Dose: Not Given Lidocaine HCl (Xylocaine-Mpf 1%) Confirm Administered Dose 4 mls @ as directed .ROUTE .STK-MED ONE Stop: 04/25/18 18:38 Clindamycin Phosphate 900 mg/ (Sodium Chloride) 106 mls @ 100 mls/hr IV Q8H [facility] Last Admin: 04/28/18 10:33 Dose: 100 mls/hr Sodium Chloride (Normal Saline) Confirm Administered Dose 100 mls @ as directed .ROUTE .STK-MED ONE Stop: 04/25/18 19:11 Lactated Ringer's (Ringers, Lactated) Confirm Administered Dose 1,000 mls @ as directed .ROUTE .STK-MED ONE Stop: 04/26/18 10:10 Vancomycin HCl 1 gm/Vancomycin HCl 250 mg/ Sodium Chloride 250 mls @ 250 mls/ hr IV Q8H [facility] Last Admin: 04/28/18 08:42 Dose: 250 mls/hr Magnesium Sulfate 4 gm/ Premix 100 mls @ 25 mls/hr IV ONETIME ONE Stop: 04/28/18 13:59 Last Admin: 04/28/18 10:13 Dose: 25 mls/hr Ketamine HCl (Ketalar) Confirm Administered Dose 500 mg .ROUTE .STK-MED ONE Stop: 04/25/18 19:11 Ketamine HCl (Ketalar) Confirm Administered Dose 500 mg .ROUTE .STK-MED ONE Stop: 04/26/18 10:07 Lidocaine/Epinephrine (Xylocaine 1% With Epinephrine 1:100,000) Confirm Administered Dose 20 ml .ROUTE .STK-MED ONE Stop: 04/25/18 18:23 Last Admin: 04/25/18 19:53 Dose: 1.5 ml Metformin HCl (Glucophage) 500 mg PO ONETIME ONE Stop: 04/25/18 23:01 Last Admin: 04/25/18 23:10 Dose: 500 mg Midazolam HCl (Versed 1 Mg/Ml) Confirm Administered Dose 2 mg .ROUTE .STK-MED ONE Stop: 04/25/18 18:38 Midazolam HCl (Versed 1 Mg/Ml) Confirm Administered Dose 2 mg .ROUTE .STK-MED ONE Stop: 04/26/18 09:03 Ondansetron HCl (Zofran) 4 mg IVPUSH ONETIME ONE Stop: 04/25/18 15:30 Last Admin: 04/25/18 16:03 Dose: 4 mg Ondansetron HCl (Zofran) Confirm Administered Dose 4 mg .ROUTE .STK-MED ONE Stop: 04/25/18 18:38 Ondansetron HCl (Zofran) 4 mg IVPUSH ONETIME PRN PRN Reason: Nausea/Vomiting Ondansetron HCl (Zofran) Confirm Administered Dose 4 mg .ROUTE .STK-MED ONE Stop: 04/26/18 10:10 Potassium Chloride (Klor-Con M20) 40 meq PO ONETIME ONE Stop: 04/27/18 09:01 Last Admin: 04/27/18 10:08 Dose: 40 meq Propofol (Diprivan 20 Ml) Confirm Administered Dose 200 mg .ROUTE .STK-MED ONE Stop: 04/25/18 18:38 Propofol (Diprivan 20 Ml) Confirm Administered Dose 400 mg .ROUTE .STK-MED ONE Stop: 04/26/18 09:03 Propofol (Diprivan 20 Ml) Confirm Administered Dose 200 mg .ROUTE .STK-MED ONE Stop: 04/26/18 10:38 Succinylcholine Chloride (Succinylcholine In Ns Pf) Confirm Administered Dose 100 mg .ROUTE .STK-MED ONE Stop: 04/25/18 18:38 Vancomycin HCl (Vancomycin) 1,190.685 mg 15 mg/kg (1190.685 mg) IV Q12H [facility] Last Admin: 04/25/18 18:15 Dose: Not Given - Problem List Review Problem List Initiated/Reviewed/Updated: Yes - My Orders Last 24 Hours: My Active Orders 04/28/18 12:30 Consult to Physical Therapy [PT Evaluation and Treatment] [CONS] Routine 04/28/18 14:00 OR PCXR-No Charge-PICC/Central [CR] Routine OR PCXR-No Charge-PICC/Central [CR] Routine OR PCXR-No Charge-PICC/Central [CR] Routine 04/28/18 16:00 Vancomycin 1.5 gm Sodium Chloride 0.9% [Normal Saline] 500 ml IV Q8H 04/29/18 15:30 VANCOMYCIN TROUGH [CHEM] Timed 04/30/18 05:11 BASIC METABOLIC PANEL,BMP [CHEM] AM C-REACTIVE PROTEIN [CHEM] AM CBC WITH AUTO DIFF [HEME] AM MAGNESIUM [CHEM] AM 05/01/18 05:11 BASIC METABOLIC PANEL,BMP [CHEM] AM C-REACTIVE PROTEIN [CHEM] AM CBC WITH AUTO DIFF [HEME] AM MAGNESIUM [CHEM] AM - Assessment Assessment:: Assessment/Plan: Acute: Diabetic Foot Ulcer w/ Osteomyelities * Open ulcer with drainage located on plantar aspect of right foot beneath great toe * WBC 18.92--> 13.89 --> 14.81 --> 12.56--> 13.73 * CRP 36 --> 23.4 --> 23.1 --> 23.6--> 19 * Cultures positive for S. 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 Joyner, orthopedic surgeon * Plans to operate on Tuesday05/02/18 * Amputation of 4th toe and possible amputation of 5th toe if there is no improvement over the weekend * NPO after evening of 05/01 in preparation for surgery * Broad spectrum IV antibiotics--> Abx management defer to the surgical team * Vancomycin and clindamycin initiated prior to culture results - these will be continued * Piperacillin/tazobactum added to the regimen * PICC line placed today for administration of antibiotics * Pain medications PRN * MRI on 04/27 found osteomyelitis * DVT prophylaxis lovenox * Surgery consult * Dr. Tamez performed debridement shortly after admission on the evening of 04/25 * Repeat debridement 04/26 * Discussed need for jail solution * Will require extended diabetic services and wound care following discharge * Patient would like to stay in [place] if possible - will have to check if local nursing homes have necessary services * Otherwise may have to go to facility in [place] Diabetes mellitus * Glucose 355 and HgbA1c 11.8 upon admission * Denies personal or family history of diabetes * Patient informed of diabetic status; he is surprised but understands diagnosis * Initially started on insulin, metformin, and glipizide * Glucose has been well controlled - 115 this AM * Alter medications as needed * Aspirin, statin, and JORGE inhibitor added to treatment regimen * Lipid panel unremarkable other than reduced HDL * Urine negative for micro-albumin * 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 dif * Continue to monitor Plan: He is clinically stable Current treatment Routine AM labs Wound Care PT/OT tx Increased Lisinopril dose to 20 mg po daily SW/CM for d/c planning Code status: 1 Discharge likely to [facility] pending surgery on Tuesday Met up parents at bedside. With patient's permission, they were updated about this diagnosis, tests result, clinical progress and treatment plan.
[2018-04-29] MEDS: Potassium Chloride 20 MEQ Tab.ER PO SCH ×3 (11:04→18:07)
--- NOTE | 2018-04-29 14:36 | PCM.CONSN ---
- General Info Date of Service: 04/29/18 Subjective Update: No acute events overnight. Pain controlled with Narvon. No changes in symptoms. - Patient Data Vitals - Most Recent: Last Vital Signs Temp 36.9 C 04/29/18 12:13 Pulse 100 04/29/18 12:13 Resp 20 04/29/18 12:13 BP 136/80 04/29/18 12:13 Pulse Ox 91 L 04/29/18 12:13 Weight - Most Recent: 83.461 kg I&O - Last 24 Hours: Intake & Output 04/28/18 04/29/18 04/29/18 22:59 06:59 14:59 Intake Total 3075 4681 720 Output Total 1580 2650 Balance 1495 2031 720 Lab Results Last 24 Hours: Laboratory Results - last 24 hr 04/28/18 04/28/18 04/29/18 Range/Units 17:12 20:47 05:35 WBC 13.73 H (4.23-9.07) K/mm3 RBC 3.67 L (4.63-6.08) M/mm3 Hgb 10.1 L (13.7-17.5) gm/L Hct 30.4 L (40.1-51.0) % MCV 82.8 (79.0-92.2) fl MCH 27.5 (25.7-32.2) pg MCHC 33.2 (32.2-35.5) g/dl RDW Std Deviation 40.1 (35.1-43.9) fL Plt Count 298 (163-337) K/mm3 MPV 9.2 L (9.4-12.3) fl Neut % (Auto) 83.5 H (34.0-67.9) % Lymph % (Auto) 9.1 L (21.8-53.1) % [place] % (Auto) 6.6 (5.3-12.2) % Eos % (Auto) 0.4 L (0.8-7.0) Baso % (Auto) 0.1 (0.1-1.2) % Neut # (Auto) 11.47 H (1.78-5.38) K/mm3 Lymph # (Auto) 1.25 L (1.32-3.57) K/mm3 [place] # (Auto) 0.90 H (0.30-0.82) K/mm3 Eos # (Auto) 0.06 (0.04-0.54) K/mm3 Baso # (Auto) 0.01 (0.01-0.08) K/mm3 Manual Slide Review Abnormal smear Sodium (136-145) mEq/L Potassium (3.5-5.1) mEq/L Chloride (98-107) mEq/L Carbon Dioxide (21-32) mEq/L Anion Gap (5-15) BUN (7-18) mg/dL Creatinine (0.7-1.3) mg/dL Est Cr Clr Drug Dosing mL/min Estimated GFR (MDRD) (>60) mL/min BUN/Creatinine Ratio (14-18) Glucose (74-106) mg/dL POC Glucose 110 H 162 H (70-105) mg/dL Calcium (8.5-10.1) mg/dL Magnesium (1.8-2.4) mg/dl C-Reactive Protein (<1.0) mg/dL 04/29/18 04/29/18 04/29/18 Range/Units 05:35 07:03 11:03 WBC (4.23-9.07) K/mm3 RBC (4.63-6.08) M/mm3 Hgb (13.7-17.5) gm/L Hct (40.1-51.0) % MCV (79.0-92.2) fl MCH (25.7-32.2) pg MCHC (32.2-35.5) g/dl RDW Std Deviation (35.1-43.9) fL Plt Count (163-337) K/mm3 MPV (9.4-12.3) fl Neut % (Auto) (34.0-67.9) % Lymph % (Auto) (21.8-53.1) % [place] % (Auto) (5.3-12.2) % Eos % (Auto) (0.8-7.0) Baso % (Auto) (0.1-1.2) % Neut # (Auto) (1.78-5.38) K/mm3 Lymph # (Auto) (1.32-3.57) K/mm3 [place] # (Auto) (0.30-0.82) K/mm3 Eos # (Auto) (0.04-0.54) K/mm3 Baso # (Auto) (0.01-0.08) K/mm3 Manual Slide Review Sodium 138 (136-145) mEq/L Potassium 3.2 L (3.5-5.1) mEq/L Chloride 104 (98-107) mEq/L Carbon Dioxide 25 (21-32) mEq/L Anion Gap 12.2 (5-15) BUN 6 L (7-18) mg/dL Creatinine 0.9 (0.7-1.3) mg/dL Est Cr Clr Drug Dosing 95.50 mL/min Estimated GFR (MDRD) > 60 (>60) mL/min BUN/Creatinine Ratio 6.7 L (14-18) Glucose 88 (74-106) mg/dL POC Glucose 101 121 H (70-105) mg/dL Calcium 7.9 L (8.5-10.1) mg/dL Magnesium 2.0 (1.8-2.4) mg/dl C-Reactive Protein 19.0 H* (<1.0) mg/dL Fabian Results Last 24 Hours: Microbiology 04/25/18 15:56 Gram Stain - Final Foot, Right Anaerobic Culture - Preliminary Staphylococcus Aureus Beta Streptococcus Group B Peptostreptococcus Species 04/25/18 15:55 Aerobic Blood Culture - Preliminary Blood - Venous NO GROWTH AFTER 3 DAYS Anaerobic Blood Culture - Preliminary NO GROWTH AFTER 3 DAYS 04/25/18 15:50 Aerobic Blood Culture - Preliminary Blood - Venous - Lab Draw NO GROWTH AFTER 3 DAYS Anaerobic Blood Culture - Preliminary NO GROWTH AFTER 3 DAYS 04/25/18 19:11 Gram Stain - Final Foot, Right Anaerobic Culture - Final Staphylococcus Aureus Beta Streptococcus Group B Med Orders - Current: Current Medications Acetaminophen (Tylenol) 650 mg PO Q4H PRN PRN Reason: Pain (Mild 1-3)/fever Hydrocodone Bitart/Acetaminophen (Narvon 325-5 Mg) 1 tab PO Q4H PRN PRN Reason: Pain (moderate 4-6) Last Admin: 04/29/18 07:04 Dose: 1 tab Albuterol/Ipratropium (Duoneb 3.0-0.5 Mg/3 Ml) 3 ml NEB Q4H PRN PRN Reason: Shortness Of Breath/wheezing Aspirin (Aspirin) 81 mg PO BEDTIME [facility] Last Admin: 04/28/18 20:00 Dose: 81 mg Bisacodyl (Dulcolax) 5 mg PO DAILY PRN PRN Reason: Constipation Docusate Sodium (Colace) 100 mg PO BID PRN PRN Reason: Constipation Enoxaparin Sodium (Lovenox) 40 mg SUBCUT DAILY [facility] Last Admin: 04/29/18 08:38 Dose: 40 mg Glipizide (Glucotrol Xl) 5 mg PO BIDMEALS [facility] Last Admin: 04/29/18 07:06 Dose: 5 mg Hydromorphone HCl (Dilaudid) 0.5 mg IVPUSH Q4H PRN PRN Reason: Pain (severe 7-10) Last Admin: 04/29/18 02:56 Dose: 0.5 mg Promethazine HCl 12.5 mg/ (Sodium Chloride) 50.5 mls @ 100 mls/hr IV Q6H PRN PRN Reason: Nausea/Vomiting Piperacillin Sod/Tazobactam (Sod 4.5 gm/ Sodium Chloride) 100 mls @ 25 mls/hr IV Q8H [facility] Last Admin: 04/29/18 08:23 Dose: 25 mls/hr Vancomycin HCl 1.5 gm/ Sodium (Chloride) 500 mls @ 250 mls/hr IV Q8H [facility] Last Admin: 04/29/18 08:28 Dose: 250 mls/hr Insulin Glargine (Lantus Solostar) 5 units SUBCUT BIDAC [facility] Last Admin: 04/29/18 07:06 Dose: 5 units Insulin Human Lispro (Humalog) 0 unit SUBCUT QIDACANDBED [facility]; Protocol Last Admin: 04/29/18 11:05 Dose: Not Given Lisinopril (Prinivil) 20 mg PO DAILY [facility] Lorazepam (Ativan) 1 mg IV Q6H PRN PRN Reason: Nausea/Vomiting Magnesium Sulfate (Pharmacy To Dose - Magnesium Replacement) 0 dose .XX ASDIRECTED PRN PRN Reason: RX TO WATCH MAG LEVELS Metformin HCl (Glucophage) 1,000 mg PO BIDMEALS [facility] Ondansetron HCl (Zofran) 4 mg IV Q6H PRN PRN Reason: Nausea/Vomiting Polyethylene Glycol (Miralax) 17 gm PO DAILY PRN PRN Reason: Constipation Potassium Chloride (Pharmacy To Dose - Potassium Replacement) 0 dose .XX ASDIRECTED PRN PRN Reason: RX TO WATCH K LEVELS Potassium Chloride (Klor-Con M20) 40 meq PO Q4H [facility] Stop: 04/29/18 19:01 Last Admin: 04/29/18 11:04 Dose: 40 meq Saccharomyces Boulardii (Florastor) 250 mg PO DAILY [facility] Last Admin: 04/29/18 08:37 Dose: 250 mg Senna/Docusate Sodium (Senna Plus) 1 tab PO BID PRN PRN Reason: Constipation Sodium Chloride (Saline Flush) 10 ml FLUSH ASDIRECTED [facility] Last Admin: 04/27/18 13:45 Dose: 10 ml Temazepam (Restoril) 15 mg PO BEDTIME PRN PRN Reason: Sleep Vancomycin HCl (Pharmacy To Dose - Vancomycin) 0 dose .XX ASDIRECTED PRN PRN Reason: RX TO DOSE VANCO Discontinued Medications Bupivacaine HCl (Marcaine 0.5%) Confirm Administered Dose 30 ml .ROUTE .STK-MED ONE Stop: 04/25/18 18:23 Last Admin: 04/25/18 19:53 Dose: 1.5 ml Clindamycin Phosphate (Cleocin) Confirm Administered Dose 900 mg .ROUTE .STK- MED ONE Stop: 04/25/18 19:11 Fentanyl (Sublimaze) Confirm Administered Dose 250 mcg .ROUTE .STK-MED ONE Stop: 04/25/18 18:38 Fentanyl (Sublimaze) 50 mcg IVPUSH Q5M PRN PRN Reason: Pain Fentanyl (Sublimaze) Confirm Administered Dose 100 mcg .ROUTE .STK-MED ONE Stop: 04/26/18 09:03 Fentanyl (Sublimaze) Confirm Administered Dose 100 mcg .ROUTE .STK-MED ONE Stop: 04/26/18 10:07 Fentanyl (Sublimaze) 50 mcg IVPUSH Q5M PRN PRN Reason: pain Stop: 04/26/18 18:00 Gadobenate Dimeglumine (Multihance) 16 ml IVPUSH ONETIME ONE Stop: 04/27/18 13:03 Last Admin: 04/27/18 13:42 Dose: Not Given Hydromorphone HCl (Dilaudid) 0.5 mg IVPUSH ONETIME ONE Stop: 04/25/18 15:30 Last Admin: 04/25/18 16:01 Dose: 0.5 mg Hydromorphone HCl (Dilaudid) Confirm Administered Dose 1 mg .ROUTE .STK-MED ONE Stop: 04/25/18 19:03 Hydromorphone HCl (Dilaudid) 0.5 mg IVPUSH ONETIME PRN PRN Reason: Pain (severe 7-10) Hydromorphone HCl (Dilaudid) 0.5 mg IVPUSH ONETIME PRN PRN Reason: Pain (severe 7-10) Stop: 04/26/18 18:00 Sodium Chloride (Normal Saline) 1,000 mls @ 999 mls/hr IV ONETIME ONE Stop: 04/25/18 16:28 Last Admin: 04/25/18 15:59 Dose: 999 mls/hr Vancomycin HCl 1 gm/ Sodium (Chloride) 250 mls @ 250 mls/hr IV ONETIME ONE Stop: 04/25/18 16:36 Last Admin: 04/25/18 16:10 Dose: 250 mls/hr Vancomycin HCl 1 gm/ Sodium (Chloride) 250 mls @ 250 mls/hr IV ONETIME ONE Stop: 04/25/18 16:37 Last Admin: 04/25/18 17:09 Dose: 250 mls/hr Sodium Chloride (Normal Saline) 1,000 mls @ 999 mls/hr IV ONETIME ONE Stop: 04/25/18 17:57 Last Admin: 04/25/18 17:09 Dose: 999 mls/hr Piperacillin Sod/Tazobactam (Sod 4.5 gm/ Sodium Chloride) 100 mls @ 200 mls/hr IV ONETIME ONE Stop: 04/25/18 18:24 Last Admin: 04/25/18 18:18 Dose: 200 mls/hr Vancomycin HCl 1 gm/ Sodium (Chloride) 250 mls @ 250 mls/hr IV Q8H [facility] Last Admin: 04/26/18 19:53 Dose: Not Given Lidocaine HCl (Xylocaine-Mpf 1%) Confirm Administered Dose 4 mls @ as directed .ROUTE .STK-MED ONE Stop: 04/25/18 18:38 Clindamycin Phosphate 900 mg/ (Sodium Chloride) 106 mls @ 100 mls/hr IV Q8H [facility] Last Admin: 04/28/18 10:33 Dose: 100 mls/hr Sodium Chloride (Normal Saline) Confirm Administered Dose 100 mls @ as directed .ROUTE .STK-MED ONE Stop: 04/25/18 19:11 Lactated Ringer's (Ringers, Lactated) Confirm Administered Dose 1,000 mls @ as directed .ROUTE .[facility]-MED ONE Stop: 04/26/18 10:10 Vancomycin HCl 1 gm/Vancomycin HCl 250 mg/ Sodium Chloride 250 mls @ 250 mls/ hr IV Q8H [facility] Last Admin: 04/28/18 08:42 Dose: 250 mls/hr Sodium Chloride (Normal Saline) 1,000 mls @ 125 mls/hr IV ASDIRECTED [facility] Last Admin: 04/29/18 06:35 Dose: 125 mls/hr Magnesium Sulfate 4 gm/ Premix 100 mls @ 25 mls/hr IV ONETIME ONE Stop: 04/28/18 13:59 Last Admin: 04/28/18 10:13 Dose: 25 mls/hr Ketamine HCl (Ketalar) Confirm Administered Dose 500 mg .ROUTE .[facility]-MED ONE Stop: 04/25/18 19:11 Ketamine HCl (Ketalar) Confirm Administered Dose 500 mg .ROUTE .[facility] ONE Stop: 04/26/18 10:07 Lidocaine/Epinephrine (Xylocaine 1% With Epinephrine 1:100,000) Confirm Administered Dose 20 ml .ROUTE .STK-MED ONE Stop: 04/25/18 18:23 Last Admin: 04/25/18 19:53 Dose: 1.5 ml Lisinopril (Prinivil) 10 mg PO DAILY [facility] Last Admin: 04/29/18 08:37 Dose: 10 mg Metformin HCl (Glucophage) 500 mg PO BIDMEALS [facility] Last Admin: 04/29/18 07:06 Dose: 500 mg Metformin HCl (Glucophage) 500 mg PO ONETIME ONE Stop: 04/25/18 23:01 Last Admin: 04/25/18 23:10 Dose: 500 mg Midazolam HCl (Versed 1 Mg/Ml) Confirm Administered Dose 2 mg .ROUTE .STK-MED ONE Stop: 04/25/18 18:38 Midazolam HCl (Versed 1 Mg/Ml) Confirm Administered Dose 2 mg .ROUTE .STK-MED ONE Stop: 04/26/18 09:03 Ondansetron HCl (Zofran) 4 mg IVPUSH ONETIME ONE Stop: 04/25/18 15:30 Last Admin: 04/25/18 16:03 Dose: 4 mg Ondansetron HCl (Zofran) Confirm Administered Dose 4 mg .ROUTE .STK-MED ONE Stop: 04/25/18 18:38 Ondansetron HCl (Zofran) 4 mg IVPUSH ONETIME PRN PRN Reason: Nausea/Vomiting Ondansetron HCl (Zofran) Confirm Administered Dose 4 mg .ROUTE .STK-MED ONE Stop: 04/26/18 10:10 Potassium Chloride (Klor-Con M20) 40 meq PO ONETIME ONE Stop: 04/27/18 09:01 Last Admin: 04/27/18 10:08 Dose: 40 meq Propofol (Diprivan 20 Ml) Confirm Administered Dose 200 mg .ROUTE .STK-MED ONE Stop: 04/25/18 18:38 Propofol (Diprivan 20 Ml) Confirm Administered Dose 400 mg .ROUTE .STK-MED ONE Stop: 04/26/18 09:03 Propofol (Diprivan 20 Ml) Confirm Administered Dose 200 mg .ROUTE .STK-MED ONE Stop: 04/26/18 10:38 Sodium Chloride (Saline Flush) 10 ml FLUSH ASDIRECTED PRN PRN Reason: Keep Vein Open Last Admin: 04/25/18 16:00 Dose: 10 ml Succinylcholine Chloride (Succinylcholine In Ns Pf) Confirm Administered Dose 100 mg .ROUTE .STK-MED ONE Stop: 04/25/18 18:38 Vancomycin HCl (Vancomycin) 1,190.685 mg 15 mg/kg (1190.685 mg) IV Q12H [facility] Last Admin: 04/25/18 18:15 Dose: Not Given - Exam General: Alert, Oriented, Cooperative Extremities: Other (Stable appearance to RIGHT foot wound. Decreased sensation to light touch to RIGHT 4th digit, and improved sensation to RIGHT 5th digit. Wound base without purulence. ) Consult PN Assessment/Plan (1) Foot abscess, right SNOMED Code(s): 344810114 Code(s): L02.611 - CUTANEOUS ABSCESS OF RIGHT FOOT Current Visit: Yes Problem List Initiated/Reviewed/Updated: Yes Plan: 42 yo male, HD#5 for RIGHT foot soft tissue infection with abscess, newly diagnosed diabetes, POD#4 for initial I&D and debridement, POD#3 for repeat debridement and washout/dressing change. Infection has resulted in necrosis to the RIGHT 4th toe, with concern for viability of the RIGHT 5th toe. MRI demonstrates evidence of osteomyelitis. PICC line has been placed in anticipation of long-term antibiotics. Appreciate input from Orthopedics senior erp consultant, Dr. Joyner, who evaluated the wound at the bedside yesterday morning. He plans to perform amputation of the necrotic toe(s) in a few days (possible May 02). - Local wound care and surgical care at the direction of Dr. Joyner. I will also assist with local wound care. Dressing change with wet-to-dry gauze performed at the bedside today. - Culture of foot wound shows polymicrobial growth with Beta Strep group B and Staph aureus. Continue broad-spectrum antibiotics (vancomycin IV, Zosyn IV). - Appreciate primary management, with blood sugar control, by hospitalist service, Dr. Masterson. Plan of care discussed with patient. Arsen Gaston M.D., F.A.C.S. General Surgery Pager: [phone]
[2018-04-29] MEDS: Aspirin 81 MG Tab.Chew PO SCH (21:05)
[2018-04-30] MEDS: glipiZIDE 5 MG Tab.ER PO SCH ×2 (06:35→17:24)
[2018-04-30] MEDS: metFORMIN 500 MG Tab PO SCH ×2 (06:35→17:24)
[2018-04-30] MEDS: Insulin Glargine,Human Rec. Analog 100 Units/ML 3 ML Pen SUBCUT SCH ×2 (06:35→17:24)
[2018-04-30] MEDS: Insulin Lispro 100 Unit/ML 3 ML KwikPen SUBCUT SCH ×4 (06:55→22:48)
[2018-04-30] MEDS: Piperacillin/Tazobactam 4.5 GM in Sodium Chloride 0.9% 100 ML IV SCH ×3 (08:06→22:59)
[2018-04-30] MEDS: Enoxaparin 40 MG/0.4 ML Syringe SUBCUT SCH (08:07)
[2018-04-30] MEDS: Lisinopril 20 MG Tab PO SCH (08:07)
[2018-04-30] MEDS: Saccharomyces Boulardii (Probiotic) 250 MG Cap PO SCH (08:07)
--- NOTE | 2018-04-30 10:12 | PCM.PN ---
- General Info Date of Service: 04/30/18 Admission Dx/Problem (Free Text): Admission Diagnosis/Problem RIGHT foot soft tissue infection Subjective Update: No acute events overnight. Pain controlled with Ackley. No changes in symptoms. Functional Status: Reports: Pain Controlled, Tolerating Diet, Ambulating, Urinating, New Symptoms - Review of Systems General: Denies: Fever, Weakness, Fatigue, Malaise, Chills HEENT: Reports: No Symptoms Pulmonary: Denies: Shortness of Breath Cardiovascular: Denies: Chest Pain, Palpitations, Dyspnea on Exertion, Lightheadedness Gastrointestinal: Reports: Difficulty Swallowing, Flatus, Nausea. Denies: Abdominal Pain, Decreased Appetite, Diarrhea, Melena, Vomiting Genitourinary: Reports: No Symptoms Musculoskeletal: Reports: No Symptoms Skin: Denies: Cyanosis, Mottled, Pallor, Diaphoresis, Rash Neurological: Denies: Confusion, Difficulty Walking, Weakness, Gait Disturbance Psychiatric: Denies: No Symptoms, Depression, Anxiety, Hallucinations Systems Review Comment:: No overnight or acute issues. He rested well last night. He however was nauseous but w/o emesis after having breakfast this AM. He remains afebrile but his WBC and CRP are trending up. He reports no other complaints. - Patient Data Vitals - Most Recent: Last Vital Signs Temp 37.3 C 04/30/18 07:49 Pulse 119 H 04/30/18 07:49 Resp 20 04/30/18 07:49 BP 152/90 H 04/30/18 08:07 Pulse Ox 94 L 04/30/18 07:49 Weight - Most Recent: 86.364 kg I&O - Last 24 Hours: Intake & Output 04/29/18 04/30/18 04/30/18 22:59 06:59 14:59 Intake Total 2798 1950 Output Total 1600 1200 Balance 1198 750 Lab Results Last 24 Hours: Laboratory Results - last 24 hr 04/29/18 04/29/18 04/29/18 Range/Units 11:03 15:33 17:04 WBC (4.23-9.07) K/mm3 RBC (4.63-6.08) M/mm3 Hgb (13.7-17.5) gm/L Hct (40.1-51.0) % MCV (79.0-92.2) fl MCH (25.7-32.2) pg MCHC (32.2-35.5) g/dl RDW Std Deviation (35.1-43.9) fL Plt Count (163-337) K/mm3 MPV (9.4-12.3) fl Neut % (Auto) (34.0-67.9) % Lymph % (Auto) (21.8-53.1) % [place] % (Auto) (5.3-12.2) % Eos % (Auto) (0.8-7.0) Baso % (Auto) (0.1-1.2) % Neut # (Auto) (1.78-5.38) K/mm3 Lymph # (Auto) (1.32-3.57) K/mm3 [place] # (Auto) (0.30-0.82) K/mm3 Eos # (Auto) (0.04-0.54) K/mm3 Baso # (Auto) (0.01-0.08) K/mm3 Manual Slide Review Sodium (136-145) mEq/L Potassium (3.5-5.1) mEq/L Chloride (98-107) mEq/L Carbon Dioxide (21-32) mEq/L Anion Gap (5-15) BUN (7-18) mg/dL Creatinine (0.7-1.3) mg/dL Est Cr Clr Drug Dosing mL/min Estimated GFR (MDRD) (>60) mL/min BUN/Creatinine Ratio (14-18) Glucose (74-106) mg/dL POC Glucose 121 H 126 H (70-105) mg/dL Calcium (8.5-10.1) mg/dL Magnesium (1.8-2.4) mg/dl C-Reactive Protein (<1.0) mg/dL Vancomycin Trough 20.5 H (10.0-20.0) 04/29/18 04/30/18 04/30/18 Range/Units 20:49 06:20 06:20 WBC 16.84 H (4.23-9.07) K/mm3 RBC 4.06 L (4.63-6.08) M/mm3 Hgb 11.2 L (13.7-17.5) gm/L Hct 33.9 L (40.1-51.0) % MCV 83.5 (79.0-92.2) fl MCH 27.6 (25.7-32.2) pg MCHC 33.0 (32.2-35.5) g/dl RDW Std Deviation 41.8 (35.1-43.9) fL Plt Count 322 (163-337) K/mm3 MPV 9.0 L (9.4-12.3) fl Neut % (Auto) 84.1 H (34.0-67.9) % Lymph % (Auto) 8.1 L (21.8-53.1) % [place] % (Auto) 6.7 (5.3-12.2) % Eos % (Auto) 0.7 L (0.8-7.0) Baso % (Auto) 0.1 (0.1-1.2) % Neut # (Auto) 14.16 H (1.78-5.38) K/mm3 Lymph # (Auto) 1.37 (1.32-3.57) K/mm3 [place] # (Auto) 1.13 H (0.30-0.82) K/mm3 Eos # (Auto) 0.11 (0.04-0.54) K/mm3 Baso # (Auto) 0.02 (0.01-0.08) K/mm3 Manual Slide Review Abnormal smear Sodium 139 (136-145) mEq/L Potassium 4.0 (3.5-5.1) mEq/L Chloride 105 (98-107) mEq/L Carbon Dioxide 21 (21-32) mEq/L Anion Gap 17.0 H (5-15) BUN 9 (7-18) mg/dL Creatinine 1.1 (0.7-1.3) mg/dL Est Cr Clr Drug Dosing 78.14 mL/min Estimated GFR (MDRD) > 60 (>60) mL/min BUN/Creatinine Ratio 8.2 L (14-18) Glucose 128 H (74-106) mg/dL POC Glucose 181 H (70-105) mg/dL Calcium 8.6 (8.5-10.1) mg/dL Magnesium 2.0 (1.8-2.4) mg/dl C-Reactive Protein 20.5 H* (<1.0) mg/dL Vancomycin Trough (10.0-20.0) 04/30/18 Range/Units 06:46 WBC (4.23-9.07) K/mm3 RBC (4.63-6.08) M/mm3 Hgb (13.7-17.5) gm/L Hct (40.1-51.0) % MCV (79.0-92.2) fl MCH (25.7-32.2) pg MCHC (32.2-35.5) g/dl RDW Std Deviation (35.1-43.9) fL Plt Count (163-337) K/mm3 MPV (9.4-12.3) fl Neut % (Auto) (34.0-67.9) % Lymph % (Auto) (21.8-53.1) % [place] % (Auto) (5.3-12.2) % Eos % (Auto) (0.8-7.0) Baso % (Auto) (0.1-1.2) % Neut # (Auto) (1.78-5.38) K/mm3 Lymph # (Auto) (1.32-3.57) K/mm3 [place] # (Auto) (0.30-0.82) K/mm3 Eos # (Auto) (0.04-0.54) K/mm3 Baso # (Auto) (0.01-0.08) K/mm3 Manual Slide Review Sodium (136-145) mEq/L Potassium (3.5-5.1) mEq/L Chloride (98-107) mEq/L Carbon Dioxide (21-32) mEq/L Anion Gap (5-15) BUN (7-18) mg/dL Creatinine (0.7-1.3) mg/dL Est Cr Clr Drug Dosing mL/min Estimated GFR (MDRD) (>60) mL/min BUN/Creatinine Ratio (14-18) Glucose (74-106) mg/dL POC Glucose 137 H (70-105) mg/dL Calcium (8.5-10.1) mg/dL Magnesium (1.8-2.4) mg/dl C-Reactive Protein (<1.0) mg/dL Vancomycin Trough (10.0-20.0) Fabian Results Last 24 Hours: Microbiology 04/25/18 15:56 Gram Stain - Final Foot, Right Anaerobic Culture - Final Staphylococcus Aureus Beta Streptococcus Group B Peptostreptococcus Species 04/25/18 15:55 Aerobic Blood Culture - Preliminary Blood - Venous NO GROWTH AFTER 4 DAYS Anaerobic Blood Culture - Preliminary NO GROWTH AFTER 4 DAYS 04/25/18 15:50 Aerobic Blood Culture - Preliminary Blood - Venous - Lab Draw NO GROWTH AFTER 4 DAYS Anaerobic Blood Culture - Preliminary NO GROWTH AFTER 4 DAYS Med Orders - Current: Current Medications Acetaminophen (Tylenol) 650 mg PO Q4H PRN PRN Reason: Pain (Mild 1-3)/fever Hydrocodone Bitart/Acetaminophen (Ackley 325-5 Mg) 1 tab PO Q4H PRN PRN Reason: Pain (moderate 4-6) Last Admin: 04/29/18 23:06 Dose: 1 tab Albuterol/Ipratropium (Duoneb 3.0-0.5 Mg/3 Ml) 3 ml NEB Q4H PRN PRN Reason: Shortness Of Breath/wheezing Aspirin (Aspirin) 81 mg PO BEDTIME [facility] Last Admin: 04/29/18 21:05 Dose: 81 mg Bisacodyl (Dulcolax) 5 mg PO DAILY PRN PRN Reason: Constipation Docusate Sodium (Colace) 100 mg PO BID PRN PRN Reason: Constipation Enoxaparin Sodium (Lovenox) 40 mg SUBCUT DAILY [facility] Last Admin: 04/30/18 08:07 Dose: 40 mg Glipizide (Glucotrol Xl) 5 mg PO BIDMEALS [facility] Last Admin: 04/30/18 06:35 Dose: 5 mg Hydromorphone HCl (Dilaudid) 0.5 mg IVPUSH Q4H PRN PRN Reason: Pain (severe 7-10) Last Admin: 04/29/18 15:50 Dose: 0.5 mg Promethazine HCl 12.5 mg/ (Sodium Chloride) 50.5 mls @ 100 mls/hr IV Q6H PRN PRN Reason: Nausea/Vomiting Piperacillin Sod/Tazobactam (Sod 4.5 gm/ Sodium Chloride) 100 mls @ 25 mls/hr IV Q8H [facility] Last Admin: 04/30/18 08:06 Dose: 25 mls/hr Vancomycin HCl 1 gm/Vancomycin HCl 250 mg/ Sodium Chloride 250 mls @ 250 mls/ hr IV Q8H [facility] Last Admin: 04/30/18 06:34 Dose: 250 mls/hr Insulin Glargine (Lantus Solostar) 5 units SUBCUT BIDAC [facility] Last Admin: 04/30/18 06:35 Dose: 5 units Insulin Human Lispro (Humalog) 0 unit SUBCUT QIDACANDBED [facility]; Protocol Last Admin: 04/30/18 06:55 Dose: Not Given Lisinopril (Prinivil) 20 mg PO DAILY [facility] Last Admin: 04/30/18 08:07 Dose: 20 mg Lorazepam (Ativan) 1 mg IV Q6H PRN PRN Reason: Nausea/Vomiting Magnesium Sulfate (Pharmacy To Dose - Magnesium Replacement) 0 dose .XX ASDIRECTED PRN PRN Reason: RX TO WATCH MAG LEVELS [facility]) [facility] Last Admin: 04/30/18 06:35 Dose: 1,000 mg Ondansetron HCl (Zofran) 4 mg IV Q6H PRN PRN Reason: Nausea/Vomiting Polyethylene Glycol (Miralax) 17 gm PO DAILY PRN PRN Reason: Constipation Potassium Chloride (Pharmacy To Dose - Potassium Replacement) 0 dose .XX ASDIRECTED PRN PRN Reason: RX TO WATCH K LEVELS Saccharomyces Boulardii (Florastor) 250 mg PO DAILY [facility] Last Admin: 04/30/18 08:07 Dose: 250 mg Senna/Docusate Sodium (Senna Plus) 1 tab PO BID PRN PRN Reason: Constipation Sodium Chloride (Saline Flush) 10 ml FLUSH ASDIRECTED [facility] Last Admin: 04/27/18 13:45 Dose: 10 ml Temazepam (Restoril) 15 mg PO BEDTIME PRN PRN Reason: Sleep Vancomycin HCl (Pharmacy To Dose - Vancomycin) 0 dose .XX ASDIRECTED PRN PRN Reason: RX TO DOSE VANCO Discontinued Medications Bupivacaine HCl (Marcaine 0.5%) Confirm Administered Dose 30 ml .ROUTE .STK-MED ONE Stop: 04/25/18 18:23 Last Admin: 04/25/18 19:53 Dose: 1.5 ml Clindamycin Phosphate (Cleocin) Confirm Administered Dose 900 mg .ROUTE .STK- MED ONE Stop: 04/25/18 19:11 Fentanyl (Sublimaze) Confirm Administered Dose 250 mcg .ROUTE .STK-MED ONE Stop: 04/25/18 18:38 Fentanyl (Sublimaze) 50 mcg IVPUSH Q5M PRN PRN Reason: Pain Fentanyl (Sublimaze) Confirm Administered Dose 100 mcg .ROUTE .STK-MED ONE Stop: 04/26/18 09:03 Fentanyl (Sublimaze) Confirm Administered Dose 100 mcg .ROUTE .STK-MED ONE Stop: 04/26/18 10:07 Fentanyl (Sublimaze) 50 mcg IVPUSH Q5M PRN PRN Reason: pain Stop: 04/26/18 18:00 Gadobenate Dimeglumine (Multihance) 16 ml IVPUSH ONETIME ONE Stop: 04/27/18 13:03 Last Admin: 04/27/18 13:42 Dose: Not Given Hydromorphone HCl (Dilaudid) 0.5 mg IVPUSH ONETIME ONE Stop: 04/25/18 15:30 Last Admin: 04/25/18 16:01 Dose: 0.5 mg Hydromorphone HCl (Dilaudid) Confirm Administered Dose 1 mg .ROUTE .STK-MED ONE Stop: 04/25/18 19:03 Hydromorphone HCl (Dilaudid) 0.5 mg IVPUSH ONETIME PRN PRN Reason: Pain (severe 7-10) Hydromorphone HCl (Dilaudid) 0.5 mg IVPUSH ONETIME PRN PRN Reason: Pain (severe 7-10) Stop: 04/26/18 18:00 Sodium Chloride (Normal Saline) 1,000 mls @ 999 mls/hr IV ONETIME ONE Stop: 04/25/18 16:28 Last Admin: 04/25/18 15:59 Dose: 999 mls/hr Vancomycin HCl 1 gm/ Sodium (Chloride) 250 mls @ 250 mls/hr IV ONETIME ONE Stop: 04/25/18 16:36 Last Admin: 04/25/18 16:10 Dose: 250 mls/hr Vancomycin HCl 1 gm/ Sodium (Chloride) 250 mls @ 250 mls/hr IV ONETIME ONE Stop: 04/25/18 16:37 Last Admin: 04/25/18 17:09 Dose: 250 mls/hr Sodium Chloride (Normal Saline) 1,000 mls @ 999 mls/hr IV ONETIME ONE Stop: 04/25/18 17:57 Last Admin: 04/25/18 17:09 Dose: 999 mls/hr Piperacillin Sod/Tazobactam (Sod 4.5 gm/ Sodium Chloride) 100 mls @ 200 mls/hr IV ONETIME ONE Stop: 04/25/18 18:24 Last Admin: 04/25/18 18:18 Dose: 200 mls/hr Vancomycin HCl 1 gm/ Sodium (Chloride) 250 mls @ 250 mls/hr IV Q8H [facility] Last Admin: 04/26/18 19:53 Dose: Not Given Lidocaine HCl (Xylocaine-Mpf 1%) Confirm Administered Dose 4 mls @ as directed .ROUTE .STK-MED ONE Stop: 04/25/18 18:38 Clindamycin Phosphate 900 mg/ (Sodium Chloride) 106 mls @ 100 mls/hr IV Q8H [facility] Last Admin: 04/28/18 10:33 Dose: 100 mls/hr Sodium Chloride (Normal Saline) Confirm Administered Dose 100 mls @ as directed .ROUTE .STK-MED ONE Stop: 04/25/18 19:11 Lactated Ringer's (Ringers, Lactated) Confirm Administered Dose 1,000 mls @ as directed .ROUTE .STK-MED ONE Stop: 04/26/18 10:10 Vancomycin HCl 1 gm/Vancomycin HCl 250 mg/ Sodium Chloride 250 mls @ 250 mls/ hr IV Q8H [facility] Last Admin: 04/28/18 08:42 Dose: 250 mls/hr Sodium Chloride (Normal Saline) 1,000 mls @ 125 mls/hr IV ASDIRECTED [facility] Last Admin: 04/29/18 06:35 Dose: 125 mls/hr Magnesium Sulfate 4 gm/ Premix 100 mls @ 25 mls/hr IV ONETIME ONE Stop: 04/28/18 13:59 Last Admin: 04/28/18 10:13 Dose: 25 mls/hr Vancomycin HCl 1.5 gm/ Sodium (Chloride) 500 mls @ 250 mls/hr IV Q8H [facility] Last Admin: 04/29/18 08:28 Dose: 250 mls/hr Ketamine HCl (Ketalar) Confirm Administered Dose 500 mg .ROUTE .STK-MED ONE Stop: 04/25/18 19:11 Ketamine HCl (Ketalar) Confirm Administered Dose 500 mg .ROUTE .STK-MED ONE Stop: 04/26/18 10:07 Lidocaine/Epinephrine (Xylocaine 1% With Epinephrine 1:100,000) Confirm Administered Dose 20 ml .ROUTE .STK-MED ONE Stop: 04/25/18 18:23 Last Admin: 04/25/18 19:53 Dose: 1.5 ml Lisinopril (Prinivil) 10 mg PO DAILY [facility] Last Admin: 04/29/18 08:37 Dose: 10 mg Metformin HCl (Glucophage) 500 mg PO BIDMEALS [facility] Last Admin: 04/29/18 07:06 Dose: 500 mg Metformin HCl (Glucophage) 500 mg PO ONETIME ONE Stop: 04/25/18 23:01 Last Admin: 04/25/18 23:10 Dose: 500 mg Midazolam HCl (Versed 1 Mg/Ml) Confirm Administered Dose 2 mg .ROUTE .STK-MED ONE Stop: 04/25/18 18:38 Midazolam HCl (Versed 1 Mg/Ml) Confirm Administered Dose 2 mg .ROUTE .STK-MED ONE Stop: 04/26/18 09:03 Ondansetron HCl (Zofran) 4 mg IVPUSH ONETIME ONE Stop: 04/25/18 15:30 Last Admin: 04/25/18 16:03 Dose: 4 mg Ondansetron HCl (Zofran) Confirm Administered Dose 4 mg .ROUTE .STK-MED ONE Stop: 04/25/18 18:38 Ondansetron HCl (Zofran) 4 mg IVPUSH ONETIME PRN PRN Reason: Nausea/Vomiting Ondansetron HCl (Zofran) Confirm Administered Dose 4 mg .ROUTE .STK-MED ONE Stop: 04/26/18 10:10 Potassium Chloride (Klor-Con M20) 40 meq PO ONETIME ONE Stop: 04/27/18 09:01 Last Admin: 04/27/18 10:08 Dose: 40 meq Potassium Chloride (Klor-Con M20) 40 meq PO Q4H [facility] Stop: 04/29/18 19:01 Last Admin: 04/29/18 18:07 Dose: 40 meq Propofol (Diprivan 20 Ml) Confirm Administered Dose 200 mg .ROUTE .STK-MED ONE Stop: 04/25/18 18:38 Propofol (Diprivan 20 Ml) Confirm Administered Dose 400 mg .ROUTE .STK-MED ONE Stop: 04/26/18 09:03 Propofol (Diprivan 20 Ml) Confirm Administered Dose 200 mg .ROUTE .STK-MED ONE Stop: 04/26/18 10:38 Sodium Chloride (Saline Flush) 10 ml FLUSH ASDIRECTED PRN PRN Reason: Keep Vein Open Last Admin: 04/25/18 16:00 Dose: 10 ml Succinylcholine Chloride (Succinylcholine In Ns Pf) Confirm Administered Dose 100 mg .ROUTE .STK-MED ONE Stop: 04/25/18 18:38 Vancomycin HCl (Vancomycin) 1,190.685 mg 15 mg/kg (1190.685 mg) IV Q12H [facility] Last Admin: 04/25/18 18:15 Dose: Not Given - Exam General: Alert, Oriented, Cooperative, No Acute Distress HEENT: Pupils Equal, Pupils Reactive, EOMI, Mucous Membr. Moist/[place] Neck: Supple, Trachea Midline, No JVD, No Thyromegaly Lungs: Clear to Auscultation, Normal Respiratory Effort Cardiovascular: Regular Rate, Regular Rhythm GI/Abdominal Exam: Normal Bowel Sounds, Soft, Non-Tender, No Organomegaly, No Distention, No Abnormal Bruit, No Mass (Male) Exam: Deferred Back Exam: Normal Inspection, Decreased Range of Motion Extremities: Normal Inspection, Normal Range of Motion, Non-Tender, No Pedal Edema, Normal Capillary Refill, Other (right foot: dressed ashley wrapped with gauze) Peripheral Pulses: 2+: Posterior Tibial (L), Posterior Tibial (R), Dorsalis Pedis (L) Skin: Warm, Dry, Intact Wound/Incisions: Dressing Dry and Intact, No Drainage Neurological: No New Focal Deficit. No: Normal Gait Psy/Mental Status: Alert, Normal Affect, Normal Mood - Problem List Review Problem List Initiated/Reviewed/Updated: Yes - My Orders Last 24 Hours: My Active Orders 04/29/18 10:13 Wound Care [RC] DAILY 04/29/18 17:00 metFORMIN [Glucophage] 1,000 mg PO BIDMEALS 04/29/18 22:00 Vancomycin 1 gm Vancomycin 250 mg Sodium Chloride 0.9% [Normal Saline] 250 ml IV Q8H 04/30/18 09:00 Lisinopril [Prinivil] 20 mg PO DAILY 05/01/18 05:11 BASIC METABOLIC PANEL,BMP [CHEM] AM C-REACTIVE PROTEIN [CHEM] AM CBC WITH AUTO DIFF [HEME] AM MAGNESIUM [CHEM] AM - Assessment Assessment:: Assessment/Plan: Acute: Diabetic Foot Ulcer w/ Osteomyelities * Open ulcer with drainage located on plantar aspect of right foot beneath great toe * WBC 18.92--> 13.89 --> 14.81 --> 12.56--> 13.73--> 16.84 * CRP 36 --> 23.4 --> 23.1 --> 23.6--> 19--> 20.5 * Cultures positive for S. 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 Joyner, orthopedic surgeon * Plans to operate on Tuesday05/02/18 * Amputation of 4th toe and possible amputation of 5th toe if there is no improvement over the weekend * NPO after evening of 05/01 in preparation for surgery * Broad spectrum IV antibiotics--> Abx management defer to the surgical team * Vancomycin and clindamycin initiated prior to culture results - these will be continued * Piperacillin/tazobactum added to the regimen * PICC line placed today for administration of antibiotics * Pain medications PRN * MRI on 04/27 found osteomyelitis * DVT prophylaxis lovenox * Surgery consult * Dr. Tamez performed debridement shortly after admission on the evening of 04/25 * Repeat debridement 04/26 * Discussed need for mcfp solution * Will require extended diabetic services and wound care following discharge * Patient would like to stay in [place] if possible - will have to check if local [facility] have necessary services * Otherwise may have to go to facility in [place] Diabetes mellitus * Glucose 355 and HgbA1c 11.8 upon admission * Denies personal or family history of diabetes * Patient informed of diabetic status; he is surprised but understands diagnosis * Initially started on insulin, metformin, and glipizide * Glucose has been well controlled - 137 this AM * Alter medications as needed * Aspirin, statin, and JORGE inhibitor added to treatment regimen * Lipid panel unremarkable other than reduced HDL * Urine negative for micro-albumin * 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 dif * Continue to monitor * Hypokalemia * K 3.2--> 4.0 * 2/2 inadequate intake * Replete and monitor Plan: He remains clinically stable Continue current treatment Routine AM labs Wound Care Continue PT/OT tx Increased Lisinopril dose to 20 mg po daily SW/CM for d/c planning Code status: 1 Discharge likely to [facility] pending surgery on Tuesday LOS > 96 hrs pending surgery and placement
[2018-04-30] MEDS: Ondansetron 4 MG/2 ML SDV IV PRN (10:15)
[2018-04-30] MEDS ORDERED: Scopolamine 1.5 MG Transdermal Patch TRDERM PRN (12:10)
[2018-04-30] MEDS: Acetaminophen/HYDROcodone 325-5 MG Tab PO PRN (14:39)
--- NOTE | 2018-04-30 15:24 | PCM.CONSN ---
- General Info Date of Service: 04/30/18 Admission Dx/Problem (Free Text): Admission Diagnosis/Problem RIGHT foot soft tissue infection Subjective Update: This morning, patient had nausea/emesis. Was given Zofran and scopolamine patch , with improvement in symptoms. He tolerated lunch without problems. Reports no changes in pain, controlled with [place] and PRN Dilaudid. - Patient Data Vitals - Most Recent: Last Vital Signs Temp 38.1 C 04/30/18 12:16 Pulse 104 H 04/30/18 12:16 Resp 16 04/30/18 12:16 BP 137/80 04/30/18 12:16 Pulse Ox 98 04/30/18 12:16 Weight - Most Recent: 86.364 kg I&O - Last 24 Hours: Intake & Output 04/30/18 04/30/18 04/30/18 06:59 14:59 22:59 Intake Total 1950 960 Output Total 1200 Balance 750 960 Lab Results Last 24 Hours: Laboratory Results - last 24 hr 04/29/18 04/29/18 04/29/18 Range/Units 15:33 17:04 20:49 WBC (4.23-9.07) K/mm3 RBC (4.63-6.08) M/mm3 Hgb (13.7-17.5) gm/L Hct (40.1-51.0) % MCV (79.0-92.2) fl MCH (25.7-32.2) pg MCHC (32.2-35.5) g/dl RDW Std Deviation (35.1-43.9) fL Plt Count (163-337) K/mm3 MPV (9.4-12.3) fl Neut % (Auto) (34.0-67.9) % Lymph % (Auto) (21.8-53.1) % [place] % (Auto) (5.3-12.2) % Eos % (Auto) (0.8-7.0) Baso % (Auto) (0.1-1.2) % Neut # (Auto) (1.78-5.38) K/mm3 Lymph # (Auto) (1.32-3.57) K/mm3 [place] # (Auto) (0.30-0.82) K/mm3 Eos # (Auto) (0.04-0.54) K/mm3 Baso # (Auto) (0.01-0.08) K/mm3 Manual Slide Review Sodium (136-145) mEq/L Potassium (3.5-5.1) mEq/L Chloride (98-107) mEq/L Carbon Dioxide (21-32) mEq/L Anion Gap (5-15) BUN (7-18) mg/dL Creatinine (0.7-1.3) mg/dL Est Cr Clr Drug Dosing mL/min Estimated GFR (MDRD) (>60) mL/min BUN/Creatinine Ratio (14-18) Glucose (74-106) mg/dL POC Glucose 126 H 181 H (70-105) mg/dL Calcium (8.5-10.1) mg/dL Magnesium (1.8-2.4) mg/dl C-Reactive Protein (<1.0) mg/dL Vancomycin Trough 20.5 H (10.0-20.0) 04/30/18 04/30/18 04/30/18 Range/Units 06:20 06:20 06:46 WBC 16.84 H (4.23-9.07) K/mm3 RBC 4.06 L (4.63-6.08) M/mm3 Hgb 11.2 L (13.7-17.5) gm/L Hct 33.9 L (40.1-51.0) % MCV 83.5 (79.0-92.2) fl MCH 27.6 (25.7-32.2) pg MCHC 33.0 (32.2-35.5) g/dl RDW Std Deviation 41.8 (35.1-43.9) fL Plt Count 322 (163-337) K/mm3 MPV 9.0 L (9.4-12.3) fl Neut % (Auto) 84.1 H (34.0-67.9) % Lymph % (Auto) 8.1 L (21.8-53.1) % [place] % (Auto) 6.7 (5.3-12.2) % Eos % (Auto) 0.7 L (0.8-7.0) Baso % (Auto) 0.1 (0.1-1.2) % Neut # (Auto) 14.16 H (1.78-5.38) K/mm3 Lymph # (Auto) 1.37 (1.32-3.57) K/mm3 [place] # (Auto) 1.13 H (0.30-0.82) K/mm3 Eos # (Auto) 0.11 (0.04-0.54) K/mm3 Baso # (Auto) 0.02 (0.01-0.08) K/mm3 Manual Slide Review Abnormal smear Sodium 139 (136-145) mEq/L Potassium 4.0 (3.5-5.1) mEq/L Chloride 105 (98-107) mEq/L Carbon Dioxide 21 (21-32) mEq/L Anion Gap 17.0 H (5-15) BUN 9 (7-18) mg/dL Creatinine 1.1 (0.7-1.3) mg/dL Est Cr Clr Drug Dosing 78.14 mL/min Estimated GFR (MDRD) > 60 (>60) mL/min BUN/Creatinine Ratio 8.2 L (14-18) Glucose 128 H (74-106) mg/dL POC Glucose 137 H (70-105) mg/dL Calcium 8.6 (8.5-10.1) mg/dL Magnesium 2.0 (1.8-2.4) mg/dl C-Reactive Protein 20.5 H* (<1.0) mg/dL Vancomycin Trough (10.0-20.0) 04/30/18 Range/Units 12:14 WBC (4.23-9.07) K/mm3 RBC (4.63-6.08) M/mm3 Hgb (13.7-17.5) gm/L Hct (40.1-51.0) % MCV (79.0-92.2) fl MCH (25.7-32.2) pg MCHC (32.2-35.5) g/dl RDW Std Deviation (35.1-43.9) fL Plt Count (163-337) K/mm3 MPV (9.4-12.3) fl Neut % (Auto) (34.0-67.9) % Lymph % (Auto) (21.8-53.1) % [place] % (Auto) (5.3-12.2) % Eos % (Auto) (0.8-7.0) Baso % (Auto) (0.1-1.2) % Neut # (Auto) (1.78-5.38) K/mm3 Lymph # (Auto) (1.32-3.57) K/mm3 [place] # (Auto) (0.30-0.82) K/mm3 Eos # (Auto) (0.04-0.54) K/mm3 Baso # (Auto) (0.01-0.08) K/mm3 Manual Slide Review Sodium (136-145) mEq/L Potassium (3.5-5.1) mEq/L Chloride (98-107) mEq/L Carbon Dioxide (21-32) mEq/L Anion Gap (5-15) BUN (7-18) mg/dL Creatinine (0.7-1.3) mg/dL Est Cr Clr Drug Dosing mL/min Estimated GFR (MDRD) (>60) mL/min BUN/Creatinine Ratio (14-18) Glucose (74-106) mg/dL POC Glucose 127 H (70-105) mg/dL Calcium (8.5-10.1) mg/dL Magnesium (1.8-2.4) mg/dl C-Reactive Protein (<1.0) mg/dL Vancomycin Trough (10.0-20.0) Fabian Results Last 24 Hours: Microbiology 04/25/18 15:56 Gram Stain - Final Foot, Right Anaerobic Culture - Final Staphylococcus Aureus Beta Streptococcus Group B Peptostreptococcus Species 04/25/18 15:55 Aerobic Blood Culture - Preliminary Blood - Venous NO GROWTH AFTER 4 DAYS Anaerobic Blood Culture - Preliminary NO GROWTH AFTER 4 DAYS 04/25/18 15:50 Aerobic Blood Culture - Preliminary Blood - Venous - Lab Draw NO GROWTH AFTER 4 DAYS Anaerobic Blood Culture - Preliminary NO GROWTH AFTER 4 DAYS Med Orders - Current: Current Medications Acetaminophen (Tylenol) 650 mg PO Q4H PRN PRN Reason: Pain (Mild 1-3)/fever Hydrocodone Bitart/Acetaminophen ([place] 325-5 Mg) 1 tab PO Q4H PRN PRN Reason: Pain (moderate 4-6) Last Admin: 04/30/18 14:39 Dose: 1 tab Albuterol/Ipratropium (Duoneb 3.0-0.5 Mg/3 Ml) 3 ml NEB Q4H PRN PRN Reason: Shortness Of Breath/wheezing Aspirin (Aspirin) 81 mg PO BEDTIME [facility] Last Admin: 04/29/18 21:05 Dose: 81 mg Bisacodyl (Dulcolax) 5 mg PO DAILY PRN PRN Reason: Constipation Docusate Sodium (Colace) 100 mg PO BID PRN PRN Reason: Constipation Enoxaparin Sodium (Lovenox) 40 mg SUBCUT DAILY [facility] Last Admin: 04/30/18 08:07 Dose: 40 mg Glipizide (Glucotrol Xl) 5 mg PO BIDMEALS [facility] Last Admin: 04/30/18 06:35 Dose: 5 mg Hydromorphone HCl (Dilaudid) 0.5 mg IVPUSH Q4H PRN PRN Reason: Pain (severe 7-10) Last Admin: 04/29/18 15:50 Dose: 0.5 mg Promethazine HCl 12.5 mg/ (Sodium Chloride) 50.5 mls @ 100 mls/hr IV Q6H PRN PRN Reason: Nausea/Vomiting Piperacillin Sod/Tazobactam (Sod 4.5 gm/ Sodium Chloride) 100 mls @ 25 mls/hr IV Q8H [facility] Last Admin: 04/30/18 15:12 Dose: 25 mls/hr Vancomycin HCl 1 gm/Vancomycin HCl 250 mg/ Sodium Chloride 250 mls @ 250 mls/ hr IV Q8H [facility] Last Admin: 04/30/18 13:23 Dose: 250 mls/hr Insulin Glargine (Lantus Solostar) 5 units SUBCUT BIDAC [facility] Last Admin: 04/30/18 06:35 Dose: 5 units Insulin Human Lispro (Humalog) 0 unit SUBCUT QIDACANDBED [facility]; Protocol Last Admin: 04/30/18 12:43 Dose: Not Given Lisinopril (Prinivil) 20 mg PO DAILY [facility] Last Admin: 04/30/18 08:07 Dose: 20 mg Lorazepam (Ativan) 1 mg IV Q6H PRN PRN Reason: Nausea/Vomiting Magnesium Sulfate (Pharmacy To Dose - Magnesium Replacement) 0 dose .XX ASDIRECTED PRN PRN Reason: RX TO WATCH MAG LEVELS Metformin HCl (Glucophage) 1,000 mg PO BIDMEALS [facility] Last Admin: 04/30/18 06:35 Dose: 1,000 mg Ondansetron HCl (Zofran) 4 mg IV Q6H PRN PRN Reason: Nausea/Vomiting Last Admin: 04/30/18 10:15 Dose: 4 mg Polyethylene Glycol (Miralax) 17 gm PO DAILY PRN PRN Reason: Constipation Potassium Chloride (Pharmacy To Dose - Potassium Replacement) 0 dose .XX ASDIRECTED PRN PRN Reason: RX TO WATCH K LEVELS Saccharomyces Boulardii (Florastor) 250 mg PO DAILY [facility] Last Admin: 04/30/18 08:07 Dose: 250 mg Scopolamine (Transderm-Scop) 1.5 mg TRDERM Q72H PRN PRN Reason: Nausea/Vomiting Last Admin: 04/30/18 12:41 Dose: 1.5 mg Senna/Docusate Sodium (Senna Plus) 1 tab PO BID PRN PRN Reason: Constipation Sodium Chloride (Saline Flush) 10 ml FLUSH ASDIRECTED [facility] Last Admin: 04/27/18 13:45 Dose: 10 ml Temazepam (Restoril) 15 mg PO BEDTIME PRN PRN Reason: Sleep Vancomycin HCl (Pharmacy To Dose - Vancomycin) 0 dose .XX ASDIRECTED PRN PRN Reason: RX TO DOSE VANCO Discontinued Medications Bupivacaine HCl (Marcaine 0.5%) Confirm Administered Dose 30 ml .ROUTE .STK-MED ONE Stop: 04/25/18 18:23 Last Admin: 04/25/18 19:53 Dose: 1.5 ml Clindamycin Phosphate (Cleocin) Confirm Administered Dose 900 mg .ROUTE .STK- MED ONE Stop: 04/25/18 19:11 Fentanyl (Sublimaze) Confirm Administered Dose 250 mcg .ROUTE .STK-MED ONE Stop: 04/25/18 18:38 Fentanyl (Sublimaze) 50 mcg IVPUSH Q5M PRN PRN Reason: Pain Fentanyl (Sublimaze) Confirm Administered Dose 100 mcg .ROUTE .STK-MED ONE Stop: 04/26/18 09:03 Fentanyl (Sublimaze) Confirm Administered Dose 100 mcg .ROUTE .STK-MED ONE Stop: 04/26/18 10:07 Fentanyl (Sublimaze) 50 mcg IVPUSH Q5M PRN PRN Reason: pain Stop: 04/26/18 18:00 Gadobenate Dimeglumine (Multihance) 16 ml IVPUSH ONETIME ONE Stop: 04/27/18 13:03 Last Admin: 04/27/18 13:42 Dose: Not Given Hydromorphone HCl (Dilaudid) 0.5 mg IVPUSH ONETIME ONE Stop: 04/25/18 15:30 Last Admin: 04/25/18 16:01 Dose: 0.5 mg Hydromorphone HCl (Dilaudid) Confirm Administered Dose 1 mg .ROUTE .STK-MED ONE Stop: 04/25/18 19:03 Hydromorphone HCl (Dilaudid) 0.5 mg IVPUSH ONETIME PRN PRN Reason: Pain (severe 7-10) Hydromorphone HCl (Dilaudid) 0.5 mg IVPUSH ONETIME PRN PRN Reason: Pain (severe 7-10) Stop: 04/26/18 18:00 Sodium Chloride (Normal Saline) 1,000 mls @ 999 mls/hr IV ONETIME ONE Stop: 04/25/18 16:28 Last Admin: 04/25/18 15:59 Dose: 999 mls/hr Vancomycin HCl 1 gm/ Sodium (Chloride) 250 mls @ 250 mls/hr IV ONETIME ONE Stop: 04/25/18 16:36 Last Admin: 04/25/18 16:10 Dose: 250 mls/hr Vancomycin HCl 1 gm/ Sodium (Chloride) 250 mls @ 250 mls/hr IV ONETIME ONE Stop: 04/25/18 16:37 Last Admin: 04/25/18 17:09 Dose: 250 mls/hr Sodium Chloride (Normal Saline) 1,000 mls @ 999 mls/hr IV ONETIME ONE Stop: 04/25/18 17:57 Last Admin: 04/25/18 17:09 Dose: 999 mls/hr Piperacillin Sod/Tazobactam (Sod 4.5 gm/ Sodium Chloride) 100 mls @ 200 mls/hr IV ONETIME ONE Stop: 04/25/18 18:24 Last Admin: 04/25/18 18:18 Dose: 200 mls/hr Vancomycin HCl 1 gm/ Sodium (Chloride) 250 mls @ 250 mls/hr IV Q8H [place] Last Admin: 04/26/18 19:53 Dose: Not Given Lidocaine HCl (Xylocaine-Mpf 1%) Confirm Administered Dose 4 mls @ as directed .ROUTE .STK-MED ONE Stop: 04/25/18 18:38 Clindamycin Phosphate 900 mg/ (Sodium Chloride) 106 mls @ 100 mls/hr IV Q8H [facility] Last Admin: 04/28/18 10:33 Dose: 100 mls/hr Sodium Chloride (Normal Saline) Confirm Administered Dose 100 mls @ as directed .ROUTE .[facility] ONE Stop: 04/25/18 19:11 Lactated Ringer's (Ringers, Lactated) Confirm Administered Dose 1,000 mls @ as directed .ROUTE .[facility] ONE Stop: 04/26/18 10:10 Vancomycin HCl 1 gm/Vancomycin HCl 250 mg/ Sodium Chloride 250 mls @ 250 mls/ hr IV Q8H [facility] Last Admin: 04/28/18 08:42 Dose: 250 mls/hr Sodium Chloride (Normal Saline) 1,000 mls @ 125 mls/hr IV ASDIRECTED [facility] Last Admin: 04/29/18 06:35 Dose: 125 mls/hr Magnesium Sulfate 4 gm/ Premix 100 mls @ 25 mls/hr IV ONETIME ONE Stop: 04/28/18 13:59 Last Admin: 04/28/18 10:13 Dose: 25 mls/hr Vancomycin HCl 1.5 gm/ Sodium (Chloride) 500 mls @ 250 mls/hr IV Q8H [facility] Last Admin: 04/29/18 08:28 Dose: 250 mls/hr Ketamine HCl (Ketalar) Confirm Administered Dose 500 mg .ROUTE .[facility] ONE Stop: 04/25/18 19:11 Ketamine HCl (Ketalar) Confirm Administered Dose 500 mg .ROUTE .[facility] ONE Stop: 04/26/18 10:07 Lidocaine/Epinephrine (Xylocaine 1% With Epinephrine 1:100,000) Confirm Administered Dose 20 ml .ROUTE .[facility] ONE Stop: 04/25/18 18:23 Last Admin: 04/25/18 19:53 Dose: 1.5 ml Lisinopril (Prinivil) 10 mg PO DAILY [facility] Last Admin: 04/29/18 08:37 Dose: 10 mg Metformin HCl (Glucophage) 500 mg PO BIDMEALS [facility] Last Admin: 04/29/18 07:06 Dose: 500 mg Metformin HCl (Glucophage) 500 mg PO ONETIME ONE Stop: 04/25/18 23:01 Last Admin: 04/25/18 23:10 Dose: 500 mg Midazolam HCl (Versed 1 Mg/Ml) Confirm Administered Dose 2 mg .ROUTE .STK-MED ONE Stop: 04/25/18 18:38 Midazolam HCl (Versed 1 Mg/Ml) Confirm Administered Dose 2 mg .ROUTE .STK-MED ONE Stop: 04/26/18 09:03 Ondansetron HCl (Zofran) 4 mg IVPUSH ONETIME ONE Stop: 04/25/18 15:30 Last Admin: 04/25/18 16:03 Dose: 4 mg Ondansetron HCl (Zofran) Confirm Administered Dose 4 mg .ROUTE .STK-MED ONE Stop: 04/25/18 18:38 Ondansetron HCl (Zofran) 4 mg IVPUSH ONETIME PRN PRN Reason: Nausea/Vomiting Ondansetron HCl (Zofran) Confirm Administered Dose 4 mg .ROUTE .STK-MED ONE Stop: 04/26/18 10:10 Potassium Chloride (Klor-Con M20) 40 meq PO ONETIME ONE Stop: 04/27/18 09:01 Last Admin: 04/27/18 10:08 Dose: 40 meq Potassium Chloride (Klor-Con M20) 40 meq PO Q4H [place] Stop: 04/29/18 19:01 Last Admin: 04/29/18 18:07 Dose: 40 meq Propofol (Diprivan 20 Ml) Confirm Administered Dose 200 mg .ROUTE .STK-MED ONE Stop: 04/25/18 18:38 Propofol (Diprivan 20 Ml) Confirm Administered Dose 400 mg .ROUTE .STK-MED ONE Stop: 04/26/18 09:03 Propofol (Diprivan 20 Ml) Confirm Administered Dose 200 mg .ROUTE .STK-MED ONE Stop: 04/26/18 10:38 Sodium Chloride (Saline Flush) 10 ml FLUSH ASDIRECTED PRN PRN Reason: Keep Vein Open Last Admin: 04/25/18 16:00 Dose: 10 ml Succinylcholine Chloride (Succinylcholine In Ns Pf) Confirm Administered Dose 100 mg .ROUTE .STK-MED ONE Stop: 04/25/18 18:38 Vancomycin HCl (Vancomycin) 1,190.685 mg 15 mg/kg (1190.685 mg) IV Q12H [facility] Last Admin: 04/25/18 18:15 Dose: Not Given - Exam General: Alert, Oriented, Cooperative Extremities: Other (Stable appearance to RIGHT foot wound, with open wound along the plantar surface distally, extending into the 3th/4th digit webspace. Wound base without purulence. RIGHT toe is necrotic. Decreased sensation to light touch to RIGHT 4th digit. Sensation and motor intact to remaining toes, with normal cap refill. Foot erythema and warmth stable.) Consult PN Assessment/Plan (1) Foot abscess, right SNOMED Code(s): 850407646 Code(s): L02.611 - CUTANEOUS ABSCESS OF RIGHT FOOT Current Visit: Yes Problem List Initiated/Reviewed/Updated: Yes Plan: 42 yo male, HD#6 for RIGHT foot soft tissue infection with abscess, newly diagnosed diabetes, POD#5 for initial I&D and debridement, POD#4 for repeat debridement and washout/dressing change. Infection has resulted in necrosis to the RIGHT 4th toe, with concern for viability of the RIGHT 5th toe. MRI demonstrates evidence of osteomyelitis. PICC line has been placed in anticipation of long-term antibiotics. Appreciate input from Orthopedics marketing operations consultant, Dr. Joyner. He plans to perform amputation of the necrotic toe(s) in a few days (possible May 02). - Local wound care and surgical care at the direction of Dr. Joyner. I will also assist with local wound care. Dressing change with wet-to-dry gauze performed at the bedside today. - Culture of foot wound shows polymicrobial growth with Beta Strep group B and Staph aureus. Continue broad-spectrum antibiotics (vancomycin IV, Zosyn IV). - Appreciate primary management, with blood sugar control, by hospitalist service, Dr. Masterson. Plan of care discussed with patient. Arsen Gaston M.D., F.A.C.S. General Surgery Pager: [phone]
[2018-04-30] MEDS: Aspirin 81 MG Tab.Chew PO SCH (22:48)
[2018-05-01] MEDS: Acetaminophen/HYDROcodone 325-5 MG Tab PO PRN ×2 (03:10→15:50)
[2018-05-01] MEDS: glipiZIDE 5 MG Tab.ER PO SCH ×2 (06:16→17:06)
[2018-05-01] MEDS: metFORMIN 500 MG Tab PO SCH ×2 (06:17→17:06)
[2018-05-01] MEDS: Insulin Glargine,Human Rec. Analog 100 Units/ML 3 ML Pen SUBCUT SCH ×2 (06:17→17:04)
[2018-05-01] MEDS: Insulin Lispro 100 Unit/ML 3 ML KwikPen SUBCUT SCH ×4 (06:46→21:11)
[2018-05-01] MEDS: Piperacillin/Tazobactam 4.5 GM in Sodium Chloride 0.9% 100 ML IV SCH ×2 (07:59→15:52)
[2018-05-01] MEDS: Saccharomyces Boulardii (Probiotic) 250 MG Cap PO SCH (08:06)
[2018-05-01] MEDS: Enoxaparin 40 MG/0.4 ML Syringe SUBCUT SCH (08:06)
[2018-05-01] MEDS: Lisinopril 20 MG Tab PO SCH (08:06)
--- NOTE | 2018-05-01 08:52 | PCM.PN ---
- General Info Date of Service: 05/01/18 Admission Dx/Problem (Free Text): Admission Diagnosis/Problem RIGHT foot soft tissue infection Subjective Update: Follow Up Functional Status: Reports: Pain Controlled, Tolerating Diet, Urinating. Denies : New Symptoms - Review of Systems General: Denies: Fever, Weakness, Fatigue, Malaise, Chills HEENT: Reports: No Symptoms Pulmonary: Denies: Shortness of Breath Cardiovascular: Denies: Chest Pain, Dyspnea on Exertion, Lightheadedness Gastrointestinal: Denies: Abdominal Pain, Diarrhea, Nausea, Vomiting Genitourinary: Reports: No Symptoms Musculoskeletal: Reports: No Symptoms Skin: Denies: Cyanosis, Mottled, Pallor, Diaphoresis, Rash Neurological: Reports: Difficulty Walking, Gait Disturbance. Denies: Confusion , Weakness Psychiatric: Denies: Depression, Anxiety, Agitation, Hallucinations Systems Review Comment:: No overnight or acute issues. He rested well. He has no complaints. His glucose started go up. His most recent level is at 213. His CRP is now at 16.5. - Patient Data Vitals - Most Recent: Last Vital Signs Temp 36.8 C 05/01/18 07:58 Pulse 95 05/01/18 07:58 Resp 16 05/01/18 07:58 BP 122/83 05/01/18 08:06 Pulse Ox 99 05/01/18 07:58 Weight - Most Recent: 85.786 kg I&O - Last 24 Hours: Intake & Output 04/30/18 05/01/18 05/01/18 22:59 06:59 14:59 Intake Total 1800 2700 Output Total 2400 1900 Balance -600 800 Lab Results Last 24 Hours: Laboratory Results - last 24 hr 04/30/18 04/30/18 04/30/18 Range/Units 12:14 17:23 21:01 WBC (4.23-9.07) K/mm3 RBC (4.63-6.08) M/mm3 Hgb (13.7-17.5) gm/L Hct (40.1-51.0) % MCV (79.0-92.2) fl MCH (25.7-32.2) pg MCHC (32.2-35.5) g/dl RDW Std Deviation (35.1-43.9) fL Plt Count (163-337) K/mm3 MPV (9.4-12.3) fl Neut % (Auto) (34.0-67.9) % Lymph % (Auto) (21.8-53.1) % [place] % (Auto) (5.3-12.2) % Eos % (Auto) (0.8-7.0) Baso % (Auto) (0.1-1.2) % Neut # (Auto) (1.78-5.38) K/mm3 Lymph # (Auto) (1.32-3.57) K/mm3 [place] # (Auto) (0.30-0.82) K/mm3 Eos # (Auto) (0.04-0.54) K/mm3 Baso # (Auto) (0.01-0.08) K/mm3 Manual Slide Review Sodium (136-145) mEq/L Potassium (3.5-5.1) mEq/L Chloride (98-107) mEq/L Carbon Dioxide (21-32) mEq/L Anion Gap (5-15) BUN (7-18) mg/dL Creatinine (0.7-1.3) mg/dL Est Cr Clr Drug Dosing mL/min Estimated GFR (MDRD) (>60) mL/min BUN/Creatinine Ratio (14-18) Glucose (74-106) mg/dL POC Glucose 127 H 118 H 185 H (70-105) mg/dL Calcium (8.5-10.1) mg/dL Magnesium (1.8-2.4) mg/dl C-Reactive Protein (<1.0) mg/dL Vancomycin Trough (10.0-20.0) 04/30/18 05/01/18 05/01/18 Range/Units 22:11 05:40 05:40 WBC 13.52 H (4.23-9.07) K/mm3 RBC 3.63 L (4.63-6.08) M/mm3 Hgb 9.8 L (13.7-17.5) gm/L Hct 30.4 L (40.1-51.0) % MCV 83.7 (79.0-92.2) fl MCH 27.0 (25.7-32.2) pg MCHC 32.2 (32.2-35.5) g/dl RDW Std Deviation 41.2 (35.1-43.9) fL Plt Count 295 (163-337) K/mm3 MPV 9.2 L (9.4-12.3) fl Neut % (Auto) 82.4 H (34.0-67.9) % Lymph % (Auto) 10.5 L (21.8-53.1) % [place] % (Auto) 5.8 (5.3-12.2) % Eos % (Auto) 0.8 (0.8-7.0) Baso % (Auto) 0.1 (0.1-1.2) % Neut # (Auto) 11.12 H (1.78-5.38) K/mm3 Lymph # (Auto) 1.42 (1.32-3.57) K/mm3 [place] # (Auto) 0.79 (0.30-0.82) K/mm3 Eos # (Auto) 0.11 (0.04-0.54) K/mm3 Baso # (Auto) 0.02 (0.01-0.08) K/mm3 Manual Slide Review Abnormal smear Sodium 139 (136-145) mEq/L Potassium 3.6 (3.5-5.1) mEq/L Chloride 106 (98-107) mEq/L Carbon Dioxide 25 (21-32) mEq/L Anion Gap 11.6 (5-15) BUN 10 (7-18) mg/dL Creatinine 1.1 (0.7-1.3) mg/dL Est Cr Clr Drug Dosing 78.14 mL/min Estimated GFR (MDRD) > 60 (>60) mL/min BUN/Creatinine Ratio 9.1 L (14-18) Glucose 124 H (74-106) mg/dL POC Glucose (70-105) mg/dL Calcium 8.5 (8.5-10.1) mg/dL Magnesium 1.9 (1.8-2.4) mg/dl C-Reactive Protein 16.5 H* (<1.0) mg/dL Vancomycin Trough 17.5 (10.0-20.0) 05/01/18 Range/Units 05:46 WBC (4.23-9.07) K/mm3 RBC (4.63-6.08) M/mm3 Hgb (13.7-17.5) gm/L Hct (40.1-51.0) % MCV (79.0-92.2) fl MCH (25.7-32.2) pg MCHC (32.2-35.5) g/dl RDW Std Deviation (35.1-43.9) fL Plt Count (163-337) K/mm3 MPV (9.4-12.3) fl Neut % (Auto) (34.0-67.9) % Lymph % (Auto) (21.8-53.1) % [place] % (Auto) (5.3-12.2) % Eos % (Auto) (0.8-7.0) Baso % (Auto) (0.1-1.2) % Neut # (Auto) (1.78-5.38) K/mm3 Lymph # (Auto) (1.32-3.57) K/mm3 [place] # (Auto) (0.30-0.82) K/mm3 Eos # (Auto) (0.04-0.54) K/mm3 Baso # (Auto) (0.01-0.08) K/mm3 Manual Slide Review Sodium (136-145) mEq/L Potassium (3.5-5.1) mEq/L Chloride (98-107) mEq/L Carbon Dioxide (21-32) mEq/L Anion Gap (5-15) BUN (7-18) mg/dL Creatinine (0.7-1.3) mg/dL Est Cr Clr Drug Dosing mL/min Estimated GFR (MDRD) (>60) mL/min BUN/Creatinine Ratio (14-18) Glucose (74-106) mg/dL POC Glucose 130 H (70-105) mg/dL Calcium (8.5-10.1) mg/dL Magnesium (1.8-2.4) mg/dl C-Reactive Protein (<1.0) mg/dL Vancomycin Trough (10.0-20.0) [facility]ian Results Last 24 Hours: Microbiology 04/25/18 15:55 Aerobic Blood Culture - Preliminary Blood - Venous NO GROWTH AFTER 5 DAYS Anaerobic Blood Culture - Preliminary NO GROWTH AFTER 5 DAYS 04/25/18 15:50 Aerobic Blood Culture - Preliminary Blood - Venous - Lab Draw NO GROWTH AFTER 5 DAYS Anaerobic Blood Culture - Preliminary NO GROWTH AFTER 5 DAYS 04/25/18 15:56 Gram Stain - Final Foot, Right Anaerobic Culture - Final Staphylococcus Aureus Beta Streptococcus Group B Peptostreptococcus Species Med Orders - Current: Current Medications Acetaminophen (Tylenol) 650 mg PO Q4H PRN PRN Reason: Pain (Mild 1-3)/fever Hydrocodone Bitart/Acetaminophen ([place] 325-5 Mg) 1 tab PO Q4H PRN PRN Reason: Pain (moderate 4-6) Last Admin: 05/01/18 03:10 Dose: 1 tab Albuterol/Ipratropium (Duoneb 3.0-0.5 Mg/3 Ml) 3 ml NEB Q4H PRN PRN Reason: Shortness Of Breath/wheezing Aspirin (Aspirin) 81 mg PO BEDTIME [facility] Last Admin: 04/30/18 22:48 Dose: 81 mg Bisacodyl (Dulcolax) 5 mg PO DAILY PRN PRN Reason: Constipation Docusate Sodium (Colace) 100 mg PO BID PRN PRN Reason: Constipation Enoxaparin Sodium (Lovenox) 40 mg SUBCUT DAILY [facility] Last Admin: 05/01/18 08:06 Dose: 40 mg Glipizide (Glucotrol Xl) 5 mg PO BIDMEALS [facility] Last Admin: 05/01/18 06:16 Dose: 5 mg Hydromorphone HCl (Dilaudid) 0.5 mg IVPUSH Q4H PRN PRN Reason: Pain (severe 7-10) Last Admin: 04/29/18 15:50 Dose: 0.5 mg Promethazine HCl 12.5 mg/ (Sodium Chloride) 50.5 mls @ 100 mls/hr IV Q6H PRN PRN Reason: Nausea/Vomiting Piperacillin Sod/Tazobactam (Sod 4.5 gm/ Sodium Chloride) 100 mls @ 25 mls/hr IV Q8H [facility] Last Admin: 05/01/18 07:59 Dose: 25 mls/hr Vancomycin HCl 1 gm/Vancomycin HCl 250 mg/ Sodium Chloride 250 mls @ 250 mls/ hr IV Q8H [facility] Last Admin: 05/01/18 06:19 Dose: 250 mls/hr Insulin Glargine (Lantus Solostar) 5 units SUBCUT BIDAC [facility] Last Admin: 05/01/18 06:17 Dose: 5 units Insulin Human Lispro (Humalog) 0 unit SUBCUT QIDACANDBED [facility]; Protocol Last Admin: 05/01/18 06:46 Dose: Not Given Lisinopril (Prinivil) 20 mg PO DAILY [facility] Last Admin: 05/01/18 08:06 Dose: 20 mg Lorazepam (Ativan) 1 mg IV Q6H PRN PRN Reason: Nausea/Vomiting Magnesium Sulfate (Pharmacy To Dose - Magnesium Replacement) 0 dose .XX ASDIRECTED PRN PRN Reason: RX TO WATCH MAG LEVELS Metformin HCl (Glucophage) [facility] Last Admin: 05/01/18 06:17 Dose: 1,000 mg Ondansetron HCl (Zofran) 4 mg IV Q6H PRN PRN Reason: Nausea/Vomiting Last Admin: 04/30/18 10:15 Dose: 4 mg Polyethylene Glycol (Miralax) 17 gm PO DAILY PRN PRN Reason: Constipation Potassium Chloride (Pharmacy To Dose - Potassium Replacement) 0 dose .XX ASDIRECTED PRN PRN Reason: RX TO WATCH K LEVELS Saccharomyces Boulardii (Florastor) 250 mg PO DAILY [facility] Last Admin: 05/01/18 08:06 Dose: 250 mg Scopolamine (Transderm-Scop) 1.5 mg TRDERM Q72H PRN PRN Reason: Nausea/Vomiting Last Admin: 04/30/18 12:41 Dose: 1.5 mg Senna/Docusate Sodium (Senna Plus) 1 tab PO BID PRN PRN Reason: Constipation Sodium Chloride (Saline Flush) [facility] Admin: 04/27/18 13:45 Dose: 10 ml Temazepam (Restoril) 15 mg PO BEDTIME PRN PRN Reason: Sleep Vancomycin HCl (Pharmacy To Dose - Vancomycin) 0 dose .XX ASDIRECTED PRN PRN Reason: RX TO DOSE VANCO Discontinued Medications Bupivacaine HCl (Marcaine 0.5%) Confirm Administered Dose 30 ml .ROUTE .STK-MED ONE Stop: 04/25/18 18:23 Last Admin: 04/25/18 19:53 Dose: 1.5 ml Clindamycin Phosphate (Cleocin) Confirm Administered Dose 900 mg .ROUTE .STK- MED ONE Stop: 04/25/18 19:11 Fentanyl (Sublimaze) Confirm Administered Dose 250 mcg .ROUTE .STK-MED ONE Stop: 04/25/18 18:38 Fentanyl (Sublimaze) 50 mcg IVPUSH Q5M PRN PRN Reason: Pain Fentanyl (Sublimaze) Confirm Administered Dose 100 mcg .ROUTE .STK-MED ONE Stop: 04/26/18 09:03 Fentanyl (Sublimaze) Confirm Administered Dose 100 mcg .ROUTE .STK-MED ONE Stop: 04/26/18 10:07 Fentanyl (Sublimaze) 50 mcg IVPUSH Q5M PRN PRN Reason: pain Stop: 04/26/18 18:00 Gadobenate Dimeglumine (Multihance) 16 ml IVPUSH ONETIME ONE Stop: 04/27/18 13:03 Last Admin: 04/27/18 13:42 Dose: Not Given Hydromorphone HCl (Dilaudid) 0.5 mg IVPUSH ONETIME ONE Stop: 04/25/18 15:30 Last Admin: 04/25/18 16:01 Dose: 0.5 mg Hydromorphone HCl (Dilaudid) Confirm Administered Dose 1 mg .ROUTE .STK-MED ONE Stop: 04/25/18 19:03 Hydromorphone HCl (Dilaudid) 0.5 mg IVPUSH ONETIME PRN PRN Reason: Pain (severe 7-10) Hydromorphone HCl (Dilaudid) 0.5 mg IVPUSH ONETIME PRN PRN Reason: Pain (severe 7-10) Stop: 04/26/18 18:00 Sodium Chloride (Normal Saline) 1,000 mls @ 999 mls/hr IV ONETIME ONE Stop: 04/25/18 16:28 Last Admin: 04/25/18 15:59 Dose: 999 mls/hr Vancomycin HCl 1 gm/ Sodium (Chloride) 250 mls @ 250 mls/hr IV ONETIME ONE Stop: 04/25/18 16:36 Last Admin: 04/25/18 16:10 Dose: 250 mls/hr Vancomycin HCl 1 gm/ Sodium (Chloride) 250 mls @ 250 mls/hr IV ONETIME ONE Stop: 04/25/18 16:37 Last Admin: 04/25/18 17:09 Dose: 250 mls/hr Sodium Chloride (Normal Saline) 1,000 mls @ 999 mls/hr IV ONETIME ONE Stop: 04/25/18 17:57 Last Admin: 04/25/18 17:09 Dose: 999 mls/hr Piperacillin Sod/Tazobactam (Sod 4.5 gm/ Sodium Chloride) 100 mls @ 200 mls/hr IV ONETIME ONE Stop: 04/25/18 18:24 Last Admin: 04/25/18 18:18 Dose: 200 mls/hr Vancomycin HCl 1 gm/ Sodium (Chloride) 250 mls @ 250 mls/hr IV Q8H [facility] Last Admin: 04/26/18 19:53 Dose: Not Given Lidocaine HCl (Xylocaine-Mpf 1%) Confirm Administered Dose 4 mls @ as directed .ROUTE .STK-MED ONE Stop: 04/25/18 18:38 Clindamycin Phosphate 900 mg/ (Sodium Chloride) 106 mls @ 100 mls/hr IV Q8H [facility] Last Admin: 04/28/18 10:33 Dose: 100 mls/hr Sodium Chloride (Normal Saline) Confirm Administered Dose 100 mls @ as directed .ROUTE .STK-MED ONE Stop: 04/25/18 19:11 Lactated Ringer's (Ringers, Lactated) Confirm Administered Dose 1,000 mls @ as directed .ROUTE .STK-MED ONE Stop: 04/26/18 10:10 Vancomycin HCl 1 gm/Vancomycin HCl 250 mg/ Sodium Chloride 250 mls @ 250 mls/ hr IV Q8H [facility] Last Admin: 04/28/18 08:42 Dose: 250 mls/hr Sodium Chloride (Normal Saline) 1,000 mls @ 125 mls/hr IV ASDIRECTED [facility] Last Admin: 04/29/18 06:35 Dose: 125 mls/hr Magnesium Sulfate 4 gm/ Premix 100 mls @ 25 mls/hr IV ONETIME ONE Stop: 04/28/18 13:59 Last Admin: 04/28/18 10:13 Dose: 25 mls/hr Vancomycin HCl 1.5 gm/ Sodium (Chloride) 500 mls @ 250 mls/hr IV Q8H [facility] Last Admin: 04/29/18 08:28 Dose: 250 mls/hr Ketamine HCl (Ketalar) Confirm Administered Dose 500 mg .ROUTE .STK-MED ONE Stop: 04/25/18 19:11 Ketamine HCl (Ketalar) Confirm Administered Dose 500 mg .ROUTE .STK-MED ONE Stop: 04/26/18 10:07 Lidocaine/Epinephrine (Xylocaine 1% With Epinephrine 1:100,000) Confirm Administered Dose 20 ml .ROUTE .STK-MED ONE Stop: 04/25/18 18:23 Last Admin: 04/25/18 19:53 Dose: 1.5 ml Lisinopril (Prinivil) 10 mg PO DAILY [facility] Last Admin: 04/29/18 08:37 Dose: 10 mg Metformin HCl (Glucophage) 500 mg PO BIDMEALS [facility] Last Admin: 04/29/18 07:06 Dose: 500 mg Metformin HCl (Glucophage) 500 mg PO ONETIME ONE Stop: 04/25/18 23:01 Last Admin: 04/25/18 23:10 Dose: 500 mg Midazolam HCl (Versed 1 Mg/Ml) Confirm Administered Dose 2 mg .ROUTE .STK-MED ONE Stop: 04/25/18 18:38 Midazolam HCl (Versed 1 Mg/Ml) Confirm Administered Dose 2 mg .ROUTE .STK-MED ONE Stop: 04/26/18 09:03 Ondansetron HCl (Zofran) 4 mg IVPUSH ONETIME ONE Stop: 04/25/18 15:30 Last Admin: 04/25/18 16:03 Dose: 4 mg Ondansetron HCl (Zofran) Confirm Administered Dose 4 mg .ROUTE .STK-MED ONE Stop: 04/25/18 18:38 Ondansetron HCl (Zofran) 4 mg IVPUSH ONETIME PRN PRN Reason: Nausea/Vomiting Ondansetron HCl (Zofran) Confirm Administered Dose 4 mg .ROUTE .STK-MED ONE Stop: 04/26/18 10:10 Potassium Chloride (Klor-Con M20) 40 meq PO ONETIME ONE Stop: 04/27/18 09:01 Last Admin: 04/27/18 10:08 Dose: 40 meq Potassium Chloride (Klor-Con M20) 40 meq PO Q4H [facility] Stop: 04/29/18 19:01 Last Admin: 04/29/18 18:07 Dose: 40 meq Propofol (Diprivan 20 Ml) Confirm Administered Dose 200 mg .ROUTE .STK-MED ONE Stop: 04/25/18 18:38 Propofol (Diprivan 20 Ml) Confirm Administered Dose 400 mg .ROUTE .STK-MED ONE Stop: 04/26/18 09:03 Propofol (Diprivan 20 Ml) Confirm Administered Dose 200 mg .ROUTE .STK-MED ONE Stop: 04/26/18 10:38 Sodium Chloride (Saline Flush) 10 ml FLUSH ASDIRECTED PRN PRN Reason: Keep Vein Open Last Admin: 04/25/18 16:00 Dose: 10 ml Succinylcholine Chloride (Succinylcholine In Ns Pf) Confirm Administered Dose 100 mg .ROUTE .STK-MED ONE Stop: 04/25/18 18:38 Vancomycin HCl (Vancomycin) 1,190.685 mg 15 mg/kg (1190.685 mg) IV Q12H [facility] Last Admin: 04/25/18 18:15 Dose: Not Given - Exam General: Alert, Oriented, Cooperative, No Acute Distress HEENT: Pupils Equal, Pupils Reactive, EOMI, Mucous Membr. Moist/[place] Neck: Supple, Trachea Midline, No JVD Lungs: Clear to Auscultation, Normal Respiratory Effort Cardiovascular: Regular Rate, Regular Rhythm GI/Abdominal Exam: Normal Bowel Sounds, Soft, Non-Tender, No Organomegaly, No Distention, No Abnormal Bruit, No Mass (Male) Exam: Deferred Back Exam: Normal Inspection, Full Range of Motion Extremities: Normal Inspection (left extremity: from ankle and above), Normal Range of Motion, Non-Tender, No Pedal Edema (left foot), Normal Capillary Refill , Pedal Edema (on right foot), Increased Warmth (right foot), Redness (right foot), Other (right foot: dressed and wrapped) Peripheral Pulses: 2+: Dorsalis Pedis (L), Dorsalis Pedis (R) Skin: Warm, Dry, Intact Wound/Incisions: Dressing Dry and Intact, Erythema Neurological: No New Focal Deficit. No: Normal Gait Psy/Mental Status: Alert, Normal Affect, Normal Mood - Problem List Review Problem List Initiated/Reviewed/Updated: Yes - My Orders Last 24 Hours: My Active Orders 04/30/18 09:00 Lisinopril [Prinivil] 20 mg PO DAILY 04/30/18 12:10 Scopolamine [Transderm-Scop] 1.5 mg TRDERM Q72H PRN - Assessment Assessment:: Assessment/Plan: Acute: Diabetic Foot Ulcer w/ Osteomyelities * Open ulcer with drainage located on plantar aspect of right foot beneath great toe * WBC 18.92--> 13.89 --> 14.81 --> 12.56--> 13.73--> 16.84--> 13.52 * CRP 36 --> 23.4 --> 23.1 --> 23.6--> 19--> 20.5--> 16.5 * Cultures positive for S. 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 Joyner, orthopedic surgeon * Plans to operate on Tuesday05/02/18 * Amputation of 4th toe and possible amputation of 5th toe if there is no improvement over the weekend * NPO after evening of 05/01 in preparation for surgery * Broad spectrum IV antibiotics--> Abx management defer to the surgical team * Vancomycin and clindamycin initiated prior to culture results - these will be continued * Piperacillin/tazobactum added to the regimen * PICC line placed today for administration of antibiotics * Pain medications PRN * MRI on 04/27 found osteomyelitis * DVT prophylaxis lovenox * Surgery consult * Dr. Tamez performed debridement shortly after admission on the evening of 04/25 * Repeat debridement 04/26 * Discussed need for termite technician solution * Will require extended diabetic services and wound care following discharge * Patient would like to stay in [place] if possible - will have to check if local [facility] have necessary services * Otherwise may have to go to facility in [place] Diabetes Mellitus * Glucose 355 and HgbA1c 11.8 upon admission * Denies personal or family history of diabetes * Patient informed of diabetic status; he is surprised but understands diagnosis * Initially started on insulin, metformin, and glipizide * Glucose--> now uncontrolled (213); will increase Lantus to 10 units subQ BID * Alter medications as needed * Aspirin, statin, and JORGE inhibitor added to treatment regimen * Lipid panel unremarkable other than reduced HDL * Urine negative for micro-albumin * Consult outdoor studies professor and adaptive physical educator * Encourage Citizen Of [place] Diabetic diet * Discussed option for SGLT-2 Inhibitor and patient is receptive to it Anemia, Stable * Labs 04/28 show Hct 31.9 and Hgb 10.7-->10.7-->11.2--> 9.8 * Likely due to IVF dilution * Continue to monitor Resolved: S/p Diarrhea * Patient has been experiencing diarrhea today and yesterday * Negative for c. dif * Continue to monitor * Hypokalemia * K 3.2--> 4.0 * 2/2 inadequate intake * Replete and monitor Plan: He remains clinically stable Continue current treatment Routine AM labs NPO Midnight Continue PT/OT tx Surgical Amputation in AM SW/CM for d/c planning Code status: 1 Discharge likely to [facility] pending surgery on Tuesday LOS > 96 hrs pending surgery and placement
[2018-05-01] MEDS: Potassium Chloride 20 MEQ Tab.ER PO SCH ×2 (11:38→15:51)
--- NOTE | 2018-05-01 16:58 | PCM.CONSN ---
- General Info Date of Service: 05/01/18 Subjective Update: No acute events overnight. NO changes to pain, controlled with Kel[place]. Still has nausea, without emesis. - Patient Data Vitals - Most Recent: Last Vital Signs Temp 37.0 C 05/01/18 15:36 Pulse 101 H 05/01/18 15:36 Resp 20 05/01/18 15:36 BP 151/91 H 05/01/18 15:36 Pulse Ox 91 L 05/01/18 15:36 Weight - Most Recent: 85.786 kg I&O - Last 24 Hours: Intake & Output 05/01/18 05/01/18 05/01/18 06:59 14:59 22:59 Intake Total 2700 760 Output Total 1900 Balance 800 760 Lab Results Last 24 Hours: Laboratory Results - last 24 hr 04/30/18 04/30/18 04/30/18 Range/Units 17:23 21:01 22:11 WBC (4.23-9.07) K/mm3 RBC (4.63-6.08) M/mm3 Hgb (13.7-17.5) gm/L Hct (40.1-51.0) % MCV (79.0-92.2) fl MCH (25.7-32.2) pg MCHC (32.2-35.5) g/dl RDW Std Deviation (35.1-43.9) fL Plt Count (163-337) K/mm3 MPV (9.4-12.3) fl Neut % (Auto) (34.0-67.9) % Lymph % (Auto) (21.8-53.1) % Bullock % (Auto) (5.3-12.2) % Eos % (Auto) (0.8-7.0) Baso % (Auto) (0.1-1.2) % Neut # (Auto) (1.78-5.38) K/mm3 Lymph # (Auto) (1.32-3.57) K/mm3 Bullock # (Auto) (0.30-0.82) K/mm3 Eos # (Auto) (0.04-0.54) K/mm3 Baso # (Auto) (0.01-0.08) K/mm3 Manual Slide Review Sodium (136-145) mEq/L Potassium (3.5-5.1) mEq/L Chloride (98-107) mEq/L Carbon Dioxide (21-32) mEq/L Anion Gap (5-15) BUN (7-18) mg/dL Creatinine (0.7-1.3) mg/dL Est Cr Clr Drug Dosing mL/min Estimated GFR (MDRD) (>60) mL/min BUN/Creatinine Ratio (14-18) Glucose (74-106) mg/dL POC Glucose 118 H 185 H (70-105) mg/dL Calcium (8.5-10.1) mg/dL Magnesium (1.8-2.4) mg/dl C-Reactive Protein (<1.0) mg/dL Vancomycin Trough 17.5 (10.0-20.0) 05/01/18 05/01/18 05/01/18 Range/Units 05:40 05:40 05:46 WBC 13.52 H (4.23-9.07) K/mm3 RBC 3.63 L (4.63-6.08) M/mm3 Hgb 9.8 L (13.7-17.5) gm/L Hct 30.4 L (40.1-51.0) % MCV 83.7 (79.0-92.2) fl MCH 27.0 (25.7-32.2) pg MCHC 32.2 (32.2-35.5) g/dl RDW Std Deviation 41.2 (35.1-43.9) fL Plt Count 295 (163-337) K/mm3 MPV 9.2 L (9.4-12.3) fl Neut % (Auto) 82.4 H (34.0-67.9) % Lymph % (Auto) 10.5 L (21.8-53.1) % Bullock % (Auto) 5.8 (5.3-12.2) % Eos % (Auto) 0.8 (0.8-7.0) Baso % (Auto) 0.1 (0.1-1.2) % Neut # (Auto) 11.12 H (1.78-5.38) K/mm3 Lymph # (Auto) 1.42 (1.32-3.57) K/mm3 Bullock # (Auto) 0.79 (0.30-0.82) K/mm3 Eos # (Auto) 0.11 (0.04-0.54) K/mm3 Baso # (Auto) 0.02 (0.01-0.08) K/mm3 Manual Slide Review Abnormal smear Sodium 139 (136-145) mEq/L Potassium 3.6 (3.5-5.1) mEq/L Chloride 106 (98-107) mEq/L Carbon Dioxide 25 (21-32) mEq/L Anion Gap 11.6 (5-15) BUN 10 (7-18) mg/dL Creatinine 1.1 (0.7-1.3) mg/dL Est Cr Clr Drug Dosing 78.14 mL/min Estimated GFR (MDRD) > 60 (>60) mL/min BUN/Creatinine Ratio 9.1 L (14-18) Glucose 124 H (74-106) mg/dL POC Glucose 130 H (70-105) mg/dL Calcium 8.5 (8.5-10.1) mg/dL Magnesium 1.9 (1.8-2.4) mg/dl C-Reactive Protein 16.5 H* (<1.0) mg/dL Vancomycin Trough (10.0-20.0) 05/01/18 Range/Units 11:04 WBC (4.23-9.07) K/mm3 RBC (4.63-6.08) M/mm3 Hgb (13.7-17.5) gm/L Hct (40.1-51.0) % MCV (79.0-92.2) fl MCH (25.7-32.2) pg MCHC (32.2-35.5) g/dl RDW Std Deviation (35.1-43.9) fL Plt Count (163-337) K/mm3 MPV (9.4-12.3) fl Neut % (Auto) (34.0-67.9) % Lymph % (Auto) (21.8-53.1) % Bullock % (Auto) (5.3-12.2) % Eos % (Auto) (0.8-7.0) Baso % (Auto) (0.1-1.2) % Neut # (Auto) (1.78-5.38) K/mm3 Lymph # (Auto) (1.32-3.57) K/mm3 Bullock # (Auto) (0.30-0.82) K/mm3 Eos # (Auto) (0.04-0.54) K/mm3 Baso # (Auto) (0.01-0.08) K/mm3 Manual Slide Review Sodium (136-145) mEq/L Potassium (3.5-5.1) mEq/L Chloride (98-107) mEq/L Carbon Dioxide (21-32) mEq/L Anion Gap (5-15) BUN (7-18) mg/dL Creatinine (0.7-1.3) mg/dL Est Cr Clr Drug Dosing mL/min Estimated GFR (MDRD) (>60) mL/min BUN/Creatinine Ratio (14-18) Glucose (74-106) mg/dL POC Glucose 213 H (70-105) mg/dL Calcium (8.5-10.1) mg/dL Magnesium (1.8-2.4) mg/dl C-Reactive Protein (<1.0) mg/dL Vancomycin Trough (10.0-20.0) Fabian Results Last 24 Hours: Microbiology 04/25/18 15:55 Aerobic Blood Culture - Preliminary Blood - Venous NO GROWTH AFTER 6 DAYS Anaerobic Blood Culture - Preliminary NO GROWTH AFTER 6 DAYS 04/25/18 15:50 Aerobic Blood Culture - Preliminary Blood - Venous - Lab Draw NO GROWTH AFTER 6 DAYS Anaerobic Blood Culture - Preliminary NO GROWTH AFTER 6 DAYS Med Orders - Current: Current Medications Acetaminophen (Tylenol) 650 mg PO Q4H PRN PRN Reason: Pain (Mild 1-3)/fever Hydrocodone Bitart/Acetaminophen (Kelso 325-5 Mg) 1 tab PO Q4H PRN PRN Reason: Pain (moderate 4-6) Last Admin: 05/01/18 15:50 Dose: 1 tab Albuterol/Ipratropium (Duoneb 3.0-0.5 Mg/3 Ml) 3 ml NEB Q4H PRN PRN Reason: Shortness Of Breath/wheezing Aspirin (Aspirin) 81 mg PO BEDTIME [facility] Last Admin: 04/30/18 22:48 Dose: 81 mg Bisacodyl (Dulcolax) 5 mg PO DAILY PRN PRN Reason: Constipation Docusate Sodium (Colace) 100 mg PO BID PRN PRN Reason: Constipation Enoxaparin Sodium (Lovenox) 40 mg SUBCUT DAILY [facility] Last Admin: 05/01/18 08:06 Dose: 40 mg Glipizide (Glucotrol Xl) 5 mg PO BIDMEALS [facility] Last Admin: 05/01/18 06:16 Dose: 5 mg Hydromorphone HCl (Dilaudid) 0.5 mg IVPUSH Q4H PRN PRN Reason: Pain (severe 7-10) Last Admin: 04/29/18 15:50 Dose: 0.5 mg Promethazine HCl 12.5 mg/ (Sodium Chloride) 50.5 mls @ 100 mls/hr IV Q6H PRN PRN Reason: Nausea/Vomiting Piperacillin Sod/Tazobactam (Sod 4.5 gm/ Sodium Chloride) 100 mls @ 25 mls/hr IV Q8H [facility] Last Admin: 05/01/18 15:52 Dose: 25 mls/hr Vancomycin HCl 1 gm/Vancomycin HCl 250 mg/ Sodium Chloride 250 mls @ 250 mls/ hr IV Q8H [facility] Last Admin: 05/01/18 14:17 Dose: 250 mls/hr Insulin Glargine (Lantus Solostar) 10 units SUBCUT BIDAC [facility] Insulin Human Lispro (Humalog) 0 unit SUBCUT QIDACANDBED [facility]; Protocol Last Admin: 05/01/18 11:13 Dose: 6 units Lisinopril (Prinivil) 20 mg PO DAILY [facility] Last Admin: 05/01/18 08:06 Dose: 20 mg Lorazepam (Ativan) 1 mg IV Q6H PRN PRN Reason: Nausea/Vomiting Magnesium Sulfate (Pharmacy To Dose - Magnesium Replacement) 0 dose .XX ASDIRECTED PRN PRN Reason: RX TO WATCH MAG LEVELS Metformin HCl (Glucophage) 1,000 mg PO BIDMEALS [facility] Last Admin: 05/01/18 06:17 Dose: 1,000 mg Ondansetron HCl (Zofran) 4 mg IV Q6H PRN PRN Reason: Nausea/Vomiting Last Admin: 04/30/18 10:15 Dose: 4 mg Polyethylene Glycol (Miralax) 17 gm PO DAILY PRN PRN Reason: Constipation Potassium Chloride (Pharmacy To Dose - Potassium Replacement) 0 dose .XX ASDIRECTED PRN PRN Reason: RX TO WATCH K LEVELS Saccharomyces Boulardii (Florastor) 250 mg PO DAILY [facility] Last Admin: 05/01/18 08:06 Dose: 250 mg Scopolamine (Transderm-Scop) 1.5 mg TRDERM Q72H PRN PRN Reason: Nausea/Vomiting Last Admin: 04/30/18 12:41 Dose: 1.5 mg Senna/Docusate Sodium (Senna Plus) 1 tab PO BID PRN PRN Reason: Constipation Sodium Chloride (Saline Flush) 10 ml FLUSH ASDIRECTED [facility] Last Admin: 04/27/18 13:45 Dose: 10 ml Temazepam (Restoril) 15 mg PO BEDTIME PRN PRN Reason: Sleep Vancomycin HCl (Pharmacy To Dose - Vancomycin) 0 dose .XX ASDIRECTED PRN PRN Reason: RX TO DOSE VANCO Discontinued Medications Bupivacaine HCl (Marcaine 0.5%) Confirm Administered Dose 30 ml .ROUTE .STK-MED ONE Stop: 04/25/18 18:23 Last Admin: 04/25/18 19:53 Dose: 1.5 ml Clindamycin Phosphate (Cleocin) Confirm Administered Dose 900 mg .ROUTE .STK- MED ONE Stop: 04/25/18 19:11 Fentanyl (Sublimaze) Confirm Administered Dose 250 mcg .ROUTE .STK-MED ONE Stop: 04/25/18 18:38 Fentanyl (Sublimaze) 50 mcg IVPUSH Q5M PRN PRN Reason: Pain Fentanyl (Sublimaze) Confirm Administered Dose 100 mcg .ROUTE .STK-MED ONE Stop: 04/26/18 09:03 Fentanyl (Sublimaze) Confirm Administered Dose 100 mcg .ROUTE .STK-MED ONE Stop: 04/26/18 10:07 Fentanyl (Sublimaze) 50 mcg IVPUSH Q5M PRN PRN Reason: pain Stop: 04/26/18 18:00 Gadobenate Dimeglumine (Multihance) 16 ml IVPUSH ONETIME ONE Stop: 04/27/18 13:03 Last Admin: 04/27/18 13:42 Dose: Not Given Hydromorphone HCl (Dilaudid) 0.5 mg IVPUSH ONETIME ONE Stop: 04/25/18 15:30 Last Admin: 04/25/18 16:01 Dose: 0.5 mg Hydromorphone HCl (Dilaudid) Confirm Administered Dose 1 mg .ROUTE .STK-MED ONE Stop: 04/25/18 19:03 Hydromorphone HCl (Dilaudid) 0.5 mg IVPUSH ONETIME PRN PRN Reason: Pain (severe 7-10) Hydromorphone HCl (Dilaudid) 0.5 mg IVPUSH ONETIME PRN PRN Reason: Pain (severe 7-10) Stop: 04/26/18 18:00 Sodium Chloride (Normal Saline) 1,000 mls @ 999 mls/hr IV ONETIME ONE Stop: 04/25/18 16:28 Last Admin: 04/25/18 15:59 Dose: 999 mls/hr Vancomycin HCl 1 gm/ Sodium (Chloride) 250 mls @ 250 mls/hr IV ONETIME ONE Stop: 04/25/18 16:36 Last Admin: 04/25/18 16:10 Dose: 250 mls/hr Vancomycin HCl 1 gm/ Sodium (Chloride) 250 mls @ 250 mls/hr IV ONETIME ONE Stop: 04/25/18 16:37 Last Admin: 04/25/18 17:09 Dose: 250 mls/hr Sodium Chloride (Normal Saline) 1,000 mls @ 999 mls/hr IV ONETIME ONE Stop: 04/25/18 17:57 Last Admin: 04/25/18 17:09 Dose: 999 mls/hr Piperacillin Sod/Tazobactam (Sod 4.5 gm/ Sodium Chloride) 100 mls @ 200 mls/hr IV ONETIME ONE Stop: 04/25/18 18:24 Last Admin: 04/25/18 18:18 Dose: 200 mls/hr Vancomycin HCl 1 gm/ Sodium (Chloride) 250 mls @ 250 mls/hr IV Q8H [facility] Last Admin: 04/26/18 19:53 Dose: Not Given Lidocaine HCl (Xylocaine-Mpf 1%) Confirm Administered Dose 4 mls @ as directed .ROUTE .STK-MED ONE Stop: 04/25/18 18:38 Clindamycin Phosphate 900 mg/ (Sodium Chloride) 106 mls @ 100 mls/hr IV Q8H [facility] Last Admin: 04/28/18 10:33 Dose: 100 mls/hr Sodium Chloride (Normal Saline) Confirm Administered Dose 100 mls @ as directed .ROUTE .STK-MED ONE Stop: 04/25/18 19:11 Lactated Ringer's (Ringers, Lactated) Confirm Administered Dose 1,000 mls @ as directed .ROUTE .STK-MED ONE Stop: 04/26/18 10:10 Vancomycin HCl 1 gm/Vancomycin HCl 250 mg/ Sodium Chloride 250 mls @ 250 mls/ hr IV Q8H [facility] Last Admin: 04/28/18 08:42 Dose: 250 mls/hr Sodium Chloride (Normal Saline) 1,000 mls @ 125 mls/hr IV ASDIRECTED [facility] Last Admin: 04/29/18 06:35 Dose: 125 mls/hr Magnesium Sulfate 4 gm/ Premix 100 mls @ 25 mls/hr IV ONETIME ONE Stop: 04/28/18 13:59 Last Admin: 04/28/18 10:13 Dose: 25 mls/hr Vancomycin HCl 1.5 gm/ Sodium (Chloride) 500 mls @ 250 mls/hr IV Q8H [facility] Last Admin: 04/29/18 08:28 Dose: 250 mls/hr Insulin Glargine (Lantus Solostar) 5 units SUBCUT BIDAC [facility] Last Admin: 05/01/18 06:17 Dose: 5 units Ketamine HCl (Ketalar) Confirm Administered Dose 500 mg .ROUTE .STK-MED ONE Stop: 04/25/18 19:11 Ketamine HCl (Ketalar) Confirm Administered Dose 500 mg .ROUTE .STK-MED ONE Stop: 04/26/18 10:07 Lidocaine/Epinephrine (Xylocaine 1% With Epinephrine 1:100,000) Confirm Administered Dose 20 ml .ROUTE .STK-MED ONE Stop: 04/25/18 18:23 Last Admin: 04/25/18 19:53 Dose: 1.5 ml Lisinopril (Prinivil) 10 mg PO DAILY [facility] Last Admin: 04/29/18 08:37 Dose: 10 mg Metformin HCl (Glucophage) 500 mg PO BIDMEALS [facility] Last Admin: 04/29/18 07:06 Dose: 500 mg Metformin HCl (Glucophage) 500 mg PO ONETIME ONE Stop: 04/25/18 23:01 Last Admin: 04/25/18 23:10 Dose: 500 mg Midazolam HCl (Versed 1 Mg/Ml) Confirm Administered Dose 2 mg .ROUTE .STK-MED ONE Stop: 04/25/18 18:38 Midazolam HCl (Versed 1 Mg/Ml) Confirm Administered Dose 2 mg .ROUTE .STK-MED ONE Stop: 04/26/18 09:03 Ondansetron HCl (Zofran) 4 mg IVPUSH ONETIME ONE Stop: 04/25/18 15:30 Last Admin: 04/25/18 16:03 Dose: 4 mg Ondansetron HCl (Zofran) Confirm Administered Dose 4 mg .ROUTE .STK-MED ONE Stop: 04/25/18 18:38 Ondansetron HCl (Zofran) 4 mg IVPUSH ONETIME PRN PRN Reason: Nausea/Vomiting Ondansetron HCl (Zofran) Confirm Administered Dose 4 mg .ROUTE .STK-MED ONE Stop: 04/26/18 10:10 Potassium Chloride (Klor-Con M20) 40 meq PO ONETIME ONE Stop: 04/27/18 09:01 Last Admin: 04/27/18 10:08 Dose: 40 meq Potassium Chloride (Klor-Con M20) 40 meq PO Q4H [facility] Stop: 04/29/18 19:01 Last Admin: 04/29/18 18:07 Dose: 40 meq Potassium Chloride (Klor-Con M20) 40 meq PO Q4H [facility] Stop: 05/01/18 16:01 Last Admin: 05/01/18 15:51 Dose: 40 meq Propofol (Diprivan 20 Ml) Confirm Administered Dose 200 mg .ROUTE .STK-MED ONE Stop: 04/25/18 18:38 Propofol (Diprivan 20 Ml) Confirm Administered Dose 400 mg .ROUTE .STK-MED ONE Stop: 04/26/18 09:03 Propofol (Diprivan 20 Ml) Confirm Administered Dose 200 mg .ROUTE .STK-MED ONE Stop: 04/26/18 10:38 Sodium Chloride (Saline Flush) 10 ml FLUSH ASDIRECTED PRN PRN Reason: Keep Vein Open Last Admin: 04/25/18 16:00 Dose: 10 ml Succinylcholine Chloride (Succinylcholine In Ns Pf) Confirm Administered Dose 100 mg .ROUTE .STK-MED ONE Stop: 04/25/18 18:38 Vancomycin HCl (Vancomycin) 1,190.685 mg 15 mg/kg (1190.685 mg) IV Q12H [facility] Last Admin: 04/25/18 18:15 Dose: Not Given - Exam General: Alert, Oriented, Cooperative Extremities: Other (Stable appearance to RIGHT foot wound, with open wound along the plantar surface distally, extending into the 3th/4th digit webspace. Wound base without purulence. RIGHT 4th toe is black/necrotic. Decreased sensation to light touch to RIGHT 4th digit. Sensation and motor intact to remaining toes, with normal cap refill. Foot erythema and warmth stable.) Psy/Mental Status: Other (Flat affect) Consult PN Assessment/Plan (1) Foot abscess, right SNOMED Code(s): 222932722 Code(s): L02.611 - CUTANEOUS ABSCESS OF RIGHT FOOT Current Visit: Yes Problem List Initiated/Reviewed/Updated: Yes Plan: 42 yo male, HD#7 for RIGHT foot soft tissue infection with abscess, newly diagnosed diabetes, POD#6 for initial I&D and debridement, POD#5 for repeat debridement and washout/dressing change. Infection has resulted in necrosis to the RIGHT 4th toe, with concern for viability of the RIGHT 5th toe. MRI demonstrates evidence of osteomyelitis. PICC line has been placed in anticipation of long-term antibiotics. Appreciate input from Orthopedics bus info consultant, Dr. Joyner. He plans to perform amputation of the necrotic toe(s) tomorrow (May 02). - NPO in preparation for procedure tomorrow. - Hold AM dose of Lovenox. - Local wound care and surgical care at the direction of Dr. Joyner. I will also assist with local wound care. Dressing change with wet-to-dry gauze performed at the bedside today. - Culture of foot wound shows polymicrobial growth with Beta Strep group B and Staph aureus. Continue broad-spectrum antibiotics (vancomycin IV, Zosyn IV). - Appreciate primary management, with blood sugar control, by hospitalist service, Dr. Masterson. Plan of care discussed with patient. Arsen Gaston M.D., F.A.C.S. General Surgery Pager: [phone]
[2018-05-01] MEDS: Ondansetron 4 MG/2 ML SDV IV PRN (17:01)
[2018-05-01] MEDS: Aspirin 81 MG Tab.Chew PO SCH (21:07)
[2018-05-02] MEDS: Piperacillin/Tazobactam 4.5 GM in Sodium Chloride 0.9% 100 ML IV SCH ×4 (00:50→20:15)
[2018-05-02] MEDS: Insulin Lispro 100 Unit/ML 3 ML KwikPen SUBCUT SCH ×4 (06:55→22:46)
[2018-05-02] MEDS: Insulin Glargine,Human Rec. Analog 100 Units/ML 3 ML Pen SUBCUT SCH ×2 (06:56→16:49)
[2018-05-02] MEDS: metFORMIN 500 MG Tab PO SCH ×2 (06:56→16:50)
[2018-05-02] MEDS: glipiZIDE 5 MG Tab.ER PO SCH ×2 (06:56→16:50)
--- NOTE | 2018-05-02 07:50 | CR ---
Chest: Portable supine view of the chest was obtained. Comparison: Prior chest x-ray performed earlier in same day (1:28 PM) Right-sided PICC line is seen. Tip lies at the junction of the subclavian axillary vein. PICC line has been withdrawn from the jugular vein from prior exam. Heart is mildly enlarged. Slight pulmonary vascular congestion is noted. Lungs otherwise are clear. Impression: 1. Right sided PICC line as noted above. 2. Mild cardiomegaly a with slightly prominent pulmonary vascular congestion. Diagnostic code #3 MTDD
[2018-05-02] MEDS: Lisinopril 20 MG Tab PO SCH (08:11)
[2018-05-02] MEDS: Saccharomyces Boulardii (Probiotic) 250 MG Cap PO SCH (08:11)
--- NOTE | 2018-05-02 09:46 | PCM.PREANE ---
Preanesthetic Assessment - Anesthesia/Transfusion/Family Hx Anesthesia History: Prior Anesthesia Without Reaction Family History of Anesthesia Reaction: No Transfusion History: No Prior Transfusion(s) - Review of Systems General: No Symptoms Pulmonary: No Symptoms Cardiovascular: No Symptoms Gastrointestinal: No Symptoms Neurological: No Symptoms, Numbness (right foot) Other: Reports: Diabetes (newly diagnosed), Depression - Physical Assessment NPO Status Date: 05/01/18 NPO Status Time: 20:00 Pulse: 91 O2 Sat by Pulse Oximetry: 95 Respiratory Rate: 23 Blood Pressure: 145/86 Temperature: 36.8 C Vital Signs: Last Vital Signs Temp 36.8 C 05/02/18 09:21 Pulse 91 05/02/18 09:21 Resp 23 H 05/02/18 09:21 BP 145/86 H 05/02/18 08:26 Pulse Ox 95 05/02/18 09:21 Height: 1.68 m Weight: 86.239 kg ASA Class: 3 Mental Status: Alert & Oriented x3 Airway Class: Mallampati = 2 Dentition: Reports: Normal Dentition Thyro-Mental Finger Breadths: 3 Mouth Opening Finger Breadths: 3 ROM/Head Extension: Full Lungs: Clear to Auscultation, Normal Respiratory Effort Cardiovascular: Regular Rate, Regular Rhythm - Lab Values: Laboratory Last Values WBC 13.52 K/mm3 (4.23-9.07) H 05/01/18 05:40 RBC 3.63 M/mm3 (4.63-6.08) L 05/01/18 05:40 Hgb 9.8 gm/L (13.7-17.5) L 05/01/18 05:40 Hct 30.4 % (40.1-51.0) L 05/01/18 05:40 MCV 83.7 fl (79.0-92.2) 05/01/18 05:40 MCH 27.0 pg (25.7-32.2) 05/01/18 05:40 MCHC 32.2 g/dl (32.2-35.5) 05/01/18 05:40 RDW Std Deviation 41.2 fL (35.1-43.9) 05/01/18 05:40 Plt Count 295 K/mm3 (163-337) 05/01/18 05:40 MPV 9.2 fl (9.4-12.3) L 05/01/18 05:40 Neut % (Auto) 82.4 % (34.0-67.9) H 05/01/18 05:40 Lymph % (Auto) 10.5 % (21.8-53.1) L 05/01/18 05:40 Mckenzie % (Auto) 5.8 % (5.3-12.2) 05/01/18 05:40 Eos % (Auto) 0.8 (0.8-7.0) 05/01/18 05:40 Baso % (Auto) 0.1 % (0.1-1.2) 05/01/18 05:40 Neut # (Auto) 11.12 K/mm3 (1.78-5.38) H 05/01/18 05:40 Lymph # (Auto) 1.42 K/mm3 (1.32-3.57) 05/01/18 05:40 Mckenzie # (Auto) 0.79 K/mm3 (0.30-0.82) 05/01/18 05:40 Eos # (Auto) 0.11 K/mm3 (0.04-0.54) 05/01/18 05:40 Baso # (Auto) 0.02 K/mm3 (0.01-0.08) 05/01/18 05:40 Neutrophils % (Manual) 86 % (40-60) H 04/25/18 15:50 Band Neutrophils % 0 % (0-10) 04/25/18 15:50 Lymphocytes % (Manual) 11 % (20-40) L 04/25/18 15:50 Atypical Lymphs % 0 % 04/25/18 15:50 Monocytes % (Manual) 3 % (2-10) 04/25/18 15:50 Eosinophils % (Manual) 0 % (0.8-7.0) L 04/25/18 15:50 Basophils % (Manual) 0 (0.2-1.2) L 04/25/18 15:50 Manual Slide Review Abnormal smear 05/01/18 05:40 Platelet Estimate Adequate 04/25/18 15:50 RBC Morph Comment Normal 04/25/18 15:50 Sodium 139 mEq/L (136-145) 05/01/18 05:40 Potassium 3.6 mEq/L (3.5-5.1) 05/01/18 05:40 Chloride 106 mEq/L (98-107) 05/01/18 05:40 Carbon Dioxide 25 mEq/L (21-32) 05/01/18 05:40 Anion Gap 11.6 (5-15) 05/01/18 05:40 BUN 10 mg/dL (7-18) 05/01/18 05:40 Creatinine 1.1 mg/dL (0.7-1.3) 05/01/18 05:40 Est Cr Clr Drug Dosing 78.14 mL/min 05/01/18 05:40 Estimated GFR (MDRD) > 60 mL/min (>60) 05/01/18 05:40 BUN/Creatinine Ratio 9.1 (14-18) L 05/01/18 05:40 Glucose 124 mg/dL (74-106) H 05/01/18 05:40 POC Glucose 143 mg/dL (70-105) H 05/02/18 06:03 Hemoglobin A1c 11.80 % (4.50-6.20) H 04/25/18 15:50 Lactic Acid 1.7 mmol/L (0.4-2.0) 04/25/18 15:50 Calcium 8.5 mg/dL (8.5-10.1) 05/01/18 05:40 Magnesium 1.9 mg/dl (1.8-2.4) 05/01/18 05:40 Total Bilirubin 0.5 mg/dL (0.2-1.0) 04/25/18 15:50 AST 24 U/L (15-37) 04/25/18 15:50 ALT 41 U/L (16-63) 04/25/18 15:50 Alkaline Phosphatase 147 U/L (46-116) H 04/25/18 15:50 C-Reactive Protein 16.5 mg/dL (<1.0) H* 05/01/18 05:40 Total Protein 7.7 g/dl (6.4-8.2) 04/25/18 15:50 Albumin 2.5 g/dl (3.4-5.0) L 04/25/18 15:50 Globulin 5.2 gm/dL 04/25/18 15:50 Albumin/Globulin Ratio 0.5 (1-2) L 04/25/18 15:50 Triglycerides 47 mg/dL (<150) 04/26/18 06:27 Cholesterol 75 mg/dL (<200) 04/26/18 06:27 LDL Cholesterol Direct 50 mg/dL (<100) 04/26/18 06:27 HDL Cholesterol 23.0 mg/dL (40-59) L 04/26/18 06:27 Free T4 1.26 ng/dL (0.76-1.46) 04/25/18 15:50 TSH 3rd Generation 0.788 uIU/mL (0.358-3.74) 04/25/18 15:50 Urine Color Yellow (Yellow) 04/25/18 17:17 Urine Appearance Slt cloudy (Clear) H 04/25/18 17:17 Urine pH 6.0 (5.0-8.0) 04/25/18 17:17 Ur Specific [place] 1.015 (1.005-1.030) 04/25/18 17:17 Urine Protein Negative (Negative) 04/25/18 17:17 Urine Glucose (UA) 2+ (Negative) H 04/25/18 17:17 Urine Ketones 2+ (Negative) H 04/25/18 17:17 Urine Occult Blood Negative (Negative) 04/25/18 17:17 Urine Nitrite Negative (Negative) 04/25/18 17:17 Urine Bilirubin Negative (Negative) 04/25/18 17:17 Urine Urobilinogen 2.0 (0.2-1.0) H 04/25/18 17:17 Ur Leukocyte Esterase Negative (Negative) 04/25/18 17:17 Urine RBC Not seen /hpf (0-5) 04/25/18 17:17 Urine WBC 0-5 /hpf (0-5) 04/25/18 17:17 Ur Epithelial Cells Not seen /hpf (0-5) 04/25/18 17:17 Urine Bacteria Occasional /hpf (FEW) 04/25/18 17:17 Urine Mucus Few /hpf (FEW) 04/25/18 17:17 Ur Random Microalbumin 14.6 mg/L (1.3-20.0) 04/25/18 17:17 Vancomycin Trough 17.5 (10.0-20.0) 04/30/18 22:11 C.difficile [id number] Presumptive negative 04/27/18 17:45 C. difficile Tox (PCR) Negative 04/27/18 17:45 - Allergies Allergies/Adverse Reactions: Allergies Allergy/AdvReac Type Severity Reaction Status Date / Time No Known Allergies Allergy Verified 04/25/18 18:04 - Blood Blood Available: No Product(s) Available: None - Acknowledgements Anesthesia Type Planned: MAC Pt an Appropriate Candidate for the Planned Anesthesia: Yes Alternatives and Risks of Anesthesia Discussed w Pt/Guardian: Yes Pt/Guardian Understands and Agrees with Anesthesia Plan: Yes PreAnesthesia Questionnaire - Past Health History Medical/Surgical History: Denies Medical/Surgical History Cardiovascular History: Reports: None Respiratory History: Reports: None Gastrointestinal History: Reports: None Psychiatric History: Reports: Depression Other Psychiatric History: when asked if patient has depression, he states "Yeah , I guess some depression", but no official diagnosis. Endocrine/Metabolic History: Reports: Diabetes, Type II, Other (See Below) Other Endocrine/Metabolic History: new diagnosis diabetes Dermatologic History: Reports: Cellulitis, Other (See Below) Other Dermatologic History: diagnosis of diabetes - Past Surgical History HEENT Surgical History: Reports: Oral Surgery - SUBSTANCE USE Smoking Status *Q: Never Smoker Tobacco Use Within Last Twelve Months: No Second Hand Smoke Exposure: No Days Per Week of Alcohol Use: 1 Recreational Drug Use History: No - HOME MEDS Home Medications: Home Meds Empagliflozin [Jardiance] 25 mg PO DAILY #30 tablet 04/26/18 [Rx] - CURRENT (IN HOUSE) MEDS Current Meds: Current Medications Acetaminophen (Tylenol) 650 mg PO Q4H PRN PRN Reason: Pain (Mild 1-3)/fever Hydrocodone Bitart/Acetaminophen (Nebo 325-5 Mg) 1 tab PO Q4H PRN PRN Reason: Pain (moderate 4-6) Last Admin: 05/01/18 15:50 Dose: 1 tab Albuterol/Ipratropium (Duoneb 3.0-0.5 Mg/3 Ml) 3 ml NEB Q4H PRN PRN Reason: Shortness Of Breath/wheezing Aspirin (Aspirin) 81 mg PO BEDTIME ROSEL[facility] Last Admin: 05/01/18 21:07 Dose: 81 mg Bisacodyl (Dulcolax) 5 mg PO DAILY PRN PRN Reason: Constipation Docusate Sodium (Colace) 100 mg PO BID PRN PRN Reason: Constipation Enoxaparin Sodium (Lovenox) 40 mg SUBCUT DAILY [facility] Last Admin: 05/01/18 08:06 Dose: 40 mg Glipizide (Glucotrol Xl) 5 mg PO BIDMEALS [facility] Last Admin: 05/02/18 06:56 Dose: Not Given Hydromorphone HCl (Dilaudid) 0.5 mg IVPUSH Q4H PRN PRN Reason: Pain (severe 7-10) Last Admin: 04/29/18 15:50 Dose: 0.5 mg Promethazine HCl 12.5 mg/ (Sodium Chloride) 50.5 mls @ 100 mls/hr IV Q6H PRN PRN Reason: Nausea/Vomiting Vancomycin HCl 1 gm/Vancomycin HCl 250 mg/ Sodium Chloride 250 mls @ 250 mls/ hr IV Q8H [facility] Last Admin: 05/02/18 05:02 Dose: 250 mls/hr Piperacillin Sod/Tazobactam (Sod 4.5 gm/ Sodium Chloride) 100 mls @ 25 mls/hr IV Q8H [facility] Insulin Glargine (Lantus Solostar) 10 units SUBCUT BIDAC [facility] Last Admin: 05/02/18 06:56 Dose: Not Given Insulin Human Lispro (Humalog) 0 unit SUBCUT QIDACANDBED [facility]; Protocol Last Admin: 05/02/18 06:55 Dose: Not Given Lisinopril (Prinivil) 20 mg PO DAILY [facility] Last Admin: 05/02/18 08:11 Dose: Not Given Lorazepam (Ativan) 1 mg IV Q6H PRN PRN Reason: Nausea/Vomiting Magnesium Sulfate (Pharmacy To Dose - Magnesium Replacement) 0 dose .XX ASDIRECTED PRN PRN Reason: RX TO WATCH MAG LEVELS Metformin HCl (Glucophage) 1,000 mg PO BIDMEALS [facility] Last Admin: 05/02/18 06:56 Dose: Not Given Ondansetron HCl (Zofran) 4 mg IV Q6H PRN PRN Reason: Nausea/Vomiting Last Admin: 05/01/18 17:01 Dose: 4 mg Polyethylene Glycol (Miralax) 17 gm PO DAILY PRN PRN Reason: Constipation Potassium Chloride (Pharmacy To Dose - Potassium Replacement) 0 dose .XX ASDIRECTED PRN PRN Reason: RX TO WATCH K LEVELS Saccharomyces Boulardii (Florastor) 250 mg PO DAILY [facility] Last Admin: 05/02/18 08:11 Dose: Not Given Scopolamine (Transderm-Scop) 1.5 mg TRDERM Q72H PRN PRN Reason: Nausea/Vomiting Last Admin: 04/30/18 12:41 Dose: 1.5 mg Senna/Docusate Sodium (Senna Plus) 1 tab PO BID PRN PRN Reason: Constipation Sodium Chloride (Saline Flush) 10 ml FLUSH ASDIRECTED [facility]SEL[facility] Last Admin: 04/27/18 13:45 Dose: 10 ml Temazepam (Restoril) 15 mg PO BEDTIME PRN PRN Reason: Sleep Vancomycin HCl (Pharmacy To Dose - Vancomycin) 0 dose .XX ASDIRECTED PRN PRN Reason: RX TO DOSE VANCO Discontinued Medications Bupivacaine HCl (Marcaine 0.5%) Confirm Administered Dose 30 ml .ROUTE .STK-MED ONE Stop: 04/25/18 18:23 Last Admin: 04/25/18 19:53 Dose: 1.5 ml Clindamycin Phosphate (Cleocin) Confirm Administered Dose 900 mg .ROUTE .STK- MED ONE Stop: 04/25/18 19:11 Fentanyl (Sublimaze) Confirm Administered Dose 250 mcg .ROUTE .STK-MED ONE Stop: 04/25/18 18:38 Fentanyl (Sublimaze) 50 mcg IVPUSH Q5M PRN PRN Reason: Pain Fentanyl (Sublimaze) Confirm Administered Dose 100 mcg .ROUTE .STK-MED ONE Stop: 04/26/18 09:03 Fentanyl (Sublimaze) Confirm Administered Dose 100 mcg .ROUTE .STK-MED ONE Stop: 04/26/18 10:07 Fentanyl (Sublimaze) 50 mcg IVPUSH Q5M PRN PRN Reason: pain Stop: 04/26/18 18:00 Gadobenate Dimeglumine (Multihance) 16 ml IVPUSH ONETIME ONE Stop: 04/27/18 13:03 Last Admin: 04/27/18 13:42 Dose: Not Given Hydromorphone HCl (Dilaudid) 0.5 mg IVPUSH ONETIME ONE Stop: 04/25/18 15:30 Last Admin: 04/25/18 16:01 Dose: 0.5 mg Hydromorphone HCl (Dilaudid) Confirm Administered Dose 1 mg .ROUTE .STK-MED ONE Stop: 04/25/18 19:03 Hydromorphone HCl (Dilaudid) 0.5 mg IVPUSH ONETIME PRN PRN Reason: Pain (severe 7-10) Hydromorphone HCl (Dilaudid) 0.5 mg IVPUSH ONETIME PRN PRN Reason: Pain (severe 7-10) Stop: 04/26/18 18:00 Sodium Chloride (Normal Saline) 1,000 mls @ 999 mls/hr IV ONETIME ONE Stop: 04/25/18 16:28 Last Admin: 04/25/18 15:59 Dose: 999 mls/hr Vancomycin HCl 1 gm/ Sodium (Chloride) 250 mls @ 250 mls/hr IV ONETIME ONE Stop: 04/25/18 16:36 Last Admin: 04/25/18 16:10 Dose: 250 mls/hr Vancomycin HCl 1 gm/ Sodium (Chloride) 250 mls @ 250 mls/hr IV ONETIME ONE Stop: 04/25/18 16:37 Last Admin: 04/25/18 17:09 Dose: 250 mls/hr Sodium Chloride (Normal Saline) 1,000 mls @ 999 mls/hr IV ONETIME ONE Stop: 04/25/18 17:57 Last Admin: 04/25/18 17:09 Dose: 999 mls/hr Piperacillin Sod/Tazobactam (Sod 4.5 gm/ Sodium Chloride) 100 mls @ 200 mls/hr IV ONETIME ONE Stop: 04/25/18 18:24 Last Admin: 04/25/18 18:18 Dose: 200 mls/hr Vancomycin HCl 1 gm/ Sodium (Chloride) 250 mls @ 250 mls/hr IV Q8H [facility] Last Admin: 04/26/18 19:53 Dose: Not Given Piperacillin Sod/Tazobactam (Sod 4.5 gm/ Sodium Chloride) 100 mls @ 25 mls/hr IV Q8H [facility] Last Admin: 05/02/18 09:32 Dose: Not Given Lidocaine HCl (Xylocaine-Mpf 1%) Confirm Administered Dose 4 mls @ as directed .ROUTE .STK-MED ONE Stop: 04/25/18 18:38 Clindamycin Phosphate 900 mg/ (Sodium Chloride) 106 mls @ 100 mls/hr IV Q8H [facility] Last Admin: 04/28/18 10:33 Dose: 100 mls/hr Sodium Chloride (Normal Saline) Confirm Administered Dose 100 mls @ as directed .ROUTE .STK-MED ONE Stop: 04/25/18 19:11 Lactated Ringer's (Ringers, Lactated) Confirm Administered Dose 1,000 mls @ as directed .ROUTE .STK-MED ONE Stop: 04/26/18 10:10 Vancomycin HCl 1 gm/Vancomycin HCl 250 mg/ Sodium Chloride 250 mls @ 250 mls/ hr IV Q8H [facility] Last Admin: 04/28/18 08:42 Dose: 250 mls/hr Sodium Chloride (Normal Saline) 1,000 mls @ 125 mls/hr IV ASDIRECTED [facility] Last Admin: 04/29/18 06:35 Dose: 125 mls/hr Magnesium Sulfate 4 gm/ Premix 100 mls @ 25 mls/hr IV ONETIME ONE Stop: 04/28/18 13:59 Last Admin: 04/28/18 10:13 Dose: 25 mls/hr Vancomycin HCl 1.5 gm/ Sodium (Chloride) 500 mls @ 250 mls/hr IV Q8H [facility] Last Admin: 04/29/18 08:28 Dose: 250 mls/hr Vancomycin HCl 1 gm/Vancomycin HCl 250 mg/ Sodium Chloride 250 mls @ 250 mls/ hr IV Q8H [facility] Last Admin: 05/02/18 09:31 Dose: Not Given Insulin Glargine (Lantus Solostar) 5 units SUBCUT BIDAC [facility] Last Admin: 05/01/18 06:17 Dose: 5 units Ketamine HCl (Ketalar) Confirm Administered Dose 500 mg .ROUTE .STK-MED ONE Stop: 04/25/18 19:11 Ketamine HCl (Ketalar) Confirm Administered Dose 500 mg .ROUTE .STK-MED ONE Stop: 04/26/18 10:07 Lidocaine/Epinephrine (Xylocaine 1% With Epinephrine 1:100,000) Confirm Administered Dose 20 ml .ROUTE .STK-MED ONE Stop: 04/25/18 18:23 Last Admin: 04/25/18 19:53 Dose: 1.5 ml Lisinopril (Prinivil) 10 mg PO DAILY [facility] Last Admin: 04/29/18 08:37 Dose: 10 mg Metformin HCl (Glucophage) 500 mg PO BIDMEALS [facility] Last Admin: 04/29/18 07:06 Dose: 500 mg Metformin HCl (Glucophage) 500 mg PO ONETIME ONE Stop: 04/25/18 23:01 Last Admin: 04/25/18 23:10 Dose: 500 mg Midazolam HCl (Versed 1 Mg/Ml) Confirm Administered Dose 2 mg .ROUTE .STK-MED ONE Stop: 04/25/18 18:38 Midazolam HCl (Versed 1 Mg/Ml) Confirm Administered Dose 2 mg .ROUTE .STK-MED ONE Stop: 04/26/18 09:03 Ondansetron HCl (Zofran) 4 mg IVPUSH ONETIME ONE Stop: 04/25/18 15:30 Last Admin: 04/25/18 16:03 Dose: 4 mg Ondansetron HCl (Zofran) Confirm Administered Dose 4 mg .ROUTE .STK-MED ONE Stop: 04/25/18 18:38 Ondansetron HCl (Zofran) 4 mg IVPUSH ONETIME PRN PRN Reason: Nausea/Vomiting Ondansetron HCl (Zofran) Confirm Administered Dose 4 mg .ROUTE .STK-MED ONE Stop: 04/26/18 10:10 Potassium Chloride (Klor-Con M20) 40 meq PO ONETIME ONE Stop: 04/27/18 09:01 Last Admin: 04/27/18 10:08 Dose: 40 meq Potassium Chloride (Klor-Con M20) 40 meq PO Q4H [facility] Stop: 04/29/18 19:01 Last Admin: 04/29/18 18:07 Dose: 40 meq Potassium Chloride (Klor-Con M20) 40 meq PO Q4H [facility] Stop: 05/01/18 16:01 Last Admin: 05/01/18 15:51 Dose: 40 meq Propofol (Diprivan 20 Ml) Confirm Administered Dose 200 mg .ROUTE .STK-MED ONE Stop: 04/25/18 18:38 Propofol (Diprivan 20 Ml) Confirm Administered Dose 400 mg .ROUTE .STK-MED ONE Stop: 04/26/18 09:03 Propofol (Diprivan 20 Ml) Confirm Administered Dose 200 mg .ROUTE .STK-MED ONE Stop: 04/26/18 10:38 Sodium Chloride (Saline Flush) 10 ml FLUSH ASDIRECTED PRN PRN Reason: Keep Vein Open Last Admin: 04/25/18 16:00 Dose: 10 ml Succinylcholine Chloride (Succinylcholine In Ns Pf) Confirm Administered Dose 100 mg .ROUTE .STK-MED ONE Stop: 04/25/18 18:38 Vancomycin HCl (Vancomycin) 1,190.685 mg 15 mg/kg (1190.685 mg) IV Q12H [facility] Last Admin: 04/25/18 18:15 Dose: Not Given
[2018-05-02] MEDS ORDERED: Midazolam 1 MG/ML 2 ML SDV ONE (10:09)
[2018-05-02] MEDS ORDERED: fentaNYL 250 MCG/5 ML SDV ONE (10:09)
[2018-05-02] MEDS ORDERED: Ondansetron 4 MG/2 ML SDV ONE (10:09)
[2018-05-02] MEDS ORDERED: Propofol 200 MG/20 ML SDV ONE (10:09)
[2018-05-02] MEDS ORDERED: Lidocaine 1% 30 ML SDV ONE (10:26)
[2018-05-02] MEDS: HYDROmorphone 0.5 MG/0.5 ML Syringe IVPUSH PRN ×2 (10:46→20:39)
--- NOTE | 2018-05-02 13:23 | PCM.PN ---
- General Info Date of Service: 05/02/18 (Hospital day 7) Functional Status: Reports: Pain Controlled, Tolerating Diet, Ambulating, Urinating - Review of Systems General: Reports: Weakness HEENT: Reports: No Symptoms Pulmonary: Reports: No Symptoms Cardiovascular: Reports: No Symptoms Gastrointestinal: Reports: No Symptoms Genitourinary: Reports: No Symptoms Musculoskeletal: Reports: No Symptoms Skin: Reports: No Symptoms Neurological: Reports: No Symptoms Psychiatric: Reports: No Symptoms - Patient Data Vitals - Most Recent: Last Vital Signs Temp 36.8 C 05/02/18 09:47 Pulse 91 05/02/18 09:47 Resp 23 H 05/02/18 09:47 BP 145/86 H 05/02/18 09:47 Pulse Ox 95 05/02/18 09:47 Weight - Most Recent: 81.511 kg I&O - Last 24 Hours: Intake & Output 05/01/18 05/02/18 05/02/18 22:59 06:59 14:59 Intake Total 2500 2050 Output Total 2800 3250 Balance -300 -1200 Lab Results Last 24 Hours: Laboratory Results - last 24 hr 05/01/18 05/01/18 05/02/18 Range/Units 17:00 21:09 06:03 POC Glucose 136 H 105 143 H (70-105) mg/dL 05/02/18 Range/Units 10:43 POC Glucose 151 H (70-105) mg/dL [facility]ian Results Last 24 Hours: Microbiology 04/25/18 15:55 Aerobic Blood Culture - Preliminary Blood - Venous NO GROWTH AFTER 6 DAYS Anaerobic Blood Culture - Preliminary NO GROWTH AFTER 6 DAYS 04/25/18 15:50 Aerobic Blood Culture - Preliminary Blood - Venous - Lab Draw NO GROWTH AFTER 6 DAYS Anaerobic Blood Culture - Preliminary NO GROWTH AFTER 6 DAYS Med Orders - Current: Current Medications Acetaminophen (Tylenol) 650 mg PO Q4H PRN PRN Reason: Pain (Mild 1-3)/fever Hydrocodone Bitart/Acetaminophen (Gibson 325-5 Mg) 1 tab PO Q4H PRN PRN Reason: Pain (moderate 4-6) Last Admin: 05/01/18 15:50 Dose: 1 tab Albuterol/Ipratropium (Duoneb 3.0-0.5 Mg/3 Ml) 3 ml NEB Q4H PRN PRN Reason: Shortness Of Breath/wheezing Aspirin (Aspirin) 81 mg PO BEDTIME [facility] Last Admin: 05/01/18 21:07 Dose: 81 mg Bisacodyl (Dulcolax) 5 mg PO DAILY PRN PRN Reason: Constipation Docusate Sodium (Colace) 100 mg PO BID PRN PRN Reason: Constipation Enoxaparin Sodium (Lovenox) 40 mg SUBCUT DAILY [facility] Last Admin: 05/01/18 08:06 Dose: 40 mg Glipizide (Glucotrol Xl) 5 mg PO BIDMEALS [facility] Last Admin: 05/02/18 06:56 Dose: Not Given Hydromorphone HCl (Dilaudid) 0.5 mg IVPUSH Q4H PRN PRN Reason: Pain (severe 7-10) Last Admin: 05/02/18 10:46 Dose: 0.5 mg Promethazine HCl 12.5 mg/ (Sodium Chloride) 50.5 mls @ 100 mls/hr IV Q6H PRN PRN Reason: Nausea/Vomiting Piperacillin Sod/Tazobactam (Sod 4.5 gm/ Sodium Chloride) 100 mls @ 25 mls/hr IV Q8H [facility] Last Admin: 05/02/18 10:30 Dose: 25 mls/hr Vancomycin HCl 1 gm/Vancomycin HCl 250 mg/ Sodium Chloride 250 mls @ 250 mls/ hr IV Q8H [facility] Insulin Glargine (Lantus Solostar) 10 units SUBCUT BIDAC [facility] Last Admin: 05/02/18 06:56 Dose: Not Given Insulin Human Lispro (Humalog) 0 unit SUBCUT QIDACANDBED [facility]; Protocol Last Admin: 05/02/18 11:36 Dose: Not Given Lisinopril (Prinivil) 20 mg PO DAILY [facility] Last Admin: 05/02/18 08:11 Dose: Not Given Lorazepam (Ativan) 1 mg IV Q6H PRN PRN Reason: Nausea/Vomiting Magnesium Sulfate (Pharmacy To Dose - Magnesium Replacement) 0 dose .XX ASDIRECTED PRN PRN Reason: RX TO WATCH MAG LEVELS Metformin HCl (Glucophage) 1,000 mg PO BIDMEALS [facility] Last Admin: 05/02/18 06:56 Dose: Not Given Ondansetron HCl (Zofran) 4 mg IV Q6H PRN PRN Reason: Nausea/Vomiting Last Admin: 05/01/18 17:01 Dose: 4 mg Polyethylene Glycol (Miralax) 17 gm PO DAILY PRN PRN Reason: Constipation Potassium Chloride (Pharmacy To Dose - Potassium Replacement) 0 dose .XX ASDIRECTED PRN PRN Reason: RX TO WATCH K LEVELS Saccharomyces Boulardii (Florastor) 250 mg PO DAILY [facility] Last Admin: 05/02/18 08:11 Dose: Not Given Scopolamine (Transderm-Scop) 1.5 mg TRDERM Q72H PRN PRN Reason: Nausea/Vomiting Last Admin: 04/30/18 12:41 Dose: 1.5 mg Senna/Docusate Sodium (Senna Plus) 1 tab PO BID PRN PRN Reason: Constipation Sodium Chloride (Saline Flush) 10 ml FLUSH ASDIRECTED [facility] Last Admin: 04/27/18 13:45 Dose: 10 ml Temazepam (Restoril) 15 mg PO BEDTIME PRN PRN Reason: Sleep Vancomycin HCl (Pharmacy To Dose - Vancomycin) 0 dose .XX ASDIRECTED PRN PRN Reason: RX TO DOSE VANCO Discontinued Medications Bupivacaine HCl (Marcaine 0.5%) Confirm Administered Dose 30 ml .ROUTE .STK-MED ONE Stop: 04/25/18 18:23 Last Admin: 04/25/18 19:53 Dose: 1.5 ml Clindamycin Phosphate (Cleocin) Confirm Administered Dose 900 mg .ROUTE .STK- MED ONE Stop: 04/25/18 19:11 Fentanyl (Sublimaze) Confirm Administered Dose 250 mcg .ROUTE .STK-MED ONE Stop: 04/25/18 18:38 Fentanyl (Sublimaze) 50 mcg IVPUSH Q5M PRN PRN Reason: Pain Fentanyl (Sublimaze) Confirm Administered Dose 100 mcg .ROUTE .STK-MED ONE Stop: 04/26/18 09:03 Fentanyl (Sublimaze) Confirm Administered Dose 100 mcg .ROUTE .STK-MED ONE Stop: 04/26/18 10:07 Fentanyl (Sublimaze) 50 mcg IVPUSH Q5M PRN PRN Reason: pain Stop: 04/26/18 18:00 Fentanyl (Sublimaze) Confirm Administered Dose 250 mcg .ROUTE .STK-MED ONE Stop: 05/02/18 10:10 Gadobenate Dimeglumine (Multihance) 16 ml IVPUSH ONETIME ONE Stop: 04/27/18 13:03 Last Admin: 04/27/18 13:42 Dose: Not Given Hydromorphone HCl (Dilaudid) 0.5 mg IVPUSH ONETIME ONE Stop: 04/25/18 15:30 Last Admin: 04/25/18 16:01 Dose: 0.5 mg Hydromorphone HCl (Dilaudid) Confirm Administered Dose 1 mg .ROUTE .STK-MED ONE Stop: 04/25/18 19:03 Hydromorphone HCl (Dilaudid) 0.5 mg IVPUSH ONETIME PRN PRN Reason: Pain (severe 7-10) Hydromorphone HCl (Dilaudid) 0.5 mg IVPUSH ONETIME PRN PRN Reason: Pain (severe 7-10) Stop: 04/26/18 18:00 Sodium Chloride (Normal Saline) 1,000 mls @ 999 mls/hr IV ONETIME ONE Stop: 04/25/18 16:28 Last Admin: 04/25/18 15:59 Dose: 999 mls/hr Vancomycin HCl 1 gm/ Sodium (Chloride) 250 mls @ 250 mls/hr IV ONETIME ONE Stop: 04/25/18 16:36 Last Admin: 04/25/18 16:10 Dose: 250 mls/hr Vancomycin HCl 1 gm/ Sodium (Chloride) 250 mls @ 250 mls/hr IV ONETIME ONE Stop: 04/25/18 16:37 Last Admin: 04/25/18 17:09 Dose: 250 mls/hr Sodium Chloride (Normal Saline) 1,000 mls @ 999 mls/hr IV ONETIME ONE Stop: 04/25/18 17:57 Last Admin: 04/25/18 17:09 Dose: 999 mls/hr Piperacillin Sod/Tazobactam (Sod 4.5 gm/ Sodium Chloride) 100 mls @ 200 mls/hr IV ONETIME ONE Stop: 04/25/18 18:24 Last Admin: 04/25/18 18:18 Dose: 200 mls/hr Vancomycin HCl 1 gm/ Sodium (Chloride) 250 mls @ 250 mls/hr IV Q8H [facility] Last Admin: 04/26/18 19:53 Dose: Not Given Piperacillin Sod/Tazobactam (Sod 4.5 gm/ Sodium Chloride) 100 mls @ 25 mls/hr IV Q8H [facility] Last Admin: 05/02/18 09:32 Dose: Not Given Lidocaine HCl (Xylocaine-Mpf 1%) Confirm Administered Dose 4 mls @ as directed .ROUTE .STK-MED ONE Stop: 04/25/18 18:38 Clindamycin Phosphate 900 mg/ (Sodium Chloride) 106 mls @ 100 mls/hr IV Q8H [facility] Last Admin: 04/28/18 10:33 Dose: 100 mls/hr Sodium Chloride (Normal Saline) Confirm Administered Dose 100 mls @ as directed .ROUTE .[facility] ONE Stop: 04/25/18 19:11 Lactated Ringer's (Ringers, Lactated) Confirm Administered Dose 1,000 mls @ as directed .ROUTE .[facility] ONE Stop: 04/26/18 10:10 Vancomycin HCl 1 gm/Vancomycin HCl 250 mg/ Sodium Chloride 250 mls @ 250 mls/ hr IV Q8H [facility] Last Admin: 04/28/18 08:42 Dose: 250 mls/hr Sodium Chloride (Normal Saline) 1,000 mls @ 125 mls/hr IV ASDIRECTED [facility] Last Admin: 04/29/18 06:35 Dose: 125 mls/hr Magnesium Sulfate 4 gm/ Premix 100 mls @ 25 mls/hr IV ONETIME ONE Stop: 04/28/18 13:59 Last Admin: 04/28/18 10:13 Dose: 25 mls/hr Vancomycin HCl 1.5 gm/ Sodium (Chloride) 500 mls @ 250 mls/hr IV Q8H [facility] Last Admin: 04/29/18 08:28 Dose: 250 mls/hr Vancomycin HCl 1 gm/Vancomycin HCl 250 mg/ Sodium Chloride 250 mls @ 250 mls/ hr IV Q8H [facility] Last Admin: 05/02/18 05:02 Dose: 250 mls/hr Vancomycin HCl 1 gm/Vancomycin HCl 250 mg/ Sodium Chloride 250 mls @ 250 mls/ hr IV Q8H [facility] Last Admin: 05/02/18 09:31 Dose: Not Given Insulin Glargine (Lantus Solostar) 5 units SUBCUT BIDAC [facility] Last Admin: 05/01/18 06:17 Dose: 5 units Ketamine HCl (Ketalar) Confirm Administered Dose 500 mg .ROUTE .STK-MED ONE Stop: 04/25/18 19:11 Ketamine HCl (Ketalar) Confirm Administered Dose 500 mg .ROUTE .STK-MED ONE Stop: 04/26/18 10:07 Lidocaine HCl (Xylocaine-Mpf 1%) Confirm Administered Dose 30 ml .ROUTE .K- MED ONE Stop: 05/02/18 10:27 Lidocaine/Epinephrine (Xylocaine 1% With Epinephrine 1:100,000) Confirm Administered Dose 20 ml .ROUTE .[facility] ONE Stop: 04/25/18 18:23 Last Admin: 04/25/18 19:53 Dose: 1.5 ml Lisinopril (Prinivil) 10 mg PO DAILY [facility] Last Admin: 04/29/18 08:37 Dose: 10 mg Metformin HCl (Glucophage) 500 mg PO BIDMEALS [facility] Last Admin: 04/29/18 07:06 Dose: 500 mg Metformin HCl (Glucophage) 500 mg PO ONETIME ONE Stop: 04/25/18 23:01 Last Admin: 04/25/18 23:10 Dose: 500 mg Midazolam HCl (Versed 1 Mg/Ml) Confirm Administered Dose 2 mg .ROUTE .ST-MED ONE Stop: 04/25/18 18:38 Midazolam HCl (Versed 1 Mg/Ml) Confirm Administered Dose 2 mg .ROUTE .ST-MED ONE Stop: 04/26/18 09:03 Midazolam HCl (Versed 1 Mg/Ml) Confirm Administered Dose 2 mg .ROUTE .ST-MED ONE Stop: 05/02/18 10:10 Ondansetron HCl (Zofran) 4 mg IVPUSH ONETIME ONE Stop: 04/25/18 15:30 Last Admin: 04/25/18 16:03 Dose: 4 mg Ondansetron HCl (Zofran) Confirm Administered Dose 4 mg .ROUTE .STK-MED ONE Stop: 04/25/18 18:38 Ondansetron HCl (Zofran) 4 mg IVPUSH ONETIME PRN PRN Reason: Nausea/Vomiting Ondansetron HCl (Zofran) Confirm Administered Dose 4 mg .ROUTE .STK-MED ONE Stop: 04/26/18 10:10 Ondansetron HCl (Zofran) Confirm Administered Dose 4 mg .ROUTE .STK-MED ONE Stop: 05/02/18 10:10 Potassium Chloride (Klor-Con M20) 40 meq PO ONETIME ONE Stop: 04/27/18 09:01 Last Admin: 04/27/18 10:08 Dose: 40 meq Potassium Chloride (Klor-Con M20) 40 meq PO Q4H [facility] Stop: 04/29/18 19:01 Last Admin: 04/29/18 18:07 Dose: 40 meq Potassium Chloride (Klor-Con M20) 40 meq PO Q4H [facility] Stop: 05/01/18 16:01 Last Admin: 05/01/18 15:51 Dose: 40 meq Propofol (Diprivan 20 Ml) Confirm Administered Dose 200 mg .ROUTE .STK-MED ONE Stop: 04/25/18 18:38 Propofol (Diprivan 20 Ml) Confirm Administered Dose 400 mg .ROUTE .STK-MED ONE Stop: 04/26/18 09:03 Propofol (Diprivan 20 Ml) Confirm Administered Dose 200 mg .ROUTE .STK-MED ONE Stop: 04/26/18 10:38 Propofol (Diprivan 20 Ml) Confirm Administered Dose 400 mg .ROUTE .STK-MED ONE Stop: 05/02/18 10:10 Sodium Chloride (Saline Flush) 10 ml FLUSH ASDIRECTED PRN PRN Reason: Keep Vein Open Last Admin: 04/25/18 16:00 Dose: 10 ml Succinylcholine Chloride (Succinylcholine In Ns Pf) Confirm Administered Dose 100 mg .ROUTE .STK-MED ONE Stop: 04/25/18 18:38 Vancomycin HCl (Vancomycin) 1,190.685 mg 15 mg/kg (1190.685 mg) IV Q12H [facility] Last Admin: 04/25/18 18:15 Dose: Not Given - Exam Quality Assessment: DVT Prophylaxis General: Alert, Oriented, Cooperative, No Acute Distress HEENT: Pupils Equal, Pupils Reactive, EOMI Neck: Trachea Midline, No JVD Lungs: Normal Respiratory Effort Cardiovascular: Regular Rate, Regular Rhythm GI/Abdominal Exam: Normal Bowel Sounds, Soft, Non-Tender, No Organomegaly, No Distention (Male) Exam: Deferred Back Exam: Normal Inspection Extremities: Normal Inspection, Normal Capillary Refill Skin: Warm Wound/Incisions: Dressing Dry and Intact Neurological: No New Focal Deficit, Normal Speech Psy/Mental Status: Alert, Normal Affect, Normal Mood - Problem List Review Problem List Initiated/Reviewed/Updated: Yes - Assessment Assessment:: Assessment/Plan: Acute: POD 7 (I/D)-gen surgery; POD 6 (Debridement)-gen surgery; scheduled for 4th toe amputation per ortho. Diabetic Foot Ulcer w/ Osteomyelities * Open ulcer with drainage located on plantar aspect of right foot beneath great toe * WBC 18.92--> 13.89 --> 14.81 --> 12.56--> 13.73--> 16.84--> 13.52 * CRP 36 --> 23.4 --> 23.1 --> 23.6--> 19--> 20.5--> 16.5 * Cultures positive for S. aureus, Peptostrep Species and GBS * Surgery team determined there is dry gangrene of the 4th right toe and possibly the 5th toe * Dr. Joyner, orthopedic surgeon * Amputation today, 05/02/18 * Amputation of 4th toe and possible amputation of 5th toe if there is no improvement over the weekend * NPO in preparation for surgery * Broad spectrum IV antibiotics--> Abx management defer to the surgical team * Vancomycin and clindamycin initiated prior to culture results - these will be continued * Piperacillin/tazobactum added to the regimen * PICC line placed today for administration of antibiotics * Pain medications PRN * MRI on 04/27 found osteomyelitis * DVT prophylaxis lovenox * Surgery consult * Dr. Tamez performed debridement shortly after admission on the evening of 04/25 * Repeat debridement 04/26 * Discussed need for senior care solution * Will require extended diabetic services and wound care following discharge * Query facility in [place] Diabetes Mellitus * Glucose 355 and HgbA1c 11.8 upon admission * Denies personal or family history of diabetes * Patient informed of diabetic status; he is surprised but understands diagnosis * Initially started on insulin, metformin, and glipizide * Glucose--> now uncontrolled (213); will increase Lantus to 10 units subQ BID * Alter medications as needed * Aspirin, statin, and JORGE inhibitor added to treatment regimen * Lipid panel unremarkable other than reduced HDL * Urine negative for micro-albumin * Consult case operator and clinical nurse educator * Encourage [place] Diabetic diet * Discussed option for SGLT-2 Inhibitor and patient is receptive to it Anemia, Stable * Labs 04/28 show Hct 31.9 and Hgb 10.7-->10.7-->11.2--> 9.8 * Likely due to IVF dilution * Continue to monitor Resolved: S/p Diarrhea * Patient has been experiencing diarrhea today and yesterday * Negative for c. dif * Continue to monitor * Hypokalemia * K 3.2--> 4.0 * 2/2 inadequate intake * Replete and monitor Plan: He remains clinically stable Continue current treatment Routine AM labs NPO Midnight Continue PT/OT tx Surgical Amputation in AM SW/CM for d/c planning Code status: 1 Discharge likely to [facility] pending surgery on Tuesday LOS > 96 hrs pending surgery and placement - Plan Plan:: The patient was seen and examined at bedside in concert with medical student. The assessment and plans were discussed and agreed upon with me. Patient reports no overnight or acute issues. His pain is controlled. He is NPO pending MRI result to r/o amputation.
--- NOTE | 2018-05-02 13:39 | PCM48HPAN ---
Post Anesthesia Note - EVALUATION WITHIN 48HRS OF ANESTHETIC Vital Signs in Normal Range: Yes Patient Participated in Evaluation: Yes Respiratory Function Stable: Yes Airway Patent: Yes Cardiovascular Function Stable: Yes Hydration Status Stable: Yes Pain Control Satisfactory: Yes Nausea and Vomiting Control Satisfactory: Yes Mental Status Recovered: Yes Pulse Rate: 94 SaO2: 93 Resp Rate: 23 Temperature: 36.8 C Blood Pressure: 137/92
[2018-05-02] MEDS ORDERED: fentaNYL 100 MCG/2 ML SDV IVPUSH PRN (13:40)
--- NOTE | 2018-05-02 14:07 | CR ---
Chest: Portable view of the chest was obtained. Comparison: No prior chest x-ray. Right-sided PICC line is seen with tip extending into right jugular vein. Heart size and mediastinum are within normal limits for portable technique. Lungs are clear. Impression: 1. Right-sided PICC line with tip located within the right jugular vein. Diagnostic code #3
--- NOTE | 2018-05-02 14:07 | CR ---
Chest: Portable view of the chest was obtained. Comparison: Prior chest x-ray performed earlier on the same day (1:29 PM). Right-sided PICC line is seen. Tip is kinked upon itself and located within the right brachiocephalic vein. Lungs are clear. Heart size and mediastinum are normal. Bony structures are grossly intact. Impression: 1. PICC line is kinked upon itself within the right brachiocephalic vein. Diagnostic code #3
[2018-05-02] MEDS: Sodium Chloride 0.9% 1,000 ML IV SCH ×2 (16:56→20:44)
[2018-05-02] MEDS ORDERED: Lactated Ringers 1,000 ML IV ONE (17:39)
--- NOTE | 2018-05-02 17:56 | PCM.CONSN ---
- General Info Date of Service: 05/02/18 Subjective Update: NO acute overnight events. Patient denies any new symptoms. - Patient Data Vitals - Most Recent: Last Vital Signs Temp 37.2 C 05/02/18 16:00 Pulse 108 H 05/02/18 17:01 Resp 20 05/02/18 14:15 BP 148/90 H 05/02/18 17:01 Pulse Ox 96 05/02/18 17:01 Weight - Most Recent: 81.511 kg I&O - Last 24 Hours: Intake & Output 05/02/18 05/02/18 05/02/18 06:59 14:59 22:59 Intake Total 2050 100 3100 Output Total 3250 2600 Balance -1200 100 500 Lab Results Last 24 Hours: Laboratory Results - last 24 hr 05/01/18 05/02/18 05/02/18 Range/Units 21:09 06:03 10:43 POC Glucose 105 143 H 151 H (70-105) mg/dL [facility]ian Results Last 24 Hours: Microbiology 04/25/18 15:55 Aerobic Blood Culture - Final Blood - Venous NO GROWTH AFTER 7 DAYS Anaerobic Blood Culture - Final NO GROWTH AFTER 7 DAYS 04/25/18 15:50 Aerobic Blood Culture - Final Blood - Venous - Lab Draw NO GROWTH AFTER 7 DAYS Anaerobic Blood Culture - Final NO GROWTH AFTER 7 DAYS Med Orders - Current: Current Medications Acetaminophen (Tylenol) 650 mg PO Q4H PRN PRN Reason: Pain (Mild 1-3)/fever Hydrocodone Bitart/Acetaminophen (Alpine 325-5 Mg) 1 tab PO Q4H PRN PRN Reason: Pain (moderate 4-6) Last Admin: 05/01/18 15:50 Dose: 1 tab Albuterol/Ipratropium (Duoneb 3.0-0.5 Mg/3 Ml) 3 ml NEB Q4H PRN PRN Reason: Shortness Of Breath/wheezing Aspirin (Aspirin) 81 mg PO BEDTIME [facility] Last Admin: 05/01/18 21:07 Dose: 81 mg Bisacodyl (Dulcolax) 5 mg PO DAILY PRN PRN Reason: Constipation Docusate Sodium (Colace) 100 mg PO BID PRN PRN Reason: Constipation Enoxaparin Sodium (Lovenox) 40 mg SUBCUT DAILY [facility] Last Admin: 05/01/18 08:06 Dose: 40 mg Glipizide (Glucotrol Xl) 5 mg PO BIDMEALS [facility] Last Admin: 05/02/18 16:50 Dose: 5 mg Hydromorphone HCl (Dilaudid) 0.5 mg IVPUSH Q4H PRN PRN Reason: Pain (severe 7-10) Last Admin: 05/02/18 10:46 Dose: 0.5 mg Promethazine HCl 12.5 mg/ (Sodium Chloride) 50.5 mls @ 100 mls/hr IV Q6H PRN PRN Reason: Nausea/Vomiting Piperacillin Sod/Tazobactam (Sod 4.5 gm/ Sodium Chloride) 100 mls @ 25 mls/hr IV Q8H [facility] Last Admin: 05/02/18 10:30 Dose: 25 mls/hr Vancomycin HCl 1 gm/Vancomycin HCl 250 mg/ Sodium Chloride 250 mls @ 250 mls/ hr IV Q8H [facility] Last Admin: 05/02/18 16:51 Dose: 250 mls/hr Sodium Chloride (Normal Saline) 1,000 mls @ 15 mls/hr IV ASDIRECTED [facility] Last Admin: 05/02/18 16:56 Dose: 15 mls/hr Lactated Ringer's (Ringers, Lactated) 1,000 mls @ 999 mls/hr IV .BOLUS ONE Stop: 05/02/18 18:39 Insulin Glargine (Lantus Solostar) 10 units SUBCUT BIDAC [facility] Last Admin: 05/02/18 16:49 Dose: 10 units Insulin Human Lispro (Humalog) 0 unit SUBCUT QIDACANDBED [facility]; Protocol Last Admin: 05/02/18 16:48 Dose: 6 units Lisinopril (Prinivil) 20 mg PO DAILY [facility] Last Admin: 05/02/18 08:11 Dose: Not Given Lorazepam (Ativan) 1 mg IV Q6H PRN PRN Reason: Nausea/Vomiting Magnesium Sulfate (Pharmacy To Dose - Magnesium Replacement) 0 dose .XX ASDIRECTED PRN PRN Reason: RX TO WATCH MAG LEVELS Metformin HCl (Glucophage) 1,000 mg PO BIDMEALS [facility] Last Admin: 05/02/18 16:50 Dose: 1,000 mg Ondansetron HCl (Zofran) 4 mg IV Q6H PRN PRN Reason: Nausea/Vomiting Last Admin: 05/01/18 17:01 Dose: 4 mg Polyethylene Glycol (Miralax) 17 gm PO DAILY PRN PRN Reason: Constipation Potassium Chloride (Pharmacy To Dose - Potassium Replacement) 0 dose .XX ASDIRECTED PRN PRN Reason: RX TO WATCH K LEVELS Saccharomyces Boulardii (Florastor) 250 mg PO DAILY [facility] Last Admin: 05/02/18 08:11 Dose: Not Given Scopolamine (Transderm-Scop) 1.5 mg TRDERM Q72H PRN PRN Reason: Nausea/Vomiting Last Admin: 04/30/18 12:41 Dose: 1.5 mg Senna/Docusate Sodium (Senna Plus) 1 tab PO BID PRN PRN Reason: Constipation Sodium Chloride (Saline Flush) 10 ml FLUSH ASDIRECTED [facility] Last Admin: 04/27/18 13:45 Dose: 10 ml Temazepam (Restoril) 15 mg PO BEDTIME PRN PRN Reason: Sleep Vancomycin HCl (Pharmacy To Dose - Vancomycin) 0 dose .XX ASDIRECTED PRN PRN Reason: RX TO DOSE VANCO Discontinued Medications Bupivacaine HCl (Marcaine 0.5%) Confirm Administered Dose 30 ml .ROUTE .STK-MED ONE Stop: 04/25/18 18:23 Last Admin: 04/25/18 19:53 Dose: 1.5 ml Clindamycin Phosphate (Cleocin) Confirm Administered Dose 900 mg .ROUTE .STK- MED ONE Stop: 04/25/18 19:11 Fentanyl (Sublimaze) Confirm Administered Dose 250 mcg .ROUTE .STK-MED ONE Stop: 04/25/18 18:38 Fentanyl (Sublimaze) 50 mcg IVPUSH Q5M PRN PRN Reason: Pain Fentanyl (Sublimaze) Confirm Administered Dose 100 mcg .ROUTE .STK-MED ONE Stop: 04/26/18 09:03 Fentanyl (Sublimaze) Confirm Administered Dose 100 mcg .ROUTE .STK-MED ONE Stop: 04/26/18 10:07 Fentanyl (Sublimaze) 50 mcg IVPUSH Q5M PRN PRN Reason: pain Stop: 04/26/18 18:00 Fentanyl (Sublimaze) Confirm Administered Dose 250 mcg .ROUTE .STK-MED ONE Stop: 05/02/18 10:10 Fentanyl (Sublimaze) 50 mcg IVPUSH Q5M PRN PRN Reason: pain Stop: 05/02/18 16:00 Gadobenate Dimeglumine (Multihance) 16 ml IVPUSH ONETIME ONE Stop: 04/27/18 13:03 Last Admin: 04/27/18 13:42 Dose: Not Given Hydromorphone HCl (Dilaudid) 0.5 mg IVPUSH ONETIME ONE Stop: 04/25/18 15:30 Last Admin: 04/25/18 16:01 Dose: 0.5 mg Hydromorphone HCl (Dilaudid) Confirm Administered Dose 1 mg .ROUTE .STK-MED ONE Stop: 04/25/18 19:03 Hydromorphone HCl (Dilaudid) 0.5 mg IVPUSH ONETIME PRN PRN Reason: Pain (severe 7-10) Hydromorphone HCl (Dilaudid) 0.5 mg IVPUSH ONETIME PRN PRN Reason: Pain (severe 7-10) Stop: 04/26/18 18:00 Sodium Chloride (Normal Saline) 1,000 mls @ 999 mls/hr IV ONETIME ONE Stop: 04/25/18 16:28 Last Admin: 04/25/18 15:59 Dose: 999 mls/hr Vancomycin HCl 1 gm/ Sodium (Chloride) 250 mls @ 250 mls/hr IV ONETIME ONE Stop: 04/25/18 16:36 Last Admin: 04/25/18 16:10 Dose: 250 mls/hr Vancomycin HCl 1 gm/ Sodium (Chloride) 250 mls @ 250 mls/hr IV ONETIME ONE Stop: 04/25/18 16:37 Last Admin: 04/25/18 17:09 Dose: 250 mls/hr Sodium Chloride (Normal Saline) 1,000 mls @ 999 mls/hr IV ONETIME ONE Stop: 04/25/18 17:57 Last Admin: 04/25/18 17:09 Dose: 999 mls/hr Piperacillin Sod/Tazobactam (Sod 4.5 gm/ Sodium Chloride) 100 mls @ 200 mls/hr IV ONETIME ONE Stop: 04/25/18 18:24 Last Admin: 04/25/18 18:18 Dose: 200 mls/hr Vancomycin HCl 1 gm/ Sodium (Chloride) 250 mls @ 250 mls/hr IV Q8H [facility] Last Admin: 04/26/18 19:53 Dose: Not Given Piperacillin Sod/Tazobactam (Sod 4.5 gm/ Sodium Chloride) 100 mls @ 25 mls/hr IV Q8H [facility] Last Admin: 05/02/18 09:32 Dose: Not Given Lidocaine HCl (Xylocaine-Mpf 1%) Confirm Administered Dose 4 mls @ as directed .ROUTE .[facility] ONE Stop: 04/25/18 18:38 Clindamycin Phosphate 900 mg/ (Sodium Chloride) 106 mls @ 100 mls/hr IV Q8H [facility] Last Admin: 04/28/18 10:33 Dose: 100 mls/hr Sodium Chloride (Normal Saline) Confirm Administered Dose 100 mls @ as directed .ROUTE .[facility] ONE Stop: 04/25/18 19:11 Lactated Ringer's (Ringers, Lactated) Confirm Administered Dose 1,000 mls @ as directed .ROUTE .[facility] ONE Stop: 04/26/18 10:10 Vancomycin HCl 1 gm/Vancomycin HCl 250 mg/ Sodium Chloride 250 mls @ 250 mls/ hr IV Q8H [facility] Last Admin: 04/28/18 08:42 Dose: 250 mls/hr Sodium Chloride (Normal Saline) 1,000 mls @ 125 mls/hr IV ASDIRECTED [facility] Last Admin: 04/29/18 06:35 Dose: 125 mls/hr Magnesium Sulfate 4 gm/ Premix 100 mls @ 25 mls/hr IV ONETIME ONE Stop: 04/28/18 13:59 Last Admin: 04/28/18 10:13 Dose: 25 mls/hr Vancomycin HCl 1.5 gm/ Sodium (Chloride) 500 mls @ 250 mls/hr IV Q8H [facility] Last Admin: 04/29/18 08:28 Dose: 250 mls/hr Vancomycin HCl 1 gm/Vancomycin HCl 250 mg/ Sodium Chloride 250 mls @ 250 mls/ hr IV Q8H [facility] Last Admin: 05/02/18 05:02 Dose: 250 mls/hr Vancomycin HCl 1 gm/Vancomycin HCl 250 mg/ Sodium Chloride 250 mls @ 250 mls/ hr IV Q8H [facility] Last Admin: 05/02/18 09:31 Dose: Not Given Insulin Glargine (Lantus Solostar) 5 units SUBCUT BIDAC [facility] Last Admin: 05/01/18 06:17 Dose: 5 units Ketamine HCl (Ketalar) Confirm Administered Dose 500 mg .ROUTE .STK-MED ONE Stop: 04/25/18 19:11 Ketamine HCl (Ketalar) Confirm Administered Dose 500 mg .ROUTE .STK-MED ONE Stop: 04/26/18 10:07 Lidocaine HCl (Xylocaine-Mpf 1%) Confirm Administered Dose 30 ml .ROUTE .STK- MED ONE Stop: 05/02/18 10:27 Last Admin: 05/02/18 12:39 Dose: 6 ml Lidocaine/Epinephrine (Xylocaine 1% With Epinephrine 1:100,000) Confirm Administered Dose 20 ml .ROUTE .STK-MED ONE Stop: 04/25/18 18:23 Last Admin: 04/25/18 19:53 Dose: 1.5 ml Lisinopril (Prinivil) 10 mg PO DAILY [facility] Last Admin: 04/29/18 08:37 Dose: 10 mg Metformin HCl (Glucophage) 500 mg PO BIDMEALS [facility] Last Admin: 04/29/18 07:06 Dose: 500 mg Metformin HCl (Glucophage) 500 mg PO ONETIME ONE Stop: 04/25/18 23:01 Last Admin: 04/25/18 23:10 Dose: 500 mg Midazolam HCl (Versed 1 Mg/Ml) Confirm Administered Dose 2 mg .ROUTE .STK-MED ONE Stop: 04/25/18 18:38 Midazolam HCl (Versed 1 Mg/Ml) Confirm Administered Dose 2 mg .ROUTE .STK-MED ONE Stop: 04/26/18 09:03 Midazolam HCl (Versed 1 Mg/Ml) Confirm Administered Dose 2 mg .ROUTE .STK-MED ONE Stop: 05/02/18 10:10 Ondansetron HCl (Zofran) 4 mg IVPUSH ONETIME ONE Stop: 04/25/18 15:30 Last Admin: 04/25/18 16:03 Dose: 4 mg Ondansetron HCl (Zofran) Confirm Administered Dose 4 mg .ROUTE .STK-MED ONE Stop: 04/25/18 18:38 Ondansetron HCl (Zofran) 4 mg IVPUSH ONETIME PRN PRN Reason: Nausea/Vomiting Ondansetron HCl (Zofran) Confirm Administered Dose 4 mg .ROUTE .STK-MED ONE Stop: 04/26/18 10:10 Ondansetron HCl (Zofran) Confirm Administered Dose 4 mg .ROUTE .STK-MED ONE Stop: 05/02/18 10:10 Potassium Chloride (Klor-Con M20) 40 meq PO ONETIME ONE Stop: 04/27/18 09:01 Last Admin: 04/27/18 10:08 Dose: 40 meq Potassium Chloride (Klor-Con M20) 40 meq PO Q4H [facility] Stop: 04/29/18 19:01 Last Admin: 04/29/18 18:07 Dose: 40 meq Potassium Chloride (Klor-Con M20) 40 meq PO Q4H [facility] Stop: 05/01/18 16:01 Last Admin: 05/01/18 15:51 Dose: 40 meq Propofol (Diprivan 20 Ml) Confirm Administered Dose 200 mg .ROUTE .STK-MED ONE Stop: 04/25/18 18:38 Propofol (Diprivan 20 Ml) Confirm Administered Dose 400 mg .ROUTE .STK-MED ONE Stop: 04/26/18 09:03 Propofol (Diprivan 20 Ml) Confirm Administered Dose 200 mg .ROUTE .STK-MED ONE Stop: 04/26/18 10:38 Propofol (Diprivan 20 Ml) Confirm Administered Dose 400 mg .ROUTE .STK-MED ONE Stop: 05/02/18 10:10 Sodium Chloride (Saline Flush) 10 ml FLUSH ASDIRECTED PRN PRN Reason: Keep Vein Open Last Admin: 04/25/18 16:00 Dose: 10 ml Succinylcholine Chloride (Succinylcholine In Ns Pf) Confirm Administered Dose 100 mg .ROUTE .STK-MED ONE Stop: 04/25/18 18:38 Vancomycin HCl (Vancomycin) 1,190.685 mg 15 mg/kg (1190.685 mg) IV Q12H [facility] Last Admin: 04/25/18 18:15 Dose: Not Given - Exam General: Alert, Oriented, Cooperative Extremities: Other (RIGHT foot with dressing in place.) Consult PN Assessment/Plan (1) Foot abscess, right SNOMED Code(s): 055661944 Code(s): L02.611 - CUTANEOUS ABSCESS OF RIGHT FOOT Current Visit: Yes Problem List Initiated/Reviewed/Updated: Yes Plan: 42 yo male, HD#8 for RIGHT foot soft tissue infection with abscess, newly diagnosed diabetes, POD#7 for initial I&D and debridement, POD#6 for repeat debridement and washout/dressing change. Infection has resulted in necrosis to the RIGHT 4th toe. MRI demonstrates evidence of osteomyelitis. PICC line has been placed in anticipation of long-term antibiotics. Culture of foot wound shows polymicrobial growth with Beta Strep group B and Staph aureus. Appreciate input from [facility] consultant, Dr. Joyner, who performed amputation of the necrotic toe today. Case was d/w Dr. Joyner, who will continue the patient's surgical care. General Surgery will sign off at this time. Arsen Gaston M.D., F.A.C.S. General Surgery Pager: [phone]
[2018-05-02] MEDS: Ondansetron 4 MG/2 ML SDV IV PRN (18:22)
[2018-05-02] MEDS: Acetaminophen/HYDROcodone 325-5 MG Tab PO PRN (18:25)
[2018-05-02] MEDS: Aspirin 81 MG Tab.Chew PO SCH (20:25)
[2018-05-03] MEDS: Piperacillin/Tazobactam 4.5 GM in Sodium Chloride 0.9% 100 ML IV SCH ×2 (04:10→10:23)
[2018-05-03] MEDS: Insulin Lispro 100 Unit/ML 3 ML KwikPen SUBCUT SCH ×3 (07:27→17:17)
[2018-05-03] MEDS: Lisinopril 20 MG Tab PO SCH (08:32)
[2018-05-03] MEDS: metFORMIN 500 MG Tab PO SCH ×2 (08:32→16:19)
[2018-05-03] MEDS: Saccharomyces Boulardii (Probiotic) 250 MG Cap PO SCH (08:33)
[2018-05-03] MEDS: glipiZIDE 5 MG Tab.ER PO SCH ×2 (08:33→16:20)
[2018-05-03] MEDS: Insulin Glargine,Human Rec. Analog 100 Units/ML 3 ML Pen SUBCUT SCH ×2 (08:34→16:28)
[2018-05-03] MEDS: Enoxaparin 40 MG/0.4 ML Syringe SUBCUT SCH (10:24)
[2018-05-03] MEDS: Acetaminophen/HYDROcodone 325-5 MG Tab PO PRN (12:38)
[2018-05-03] MEDS ORDERED: Vancomycin 1 GM, Vancomycin 500 MG in Sodium Chloride 0.9% 500 ML IV SCH (17:00)
[2018-05-03] MEDS: Ondansetron 4 MG/2 ML SDV IV PRN (17:13)
--- NOTE | 2018-05-03 17:43 | PCM.DCSUM1 ---
Discharge Summary - Hospital Course HPI Initial Comments: 42-year-old male presents for is sent over from the walk-in clinic for cellulitis. Patient was seen there. [place] he needed admission with IV antibiotics and possible debridement. Dr. Masterson, hospitalist, and Dr. Tamez, surgeon employee relations specialist, were contacted; instructed to come to the ER. patient reports the initial injury was a blister to the ball of his right foot. He reports he was walking around [place] 2 weeks ago when he developed this blister. Symptoms have steadily been worsening. He currently has an open ulcerative area to the ball of his right foot. He has drainage from the area. He denies any fevers but states he is getting chills. He has been feeling nauseous and did vomit earlier today. Reports no numbness or tingling to the area but he is experiencing a throbbing pain to the right foot. Has been icing the foot and taking an aspirin. No history of this. No history of MRSA. No history of diabetes. PCP is Dr. Choudhary, reports he has not seen him in several years. Diagnosis: Stroke: No - Discharge Data Discharge Date: 05/03/18 (ADMIT 04/25/18) Discharge Disposition: DC/[facility] to [facility] Condition: Good - Patient Summary/Data Operative Procedure(s) Performed: Debridement, washout, and wound dressing to the RIGHT foot. Amputation of necrotic right 4th toe 05/02/18 Complications: none Consults: Consultations 04/25/18 17:39 Consult to Diabetic Nurse Specialist [CONS] Routine Consult to Dietary [Consult to Tower Watchman] [CONS] Routine 04/25/18 17:41 Consult to Case Management [CONS] Routine 04/26/18 02:34 Consult to Physician [CONS] Routine 04/26/18 10:11 Consult to Occupational Therapy [OT Evaluation and Treatment] [CONS] Routine Consult to Physical Therapy [PT Evaluation and Treatment] [CONS] Routine 04/27/18 12:25 Consult to Physician [CONS] Routine 04/28/18 12:30 Consult to Physical Therapy [PT Evaluation and Treatment] [CONS] Routine 05/02/18 13:40 Consult to Respiratory Therapy [Respiratory Care Assess and Treatment] [CONS] Routine Labs Pending at D/C: none Recommended Follow-up Testing/Procedures: Follow-up with orthopedic surgeon Dr Joyner or BREE Stewart or provider in [place] in one week. For when patient returns to home: Schedule an appointment with Jeni Chapin, wellness educator at [facility], when you are released from [facility]. Check blood sugars at home as directed by the family living educator and doctor. Bring your glucometer and home medication list with you to your family living educator appointment. Planned Operative Procedure(s) after DC: none Hospital Course: Assessment/Plan: Acute: POD 7 (I/D)-gen surgery; POD 6 (Debridement)-gen surgery; POD 1 4th toe amputation-ortho Diabetic Foot Ulcer w/ Osteomyelitis * Open ulcer with drainage located on plantar aspect of right foot beneath great toe * WBC 18.92--> 13.89 --> 14.81 --> 12.56--> 13.73--> 16.84--> 13.52--> 16.24 * CRP 36 --> 23.4 --> 23.1 --> 23.6--> 19--> 20.5--> 16.5 --> 13.1 * Cultures positive for S. aureus, Peptostrep Species and GBS * Surgery team determined there is dry gangrene of the 4th right toe and possibly the 5th toe * Dr. Joyner, orthopedic surgeon * Amputation 05/02/18 * Amputation of 4th toe and possible amputation of 5th toe if there is no improvement over the weekend * NPO in preparation for surgery * Broad spectrum IV antibiotics--> Abx management defer to the surgical team * Vancomycin and clindamycin initiated prior to culture results - these will be continued * Piperacillin/tazobactum added to the regimen * PICC line placed today for administration of antibiotics * Pain medications PRN * MRI on 04/27 found osteomyelitis * DVT prophylaxis lovenox * Surgery consult Diabetes Mellitus * Glucose 355 and HgbA1c 11.8 upon admission * Denies personal or family history of diabetes * Dr. Tamez performed debridement shortly after admission on the evening of 04/25 * Repeat debridement 04/26 * Discussed need for longterm solution * Will require extended diabetic services and wound care following discharge * Query facility in [place] * Patient informed of diabetic status; he is surprised but understands diagnosis * Initially started on insulin, metformin, and glipizide * Glucose--> now uncontrolled (213); will increase Lantus to 10 units subQ BID * Alter medications as needed * Aspirin, statin, and JORGE inhibitor added to treatment regimen * Lipid panel unremarkable other than reduced HDL * Urine negative for micro-albumin * Consult field operations farm manager and family living educator * Encourage M[place]ese Diabetic diet * Discussed option for SGLT-2 Inhibitor and patient is receptive to it Anemia, Stable * Labs 04/28 show Hct 31.9 and Hgb 10.7-->10.7-->11.2--> 9.8--> 10.4 * Likely due to IVF dilution * Continue to monitor Resolved: S/p Diarrhea * Patient has been experiencing diarrhea today and yesterday * Negative for c. diff * Florastor * Continue to monitor Hypokalemia * K 3.2--> 4.0 * 2/2 inadequate intake * Replete and monitor Plan: He remains clinically stable Continue current treatment Routine AM labs Continue PT/OT tx Surgical Amputation SW/CM for d/c planning Code status: 1 Discharge to [facility] Today LOS > 96 hrs pending surgery and placement Kenrick has done OK after being admitted for cellulitis and new-onset diabetes. He was found to have a diabetic foot ulcer with osteomyelitis. His treatment while here included monitoring sugars, ADA diet, starting diabetic medications ( Glipizide, Humalog, Lantus, Metformin), IV antibiotics (Vancomycin and Zosyn), surgical debridement, as well as amputation of necrotic right 4th toe by ortho. Was also seen by PT/OT while here. He is currently non-weight bearing to right foot, may need to use post-op shoe or Cam Boot if patient toe touches or applies weight. Wound care to right foot includes wound vac therapy per physical therapy change dressing Q2 days and PRN. He will be going to [facility] today to continue wound care as well as IV antibiotics x 6 weeks, as discussed with Dr. Conte. He should follow-up with orthopedic surgeon Dr. Joyner or BREE Stewart or provider in [place] in one week. After he returns home from [facility] , he should start checking blood sugars at home as well as schedule an appointment with Jeni Chapin, wellness educator at [facility]. Needs to follow diabetic diet following consistent carbohydrate meal plannin grams CHO per meal and 15-20 grams per between meal snack 1-2 times daily. Encouraging high protein diet of 100 grams protein or more daily. Follow up with PCP as well as needed for further education and to continue diabetic management. - Patient Instructions Diet: Diabetic Diet Activity: As Tolerated Driving: Do Not Drive Showering/Bathing: May Shower Wound/Incision Care: Keep Operative Site/Wound Site Clean and Dry Notify Provider of: Fever, Increased Pain, Nausea and/or Vomiting - Discharge Plan *PRESCRIPTION DRUG MONITORING PROGRAM REVIEWED*: No *COPY OF PRESCRIPTION DRUG MONITORING REPORT IN PATIENT SHAYLEE: No Prescriptions/Med Rec: Acetaminophen [Tylenol] 650 mg PO Q6H PRN #120 tablet PRN Reason: Pain/Fever Acetaminophen/HYDROcodone [[place] 325-5 MG] 1 tab PO Q4H PRN #30 tablet PRN Reason: Pain (Moderate 4-6) Aspirin 81 mg PO BEDTIME #30 tab.chew Bisacodyl [Dulcolax] 5 mg PO DAILY PRN #14 tablet PRN Reason: Constipation Docusate Sodium [Colace] 100 mg PO BID #20 cap glipiZIDE [Glucotrol XL] 5 mg PO BIDMEALS #30 tab.er Insulin Glarg,Human.Rec.Analog [Lantus Solostar] 10 units SUBCUT BIDAC #14 pen Insulin Lispro [Humalog] 0 unit SUBCUT QIDACANDBED #30 pen Lisinopril [Prinivil] 20 mg PO DAILY #30 tablet metFORMIN [Glucophage] 1,000 mg PO BIDMEALS #60 tablet Polyethylene Glycol 3350 [MiraLAX] 17 gm PO DAILY PRN #30 packet PRN Reason: Constipation Saccharomyces Boulardii [Florastor] 250 mg PO DAILY #30 cap Home Medications: Home Meds Acetaminophen [Tylenol] 650 mg PO Q6H PRN #120 tablet 05/03/18 [Rx] Acetaminophen/HYDROcodone [[place] 325-5 MG] 1 tab PO Q4H PRN #30 tablet 05/03/18 [Rx] Aspirin 81 mg PO BEDTIME #30 tab.chew 05/03/18 [Rx] Bisacodyl [Dulcolax] 5 mg PO DAILY PRN #14 tablet 05/03/18 [Rx] Docusate Sodium [Colace] 100 mg PO BID #20 cap 05/03/18 [Rx] Enoxaparin [Lovenox] 40 mg SUBCUT DAILY syringe 05/03/18 [Rx] Insulin Glarg,Human.Rec.Analog [Lantus Solostar] 10 units SUBCUT BIDAC #14 pen 05/03/18 [Rx] Insulin Lispro [Humalog] 0 unit SUBCUT QIDACANDBED #30 pen 05/03/18 [Rx] Lisinopril [Prinivil] 20 mg PO DAILY #30 tablet 05/03/18 [Rx] Piperacillin/Tazobactam [Zosyn] 4.5 gm IV Q8H vial 05/03/18 [Rx] Polyethylene Glycol 3350 [MiraLAX] 17 gm PO DAILY PRN #30 packet 05/03/18 [Rx] Saccharomyces Boulardii [Florastor] 250 mg PO DAILY #30 cap 05/03/18 [Rx] Vancomycin 1 gm IV Q12H #0 sdv 05/03/18 [Rx] Vancomycin 500 mg IV Q12H #0 sdv 05/03/18 [Rx] Vancomycin Pharmacy to Dose [Pharmacy to Dose - Vancomycin] 0 dose .XX ASDIRECTED PRN each 05/03/18 [Rx] glipiZIDE [Glucotrol XL] 5 mg PO BIDMEALS #30 tab.er 05/03/18 [Rx] metFORMIN [Glucophage] 1,000 mg PO BIDMEALS #60 tablet 05/03/18 [Rx] Patient Handouts: Insulin Treatment for Diabetes, Type 2 Diabetes Mellitus, Self Care, Adult, Yecs-ic-Brek, How to Avoid Diabetes Mellitus Problems, Blood Glucose Monitoring, Adult Referrals: Jeni Chapin [Other] (Bring your glucometer and medication list to your family living educator appointment. This appointment must be scheduled.) Montana Choudhary Jr, MD [Primary Care Provider] - Amador Joyner MD [Physician] - - Discharge Summary/Plan Comment DC Time >30 min.: Yes (45) - Patient Data Vitals - Most Recent: Last Vital Signs Temp 98.2 F 05/03/18 10:28 Pulse 98 05/03/18 10:28 Resp 22 H 05/03/18 10:28 BP 137/83 05/03/18 10:28 Pulse Ox 91 L 05/03/18 10:28 Weight - Most Recent: 179 lb 11.2 oz I&O - Last 24 hours: Intake & Output 05/03/18 05/03/18 05/03/18 06:59 14:59 22:59 Intake Total 3313 380 240 Output Total 1750 Balance 1563 380 240 Lab Results - Last 24 hrs: Laboratory Results - last 24 hr 05/02/18 05/02/18 05/03/18 Range/Units 16:29 21:39 06:52 WBC (4.23-9.07) K/mm3 RBC (4.63-6.08) M/mm3 Hgb (13.7-17.5) gm/L Hct (40.1-51.0) % MCV (79.0-92.2) fl MCH (25.7-32.2) pg MCHC (32.2-35.5) g/dl RDW Std Deviation (35.1-43.9) fL Plt Count (163-337) K/mm3 MPV (9.4-12.3) fl Neut % (Auto) (34.0-67.9) % Lymph % (Auto) (21.8-53.1) % [place] % (Auto) (5.3-12.2) % Eos % (Auto) (0.8-7.0) Baso % (Auto) (0.1-1.2) % Neut # (Auto) (1.78-5.38) K/mm3 Lymph # (Auto) (1.32-3.57) K/mm3 [place] # (Auto) (0.30-0.82) K/mm3 Eos # (Auto) (0.04-0.54) K/mm3 Baso # (Auto) (0.01-0.08) K/mm3 Manual Slide Review Sodium (136-145) mEq/L Potassium (3.5-5.1) mEq/L Chloride (98-107) mEq/L Carbon Dioxide (21-32) mEq/L Anion Gap (5-15) BUN (7-18) mg/dL Creatinine (0.7-1.3) mg/dL Est Cr Clr Drug Dosing mL/min Estimated GFR (MDRD) (>60) mL/min BUN/Creatinine Ratio (14-18) Glucose (74-106) mg/dL POC Glucose 235 H 214 H 93 (70-105) mg/dL Calcium (8.5-10.1) mg/dL Magnesium (1.8-2.4) mg/dl Total Bilirubin (0.2-1.0) mg/dL AST (15-37) U/L ALT (16-63) U/L Alkaline Phosphatase (46-116) U/L C-Reactive Protein (<1.0) mg/dL Total Protein (6.4-8.2) g/dl Albumin (3.4-5.0) g/dl Globulin gm/dL Albumin/Globulin Ratio (1-2) Vancomycin Trough (10.0-20.0) 05/03/18 05/03/18 05/03/18 Range/Units 08:30 10:20 10:20 WBC 16.27 H (4.23-9.07) K/mm3 RBC 3.81 L (4.63-6.08) M/mm3 Hgb 10.4 L (13.7-17.5) gm/L Hct 32.2 L (40.1-51.0) % MCV 84.5 (79.0-92.2) fl MCH 27.3 (25.7-32.2) pg MCHC 32.3 (32.2-35.5) g/dl RDW Std Deviation 42.8 (35.1-43.9) fL Plt Count 398 H (163-337) K/mm3 MPV 8.5 L (9.4-12.3) fl Neut % (Auto) 86.5 H (34.0-67.9) % Lymph % (Auto) 6.1 L (21.8-53.1) % [place] % (Auto) 6.0 (5.3-12.2) % Eos % (Auto) 1.0 (0.8-7.0) Baso % (Auto) 0.1 (0.1-1.2) % Neut # (Auto) 14.05 H (1.78-5.38) K/mm3 Lymph # (Auto) 1.00 L (1.32-3.57) K/mm3 [place] # (Auto) 0.98 H (0.30-0.82) K/mm3 Eos # (Auto) 0.17 (0.04-0.54) K/mm3 Baso # (Auto) 0.02 (0.01-0.08) K/mm3 Manual Slide Review Abnormal smear Sodium 142 (136-145) mEq/L Potassium 3.4 L (3.5-5.1) mEq/L Chloride 107 (98-107) mEq/L Carbon Dioxide 23 (21-32) mEq/L Anion Gap 15.4 H (5-15) BUN 13 (7-18) mg/dL Creatinine 1.5 H (0.7-1.3) mg/dL Est Cr Clr Drug Dosing 57.59 mL/min Estimated GFR (MDRD) 51 (>60) mL/min BUN/Creatinine Ratio 8.7 L (14-18) Glucose 150 H (74-106) mg/dL POC Glucose (70-105) mg/dL Calcium 8.2 L (8.5-10.1) mg/dL Magnesium 1.9 (1.8-2.4) mg/dl Total Bilirubin 0.5 (0.2-1.0) mg/dL AST 31 (15-37) U/L ALT 35 (16-63) U/L Alkaline Phosphatase 96 (46-116) U/L C-Reactive Protein 13.1 H* (<1.0) mg/dL Total Protein 6.3 L (6.4-8.2) g/dl Albumin 1.6 L (3.4-5.0) g/dl Globulin 4.7 gm/dL Albumin/Globulin Ratio 0.3 L (1-2) Vancomycin Trough 29.8 H (10.0-20.0) 05/03/18 05/03/18 Range/Units 12:30 16:28 WBC (4.23-9.07) K/mm3 RBC (4.63-6.08) M/mm3 Hgb (13.7-17.5) gm/L Hct (40.1-51.0) % MCV (79.0-92.2) fl MCH (25.7-32.2) pg MCHC (32.2-35.5) g/dl RDW Std Deviation (35.1-43.9) fL Plt Count (163-337) K/mm3 MPV (9.4-12.3) fl Neut % (Auto) (34.0-67.9) % Lymph % (Auto) (21.8-53.1) % [place] % (Auto) (5.3-12.2) % Eos % (Auto) (0.8-7.0) Baso % (Auto) (0.1-1.2) % Neut # (Auto) (1.78-5.38) K/mm3 Lymph # (Auto) (1.32-3.57) K/mm3 [place] # (Auto) (0.30-0.82) K/mm3 Eos # (Auto) (0.04-0.54) K/mm3 Baso # (Auto) (0.01-0.08) K/mm3 Manual Slide Review Sodium (136-145) mEq/L Potassium (3.5-5.1) mEq/L Chloride (98-107) mEq/L Carbon Dioxide (21-32) mEq/L Anion Gap (5-15) BUN (7-18) mg/dL Creatinine (0.7-1.3) mg/dL Est Cr Clr Drug Dosing mL/min Estimated GFR (MDRD) (>60) mL/min BUN/Creatinine Ratio (14-18) Glucose (74-106) mg/dL POC Glucose 134 H 100 (70-105) mg/dL Calcium (8.5-10.1) mg/dL Magnesium (1.8-2.4) mg/dl Total Bilirubin (0.2-1.0) mg/dL AST (15-37) U/L ALT (16-63) U/L Alkaline Phosphatase (46-116) U/L C-Reactive Protein (<1.0) mg/dL Total Protein (6.4-8.2) g/dl Albumin (3.4-5.0) g/dl Globulin gm/dL Albumin/Globulin Ratio (1-2) Vancomycin Trough (10.0-20.0) [facility] Results - Last 24 hrs: Microbiology 04/25/18 15:55 Aerobic Blood Culture - Final Blood - Venous NO GROWTH AFTER 7 DAYS Anaerobic Blood Culture - Final NO GROWTH AFTER 7 DAYS 04/25/18 15:50 Aerobic Blood Culture - Final Blood - Venous - Lab Draw NO GROWTH AFTER 7 DAYS Anaerobic Blood Culture - Final NO GROWTH AFTER 7 DAYS Med Orders - Current: Current Medications Acetaminophen (Tylenol) 650 mg PO Q4H PRN PRN Reason: Pain (Mild 1-3)/fever Hydrocodone Bitart/Acetaminophen ([place] 325-5 Mg) 1 tab PO Q4H PRN PRN Reason: Pain (moderate 4-6) Last Admin: 05/03/18 12:38 Dose: 1 tab Albuterol/Ipratropium (Duoneb 3.0-0.5 Mg/3 Ml) 3 ml NEB Q4H PRN PRN Reason: Shortness Of Breath/wheezing Aspirin (Aspirin) 81 mg PO BEDTIME [facility] Last Admin: 05/02/18 20:25 Dose: 81 mg Bisacodyl (Dulcolax) 5 mg PO DAILY PRN PRN Reason: Constipation Docusate Sodium (Colace) 100 mg PO BID PRN PRN Reason: Constipation Enoxaparin Sodium (Lovenox) 40 mg SUBCUT DAILY [facility] Last Admin: 05/03/18 10:24 Dose: 40 mg Glipizide (Glucotrol Xl) 5 mg PO BIDMEALS [facility] Last Admin: 05/03/18 16:20 Dose: 5 mg Hydromorphone HCl (Dilaudid) 0.5 mg IVPUSH Q4H PRN PRN Reason: Pain (severe 7-10) Last Admin: 05/02/18 20:39 Dose: 0.5 mg Promethazine HCl 12.5 mg/ (Sodium Chloride) 50.5 mls @ 100 mls/hr IV Q6H PRN PRN Reason: Nausea/Vomiting Piperacillin Sod/Tazobactam (Sod 4.5 gm/ Sodium Chloride) 100 mls @ 25 mls/hr IV Q8H [facility] Last Admin: 05/03/18 10:23 Dose: 25 mls/hr Sodium Chloride (Normal Saline) 1,000 mls @ 15 mls/hr IV ASDIRECTED [facility] Last Admin: 05/02/18 20:44 Dose: 15 mls/hr Vancomycin HCl 1 gm/Vancomycin HCl 500 mg/ Sodium Chloride 500 mls @ 333.333 mls/hr IV Q12H [facility] Last Admin: 05/03/18 16:22 Dose: 333.333 mls/hr Insulin Glargine (Lantus Solostar) 10 units SUBCUT BIDAC [facility] Last Admin: 05/03/18 16:28 Dose: 10 units Insulin Human Lispro (Humalog) 0 unit SUBCUT QIDACANDBED [facility]; Protocol Last Admin: 05/03/18 17:17 Dose: Not Given Lisinopril (Prinivil) 20 mg PO DAILY [facility] Last Admin: 05/03/18 08:32 Dose: 20 mg Lorazepam (Ativan) 1 mg IV Q6H PRN PRN Reason: Nausea/Vomiting Last Admin: 05/02/18 20:25 Dose: 1 mg Metformin HCl (Glucophage) 1,000 mg PO BIDMEALS [facility] Last Admin: 05/03/18 16:19 Dose: 1,000 mg Ondansetron HCl (Zofran) 4 mg IV Q6H PRN PRN Reason: Nausea/Vomiting Last Admin: 05/03/18 17:13 Dose: 4 mg Polyethylene Glycol (Miralax) 17 gm PO DAILY PRN PRN Reason: Constipation Saccharomyces Boulardii (Florastor) 250 mg PO DAILY [facility] Last Admin: 05/03/18 08:33 Dose: 250 mg Scopolamine (Transderm-Scop) 1.5 mg TRDERM Q72H PRN PRN Reason: Nausea/Vomiting Last Admin: 04/30/18 12:41 Dose: 1.5 mg Senna/Docusate Sodium (Senna Plus) 1 tab PO BID PRN PRN Reason: Constipation Sodium Chloride (Saline Flush) 10 ml FLUSH ASDIRECTED [facility] Last Admin: 04/27/18 13:45 Dose: 10 ml Temazepam (Restoril) 15 mg PO BEDTIME PRN PRN Reason: Sleep Vancomycin HCl (Pharmacy To Dose - Vancomycin) 0 dose .XX ASDIRECTED PRN PRN Reason: RX TO DOSE VANCO Discontinued Medications Bupivacaine HCl (Marcaine 0.5%) Confirm Administered Dose 30 ml .ROUTE .STK-MED ONE Stop: 04/25/18 18:23 Last Admin: 04/25/18 19:53 Dose: 1.5 ml Clindamycin Phosphate (Cleocin) Confirm Administered Dose 900 mg .ROUTE .STK- MED ONE Stop: 04/25/18 19:11 Fentanyl (Sublimaze) Confirm Administered Dose 250 mcg .ROUTE .STK-MED ONE Stop: 04/25/18 18:38 Fentanyl (Sublimaze) 50 mcg IVPUSH Q5M PRN PRN Reason: Pain Fentanyl (Sublimaze) Confirm Administered Dose 100 mcg .ROUTE .STK-MED ONE Stop: 04/26/18 09:03 Fentanyl (Sublimaze) Confirm Administered Dose 100 mcg .ROUTE .STK-MED ONE Stop: 04/26/18 10:07 Fentanyl (Sublimaze) 50 mcg IVPUSH Q5M PRN PRN Reason: pain Stop: 04/26/18 18:00 Fentanyl (Sublimaze) Confirm Administered Dose 250 mcg .ROUTE .STK-MED ONE Stop: 05/02/18 10:10 Fentanyl (Sublimaze) 50 mcg IVPUSH Q5M PRN PRN Reason: pain Stop: 05/02/18 16:00 Gadobenate Dimeglumine (Multihance) 16 ml IVPUSH ONETIME ONE Stop: 04/27/18 13:03 Last Admin: 04/27/18 13:42 Dose: Not Given Hydromorphone HCl (Dilaudid) 0.5 mg IVPUSH ONETIME ONE Stop: 04/25/18 15:30 Last Admin: 04/25/18 16:01 Dose: 0.5 mg Hydromorphone HCl (Dilaudid) Confirm Administered Dose 1 mg .ROUTE .STK-MED ONE Stop: 04/25/18 19:03 Hydromorphone HCl (Dilaudid) 0.5 mg IVPUSH ONETIME PRN PRN Reason: Pain (severe 7-10) Hydromorphone HCl (Dilaudid) 0.5 mg IVPUSH ONETIME PRN PRN Reason: Pain (severe 7-10) Stop: 04/26/18 18:00 Sodium Chloride (Normal Saline) 1,000 mls @ 999 mls/hr IV ONETIME ONE Stop: 04/25/18 16:28 Last Admin: 04/25/18 15:59 Dose: 999 mls/hr Vancomycin HCl 1 gm/ Sodium (Chloride) 250 mls @ 250 mls/hr IV ONETIME ONE Stop: 04/25/18 16:36 Last Admin: 04/25/18 16:10 Dose: 250 mls/hr Vancomycin HCl 1 gm/ Sodium (Chloride) 250 mls @ 250 mls/hr IV ONETIME ONE Stop: 04/25/18 16:37 Last Admin: 04/25/18 17:09 Dose: 250 mls/hr Sodium Chloride (Normal Saline) 1,000 mls @ 999 mls/hr IV ONETIME ONE Stop: 04/25/18 17:57 Last Admin: 04/25/18 17:09 Dose: 999 mls/hr Piperacillin Sod/Tazobactam (Sod 4.5 gm/ Sodium Chloride) 100 mls @ 200 mls/hr IV ONETIME ONE Stop: 04/25/18 18:24 Last Admin: 04/25/18 18:18 Dose: 200 mls/hr Vancomycin HCl 1 gm/ Sodium (Chloride) 250 mls @ 250 mls/hr IV Q8H [facility] Last Admin: 04/26/18 19:53 Dose: Not Given Piperacillin Sod/Tazobactam (Sod 4.5 gm/ Sodium Chloride) 100 mls @ 25 mls/hr IV Q8H [facility] Last Admin: 05/02/18 09:32 Dose: Not Given Lidocaine HCl (Xylocaine-Mpf 1%) Confirm Administered Dose 4 mls @ as directed .ROUTE .STK-MED ONE Stop: 04/25/18 18:38 Clindamycin Phosphate 900 mg/ (Sodium Chloride) 106 mls @ 100 mls/hr IV Q8H [facility] Last Admin: 04/28/18 10:33 Dose: 100 mls/hr Sodium Chloride (Normal Saline) Confirm Administered Dose 100 mls @ as directed .ROUTE .STK-MED ONE Stop: 04/25/18 19:11 Lactated Ringer's (Ringers, Lactated) Confirm Administered Dose 1,000 mls @ as directed .ROUTE .[facility]-MED ONE Stop: 04/26/18 10:10 Vancomycin HCl 1 gm/Vancomycin HCl 250 mg/ Sodium Chloride 250 mls @ 250 mls/ hr IV Q8H [facility] Last Admin: 04/28/18 08:42 Dose: 250 mls/hr Sodium Chloride (Normal Saline) 1,000 mls @ 125 mls/hr IV ASDIRECTED [facility] Last Admin: 04/29/18 06:35 Dose: 125 mls/hr Magnesium Sulfate 4 gm/ Premix 100 mls @ 25 mls/hr IV ONETIME ONE Stop: 04/28/18 13:59 Last Admin: 04/28/18 10:13 Dose: 25 mls/hr Vancomycin HCl 1.5 gm/ Sodium (Chloride) 500 mls @ 250 mls/hr IV Q8H [facility] Last Admin: 04/29/18 08:28 Dose: 250 mls/hr Vancomycin HCl 1 gm/Vancomycin HCl 250 mg/ Sodium Chloride 250 mls @ 250 mls/ hr IV Q8H [facility] Last Admin: 05/02/18 05:02 Dose: 250 mls/hr Vancomycin HCl 1 gm/Vancomycin HCl 250 mg/ Sodium Chloride 250 mls @ 250 mls/ hr IV Q8H [facility] Last Admin: 05/02/18 09:31 Dose: Not Given Vancomycin HCl 1 gm/Vancomycin HCl 250 mg/ Sodium Chloride 250 mls @ 250 mls/ hr IV Q8H [facility] Last Admin: 05/03/18 10:43 Dose: Not Given Lactated Ringer's (Ringers, Lactated) 1,000 mls @ 999 mls/hr IV .BOLUS ONE Stop: 05/02/18 18:39 Last Admin: 05/02/18 18:22 Dose: 999 mls/hr Insulin Glargine (Lantus Solostar) 5 units SUBCUT BIDAC [facility] Last Admin: 05/01/18 06:17 Dose: 5 units Ketamine HCl (Ketalar) Confirm Administered Dose 500 mg .ROUTE .STK-MED ONE Stop: 04/25/18 19:11 Ketamine HCl (Ketalar) Confirm Administered Dose 500 mg .ROUTE .STK-MED ONE Stop: 04/26/18 10:07 Lidocaine HCl (Xylocaine-Mpf 1%) Confirm Administered Dose 30 ml .ROUTE .STK- MED ONE Stop: 05/02/18 10:27 Last Admin: 05/02/18 12:39 Dose: 6 ml Lidocaine/Epinephrine (Xylocaine 1% With Epinephrine 1:100,000) Confirm Administered Dose 20 ml .ROUTE .STK-MED ONE Stop: 04/25/18 18:23 Last Admin: 04/25/18 19:53 Dose: 1.5 ml Lisinopril (Prinivil) 10 mg PO DAILY [facility] Last Admin: 04/29/18 08:37 Dose: 10 mg Magnesium Sulfate (Pharmacy To Dose - Magnesium Replacement) 0 dose .XX ASDIRECTED PRN PRN Reason: RX TO WATCH MAG LEVELS Metformin HCl (Glucophage) 500 mg PO BIDMEALS [facility] [place] Last Admin: 04/29/18 07:06 Dose: 500 mg Metformin HCl (Glucophage) 500 mg PO ONETIME ONE Stop: 04/25/18 23:01 Last Admin: 04/25/18 23:10 Dose: 500 mg Midazolam HCl (Versed 1 Mg/Ml) Confirm Administered Dose 2 mg .ROUTE .STK-MED ONE Stop: 04/25/18 18:38 Midazolam HCl (Versed 1 Mg/Ml) Confirm Administered Dose 2 mg .ROUTE .STK-MED ONE Stop: 04/26/18 09:03 Midazolam HCl (Versed 1 Mg/Ml) Confirm Administered Dose 2 mg .ROUTE .STK-MED ONE Stop: 05/02/18 10:10 Ondansetron HCl (Zofran) 4 mg IVPUSH ONETIME ONE Stop: 04/25/18 15:30 Last Admin: 04/25/18 16:03 Dose: 4 mg Ondansetron HCl (Zofran) Confirm Administered Dose 4 mg .ROUTE .STK-MED ONE Stop: 04/25/18 18:38 Ondansetron HCl (Zofran) 4 mg IVPUSH ONETIME PRN PRN Reason: Nausea/Vomiting Ondansetron HCl (Zofran) Confirm Administered Dose 4 mg .ROUTE .STK-MED ONE Stop: 04/26/18 10:10 Ondansetron HCl (Zofran) Confirm Administered Dose 4 mg .ROUTE .STK-MED ONE Stop: 05/02/18 10:10 Potassium Chloride (Pharmacy To Dose - Potassium Replacement) 0 dose .XX ASDIRECTED PRN PRN Reason: RX TO WATCH K LEVELS Potassium Chloride (Klor-Con M20) 40 meq PO ONETIME ONE Stop: 04/27/18 09:01 Last Admin: 04/27/18 10:08 Dose: 40 meq Potassium Chloride (Klor-Con M20) 40 meq PO Q4H [facility] Stop: 04/29/18 19:01 Last Admin: 04/29/18 18:07 Dose: 40 meq Potassium Chloride (Klor-Con M20) 40 meq PO Q4H [facility] [place] Stop: 05/01/18 16:01 Last Admin: 05/01/18 15:51 Dose: 40 meq Propofol (Diprivan 20 Ml) Confirm Administered Dose 200 mg .ROUTE .STK-MED ONE Stop: 04/25/18 18:38 Propofol (Diprivan 20 Ml) Confirm Administered Dose 400 mg .ROUTE .STK-MED ONE Stop: 04/26/18 09:03 Propofol (Diprivan 20 Ml) Confirm Administered Dose 200 mg .ROUTE .STK-MED ONE Stop: 04/26/18 10:38 Propofol (Diprivan 20 Ml) Confirm Administered Dose 400 mg .ROUTE .STK-MED ONE Stop: 05/02/18 10:10 Sodium Chloride (Saline Flush) 10 ml FLUSH ASDIRECTED PRN PRN Reason: Keep Vein Open Last Admin: 04/25/18 16:00 Dose: 10 ml Succinylcholine Chloride (Succinylcholine In Ns Pf) Confirm Administered Dose 100 mg .ROUTE .STK-MED ONE Stop: 04/25/18 18:38 Vancomycin HCl (Vancomycin) 1,190.685 mg 15 mg/kg (1190.685 mg) IV Q12H [facility] Last Admin: 04/25/18 18:15 Dose: Not Given
--- NOTE | 2018-05-03 21:44 | PCM.OPNOTE ---
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
--- NOTE | 2018-05-03 22:47 | OR ---
DATE OF OPERATION: 05/02/2018 SURGEON: Amador Joyner MD OPERATION PERFORMED: Amputation of right 4th toe and metatarsal head with wound VAC placement. PREOPERATIVE DIAGNOSIS: Right foot 4th toe dry gangrene with diabetic foot ulcer. POSTOPERATIVE DIAGNOSIS: Right foot 4th toe dry gangrene with diabetic foot ulcer. ANESTHESIA: Local MAC ANESTHESIA PROVIDER: Jeni Bunyd. SUPERVISOR METALIZING: Cheri Johnson PA-C. ESTIMATED BLOOD LOSS: 10 mL. COMPLICATIONS: None. CONDITION: Stable. DESCRIPTION OF PROCEDURE: The patient was identified in the preop holding area. Proper site was marked and identified by the surgeon. The patient was taken back to the operating theater, where after adequate anesthesia the patient's right lower extremity was sterilely prepped and draped in the usual sterile fashion. OR time-out was performed. The patient was on IV antibiotics before the procedure. At this time, I did look at the dry gangrene, there was complete necrosis of the right 4th toe. At this time, from the previous debridement by the general surgeon there was devitalized tissue on all sides around the 4th toe that tracked deep almost to the metatarsal head. At this point, I did do a racquet incision to excise the 4th toe and took it back to the MTP joint. At this time, it was noted that we would not be able to even get any closure at all if we kept the metatarsal head, so I did resect the metatarsal head. All bony prominences were rongeured back. At this time, I did debride roughly 4 cm x 3 cm of subcutaneous tissues as well as nonviable tissues to get back to a good bleeding base. At this time, 3 L of normal saline with cysto tubing irrigated through the wound, using a curette to remove any other devitalized tissue. Once this was completed, 2-0 nylon sutures were used for closure on the plantar aspect as well as most proximally, but there was noted to be a 2 cm x 2.5 cm gap that was roughly 1.5 cm deep, that was unable to be closed secondary to no tissue for closure at that time. All the other remaining toes appeared to be vascularly intact with no compromise. At this time, it was decided that wound VAC be placed. Physical Therapy did place the wound VAC under sterile technique at this time. The patient was sent to PACU in stable condition. MMODAL /[id number]
== END 2018-05-03 18:30 | DRG 305 ==
LOC: JD.ED 14:41 → JD.MS 16:57
PROVIDERS: ADMIT Internal Medicine; ATTEND Internal Medicine
PROC: 0JBQ0ZZ Excision of Right Foot Subcutaneous Tissue and Fascia, Open Approach (ICD-10-PCS; 2018-04-25)
PROC: 0JDQ0ZZ Extraction of Right Foot Subcutaneous Tissue and Fascia, Open Approach (ICD-10-PCS; 2018-04-26)
PROC: 02HV33Z Insertion of Infusion Device into Superior Vena Cava, Percutaneous Approach (ICD-10-PCS; 2018-04-28)
PROC: B548ZZA Ultrasonography of Superior Vena Cava, Guidance (ICD-10-PCS; 2018-04-28)
PROC: 0Y6M0ZD Detachment at Right Foot, Partial 4th Ray, Open Approach (ICD-10-PCS; principal; 2018-05-02)
DX: E11.52 Type 2 diabetes mellitus with diabetic peripheral angiopathy with gangrene (principal); E11.69 Type 2 diabetes mellitus with other specified complication; E87.1 Hypo-osmolality and hyponatremia; E11.65 Type 2 diabetes mellitus with hyperglycemia; E11.621 Type 2 diabetes mellitus with foot ulcer; M86.9 Osteomyelitis, unspecified; I96 Gangrene, not elsewhere classified; L97.519 Non-pressure chronic ulcer of other part of right foot with unspecified severity; L03.115 Cellulitis of right lower limb; B95.61 Methicillin susceptible Staphylococcus aureus infection as the cause of diseases classified elsewhere; D64.89 Other specified anemias; R19.7 Diarrhea, unspecified; E87.6 Hypokalemia; F32.9 Major depressive disorder, single episode, unspecified; L02.611 Cutaneous abscess of right foot; B95.1 Streptococcus, group B, as the cause of diseases classified elsewhere
CPT/HCPCS: 00400; 36415; 36569; 73630-26-RT; 73630-RT; 73720-26-RT; 73720-RT; 80048; 80053; 80061; 80202; 81001; 82044; 82962; 83036; 83605; 83735; 84439; 84443; 85007; 85025; 85027; 86140; 87040; 87070; 87075; 87076; 87077; 87181; 87186; 87205; 87493; 93005; 94761; 96365; 96366; 96375; 97116-GP; 97161-GP; 97165-GO; 97605-GP; 99284; 99285-25; A9270-GY; C1751; J0330; J1170; J1650; J1815-GY; J2001; J2060; J2250; J2405; J2543; J2704; J3010; J3370; J3475; J3490; J7030; J7040; J7050; J7120

== ENCOUNTER 2023-02-08 11:31 | Emergency (ER) | payer MEDICAID, OTHER ==
[2023-02-08] MEDS ORDERED: Sodium Chloride 0.9% 10 ML Syringe FLUSH PRN (11:54)
[2023-02-08 12:35] LABS: BASOPHILS ABSOLUTE AUTO 0.02 K/mm3 (0.01-0.08); BASOPHILS PERCENT AUTO 0.2 % (0.1-1.2); EOSINOPHILS ABSOLUTE AUTO 0.06 K/mm3 (0.04-0.54); EOSINOPHILS PERCENT AUTO 0.7 (0.8-7.0); HEMATOCRIT 42.7 % (40.1-51.0); IMMATURE GRAN ABSOLUTE AUTO 0.02 K/mm3 (0.00-0.10); IMMATURE GRAN PERCENT AUTO 0.2 % (<=1.0); LYMPHOCYTES ABSOLUTE AUTO 1.04 K/mm3 (1.32-3.57); LYMPHOCYTES PERCENT AUTO 12.7 % (21.8-53.1); MEAN CORPUSCULAR HEMOGLOBIN 28.8 pg (25.7-32.2); MEAN CORPUSCULAR HGB CONC 33.5 g/dl (32.2-35.5); MEAN CORPUSCULAR VOLUME 86.1 fl (79.0-92.2); MEAN PLATELET VOLUME 9.3 fl (9.4-12.3); MONOCYTES ABSOLUTE AUTO 0.47 K/mm3 (0.30-0.82); MONOCYTES PERCENT AUTO 5.8 % (5.3-12.2); NEUTROPHILS ABSOLUTE AUTO 6.56 K/mm3 (1.78-5.38); NEUTROPHILS PERCENT AUTO 80.4 % (34.0-67.9); RED BLOOD CELL COUNT 4.96 M/mm3 (4.63-6.08); WHITE BLOOD CELL COUNT,WBC 8.17 K/mm3 (4.23-9.07)
[2023-02-08 12:40] LABS: HEMOGLOBIN 14.3 gm/dl (13.7-17.5); PLATELET COUNT,PLT 244 K/mm3 (163-337)
[2023-02-08 12:54] LABS: A/G RATIO 0.8 (1-2); ALBUMIN 3.3 g/dl (3.4-5.0); ANION GAP 14.7 (5-15); BILIRUBIN TOTAL 0.5 mg/dL (0.2-1.0); BUN/CREATININE RATIO 14.2 (14-18); C-REACTIVE PROTEIN 4.8 mg/dL (<1.0); CALCIUM 9.1 mg/dL (8.5-10.1); CREATININE 1.2 mg/dL (0.7-1.3); EST CRCL DRUG DOSING (CG) 67.94 mL/min; POTASSIUM,K 4.7 mEq/L (3.5-5.1); PROTEIN TOTAL,TP 7.3 g/dl (6.4-8.2)
[2023-02-08] MEDS ORDERED: cefTRIAXone 1 GM in Sodium Chloride 0.9% 100 ML IV ONE (14:42)
== END 2023-02-08 15:45 | disposition home or self-care (01) ==
LOC: JD.ED 11:31
DX: M86.8X7 Other osteomyelitis, ankle and foot (principal); I10 Essential (primary) hypertension; E11.9 Type 2 diabetes mellitus without complications; Z79.84 Long term (current) use of oral hypoglycemic drugs
CPT/HCPCS: 36415; 73700; 80053; 85025; 86140; 96365; 99284; J0696; J3490; 99283

== ENCOUNTER 2025-03-21 09:17 | Emergency (ER) | payer MEDICAID, OTHER ==
[2025-03-21] MEDS ORDERED: Sodium Chloride 0.9% 10 ML Syringe FLUSH PRN (09:41)
[2025-03-21 10:23] LABS: MEAN PLATELET VOLUME 8.7 fl (9.4-12.4); NRBC ABSOLUTE 0.00 (0.00-0.02); NRBC PERCENT 0.0 % (0.0-0.2); PLATELET COUNT,PLT 274 K/mm3 (150-400); RED BLOOD CELL COUNT 5.20 M/mm3 (4.52-5.90); WHITE BLOOD CELL COUNT,WBC 8.39 K/mm3 (3.9-11.3)
[2025-03-21 10:41] LABS: INR 1.08
[2025-03-21 10:44] LABS: A/G RATIO 0.8 (1-2); ALANINE AMINOTRANSFERASE,ALT 15.0 U/L (16-63); ASPARTATE AMNIOTRANSFERASE,AST 16.0 U/L (15-37); BILIRUBIN TOTAL 0.6 mg/dL (0.2-1.0); BLOOD UREA NITROGEN,BUN 18.0 mg/dL (7-18); CARBON DIOXIDE,CO2 26.0 mEq/L (21-32); CHLORIDE,CL 102.0 mEq/L (98-107); CREATININE 1.0 mg/dL (0.7-1.3); EST CRCL DRUG DOSING (CG) 79.75 mL/min; ESTIMATED GFR 92.0 mL/min (>60); GLUCOSE RANDOM 137.0 mg/dL (70-99); POTASSIUM,K 4.3 mEq/L (3.5-5.1); PROTEIN TOTAL,TP 7.9 g/dl (6.4-8.2); SODIUM,NA 140.0 mEq/L (136-145)
[2025-03-21 10:49] LABS: LACTIC ACID 0.7 mmol/L (0.4-2.0)
[2025-03-21] MEDS: VANCOmycin 1.75 GM/350 ML 1.75 GM in Premix Bag 1 BAG IV ONE (11:01)
[2025-03-21 11:28] LABS: BAND PERCENT MAN 0 % (0-10); BASOPHILS PERCENT MAN 0 (0.2-1.2); EOSINOPHILS PERCENT MAN 2 % (0.8-7.0); LYMPHOCYTES % ATYPICAL MANUAL 0 %; LYMPHOCYTES PERCENT MAN 17 % (20-40); MONOCYTES PERCENT MAN 7 % (2-10); PLATELET COUNT ESTIMATE ADEQUATE
== END 2025-03-21 14:19 ==
LOC: JD.ED 09:17
DX: M86.9 Osteomyelitis, unspecified (principal); E11.22 Type 2 diabetes mellitus with diabetic chronic kidney disease; I10 Essential (primary) hypertension; Z79.84 Long term (current) use of oral hypoglycemic drugs; Z79.899 Other long term (current) drug therapy
CPT/HCPCS: 36415; 73630; 80053; 83036; 83605; 85007; 85027; 85610; 85652; 86140; 87040; 96361; 96365; 96366; 96375; 99284; J0696; J3375; J7030; 99285